=== PATIENT | female | born 1935 | race Caucasian/White ===

== ENCOUNTER 2016-07-10 14:41 | Inpatient (IN) | payer MEDICARE, OTHER ==
[~2016-07-10] VITALS: Ht 170.2 cm; Wt 75.8 kg
[2016-07-10] VITALS (7 sets, daily range): BP systolic 95–107; BP diastolic 38–63; PULSE 65–75; RESP 16–21; O2SAT 96–100
[~2016-07-10 14:41] MED LIST: CHOL10008 PO; DIGO125T73 PO; FOLI1TAB18 PO; FURO40TA4 PO; HYDR-4003 PO; LACT10SO60 PO; LEVO112T3 PO; METF500T4 PO; METH2.5T PO; MIRT30TA6 PO; OMEP40CA36 PO; OXYB5TAB10 PO; PRAV40TA PO; SPIR100T3 PO; TOP100 PO; VENL150T3 PO; VENL75TA87 PO; Vitamin B 12; WARF5TAB7 PO
--- NOTE | 2016-07-10 15:21 | ED.REPORT ---
HPI-General Illness Date of Service Jul 10, 2016 ED Provider: Mark Ray MD Pt is a 80 y/o female w/ a hx of RA, CHF, recurrent UTI's, diabetes, GERD, hyperlipidemia, HTN, presenting to the ED with family due to decreased mental status. Family has noticed a decrease in cognitive ability within the past 2 days along with a productive cough. These symptoms are consistent with her previous episode of pneumonia. She c/o associated mild SOB, generalized weakness.The patient lives with her family. They have been noticing that she has been fixating on objects abnormally with a decrease in concentration. They have also noticed a large amount of weight loss since last May which they attribute to a significantly decreased appetite. They deny fever, recent head injuries, CP. She has no history of stroke. Nursing Notes Stated Complaint: COUGH Chief Complaint: General Complaint Nursing Notes Reviewed: Yes Allergies: Coded Allergies: Penicillins (Verified Allergy, Unknown, 08/30/15) levofloxacin (Verified Allergy, Unknown, 08/30/15) ROTATOR CUFF TEAR Scheduled Alpha Lipoic Acid (Alpha Lipoic Acid) 200 Mg Capsule 200 MG PO TID Amitriptyline (Amitriptyline) 10 Mg Tablet 10 MG PO HS Cholecalciferol (Vitamin D3) (Vitamin D3) 1,000 Unit Tab.chew 1,000 UNIT PO DAILYWL Digoxin (Digoxin) 125 Mcg Tablet 0.1875 MG PO DAILY Folic Acid (Folic Acid) 1 Mg Tablet 1 MG PO TID Furosemide (Furosemide) 40 Mg Tablet 40 MG PO QAM Lactulose (Lactulose) 20 Gm/30 Ml Solution 20 GM PO TID Levothyroxine (Levothyroxine) 200 Mcg Tablet 200 MG PO HS Melatonin/Pyridoxine (Melatonin 3 mg Tablet) 1 Each Tablet 1 EACH PO HS Metformin (Glucophage) 1,000 Mg Tablet 1,000 MG PO BID Metoprolol Succinate ER (Toprol XL) 100 Mg Tabcr 100 MG PO DAILY Oxybutynin Chloride (Oxybutynin Chloride) 5 Mg Tablet 10 MG PO HS Sennosides (Senna Laxative) 25 Mg Tablet 25 MG PO QAM Spironolactone (Spironolactone) 100 Mg Tablet 100 MG PO QAM Sulfamethoxazole/Trimeth 400-80 mg (Bactrim 400-80 mg) 1 Each Tablet 1 TABLET PO HS Venlafaxine ER (Venlafaxine ER) 150 Mg Tab.er.24 150 MG PO DAILY Warfarin Sodium (Warfarin Sodium) 1 Mg Tablet 1.5 MG PO SuTuThuSa Warfarin Sodium (Warfarin Sodium) 1 Mg Tablet 2 MG PO MoWedFri Scheduled PRN oxyCODONE (oxyCODONE) 5 Mg Tablet 2.5-5 MG PO BID PRN PRN For Pain General Time Seen by MD: 14:54 Chief Complaint Other (AMS) Hx Obtained From: Patient, Other family... Arrived By: Wheelchair Sudden in Onset?: No Onset Occurred: 2 days ago Symptom Duration: Since onset Severity: Current: No pain currently Severity: Maximum: No pain Recent Healthcare: Previous diagnosis Similar Sx Previous: Yes Past Medical History Past Medical History Notes: PCP: Dr. Morocho Past Medical History Liver cirrhosis - diabetes related Drop foot Thyroid issues Rheumatoid arthritis Heart failure Chronic UTI's Asymmetrical neuropathy affecting the right leg Reports: Diabetes mellitus, GERD, Hyperlipidemia, Hypertension Past Surgical History Left arm surgery Reports: Cholecystectomy Smoking History Never Smoker Social History Alcohol Use: "Social" Drug Use: Denies drug use Other Social History: Good social support, Lives with children, Local resident Ambulatory Status Walker Review of Systems Full Review of Systems Constitutional: Reports: Fatigue, Recent wt loss, Weakness - generalized, Denies: Chills, Fever Respiratory: Reports: Prod cough, green, Prod cough, yellow, Shortness of breath Cardiovascular: Denies: Chest pain GI: Denies: Abdominal pain, Diarrhea, Nausea, Vomiting Neurologic: Reports: Confusion, Denies: Headache Psychiatric: Reports: Change mental status Complete sys rev & neg: except as marked. Physical Exam Vital Signs Vital Signs Date Time Temp Pulse Resp B/P Pulse Ox O2 Delivery O2 Flow Rate FiO2 07/10/16 14:47 36.3 71 21 107/63 97 Room Air Initial VS: Reviewed, Vital signs normal Head / Eyes: Atraumatic, Normocephalic, PERRL Neck: Supple, Full range of motion Abdomen / GI: Soft, Non-tender, No guarding, No rebound, No distention Extremities: Vascular intact, Neuro intact, No tenderness ENT: Atraumatic, Airway patent, Pharynx NL Mouth: Positive: Mucous membranes dry Respiratory / Chest: Atraumatic, No respiratory distress, No retractions Breath sound mildly diminished bilaterally Breath sounds coarse bilaterally Cardiovascular: Heart rate NL, Heart sounds NL, No gallop, No murmurs, No rubs , Cap refill not delayed, Peripheral circulation NL Heart Rate / Rhythm: Positive: Irregular rhythm Trace pitting edema bilat Neurologic: Oriented X3, Speech NL, No motor deficits, No sensory deficits No pronator drift Interpretation & Diagnostics Lab Results Interpretation Result Diagram: 07/10/16 1525 07/10/16 1525 Test 07/10/16 15:18 07/10/16 15:25 Hold Urine Received (Received) White Blood Count 13.6th/mm3 (3.8-10.1) Red Blood Count 4.10mil/mm3 (3.90-5.20) Hemoglobin 13.8g/dL (12.0-15.6) Hematocrit 41.3% (35.0-46.0) Mean Corpuscular Volume 100.7fL (81-100) Mean Corpuscular Hemoglobin 33.7pg (27.0-35.0) Mean Corpuscular Hemoglobin Concent 33.4% (32.0-37.0) Red Cell Distribution Width 15.1% (12.3-15.4) Platelet Count 111bil/L (150-400) Neutrophils (%) (Auto) 61.0% (40-74) Lymphocytes (%) (Auto) 16.9% (14-46) Monocytes (%) (Auto) 12.6% (4-12) Eosinophils (%) (Auto) 7.5% (0-5) Basophils (%) (Auto) 0.9% (0-3) Prothrombin Time 18.6sec (8.1-12.5) Prothromb Time International Ratio 1.72ratio Sodium Level 129mEq/L (134-144) Potassium Level 6.3mEq/L (3.5-5.2) Chloride Level 87mEq/L (97-108) Carbon Dioxide Level 26mmol/L (18-29) Blood Urea Nitrogen 50mg/dL (8-27) Creatinine 1.03mg/dL (0.57-1.00) Estimat Glomerular Filtration Rate 74mL/min (>59) Glucose Level 161mg/dL (60-99) Lactic Acid Level 5.9mmol/L (0.4-2.0) Calcium Level 11.6mg/dL (8.5-10.1) Magnesium Level 2.2mg/dL (1.6-2.6) Total Bilirubin 1.3mg/dL (0.0-1.2) Aspartate Amino Transf (AST/SGOT) 78U/L (0-50) Alanine Aminotransferase (ALT/SGPT) 55U/L (0-32) Alkaline Phosphatase 132U/L (25-165) Total Protein 8.3g/dL (6.4-8.4) Albumin 3.6g/dL (3.4-5.0) ECG Interpretation ECG Interpretation: Atrial fibrillation rate [address] elevation [address]line ST depression lateral leads Inferior Q waves Compared to prior 08/30/15 - no acute changes present Time: 16:23 Interpreted by: ED physician Normal ECG Interpretation: No acute ischemic changes, Normal axis X-Ray Chest Interpretation Chest Xray Interpretation: IMPRESSION: Bibasilar pneumonia. Continued plain film surveillance is recommended to ensure resolution, and to exclude underlying or central malignancy. Dictated by: Dayna Barrett M.D. on 07/10/2016 at 15:51 Approved by: Dayna Barrett M.D. on 07/10/2016 at 15:52 View: Portable, 1 view Interpretation / Wet Read by: Interpret - Radiologist Re-Eval/Medical Decision Med Decision/Clinical Course Pt is a 80 y/o female w/ a hx of RA, CHF, recurrent UTI's, diabetes, GERD, hyperlipidemia, HTN, presenting to the ED with family due to decreased mental status. Family has noticed a decrease in cognitive ability within the past 2 days along with a productive cough. These symptoms are consistent with her previous episode of pneumonia. She c/o associated mild SOB, generalized weakness.The patient lives with her family. Upon arrival the patient is borderline hypotensive though otherwise afebrile and without tachycardia. The patient is unable to directly provide any history due to her altered mental status. Labs notable as below: CBC: Leukocytosis of 13.6, HCT of 41.3 CMP: Potassium of 6.3, sodium of 129, BUN of 50 and creatinine of 1.03, lactate of 5.9, mildly elevated transaminases X-ray notable as below: Chest x-ray: bibasilar pneumonia EKG was obtained and interpreted by myself as documented above. Given the patient's hyperkalemia I initiated treatment with IV calcium gluconate. Patient underwent aggressive fluid resuscitation in the setting of her significant kidney injury and lactate of 5.9. Close hemodynamic monitoring was maintained. The patient had no significant arrhythmias on monitoring. I expect that her potassium will improve dramatically with aggressive IV fluids and therefore I did not initiate any further immediate treatment for her hyperkalemia. Patient met criteria for community-acquired pneumonia and was treated with ceftriaxone and azithromycin. The patient was discussed with the admitting hospitalist and transferred for further management. Source of Hx: Old records, Family Time of Eval: 15:59 Patient Status: Condition improved Re-Evaluation/Progress Note: Pt rechecked. Pt informed of need for admission. Pt understands and agrees with plan for admission. All questions addressed. Consultation : Consulted With: Hospitalist Call Returned at: 16:05 Manager Consumer: Will see patient, Agrees with eval, Agrees with plan, Accepts admit Counseled Regarding: Diagnosis, Lab results, Need for admission Discharge & Departure Primary Impression: Altered mental state Altered mental status type: transient alteration of awareness Qualified Code : R40.4 - Transient alteration of awareness Additional Impressions: Pneumonia Pneumonia type: due to unspecified organism Laterality: bilateral Lung location: lower lobe of lung Qualified Code: J18.9 - Pneumonia, unspecified organism Generalized weakness Acute kidney injury Prerenal azotemia Dehydration Hyperkalemia Disposition: ADMITTED TO HOSPITAL Discharge Condition All VS Reviewed: Yes Condition: Stable Referrals: Lacey Alexis MD (PCP) Crit Care Except Billable Proc Time Spent: 135-164 minutes Services Performed: Patient management by me, Time spent at bedside, Reviewing test results, Reviewing imaging, Discussing patient care, Documentation in record, Time with fam/surrogate Scribe Attestation Portions of this note were transcribed by Madhu Ceballos. I, Dr. Ray personally performed the history, physical exam and medical decision-making; I reviewed and confirmed the accuracy of the information in the transcribed note. Signed by Bria Grewal, 07/10/16 - 1600 copies to: Lacey Alexis MD, Beck O MD Jul 10, 2016 15:21 MADHU CEBALLOS Jul 10, 2016 15:33
[2016-07-10] MEDS ORDERED: 0.9% Sodium Chloride 1,000 ML IV ONE ×3 (15:32→16:39)
[2016-07-10 15:52] LABS: BASOPHILS % (AUTO) 0.9 % (0-3); EOSINOPHILS % (AUTO) 7.5 % (0-5); MONOCYTES % (AUTO) 12.6 % (4-12); Mean Corpuscular Hemoglobin 33.7 pg (27.0-35.0); Mean Corpuscular Volume 100.7 fL (81-100); Platelet Count 111 bil/L (150-400)
--- NOTE | 2016-07-10 15:53 | DRSVH ---
PROCEDURE: X-RAY CHEST ONE VIEW, PORTABLE ([id number]) INDICATIONS: cough TECHNIQUE: One view of the chest was acquired. COMPARISON: [facility], CR, XR CHEST 2VW, 03/09/2016, 14:40. [facility], CR , XR CHEST 1VW (PORTABLE), 08/30/2015, 20:57. [facility], CR, CHEST 1VW (PORTABLE), 05/19, 15:29. FINDINGS: Surgical changes and devices: None. Lungs and pleura: No pleural effusions or pneumothorax. Moderate patchy bibasilar airspace opacities present. Mediastinum: Mediastinal contours appear normal. Heart size is normal. Bones and chest wall: No suspicious bony lesions. Overlying soft tissues appear unremarkable. IMPRESSION: Bibasilar pneumonia. Continued plain film surveillance is recommended to ensure resolutio n, and to exclude underlying or central malignancy. Dictated by: Dayna Barrett M.D. on 07/10/2016 at 15:51 Approved by: Dayna Barrett M.D. on 07/10/2016 at 15:52
[2016-07-10] MEDS ORDERED: METF1000 PO (16:04)
[2016-07-10] MEDS ORDERED: Azithromycin Inj 500 MG in Dextrose 5% w/Vial Mate 250 ML IV ONE (16:05)
[2016-07-10] MEDS ORDERED: ALPH200C3 PO (16:06)
[2016-07-10] MEDS ORDERED: SENN25TA8 PO (16:08)
[2016-07-10] MEDS ORDERED: MELA1TAB11 PO (16:10)
[2016-07-10] MEDS ORDERED: Peds - CefTRIAXone 40 mg/mL 2,000 MG in Syringe 1 EACH IV ONE (16:10)
[2016-07-10] MEDS ORDERED: SULF1TAB34 PO (16:10)
[2016-07-10] MEDS ORDERED: AMIT10TA6 PO (16:10)
[2016-07-10] MEDS ORDERED: LEVO200T6 PO (16:11)
[2016-07-10] MEDS ORDERED: OXYC5TAB72 PO (16:17)
[2016-07-10] MEDS ORDERED: WARF1TAB6 PO ×2 (16:17)
[2016-07-10] MEDS ORDERED: cefTRIAXone Inj 1,000 MG in Dextrose 5% Minibag Plus 50 ML IV SCH (16:36)
[2016-07-10] MEDS ORDERED: Calcium GLUCOnate 10% (Gm) 1 Gm/10 mL Inj IVPUSH PRN (16:40)
--- NOTE | 2016-07-10 17:13 | PCM.HPMED ---
Subjective Date of Service Jul 10, 2016 Primary Provider: Admitting Physician: Bel Arana MD Primary Care Physician: Lacey Alexis MD Attending Physician: Bel Arana MD Admit Status: From the Emergency Department Chief Complaint: Productive cough, increasing confusion and lethargy History of Present Illness: Has some baseline dementia but increasing confusion and lethargy the last few days, now sometimes incoherent. Maybe some SOB. Occasionally will aspirate with liquids. No fever/chills/sweats, temp normal when tested even when cheeks warm and jennifer. This morning coughed up some thick green mucus. Review of Systems: No pain. Recently constipation for 2 weeks but mineral oil enema 5 days ago then saline enema twice 4 days ago with good results and back to normal BM's ( usually twice daily). No pain, no dysuria. Allergies Coded Allergies: Penicillins (Verified Allergy, Unknown, 08/30/15) levofloxacin (Verified Allergy, Unknown, 08/30/15) ROTATOR CUFF TEAR Home Medications Levothyroxine 200 g daily Metoprolol succinate 100 mg every morning Venlafaxine 150 mg daily Oxybutynin 20 mg each evening Folic acid 1 mg 3 times a day Metformin 100 mg twice a day Digoxin 125 g 1-1/2 tablets daily Warfarin 2 mg on Wednesday and 1.5 mg on the other days Vitamin D thousand units each evening Bactrim 800/160 one half tablet each bedtime Oxycodone 5 mg, half tablet when necessary but used infrequently Tramadol dose uncertain also used infrequently Spironolactone 100 mg each evening Furosemide 40 mg each morning Melatonin 3 mg each bedtime Amitriptyline 10 mg each bedtime Lactulose tid PM Cirrhosis, son states that she was just diagnosed June 04 and they were told it's related to diabetes Ascites and they report an 8 L paracentesis June 09 Chronic atrial fibrillation on chronic anticoagulation Rheumatoid arthritis Osteoarthritis Nephrolithiasis Hypothyroidism Hypertension Hyperlipidemia GERD Diabetes mellitus, type II Depression Peripheral neuropathy with right foot drop Recurrent urinary tract infections Surgical History Tonsillectomy, appendectomy, cholecystectomy, right carpal tunnel release, cubital tunnel release Did have a left ankle fracture in 2016 but not requiring a procedure Family History Father had COPD and related to heart disease at age 75 Mother had type II diabetes and osteoarthritis and of pneumonia at age 85 Sister had type II diabetes and osteoarthritis and recently causes uncertain but it was following hip and shoulder fractures Social History Hx Alcohol Use: Yes (once every few months, very little in the past 2 years) Hx Substance Use: No Hx Tobacco Use: No Smoking Status: Never Smoker Living Arrangement: with Family (her son and daughter are now living with her) Exam Vital Signs Vital Sign - Last Date Time Temp Pulse Resp B/P Pulse Ox O2 Delivery O2 Flow Rate FiO2 07/10/16 14:47 36.3 71 21 107/63 97 Room Air Exam General: Arouses to voice and appears alert, no acute distress. 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, moves left leg slightly when asked to raise it off bed, makes no effort with right (they say this is her usual, she is wheelchair bound and has braces for both legs) Lab and Diagnostics Result Diagram: 07/10/16 1525 07/10/16 1525 Assessment & Plan #Bibasilar pneumonia with reports of possible occasional aspiration - CTX and Zith - Speech therapy eval, in meantime oral intake only while upright with nurse supervision #Probable volume depletion - IVF in ED, will continue with NS - Hold lasix #Hyponatremia - May be related to cirrhosis (recently diagnosed) - reassess after IVF #Hyperkalemia - Hold Spironolactone - Recheck in the am after IVF #Hypercalcemia - Recheck in the am after IVF #Diabetes Mellitus, type 2 - for now hold Metformin, roberto with elevated lactate level - sliding scale Lispro #Chronic A fib with controlled rate - continue digoxin and metoprolol - continue warfarin per steve VTE Prophylaxis: Theraputic Anticoag with Warfarin Resuscitation Status: DNR/DNI:Do Not Resuscitate/Intubate Bel Arana MD Jul 10, 2016 17:13
[2016-07-10 17:25] LABS: APPEARANCE,URINE CLEAR (CLEAR,HAZY); COLOR,URINE YELLOW (YELLOW); OCCULT BLOOD,URINE NEGATIVE (NEGATIVE); UROBILINOGEN,URINE NORMAL (NORMAL)
[2016-07-10] MEDS ORDERED: Alum-Mag Hydrox-Simeth 30 mL Suspension PO PRN (17:30)
[2016-07-10] MEDS ORDERED: Polyethylene Glycol (PEG) 17 Gm Powder PO PRN (17:30)
[2016-07-10] MEDS ORDERED: Albuterol 2.5 mg/3 mL Inhalation Solution NEB PRN (17:30)
[2016-07-10] MEDS ORDERED: cefTRIAXone 2,000 mg/D5W 50 mL IV Minibag Plus IV ONE ×2 (17:40)
[2016-07-10] MEDS ORDERED: Glucose 40% Oral Gel 15 Gm Tube PO PRN (17:45)
[2016-07-10 18:41] LABS: INR 1.72 ratio
--- NOTE | 2016-07-10 19:22 | NUR ---
Arrived To [facility] – [place]: Patient arrived from the ER to [facility] – [place] at 1835. Patient was placed on Telemetry. Antibiotics were started with IV fluids. Patient is alert and oriented to self. Patient is unable to move her right leg. Patients upper right buttock has an excoriated area that is surface abrasion .Calmoseptine was applied to area and patient is placed off her buttock propped on a pillow. Patient was oriented to caregivers call light and room. Report was given to oncoming shift.
[2016-07-10] MEDS ORDERED: ALPHA LIPOIC ACID 200 MG PO SCH (20:30)
[2016-07-10] MEDS ORDERED: Trimethoprim-Sulfa 160 mg-800 mg Tablet PO SCH (21:00)
[2016-07-10] MEDS: Insulin LISPRO 300 Unit/3 mL Inj SUBQ SCH (21:21)
[2016-07-10] MEDS: Lactulose 20 Gm/30 mL 30 mL Syrup PO SCH (21:48)
--- NOTE | 2016-07-10 21:51 | PCM.CONPHA ---
Subjective Date of Service: Jul 10, 2016 Productive cough, increasing confusion and lethargy Reason for Pharmacy Consult: Anticoagulation Management Objective Vital Signs Date Time Temp Pulse Resp B/P Pulse Ox O2 Delivery O2 Flow Rate FiO2 07/10/16 20:39 36.6 65 16 95/57 98 Room Air 07/10/16 20:30 72 07/10/16 19:06 68 07/10/16 18:41 36.8 70 18 96/60 96 Room Air 07/10/16 18:27 36.3 75 16 107/38 100 Room Air 07/10/16 17:48 75 16 107/38 100 Room Air 07/10/16 14:47 36.3 71 21 107/63 97 Room Air Weight (Kilograms): 73.400 Height (Feet): 5 Height (Inches): 7.00 Test 07/10/16 15:18 07/10/16 15:25 07/10/16 17:16 07/10/16 20:05 Hold Urine Received (Received) White Blood Count 13.6th/mm3 (3.8-10.1) Red Blood Count 4.10mil/mm3 (3.90-5.20) Hemoglobin 13.8g/dL (12.0-15.6) Hematocrit 41.3% (35.0-46.0) Mean Corpuscular Volume 100.7fL (81-100) Mean Corpuscular Hemoglobin 33.7pg (27.0-35.0) Mean Corpuscular Hemoglobin Concent 33.4% (32.0-37.0) Red Cell Distribution Width 15.1% (12.3-15.4) Platelet Count 111bil/L (150-400) Neutrophils (%) (Auto) 61.0% (40-74) Lymphocytes (%) (Auto) 16.9% (14-46) Monocytes (%) (Auto) 12.6% (4-12) Eosinophils (%) (Auto) 7.5% (0-5) Basophils (%) (Auto) 0.9% (0-3) Prothrombin Time 18.6sec (8.1-12.5) Prothromb Time International Ratio 1.72ratio Sodium Level 129mEq/L (134-144) Chloride Level 87mEq/L (97-108) Carbon Dioxide Level 26mmol/L (18-29) Blood Urea Nitrogen 50mg/dL (8-27) Creatinine 1.03mg/dL (0.57-1.00) Estimat Glomerular Filtration Rate 74mL/min (>59) Glucose Level 161mg/dL (60-99) Calcium Level 11.6mg/dL (8.5-10.1) Magnesium Level 2.2mg/dL (1.6-2.6) Total Bilirubin 1.3mg/dL (0.0-1.2) Aspartate Amino Transf (AST/SGOT) 78U/L (0-50) Alanine Aminotransferase (ALT/SGPT) 55U/L (0-32) Alkaline Phosphatase 132U/L (25-165) Total Protein 8.3g/dL (6.4-8.4) Albumin 3.6g/dL (3.4-5.0) Urine Color Yellow (YELLOW) Urine Appearance Clear (CLEAR,HAZY) Urine pH 6.0 (5.0-8.0) Urine Specific [place] 1.010 (1.003-1.035) Urine Protein Negativemg/dL (NEG,TRACE) Urine Glucose (UA) Negativemg/dL (NEGATIVE) Urine Ketones Negativemg/dL (NEGATIVE) Urine Occult Blood Negative (NEGATIVE) Urine Nitrite Negative (NEGATIVE) Urine Bilirubin Negative (NEGATIVE) Urine Urobilinogen Normalmg/dL (NORMAL) Urine Leukocyte Esterase Negative (NEGATIVE) Urine RBC 0-2/hpf (0-2) Urine WBC 0-5/hpf (0-5) Urine Epithelial Cells Occasional/hpf (NONE-MOD) Urine Crystals None seen (NONE SEEN) Urine Bacteria None/hpf (NONE-FEW) Urine Hyaline Casts 5/20/lpf (NONE) Urine Granular Casts None seen (NONE SEEN) Urine Waxy Casts None seen (NONE SEEN) Urine Red Blood Cell Casts None seen (NONE SEEN) Urine White Blood Cell Casts None seen (NONE SEEN) Urine Mucus None seen (None Seen) Urine Trichomonas None seen (NONE SEEN) Urine Yeast None (NONE SEEN) Urinalysis Comment None Urine Culture Reflexed Not indicated Potassium Level 5.5mEq/L (3.5-5.2) Lactic Acid Level 4.5mmol/L (0.4-2.0) Assessment/Plan Assessment/Plan Warfarin per Rx Indication: A-Fib INR today 1.72; Goal 2-3 Home dose: 2mg M/W/, 1.5mg SuTuThSa Uncertain if pt has taken today's dose, since INR approaching therapeutic, no dose given tonight Daily INR ordered Rocco Hein PharmD Jul 10, 2016 21:51
[2016-07-10] MEDS: 0.9% Sodium Chloride 1,000 ML IV SCH (21:53)
[2016-07-11] VITALS (8 sets, daily range): BP systolic 96–112; BP diastolic 56–62; PULSE 68–85; RESP 18–22; O2SAT 92–98
[2016-07-11 06:14] LABS: Mean Corpuscular Hemoglobin 33.2 pg (27.0-35.0)
[2016-07-11 06:26] LABS: INR 1.76 ratio
[2016-07-11] MEDS: Insulin LISPRO 300 Unit/3 mL Inj SUBQ SCH ×4 (08:00→21:45)
--- NOTE | 2016-07-11 08:42 | PCM.PHAPRO ---
Progress Productive cough, increasing confusion and lethargy Date Jul 11-Jun INR 1.72 1.76 INR change 0.04 Warf Dose NONE 3 Rui Haley Jul 11, 2016 08:42
--- NOTE | 2016-07-11 09:09 | NUR ---
Evaluation completed. Please go to "Notes" then click on "Assessments and Notes" (bottom left corner of screen). Then select appropriate discipline tab on top of screen.
[2016-07-11] MEDS: Azithromycin Inj 500 MG in Dextrose 5% w/Vial Mate 250 ML IV SCH (10:01)
[2016-07-11] MEDS: MeTOProlol XL 50 mg ER24 Tablet PO SCH (10:07)
[2016-07-11] MEDS: Venlafaxine XR 75 mg ER24 Capsule PO SCH (10:07)
[2016-07-11] MEDS: 0.9% Sodium Chloride 1,000 ML IV SCH ×2 (10:11→18:28)
[2016-07-11] MEDS: Lactulose 20 Gm/30 mL 30 mL Syrup PO SCH ×4 (10:21→21:44)
[2016-07-11] MEDS ORDERED: Insulin Human REGular 300 Unit/3 mL Inj IV SCH (12:15)
--- NOTE | 2016-07-11 13:59 | NUR ---
K+ Level: Patients K+ level is 5.3. Per MD orders Humulin R and D 50 1 syringe was given to bring the K+ level down. Patients blood sugar was 185 before giving the d 50 and Humulin R.
--- NOTE | 2016-07-11 15:08 | PCM.PNMED ---
Subjective Date of Service Jul 11, 2016 Abraham Johnson is not able to provide medical hx this morning due to continued altered mental status. Per review of outpatient records, she has cirrhosis due to probable BOSS and had 7.8L of peritoneal fluid removed on 06/09/17. She has reportedly had dysphagia and constipation and a CT showing ascending colon abnormality for which she was scheduled for an outpatient colonoscopy. She has had worsening dysphagia for which an outpatient EGD was ordered by Dr Dietz when he saw her in clinic on 07/03/16. Her son, Matt, was present this afternoon and he states that her health has been declining for the 10months and that she has been more and more dependent on her son and daughter with whom she lives for assistance with ADLs for the past 2 months. Per her son, she has lost 40lb in the past 6 weeks. She had a ground level fall when standing to use a commode a little more than a week ago and her function has declined since the fall as well. He states that she was adamant after the fall that she did not have any pain other than a headache which she stopped complaining of after her daughter gave her Tylenol. Exam Vital Signs Vital Sign - Last Date Time Temp Pulse Resp B/P Pulse Ox O2 Delivery O2 Flow Rate FiO2 07/11/16 13:16 36.7 68 22 112/56 96 Room Air Intake and Output 07/10/16 07/10/16 07/11/16 Cumulative From/Thru 15:00 23:00 07:00 07/10/16 15:25 - 07/11/16 06:03 Intake Total 1000 ml 0 ml 1000 ml Output Total 1550 ml 1550 ml Balance 1000 ml -1550 ml -550 ml Intake Oral 0 ml 0 ml IV Total 1000 ml 1000 ml Output Urine Total 1550 ml 1550 ml # Bowel Movements 0 0 Exam General: Laying in bed awake without acute distress. Not oriented to person, place, or time. Unable to cooperate, not following commands. HEENT: Sclera anicteric. PERRLA Cardiac: Irregularly irregular without murmur, rub, or gallop. Lungs: No wheezes, rales, or rhonchi with auscultation, however she does not take any deep breaths during the examination. Abdomen: Soft, nondistended and nontender with normoactive bowel tones Extremities: No clubbing ,edema, or cyanosis bilaterally Neuro: Moves all 4 extremities spontaneously with ease. No facial droop. Normal muscle tone and bulk. 2+ patellar reflexes b/l. Lab and Diagnostics INR 1.76 Result Diagram: 07/11/1654607/11/16546 Assessment & Plan Elizabeth is a 80yo female with recently diagnosed cirrhosis and chronic atrial fibrillation who was brought to [facility] with 2 days of altered mental status and cough. CXR is indicative of bibasilar pneumonia. 1. Altered mental status - Possible underlying dementia with recent GLF - Suspect this is worsened by pneumonia - CT head ordered given her ground level fall at home - May be secondary to infection though she may have an elevated ammonia given her cirrhosis - Digoxin level is in the therapeutic range, unlikely to be the etiology for her confusion 2. Bibasilar pneumonia, community acquired, present on admission - Strep pneumoniae and legionella urine antigens ordered - Sputum culture - Continue Azithromycin and ceftriaxone 3. Cirrhosis, present on admission - Per outpatient records, this is thought to be due to BOSS - Ammonia level ordered given #1 above - Continue lactulose at home dosing - Monitor LFTs 4. Chronic atrial fibrillation, present on admission, stable - Continue digoxin at this time - Warfarin per pharmacy for anticoagulation if CT head is okay - Warfarin is currently subtherapeutic 5. Hyperkalemia, present on admission - Hold home spironolactone dosing - D50 with 10units of regular insulin - Recheck potassium level 6. Dysphagia, chronic - Worsening over the past year per the patient's son - Concern that this could be neurologic or malignant in nature - Outpatient EGD with Dr Dietz has been scheduled - Per speech therapy, nectar thickened liquids are pureed foods with assistance , must be upright for oral intake 7. Diabetes mellitus type 2 with peripheral neuropathy, not on home insulin - Blood glucose monitoring - Correctional insulin Disposition: Will order a physical therapy evaluation once her mental status is closer to baseline to determine if home health or SNF is appropriate. VTE Mechanical Devices: Intermittant Pneumatic CD Resuscitation Status: DNR/DNI:Do Not Resuscitate/Intubate Attending Statement The patient was seen and examined together with Dr. Kumar on 07/11/2016 and I agree with the findings, assessment and plan as stated above. Nguyen Kumar DO Jul 11, 2016 14:00 Aaron Fenton MD Jul 12, 2016 13:13
--- NOTE | 2016-07-11 16:05 | DRSVH ---
PROCEDURE: CT BRAIN WITHOUT CONTRAST ([id number]) INDICATIONS: Altered mental status TECHNIQUE: Noncontrast 4.5 mm thick angled axial sections acquired from the foramen magnum to the vertex, with c oronal reformats. COMPARISON: None. FINDINGS: Image quality: Excellent. CSF spaces: Basal cisterns are patent. No extra-axial fluid collections. The ventricles are symmet julissa in size and shape. Brain: No intracranial bleeds or masses. There is moderate cerebral volume loss for age, with resul tant ventricular and sulcal prominence. There are moderate periventricular and deep white matter chr onic small vessel ischemic changes. There is intracranial internal carotid artery atherosclerosis. Skull and face: Calvarium and visualized facial bones appear intact, without suspicious lesions. Sinuses: Visualized sinuses and mastoids are clear. IMPRESSION: 1. No acute intracranial abnormalities. 2. Cerebral volume loss and chronic microvascular ischemic changes. Dictated by: Deniz Ibanez M.D. on 07/11/2016 at 16:02 Approved by: Deniz Ibanez M.D. on 07/11/2016 at 16:04
--- NOTE | 2016-07-11 16:18 | NUR ---
Social Work-initial assessment: Data:See initial assessment. Pt is a 80 y/o female who was admitted on 07/10/16 for AMS per H&P. Pt's insurance is [employer] and PCP is Lacey Alexis Md. EMR Reviewed. Pt's readmission score is 4. Pt has baseline dementia, SW called pt's son Matt to discuss pt, SW role explained. Pt resides at home with son and his family who provide 24/7 care for pt. Pt is immobile at baseline and son uses transfer board to move pt from bed to w/c. Pt has no SNF history,but has had HH in the past, son cannot remember name. Pt has no group home care or VA benefits. SW discussed DPOA/ advanced directive, son states they have completed this, SW encouraged a copy to be brought in the hospital. SW discussed HH and son does not feel like they will need this. Son states he provides transportation at discharge. SW provided phone number and plan on white board in room. No anticipated discharge needs. SW will continue to follow if needs arise. Assessment:Pt who has 24/7 care at home. Plan:Pt to discharge home with son to provide 24/7 care when medically stable. No anticipated discharge needs. SW will continue to follow if needs arise. LI Pineda Addendum: 07/11/16 at 1623 by TEODORA CHESTER SS Amended: Links added.
[2016-07-11] MEDS: cefTRIAXone 2,000 mg/D5W 50 mL IV Minibag Plus IV SCH ×2 (17:08)
--- NOTE | 2016-07-11 18:41 | NUR ---
Potassium Level/mentation: Patients potassium level came down from 5.3 to 4.6 after she received the D 50 and Humulin R 10 units IV . Patient is able to converse appropriately with nursing staff members.(her amonia level is also elevated at 176) Patient recieved lactulose x2 as ordered today.
[2016-07-12] VITALS (7 sets, daily range): BP systolic 99–113; BP diastolic 59–67; PULSE 73–88; RESP 16–20; O2SAT 95–97
[2016-07-12] MEDS: 0.9% Sodium Chloride 1,000 ML IV SCH ×2 (04:42→19:58)
--- NOTE | 2016-07-12 05:11 | NUR ---
shift note Patient experiencing redness and soreness around her coccyx area. Repositioning patient q 2 hours, and applying calmoseptine to area. Applied a dressing to prevent further skin breakdown. No open areas noticed at this time. Patient bed alarm on and pt call light is in reach.
[2016-07-12 06:28] LABS: BASOPHILS % (AUTO) 0.9 % (0-3); EOSINOPHILS % (AUTO) 8.4 % (0-5); MONOCYTES % (AUTO) 13.1 % (4-12); Mean Corpuscular Volume 99.1 fL (81-100); NEUTROPHILS % (AUTO) 60.1 % (40-74); Platelet Count 85 bil/L (150-400)
[2016-07-12 06:37] LABS: INR 1.71 ratio
--- NOTE | 2016-07-12 07:44 | PCM.PHAPRO ---
Progress Productive cough, increasing confusion and lethargy Date Jul 11-Jul 12-Jun INR 1.72 1.76 1.71 INR change 0.04 -0.05 Warf Dose NONE 3 3 Rui Haley Jul 12, 2016 07:44
[2016-07-12] MEDS: Insulin LISPRO 300 Unit/3 mL Inj SUBQ SCH ×4 (08:00→20:15)
[2016-07-12] MEDS: Azithromycin Inj 500 MG in Dextrose 5% w/Vial Mate 250 ML IV SCH (08:49)
[2016-07-12] MEDS: MeTOProlol XL 50 mg ER24 Tablet PO SCH (08:50)
[2016-07-12] MEDS: Venlafaxine XR 75 mg ER24 Capsule PO SCH (08:50)
[2016-07-12] MEDS: Lactulose 20 Gm/30 mL 30 mL Syrup PO SCH ×4 (09:05→20:15)
--- NOTE | 2016-07-12 11:10 | NUR ---
LANCE completed with kathy Gutierrez via Phone. LI Pineda
[2016-07-12] MEDS: cefTRIAXone 2,000 mg/D5W 50 mL IV Minibag Plus IV SCH ×2 (16:20)
--- NOTE | 2016-07-12 16:37 | PCM.PNMED ---
Subjective Date of Service Jul 12, 2016 Subjective No overnight events. Today, she continues to be mentally altered. AOx1. Thinks she's at home, mumbles. No bowel movement over yesterday and overnight. Patient is on lactulose 20mg QID Exam Vital Signs Vital Sign - Last Date Time Temp Pulse Resp B/P Pulse Ox O2 Delivery O2 Flow Rate FiO2 07/12/16 15:37 36.8 79 16 113/62 97 Room Air Intake and Output 07/11/16 07/11/16 07/12/16 Cumulative From/Thru 15:00 23:00 07:00 07/10/16 15:25 - 07/12/16 05:13 Intake Total 717 ml 872 ml 0 ml 2589 ml Output Total 650 ml 580 ml 2780 ml Balance 717 ml 222 ml -580 ml -191 ml Intake Oral 200 ml 0 ml 200 ml IV Total 717 ml 672 ml 2389 ml Output Urine Total 650 ml 580 ml 2780 ml # Bowel Movements 0 1 1 Exam Gen: Lying comfortably at 30degree head tilt HEENT: PERRLA, Anicteric sclerae, moist conjunctivae Neck: supple, no JVD Cardio: irregular irregular rate/rhythm, no murmurs, rubs, or gallops appreciated Pulm: b/l air sound, no crackles, wheezes, or rhonchi. Normal respiratory effort with no use of accessory muscles. Abd: positive bowel tone. Soft, nontender, nondistended. Extremities: No clubbing, cyanosis, edema, or lymphadenopathy appreciated. Skin: Normal temperature, turgor, and texture; no rash, ulcers, or subcutaneous nodules appreciated. Neuro: Cranial nerves grossly intact. moving equally on all four extremities. Psyc: Normal mood and affect. AoX3 IVs and Medications IV Fluids NS 80cc/hr Medications Reviewed: Medications were reviewed in detail Lab and Diagnostics Result Diagram: 07/12/1660407/12/16 06 Assessment & Plan Elizabeth is a 80yo female with recently diagnosed cirrhosis and chronic atrial fibrillation who was brought to [facility] with 2 days of altered mental status and cough. CXR is indicative of bibasilar pneumonia. 1. Altered mental status - Possible underlying dementia with recent GLF - Suspect this is worsened by pneumonia - CT head ordered given her ground level fall at home - May be secondary to infection though she may have an elevated ammonia given her cirrhosis - Digoxin level is in the therapeutic range, unlikely to be the etiology for her confusion 2. Bibasilar pneumonia, community acquired, present on admission - Strep pneumoniae and legionella urine antigens ordered - Sputum culture - Continue Azithromycin and ceftriaxone 3. Cirrhosis, present on admission - Per outpatient records, this is thought to be due to BOSS - Ammonia level ordered given #1 above - Continue lactulose at home dosing. add Rifaximin - Monitor LFTs 4. Chronic atrial fibrillation, present on admission, stable - Continue digoxin at this time - Warfarin per pharmacy for anticoagulation if CT head is okay - Warfarin is currently subtherapeutic 5. Hyperkalemia, present on admission - Hold home spironolactone dosing - D50 with 10units of regular insulin - Recheck potassium level 6. Dysphagia, chronic - Worsening over the past year per the patient's son - Concern that this could be neurologic or malignant in nature - Outpatient EGD with Dr Dietz has been scheduled - Per speech therapy, nectar thickened liquids are pureed foods with assistance , must be upright for oral intake 7. Diabetes mellitus type 2 with peripheral neuropathy, not on home insulin - Blood glucose monitoring - Correctional insulin Disposition: Will order a physical therapy evaluation once her mental status is closer to baseline to determine if home health or SNF is appropriate. VTE Mechanical Devices: Intermittant Pneumatic CD Resuscitation Status: DNR/DNI:Do Not Resuscitate/Intubate Attending Statement The patient was seen and examined together with Dr. Otis Rosado on 07/12/2016 and I have added additional information to the note above Otis Rosado DO Jul 12, 2016 16:37 Aaron Fenton MD Jul 21, 2016 10:53
--- NOTE | 2016-07-12 19:17 | NUR ---
Bowel Movements: Patient has had one soft formed BM today. Her lactulose was given as prescribed. Senna was given this morning also. Patient continues to be mildly confused. Alert and oriented to self but hears her family in "the other room" when they are not there.
[2016-07-13 00:41] VITALS: BP 106/64; PULSE 83; RESP 18; O2SAT 95
--- NOTE | 2016-07-13 02:03 | NUR ---
Mentation, BM: Pt alert and oriented to self only. Was calling out for family, telling staff she has to "get out of here now". Did have a small soft formed BM on the bedpan prior to bedtime. Pt has been turned and changed every couple of hours. Unable to sleep until after the 0100 turn; warm blanket placed on pt and she has thus far slept for about 1 1/2 hours.
[2016-07-13 05:59] VITALS: BP 105/62; PULSE 86; RESP 20; O2SAT 98
[2016-07-13] MEDS: Lactulose 20 Gm/30 mL 30 mL Syrup PO SCH ×5 (06:07→20:10)
[2016-07-13 06:39] LABS: BASOPHILS % (AUTO) 0.6 % (0-3); EOSINOPHILS % (AUTO) 7.2 % (0-5); MONOCYTES % (AUTO) 11.6 % (4-12); Mean Corpuscular Hemoglobin 33.9 pg (27.0-35.0); Mean Corpuscular Volume 100.8 fL (81-100); NEUTROPHILS % (AUTO) 67.2 % (40-74); Platelet Count 79 bil/L (150-400)
[2016-07-13 06:47] LABS: INR 2.29 ratio
[2016-07-13] MEDS: Insulin LISPRO 300 Unit/3 mL Inj SUBQ SCH ×4 (07:19→22:00)
[2016-07-13] MEDS: Azithromycin Inj 500 MG in Dextrose 5% w/Vial Mate 250 ML IV SCH (08:22)
[2016-07-13] MEDS: MeTOProlol XL 50 mg ER24 Tablet PO SCH (08:24)
[2016-07-13] MEDS: Venlafaxine XR 75 mg ER24 Capsule PO SCH (08:24)
[2016-07-13] MEDS: 0.9% Sodium Chloride 1,000 ML IV SCH ×3 (10:38→20:03)
[2016-07-13 10:54] VITALS: BP 111/65; PULSE 72; RESP 18; O2SAT 96
[2016-07-13 11:32] VITALS: PULSE 87
--- NOTE | 2016-07-13 12:43 | PCM.PNMED ---
Subjective Date of Service Jul 13, 2016 Subjective Elizabeth has an infrequent cough. She continues to have firm stool despite lactulose use. Her daughter, Yuliya, came to visit late this morning and she states that the patient is not yet at her baseline mental status as she is easily confused, but she is close to her baseline. Exam Vital Signs Vital Sign - Last Date Time Temp Pulse Resp B/P Pulse Ox O2 Delivery O2 Flow Rate FiO2 07/13/16 11:32 87 07/13/16 10:54 36.9 18 111/65 96 Room Air Intake and Output 07/12/16 07/12/16 07/13/16 Cumulative From/Thru 15:00 23:00 07:00 07/10/16 15:25 - 07/13/16 05:59 Intake Total 75 ml 779 ml 3443 ml Output Total 625 ml 3405 ml Balance -550 ml 779 ml 38 ml Intake Oral 75 ml 275 ml IV Total 779 ml 3168 ml Output Urine Total 625 ml 3405 ml # Bowel Movements 0 1 Exam General: Laying in bed awake without acute distress. Oriented to person and place, not to date or time of year. Requires frequent redirection in order to cooperate, but is pleasant. HEENT: Sclera anicteric. PERRLA Cardiac: Irregularly irregular without murmur, rub, or gallop. Lungs: Moderate inspiratory effort. No wheezes, rales, or rhonchi with auscultation.. Abdomen: Soft, nondistended and nontender with normoactive bowel tones Extremities: No clubbing ,edema, or cyanosis bilaterally. SCDs on the bilateral lower extremities : Cason catheter in place draining translucent yellow urine Neuro: Moves all 4 extremities spontaneously against gravity with ease. No facial droop or tongue deviation. Normal muscle tone and bulk. 2+ patellar reflexes b/l. Lab and Diagnostics INR 2.28 AST 67 ALT 44 Result Diagram: 07/13/1661207/13/16612 Assessment & Plan Elizabeth is a 80yo female with recently diagnosed cirrhosis and chronic atrial fibrillation on warfarin who was brought to [facility] with 2 days of altered mental status and cough. CXR is indicative of bibasilar pneumonia. 1. Altered mental status, present on admission, improved - Suspect underlying dementia worsened by pneumonia - Possible hepatoencephalopathy with elevated ammonia though a baseline ammonia level is not known - CT head with infarct or hemorrhage - Digoxin level is in the therapeutic range, unlikely to be the etiology for her confusion 2. Bibasilar pneumonia, community acquired, present on admission - Strep pneumoniae and legionella urine antigen negative - Sputum culture without growth thus far - Continue Azithromycin and ceftriaxone 3. Cirrhosis, present on admission - Per outpatient records, this is thought to be due to BOSS - Continue lactulose QID and Rifaximin - Monitor LFTs 4. Chronic atrial fibrillation, present on admission, stable - Continue digoxin and metoprolol at home dosing - Warfarin per pharmacy for anticoagulation, currently therapeutic INR - Telemetry 5. Dysphagia, chronic - Worsening over the past year per the patient's son - Concern that this could be neurologic or malignant in nature - Outpatient EGD with Dr Dietz has been scheduled for 07/21/16 - Speech pathology to reevaluate the patient given that her mental status has improved 6. Diabetes mellitus type 2 with peripheral neuropathy, not on home insulin - Blood glucose monitoring - Correctional insulin 7. Hyperkalemia, present on admission, resolved - D50 with 10units of regular insulin was given on 07/11/16 and her potassium level has been normal since that time - Monitor 8. Hypothyroidism, chronic - TSH and free T4 levels ordered - Continue home levothyroxine dosing at this time 9. Constipation, chronic and ongoing - Firm stools despite lactulose QID - Scheduled docusate BID started today - Outpatient colonoscopy to be done on 07/21/16 for further evaluation, this was scheduled previous to this hospitalization 10. Depression, chronic and presumed stable - Continue home venlafaxine dosing Disposition: Will order a physical therapy evaluation once her mental status is closer to baseline to determine if home health or SNF is appropriate. Anticipate discharge in approximately 2 days. VTE Prophylaxis: Theraputic Anticoag with Warfarin VTE Mechanical Devices: Intermittant Pneumatic CD Resuscitation Status: DNR/DNI:Do Not Resuscitate/Intubate Time spent 25 minutes Attending Statement I have seen and evaluated patient at bedside in addition to directly supervised care provided by resident physician. I agree with above documentation. Nguyen Kumar DO Jul 13, 2016 12:43 Kelvin Mc DO Jul 14, 2016 08:09
--- NOTE | 2016-07-13 13:12 | NUR ---
Wound Care [facility] Received evaluation order for wound to sacrum/buttocks. Patient sleeping soundly throughout evaluation. Only wakes briefly during turns. Patient noted with Stage I non-blanchable red area to sacrum/buttocks measuring 10cm W x 7cm L. Patient with only one small open area to right side of ulcer measuring approx 0.2cmw x 0.2cmL with scant bloody drainage. Wound from open and flaking dry skin rather than pressure related skin breakdown. Cleaned area with normal saline and patted dry. Applied Calmoseptine to involved skin, covered with sacral Mepilex. Patient with severely dry skin throughout buttocks and legs, worst to feet. Patient with red area to left lateral foot, measuring 0.3cm L x 0.5cm W, that appears to be blood-blister. Applied moisturizing cream to chava feet. Patient on P500 ANNALEE bed. Recommend q2 hour turning schedule to decrease pressure to buttocks and sacrum. Nursing to change dressing q48 hours and as needed for soiling. Wound care to follow as needed.
--- NOTE | 2016-07-13 14:37 | PCM.PHAPRO ---
Progress Productive cough, increasing confusion and lethargy DATE Jul 13-Jun INR 1.71 2.29 CHANGE -0.05 0.58 DOSE 3 1 Rui Haley Jul 13, 2016 14:37
--- NOTE | 2016-07-13 14:57 | NUR ---
Social Work-readiness for discharge: Data:EMR reviewed. Pt is on day 3 of hospitalization for AMS per H&P. Pt is not medically stable, anticipate possibly tomorrow. Pt resides at home with son who provides 24/7 care for pt. Son uses slide board at baseline and plans on having pt return home with him at discharge. Pt's son to provide transport. No anticipated discharge needs. SW will continue to follow if needs arise. Assessment:Pt who is independent at baseline. Plan:Pt to discharge home when medically stable with 24/7 care. No anticipated discharge needs. SW will continue to follow if needs arise. LI Pineda
--- NOTE | 2016-07-13 15:00 | NUR ---
Restless Pt restless, picking at sheets, pulled out IV, pulled out villanueva, pulling at tele cords. notified.
[2016-07-13 15:27] VITALS: BP 121/70; PULSE 95; RESP 20; O2SAT 97
--- NOTE | 2016-07-13 16:12 | NUR ---
NUTRITION ASSESSMENT: ASSESS: 80 YO female admitted for altered mental status and pneumonia. Pt has been on a stimulation diet x 3 days only taking in bites. ST eval has been reordered. PMHx: Dementia, chronic/worsening dysphagia, cirrhosis, ascites w/recent paracentesis, a-fib, rheumatoid arthritis, HTN, GERD, DM type 2, Depression, recurrent UTI. LABS: Reviewed. Glu 131, Alb 2.9. MEDS: Reviewed. GI: BM x 1 (07/12) CURRENT WT: 76.2 kg. Admit wt: 73.4 kg. DIET: Stimulation, Honey thick by tsp only. PO intake bites x 3 days. EST. NEEDS: 7861-1525 kcals (25-30 kcals/kg BW), 90-110 g protein (1.2-1.5 g/kg BW) NUTRITION DIAGNOSIS: 1.) Chewing / Swallowing difficulties related to chronic / worsening dysphagia as evidenced by current need for stimulation diet only x 3 days, ST following. 2.) Inadequate oral intake related to decreased ability to consume sufficient energy as evidenced by current stimulation diet x 3 days. NUTRITION INTERVENTION: 1.) Continue to advance diet as able per ST recommendations. 2.) Consider nutrition support if diet is unable to be advanced and well tolerated in 1-2 days and nutrition support is consistent with pt plan of care. MONITOR / EVAL: Diet advancement / tolerance, labs, nutritional status, POC Follow per high nutritional risk guidelines.
[2016-07-13] MEDS: cefTRIAXone 2,000 mg/D5W 50 mL IV Minibag Plus IV SCH ×2 (17:07)
[2016-07-13 20:00] VITALS: BP 106/76; PULSE 75; PULSE 87; RESP 20; O2SAT 98
[2016-07-14] VITALS (8 sets, daily range): BP systolic 103–133; BP diastolic 61–74; PULSE 70–93; RESP 16–20; O2SAT 96–99
[2016-07-14] MEDS: 0.9% Sodium Chloride 1,000 ML IV SCH (06:15)
[2016-07-14] MEDS: Lactulose 20 Gm/30 mL 30 mL Syrup PO SCH ×4 (06:15→21:05)
--- NOTE | 2016-07-14 06:23 | NUR ---
Mentation / Pt remains confused and disoriented. Pt requesting to go home and get out of here. VSS. Pt did not void. Bladder scan showed 370. I&O cath applied per order. Obtained 600 cc. No BM during this shift. No overt complications noted.
[2016-07-14 07:02] LABS: INR 3.26 ratio
[2016-07-14] MEDS: Insulin LISPRO 300 Unit/3 mL Inj SUBQ SCH ×4 (07:47→21:05)
[2016-07-14] MEDS: Azithromycin Inj 500 MG in Dextrose 5% w/Vial Mate 250 ML IV SCH (09:24)
[2016-07-14] MEDS: Venlafaxine XR 75 mg ER24 Capsule PO SCH (09:25)
[2016-07-14] MEDS: MeTOProlol XL 50 mg ER24 Tablet PO SCH (09:25)
--- NOTE | 2016-07-14 11:39 | NUR ---
Evaluation completed. Please go to "Notes" then click on "Assessments and Notes" (bottom left corner of screen). Then select appropriate discipline tab on top of screen.
--- NOTE | 2016-07-14 13:13 | NUR ---
Mobility/Mentation Pt confused, sometimes yelling, other times with confused conversation, "I want to ." Pt able to work with phys therapy, able to sit at the edge of the bed for about 5 min but tired out very easily. Patient requires max assist and PT recommends SNF placement at this time. Speech therapy was in to see pt and was able to advance her diet from stim to puree/nectar thick. Pt quiet most of the time, turned Q2hrs in bed. Cont to monitor.
--- NOTE | 2016-07-14 13:54 | PCM.PNMED ---
Subjective Date of Service Jul 14, 2016 Subjective Elizabeth has been a bit agitated today stating "I've been here for 30 years already, you need to let me go." Exam Vital Signs Vital Sign - Last Date Time Temp Pulse Resp B/P Pulse Ox O2 Delivery O2 Flow Rate FiO2 07/14/16 10:10 93 07/14/16 04:00 36.9 18 133/72 99 Room Air Intake and Output 07/13/16 07/13/16 07/14/16 Cumulative From/Thru 15:00 23:00 07:00 07/10/16 15:25 - 07/14/16 06:16 Intake Total 100 ml 302 ml 1066 ml 4911 ml Output Total 500 ml 300 ml 600 ml 4805 ml Balance -400 ml 2 ml 466 ml 106 ml Intake Oral 100 ml 100 ml 150 ml 625 ml IV Total 202 ml 916 ml 4286 ml Output Urine Total 500 ml 300 ml 600 ml 4805 ml # Voids 1 1 # Bowel Movements 2 0 3 Exam General: Laying in bed awake without acute distress. Oriented to person and place, not to date or time of year. Uncooperative. HEENT: Sclera anicteric. PERRLA Cardiac: Irregularly irregular without murmur, rub, or gallop. Lungs: Moderate inspiratory effort. No wheezes, rales, or rhonchi with auscultation.. Abdomen: Soft, nondistended and nontender with normoactive bowel tones Extremities: No clubbing ,edema, or cyanosis bilaterally. SCDs on the bilateral lower extremities Neuro: Moves all 4 extremities spontaneously against gravity with ease. No facial droop or tongue deviation. Normal speech Lab and Diagnostics Result Diagram: 07/13/16 0613 07/14/16 0639 Assessment & Plan Elizabeth is a 80yo female with recently diagnosed cirrhosis thought to be due to BOSS and chronic atrial fibrillation on warfarin who was brought to [facility] with 2 days of altered mental status and cough. CXR is indicative of bibasilar pneumonia. 1. Altered mental status, present on admission, improved - Suspect underlying dementia worsened by pneumonia and possibly a component of hepatoencephalopathy - Ammonia has declined with lactulose use - CT head without infarct or hemorrhage - Will continue to communicate with her children to determine when she is at her baseline mental status 2. Bibasilar pneumonia, community acquired, present on admission - Strep pneumoniae and legionella urine antigen negative - Sputum culture without growth thus far - Continue Azithromycin and ceftriaxone 3. Cirrhosis, present on admission - Per outpatient records, this is thought to be due to BOSS - Continue lactulose QID and Rifaximin - Monitor LFTs 4. Chronic atrial fibrillation, present on admission, stable - Continue digoxin and metoprolol at home dosing - Warfarin per pharmacy for anticoagulation, currently therapeutic INR - Continue telemetry 5. Dysphagia, chronic - Worsening over the past year per the patient's son - Concern that this could be neurologic or malignant in nature - Outpatient EGD with Dr Dietz has been scheduled for 07/21/16 - Speech pathology has recommended a pureed diet 6. Diabetes mellitus type 2 with peripheral neuropathy, not on home insulin - Blood glucose monitoring - Correctional insulin 7. Hypothyroidism with TSH currently suppressed - Home levothyroxine dosing was too high based on her TSH and free T4 - Levothyroxine dose decreased to 150mcg daily - Will need outpatient follow up 8. Constipation, chronic and ongoing - Firm stools despite lactulose QID - Scheduled docusate BID started today - Outpatient colonoscopy to be done on 07/21/16 for further evaluation, this was scheduled previous to this hospitalization 9. Depression, chronic and presumed stable - Continue home venlafaxine dosing 10. Hyperkalemia, present on admission, resolved - D50 with 10units of regular insulin was given on 07/11/16 and her potassium level has been normal since that time - Monitor Disposition: Anticipate discharge tomorrow, she may greatly benefit from home health services to assist with bathing, toileting, and physical therapy. VTE Prophylaxis: Theraputic Anticoag with Warfarin (INR of 3.26) VTE Mechanical Devices: Intermittant Pneumatic CD Resuscitation Status: DNR/DNI:Do Not Resuscitate/Intubate Time spent 30 minutes Attending Statement I have seen and evaluated patient at bedside in addition to directly supervising care provided by resident physician. I agree with above documentation. PT anahi is now recommending DC to SNF for further reconditioning. Will consider disposition accordingly, discussion with family is pending. Nguyen Kumar DO Jul 14, 2016 13:54 Kelvin Mc DO Jul 14, 2016 14:51
--- NOTE | 2016-07-14 15:52 | NUR ---
Social Work Note Continued Discharge Planning: D/A: The Pt is a 80 y/o female with baseline dementia that was admitted for AMS, pneumonia on 07/10/2016 as per EMR. PT evaluation completed on 07/14/2016, recommending SNF placement to assist with quick return to baseline level of sliding board transfer. Most recent progress note from 07/14/2016 reports an anticipated discharge for tomorrow with home health services to assist with bathing, toileting, and physical therapy. SW attempted to call the Pt's son and DPOA Matt [phone] three times during the day and left two voice messages. SW to follow up with the Pt's DPOA tomorrow for continued discharge planning. P: Pt to discharge when medically stable. PT eval complete, recommending SNF. SW attempted to contact the Pt's son, messages left. SW to follow up with family 07/15/2016 for further discharge planning. Erica Michael, INVASIVE CARDIOVASCULAR TECHNOLOGIST Drawer Fitter LI Pineda
--- NOTE | 2016-07-14 19:04 | NUR ---
activity/bowel movement/pain/iv site/ urinary output assumed care of patient at 1515. notified per day rn that patient pulled iv out on day shift and that MD order in chart to have no iv access. noted that patient on telemetry and on [address] Kumar called and notified that patient on 2 iv antibiotics and still on telemetry. order received to restart IV and continue telemetry and iv antibiotics as ordered. additionally notified Dr. Kumar that patient with no urinary output on day shift per brief. bladder scan done at was [address] Kumar notified that no urinary output on day shift and that bladder scan of 85. new orders received to bladder scan qshift in no urinary output and I and O cath if bladder scan greater than 500ml. bladder scan repeated after dinner at 1830 and was 104. no bladder distention noted. patient tolerated honey thick diet with 1:1 assistance bolted upright. tolerating meds crushed in applesauce. family at bedside and talked with Dr. Kumar this evening. bed alarm on for patient safety. new iv started per iv therapy and covered with a protective sleeve. report given to oncoming rn at 1900.
[2016-07-14] MEDS: cefTRIAXone 2,000 mg/D5W 50 mL IV Minibag Plus IV SCH ×2 (20:18)
--- NOTE | 2016-07-14 21:06 | NUR ---
refused meds: tried to convince patient to take meds in applesauce, she hit the spoon away, spilling meds all over her bedding. pt. adamant saying "I said NO" I was able to get iv abx in,
[2016-07-15 00:38] VITALS: BP 102/63; PULSE 84; RESP 16; O2SAT 97
[2016-07-15] MEDS: Lactulose 20 Gm/30 mL 30 mL Syrup PO SCH ×3 (01:30→16:30)
[2016-07-15 05:02] VITALS: BP 111/61; PULSE 75; RESP 16; O2SAT 95
[2016-07-15 07:41] LABS: INR 3.49 ratio
[2016-07-15] MEDS: Insulin LISPRO 300 Unit/3 mL Inj SUBQ SCH ×4 (08:00→21:27)
[2016-07-15 08:05] VITALS: BP 108/67; PULSE 77; RESP 18; O2SAT 100
[2016-07-15] MEDS: Azithromycin Inj 500 MG in Dextrose 5% w/Vial Mate 250 ML IV SCH ×2 (08:30→19:15)
[2016-07-15] MEDS: Venlafaxine XR 75 mg ER24 Capsule PO SCH (08:30)
[2016-07-15] MEDS: MeTOProlol XL 50 mg ER24 Tablet PO SCH (08:30)
[2016-07-15 09:54] LABS: BASOPHILS % (AUTO) 0.5 % (0-3); EOSINOPHILS % (AUTO) 6.8 % (0-5); MONOCYTES % (AUTO) 9.9 % (4-12); Mean Corpuscular Hemoglobin 33.8 pg (27.0-35.0); Mean Corpuscular Volume 101.6 fL (81-100); NEUTROPHILS % (AUTO) 74.3 % (40-74); Platelet Count 81 bil/L (150-400)
--- NOTE | 2016-07-15 10:02 | NUR ---
Recommending d/c to a SNF. The pt is currently on a highly restrictive diet and she requires assistance with self-feeding for safety.
--- NOTE | 2016-07-15 10:14 | DRSVH ---
PROCEDURE: X-RAY CHEST ONE VIEW, PORTABLE ([id number]) INDICATIONS: Follow up for Pneumonia TECHNIQUE: One view of the chest was acquired. COMPARISON: [facility], CR, XR CHEST 1VW (PORTABLE), 07/10/2016, 15:34. [facility], CR, XR CHEST 1VW (PORTABLE), 08/30/2015, 20:57. [facility], CR, CHEST 1VW (PORTAB LE), 05/19/2014, 15:29. FINDINGS: Surgical changes and devices: None. Lungs and pleura: No pleural effusions or pneumothorax. Decreased mild patchy bibasilar opacity. Mediastinum: Mediastinal contours appear normal. Heart size is normal. Bones and chest wall: No suspicious bony lesions. Overlying soft tissues appear unremarkable. IMPRESSION: Resolving bibasilar pneumonia. Continued plain film surveillance is recommended to ensure resolution, and to exclude underlying or central malignancy. Dictated by: Dayna Barrett M.D. on 07/15/2016 at 10:11 Approved by: Dayna Barrett M.D. on 07/15/2016 at 10:12
--- NOTE | 2016-07-15 10:21 | NUR ---
LANCE signed Verbal permission to sign by pt's son over the phone. LI Mcallister
--- NOTE | 2016-07-15 10:22 | NUR ---
Social Work: Continued d/c planning Data: Pt is on day 5 of hospitalization. EMR reviewed. AUTOMATION TEST ENGINEER called pt's son and discussed the SNF recommendation by PT. Pt's son states that they are declining SNF and will take pt home at d/c. AUTOMATION TEST ENGINEER explained the benefits of SNF and asked how much care she typically gets at home. Pt's son states he understand the benefits of SNF and that he and his sister live with pt and care for all of her needs. AUTOMATION TEST ENGINEER offered HH, pt's son agreeable to this. AUTOMATION TEST ENGINEER gave HH choice list, pt's son states they have had [facility] in the past and will go with them again. AUTOMATION TEST ENGINEER called Bull with [facility], no answer, left a message referring pt to them. Access given. F2F in AUTOMATION TEST ENGINEER folder. Assessment: Pt with caregiving from family at baseline. Plan: Pt will d/c home via POV with family when medically stable. PT recommending SNF or 24/7 care, pt's family to provide caregiving. [facility] referred, RN/PT/OT, access given, F2F in AUTOMATION TEST ENGINEER folder. AUTOMATION TEST ENGINEER will continue to follow. LI Mcallister
[2016-07-15 10:24] LABS: Magnesium 1.6 mg/dL (1.6-2.6)
[2016-07-15 10:30] VITALS: PULSE 106
[2016-07-15 14:46] VITALS: BP 124/66; PULSE 80; RESP 18; O2SAT 96
--- NOTE | 2016-07-15 14:49 | NUR ---
Refused Meds/Pulled IV out Pt refused all po meds this morning, and pulled IV early this morning. Dr Ny notified of this. Pt's family in later this afternoon. Per pt's family, pt does not have a lot of mobility to RLE as she has neuropathy and they expressed that it would be ideal to place an IV to RLE. Orders received to place IV to RLE. Pt's family at bedside, plan of care reviewed and they expressed understanding.
[2016-07-15] MEDS: cefTRIAXone 2,000 mg/D5W 50 mL IV Minibag Plus IV SCH ×2 (18:27)
[2016-07-15 20:35] VITALS: BP 98/60; PULSE 83; RESP 16; O2SAT 98
--- NOTE | 2016-07-16 00:27 | PCM.PNMED ---
Subjective Date of Service Jul 16, 2016 Subjective Patient is very confused. She thought the year was 1926, and the month was Wednesday, and Nelia Aragon was the president of [email or web address]. Patient has pulled out all 3 of her IVs that were placed today. She has been refusing much of her oral medication. Exam Vital Signs Vital Sign - Last Date Time Temp Pulse Resp B/P Pulse Ox O2 Delivery O2 Flow Rate FiO2 07/15/16 20:35 37.0 83 16 98/60 98 Room Air Intake and Output 07/15/16 07/15/16 07/16/16 Cumulative From/Thru 15:00 23:00 07:00 07/10/16 15:25 - 07/15/16 22:13 Intake Total 1200 ml 7469 ml Output Total 1850 ml 6655 ml Balance -650 ml 814 ml Intake Oral 1200 ml 2735 ml IV Total 4734 ml Output Urine Total 1850 ml 6655 ml # Voids 2 # Bowel Movements 6 Exam General: Patient is in no apparent distress. However she is quite anxious and very confused HEENT: Head is atraumatic and normocephalic. Eyes: Pupils are equally round and reactive to light and accommodation. Extraocular muscles are intact. Sclera are white, anicteric. Subconjunctival mucosa is pink. Ears and nose are unremarkable. Oropharynx: There is no mucosal lesions, there is no thrush, there is no pharyngitis. Neck: Is supple, there are no nodes, or masses or tenderness. Chest: Is clear to auscultation and percussion. There are no rales, rhonchi, wheezes or rubs. However, breath sounds are decreased at the bases. Heart: Rate, rhythm is regular. There is no murmur, rub or gallop. Abdomen: Good bowel sounds are present. Abdomen is soft, nontender, no organomegaly or masses were appreciated. Extremities: Are symmetrical and well perfused. There is no edema, there is no cellulitis, no rash. Neurologic: There are no focal neurological deficits. Cranial nerves II through XII are intact. There are no sensory or motor deficits. Psychiatric: Patients mood is confused and anxious Genital: Deferred Rectal: Deferred Lab and Diagnostics Result Diagram: 07/15/16 0940 07/15/16 0940 Microbiology Name: REJI GARCES Age/Sex: 80/F Attend Dr: Bel Arana MD Acct: [id number] Unit: [id number] Status: ADM IN [place] [facility] [place]-2 Re07/10/16 Disch: Specimen: [id number] Collected: 07/10/16 Status: COMP Req#: [id number] Received: 07/10/16 Source: BLOOD Sp Desc : MARSHALL Portillo Dr: Mark Ray MD Ordered: JOYCE Comments: Collected by Nurse/Unit? Y/N Y Procedure Result Verified Site Microbiology CONNER CULTURE BLOOD Final 07/15/16-1830 NO GROWTH AFTER 5 DAYS X-Rays, CTs and MRIs PROCEDURE: X-RAY CHEST ONE VIEW, PORTABLE ([id number]) INDICATIONS: Follow up for Pneumonia TECHNIQUE: One view of the chest was acquired. COMPARISON: [facility], CR, XR CHEST 1VW (PORTABLE), 07/10/2016, 15: 34. [facility], CR, XR CHEST 1VW (PORTABLE), 08/30/2015, 20:57. [facility], CR, CHEST 1VW (PORTABLE), 05/19/2014, 15:29. FINDINGS: Surgical changes and devices: None. Lungs and pleura: No pleural effusions or pneumothorax. Decreased mild patchy bibasilar opacity. Mediastinum: Mediastinal contours appear normal. Heart size is normal. Bones and chest wall: No suspicious bony lesions. Overlying soft tissues appear unremarkable. IMPRESSION: Resolving bibasilar pneumonia. Continued plain film surveillance is recommended to ensure resolution, and to exclude underlying or central malignancy. Dictated by: Dayna Barrett M.D. on 07/15/2016 at 10:11 Approved by: Dayna Barrett M.D. on 07/15/2016 at 10:12 Assessment & Plan Reji is a 80yo female with recently diagnosed cirrhosis thought to be due to BOSS and chronic atrial fibrillation on warfarin who was brought to [facility] with 2 days of altered mental status and cough. CXR is indicative of bibasilar pneumonia. 1. Altered mental status, present on admission, improved. Patient is still very confused and was refusing all therapies - Suspect underlying dementia worsened by pneumonia and possibly a component of hepatoencephalopathy - Ammonia has declined with lactulose use - CT head without infarct or hemorrhage - Will continue to communicate with her children to determine when she is at her baseline mental status 2. Bibasilar pneumonia, community acquired, present on admission - Strep pneumoniae and legionella urine antigen negative - Sputum culture without growth thus far - Continue Azithromycin and ceftriaxone 3. Cirrhosis, present on admission - Per outpatient records, this is thought to be due to BOSS - Continue lactulose QID and Rifaximin - Monitor LFTs 4. Chronic atrial fibrillation, present on admission, stable - Continue digoxin and metoprolol at home dosing - Warfarin per pharmacy for anticoagulation, currently therapeutic INR - Continue telemetry 5. Dysphagia, chronic - Worsening over the past year per the patient's son - Concern that this could be neurologic or malignant in nature - Outpatient EGD with Dr Dietz has been scheduled for 07/21/16 - Speech pathology has recommended a pureed diet 6. Diabetes mellitus type 2 with peripheral neuropathy, not on home insulin - Blood glucose monitoring - Correctional insulin 7. Hypothyroidism with TSH currently suppressed - Home levothyroxine dosing was too high based on her TSH and free T4 - Levothyroxine dose decreased to 150mcg daily - Will need outpatient follow up 8. Constipation, chronic and ongoing - Firm stools despite lactulose QID. This is likely contributing to patient's poor mental status. - Scheduled docusate BID started today - Outpatient colonoscopy to be done on 07/21/16 for further evaluation, this was scheduled previous to this hospitalization 9. Depression, chronic and presumed stable - Continue home venlafaxine dosing 10. Hyperkalemia, present on admission, resolved - D50 with 10units of regular insulin was given on 07/11/16 and her potassium level has been normal since that time - Monitor 11. Increased leukocytosis etiology is uncertain -We will discharge at this time -Chest x-rays improved -Check urine and urine culture. Disposition: Anticipate discharge when what blood cell count normalizes or at least improved Pain Evaluation: Adequate Pain Control VTE Prophylaxis: Theraputic Anticoag with Warfarin (INR of 3.26) VTE Mechanical Devices: Intermittant Pneumatic CD Resuscitation Status: DNR/DNI:Do Not Resuscitate/Intubate Jc Ny MD Jul 16, 2016 00:27
[2016-07-16 00:34] VITALS: BP 98/54; PULSE 86; RESP 16; O2SAT 96
--- NOTE | 2016-07-16 03:47 | NUR ---
Mentation/ Pt remains confused and disoriented. calm and cooperative with care. pt unable to void. bladder scanned and showed 515 ml. paged night hospitalist and received order I&O Cath. obtained 650 ml. Loose brown medium BM X2. will continue to monitor.
[2016-07-16 04:35] VITALS: BP 110/50; PULSE 85; RESP 16; O2SAT 95
[2016-07-16] MEDS: Pantoprazole 40 mg ER24 Tablet PO SCH (07:31)
[2016-07-16 07:56] LABS: BASOPHILS % (AUTO) 0.4 % (0-3); EOSINOPHILS % (AUTO) 7.9 % (0-5); MONOCYTES % (AUTO) 11.6 % (4-12); Mean Corpuscular Hemoglobin 33.7 pg (27.0-35.0); Mean Corpuscular Volume 100.5 fL (81-100); Platelet Count 68 bil/L (150-400)
[2016-07-16 08:00] VITALS: BP 96/60; PULSE 86; RESP 16; O2SAT 96
[2016-07-16] MEDS: Insulin LISPRO 300 Unit/3 mL Inj SUBQ SCH ×4 (08:00→21:53)
[2016-07-16 08:13] LABS: INR 3.31 ratio
[2016-07-16 08:43] LABS: Magnesium 1.7 mg/dL (1.6-2.6)
[2016-07-16] MEDS ORDERED: Magnesium Sulf 4 Gm/100 mL H2O 4 GM in IV Premix 1 EACH IV ONE (09:15)
[2016-07-16 09:16] LABS: ERYTHROCYTE SEDIMENTATION RATE 25 mm/hr (0-40)
[2016-07-16] MEDS: MeTOProlol XL 50 mg ER24 Tablet PO SCH (09:50)
[2016-07-16] MEDS: Venlafaxine XR 75 mg ER24 Capsule PO SCH (09:50)
[2016-07-16 14:00] VITALS: BP 110/55; PULSE 84; RESP 16; O2SAT 95
--- NOTE | 2016-07-16 14:21 | DRSVH ---
PROCEDURE: X-RAY CHEST ONE VIEW, PORTABLE ([id number]) INDICATIONS: Follow up for Pneumonia TECHNIQUE: One view of the chest was acquired. COMPARISON: [facility], CR, XR CHEST 1VW (PORTABLE), 07/15/2016, 9:40. FINDINGS: Surgical changes and devices: None. Lungs and pleura: No pleural effusions or pneumothorax. Lung volumes remain low and medial bibasila r airspace opacities redemonstrated. Mediastinum: Mediastinal contours appear normal. Heart size is normal. Bones and chest wall: No suspicious bony lesions. Overlying soft tissues appear unremarkable. IMPRESSION: Bibasilar atelectasis versus aspiration or pneumonia. Correlate clinically. Dictated by: Matt Peters RRA Interpreted: Bárbara Dillon MD on 07/16/2016 at 14:20 Transcribed by: TEJAS on 07/16/2016 at 14:21 Approved by: Bárbara Dillon MD, PhD on 07/16/2016 at 16:31
--- NOTE | 2016-07-16 14:25 | NUR ---
NUTRITION FOLLOW-UP: ASSESS: 80 YO female admitted for altered mental status and pneumonia. Pt remains very confused and refusing therapies per notes. Pt diet has been advanced per ST to pureed, nectar thick liquids, but pt continues to have poor po intake now x 6 days. PMHx: Dementia, chronic/worsening dysphagia, cirrhosis, ascites w/recent paracentesis, a-fib, rheumatoid arthritis, HTN, GERD, DM type 2, Depression, recurrent UTI. LABS: Reviewed. Cr .49, Glu 128, ALT 42, Alb 2.9. MEDS: Reviewed. GI: BM x 2 (2/2) CURRENT WT: 75.2 kg. Admit wt: 73.4 kg. DIET: Pureed, [place] thick. PO intake 0-25% of meals. EST. NEEDS: 4865-3538 kcals (25-30 kcals/kg BW), 90-110 g protein (1.2-1.5 g/kg BW) NUTRITION DIAGNOSIS: 1.) Chewing / Swallowing difficulties related to chronic / worsening dysphagia as evidenced by current need for mechanically altered diet texture, ST following--PERSISTS. 2.) Inadequate oral intake related to decreased ability to consume sufficient energy as evidenced by current po intake of 0-25% x 6 days--PERSISTS. NUTRITION INTERVENTION: 1.) Continue to advance diet as able per ST recommendations. 2.) Will add nectar thick Glucerna to all trays. 3.) Consider nutrition support if po intake remain inadequate to meet pt est. needs over the next 1-2 days and nutrition support is consistent with pt plan of care. MONITOR / EVAL: Diet advancement / tolerance, labs, nutritional status, POC. Follow per high nutritional risk guidelines.
--- NOTE | 2016-07-16 18:30 | NUR ---
Procedure Patient will come back on Wednesday for colonoscopy preparation. Need to fax new K number and list of meds to pharmacy on the day of re admission. Physician orders attached in chart.
--- NOTE | 2016-07-16 19:23 | NUR ---
ABT due at 18:00 was not administered due to IV access, IV therapy trying to secure. NOC RN aware to administer as soon as access is patent.
[2016-07-16] MEDS: cefTRIAXone 2,000 mg/D5W 50 mL IV Minibag Plus IV SCH ×2 (20:21)
[2016-07-16 20:50] VITALS: BP 96/54; PULSE 72; RESP 16; O2SAT 98
[2016-07-17 00:45] VITALS: BP 107/60; PULSE 81; RESP 18; O2SAT 97
--- NOTE | 2016-07-17 01:35 | PCM.PNMED ---
Subjective Date of Service Jul 17, 2016 Subjective The patient's mental status has improved some today. She had 4 loose stools today and she is more lucid. She knew that Catrachito Arreola was present today she is more oriented to time and place she has no new complaints, other than wanting to go home. Exam Vital Signs Vital Sign - Last Date Time Temp Pulse Resp B/P Pulse Ox O2 Delivery O2 Flow Rate FiO2 07/16/16 20:50 36.6 72 16 96/54 98 Room Air Intake and Output 07/16/16 07/16/16 07/17/16 Cumulative From/Thru 15:00 23:00 07:00 07/10/16 15:25 - 07/16/16 22:25 Intake Total 520 ml 8398 ml Output Total 7305 ml Balance 520 ml 1093 ml Intake Oral 400 ml 3235 ml IV Total 120 ml 5163 ml Output Urine Total 7305 ml # Voids 2 # Bowel Movements 2 10 Exam General: Patient is in no apparent distress. However she is still anxious. She is much more lucid and less confused today. HEENT: Head is atraumatic and normocephalic. Eyes: Pupils are equally round and reactive to light and accommodation. Extraocular muscles are intact. Sclera are white, anicteric. Subconjunctival mucosa is pink. Ears and nose are unremarkable. Oropharynx: There is no mucosal lesions, there is no thrush, there is no pharyngitis. Neck: Is supple, there are no nodes, or masses or tenderness. Chest: Is clear to auscultation and percussion. There are no rales, rhonchi, wheezes or rubs. However, breath sounds are decreased at the bases. Heart: Rate, rhythm is regular. There is no murmur, rub or gallop. Abdomen: Good bowel sounds are present. Abdomen is soft, nontender, no organomegaly or masses were appreciated. Extremities: Are symmetrical and well perfused. There is no edema, there is no cellulitis, no rash. Neurologic: There are no focal neurological deficits. Cranial nerves II through XII are intact. There are no sensory or motor deficits. Psychiatric: Patients mood is confused and anxious Genital: Deferred Rectal: Deferred Lab and Diagnostics Result Diagram: 07/16/1671907/16/16719 Microbiology Name: REJI GARCES Age/Sex: 80/F Attend Dr: Bel Arana MD Acct: [id number] Unit: [id number] Status: ADM IN Location: [place] [address]2 Re07/10/16 Disch: Specimen: [id number] Collected: 07/10/16 Status: COMP Req#: [id number] Received: 07/10/16 Source: BLOOD Sp Desc : MARSHALL Portillo Dr: Mark Ray MD Ordered: JOYCE Comments: Collected by Nurse/Unit? Y/N Y Procedure Result Verified Site Microbiology CONNER CULTURE BLOOD Final 07/15/16-1835 NO GROWTH AFTER 5 DAYS X-Rays, CTs and MRIs PROCEDURE: X-RAY CHEST ONE VIEW, PORTABLE ([id number]) INDICATIONS: Follow up for Pneumonia TECHNIQUE: One view of the chest was acquired. COMPARISON: [facility], CR, XR CHEST 1VW (PORTABLE), 07/10/2016, 15: 34. [facility], CR, XR CHEST 1VW (PORTABLE), 08/30/2015, 20:57. [facility], CR, CHEST 1VW (PORTABLE), 05/19/2014, 15:29. FINDINGS: Surgical changes and devices: None. Lungs and pleura: No pleural effusions or pneumothorax. Decreased mild patchy bibasilar opacity. Mediastinum: Mediastinal contours appear normal. Heart size is normal. Bones and chest wall: No suspicious bony lesions. Overlying soft tissues appear unremarkable. IMPRESSION: Resolving bibasilar pneumonia. Continued plain film surveillance is recommended to ensure resolution, and to exclude underlying or central malignancy. Dictated by: Dayna Barrett M.D. on 07/15/2016 at 10:11 Approved by: Dayna Barrett M.D. on 07/15/2016 at 10:12 PROCEDURE: X-RAY CHEST ONE VIEW, PORTABLE ([id number]) INDICATIONS: Follow up for Pneumonia TECHNIQUE: One view of the chest was acquired. COMPARISON: [facility], CR, XR CHEST 1VW (PORTABLE), 07/15/2016, 9: 40. FINDINGS: Surgical changes and devices: None. Lungs and pleura: No pleural effusions or pneumothorax. Lung volumes remain low and medial bibasilar airspace opacities redemonstrated. Mediastinum: Mediastinal contours appear normal. Heart size is normal. Bones and chest wall: No suspicious bony lesions. Overlying soft tissues appear unremarkable. IMPRESSION: Bibasilar atelectasis versus aspiration or pneumonia. Correlate clinically. Dictated by: Matt Peters RRA Interpreted: Bárbara Dillon MD on 07/16/2016 at 14:20 Transcribed by: TEJAS on 07/16/2016 at 14:21 Approved by: Bárbara Dillon MD, PhD on 07/16/2016 at 16:31 Assessment & Plan Reji is a 80yo female with recently diagnosed cirrhosis thought to be due to BOSS and chronic atrial fibrillation on warfarin who was brought to [facility] with 2 days of altered mental status and cough. CXR is indicative of bibasilar pneumonia. 1. Altered mental status, present on admission, improved. Patient was very confused and was refusing all therapies. This has improved somewhat today - Suspect underlying dementia worsened by pneumonia and possibly a component of hepatoencephalopathy - Ammonia has declined with lactulose use - CT head without infarct or hemorrhage - Will continue to communicate with her children to determine when she is at her baseline mental status 2. Bibasilar pneumonia, community acquired, present on admission - Strep pneumoniae and legionella urine antigen negative - Sputum culture without growth thus far - Continue Azithromycin and ceftriaxone. Will change azithromycin to by mouth. Will continue IV Rocephin through today. 3. Cirrhosis, present on admission - Per outpatient records, this is thought to be due to BOSS - Continue lactulose QID and Rifaximin - Monitor LFTs 4. Chronic atrial fibrillation, present on admission, stable - Continue digoxin and metoprolol at home dosing - Warfarin per pharmacy for anticoagulation, currently therapeutic INR - Continue telemetry 5. Dysphagia, chronic - Worsening over the past year per the patient's son - Concern that this could be neurologic or malignant in nature - Outpatient EGD with Dr Dietz has been scheduled for 07/21/16 - Speech pathology has recommended a pureed diet 6. Diabetes mellitus type 2 with peripheral neuropathy, not on home insulin - Blood glucose monitoring - Correctional insulin 7. Hypothyroidism with TSH currently suppressed - Home levothyroxine dosing was too high based on her TSH and free T4 - Levothyroxine dose decreased to 150mcg daily - Will need outpatient follow up 8. Constipation, chronic and ongoing - Firm stools despite lactulose QID. This is likely contributing to patient's poor mental status. - Scheduled docusate BID started today - Outpatient colonoscopy to be done on 07/21/16 for further evaluation, this was scheduled previous to this hospitalization 9. Depression, chronic and presumed stable - Continue home venlafaxine dosing 10. Hyperkalemia, present on admission, resolved - D50 with 10units of regular insulin was given on 07/11/16 and her potassium level has been normal since that time - Monitor 11. Increased leukocytosis etiology is uncertain -We will discharge at this time -Chest x-rays improved -Check urine and urine culture. Disposition: Anticipate discharge when what blood cell count normalizes or at least improved. Would recommend discharging home cefdinir 300 mg by mouth twice a day for 7 days and azithromycin 250 mg by mouth daily for 3 days. Pain Evaluation: Adequate Pain Control VTE Prophylaxis: Theraputic Anticoag with Warfarin (INR of 3.26) VTE Mechanical Devices: Intermittant Pneumatic CD Resuscitation Status: DNR/DNI:Do Not Resuscitate/Intubate Jc Ny MD Jul 17, 2016 01:35
[2016-07-17 04:57] VITALS: BP 102/54; PULSE 85; RESP 16; O2SAT 99
--- NOTE | 2016-07-17 05:02 | NUR ---
Mentation/ Pt remains confused and disoriented. Pt talking unrelated topics. Pt did not void during this shift. Bladder scanned her and showed 456ml. In & Out cath applied per order. Obtained 600 ml. No BM during this shift. will continue to monitor.
[2016-07-17 07:03] LABS: BASOPHILS % (AUTO) 0.7 % (0-3); EOSINOPHILS % (AUTO) 11.9 % (0-5); MONOCYTES % (AUTO) 10.3 % (4-12); Mean Corpuscular Hemoglobin 33.7 pg (27.0-35.0); Mean Corpuscular Volume 99.7 fL (81-100); NEUTROPHILS % (AUTO) 60.3 % (40-74); Platelet Count 71 bil/L (150-400)
[2016-07-17 07:13] LABS: INR 2.56 ratio
[2016-07-17] MEDS: Pantoprazole 40 mg ER24 Tablet PO SCH (07:30)
[2016-07-17 07:43] LABS: Magnesium 2.1 mg/dL (1.6-2.6)
[2016-07-17] MEDS: Insulin LISPRO 300 Unit/3 mL Inj SUBQ SCH ×2 (08:00→11:57)
--- NOTE | 2016-07-17 08:00 | NUR ---
Refusal of meds/food Pt is currently refusing meds and food at this time. Accepts water. Will continue to offer to patient.
[2016-07-17 08:06] LABS: ERYTHROCYTE SEDIMENTATION RATE 28 mm/hr (0-40)
[2016-07-17] MEDS: Venlafaxine XR 75 mg ER24 Capsule PO SCH (08:14)
[2016-07-17] MEDS: MeTOProlol XL 50 mg ER24 Tablet PO SCH (08:14)
[2016-07-17 09:38] VITALS: PULSE 82; RESP 16; O2SAT 98
--- NOTE | 2016-07-17 09:46 | NUR ---
Refusal of care Pt is refusing an assessment, bladder scan, blood pressure, and medications. Pt sightly lethargic, but responds to verbal stimuli and touch. Had said this morning, "I am going home today." Hospitalist paged re: refusal of care and medications.
--- NOTE | 2016-07-17 10:50 | NUR ---
Matt KANG, called re: pt's refusal of care and medications. Matt says he will be in today after lunch and will attempt to help this nurse convince the patient to comply with care.
--- NOTE | 2016-07-17 11:13 | DRSVH ---
PROCEDURE: X-RAY CHEST ONE VIEW, PORTABLE ([id number]) INDICATIONS: Follow up for Pneumonia TECHNIQUE: One view of the chest was acquired. COMPARISON: None. FINDINGS: Surgical changes and devices: Cholecystectomy clips. Lungs and pleura: No pleural effusions or pneumothorax. No change in medial bibasilar airspace opac ities. Mediastinum: Mediastinal contours appear normal. Heart size is normal. Bones and chest wall: No suspicious bony lesions. Overlying soft tissues appear unremarkable. IMPRESSION: Bibasilar atelectasis versus aspiration or pneumonia. Correlate clinically. Dictated by: Matt Peters [facility] Interpreted: Bárbara Dillon MD on 07/17/2016 at 11:12 Transcribed by: TEJAS on 07/17/2016 at 11:12 Approved by: Bárbara Dillon MD, PhD on 07/17/2016 at 16:48
--- NOTE | 2016-07-17 11:30 | NUR ---
Refusal of care Pt continues to refuse care. Brief is still dry, yet the pt is not drinking fluids. Refuses to have bladder scanned and BP checked. When asked what she wanted, pt replied, "to sleep." Will continue to monitor.
[2016-07-17] MEDS ORDERED: LEVO200T6 PO (11:32)
[2016-07-17] MEDS ORDERED: WARF1TAB6 PO (11:32)
[2016-07-17] MEDS ORDERED: QUET25TA73 PO (11:32)
[2016-07-17] MEDS ORDERED: RIFA550T3 PO (11:32)
--- NOTE | 2016-07-17 11:38 | PCM.DIMED ---
Discharge Instructions Date of Service Jul 17, 2016 Dates of Hospitalization Jul 10, 2016 at 16:15 Diet Other (Pureed) Call your provider Fever or Chills, Shortness of breath Patient Instructions Follow-up with PCP in: 1 week Additional Information Also needs a follow up chest xray in about 6 weeks. Bel Arana MD Jul 17, 2016 11:38
--- NOTE | 2016-07-17 11:56 | PCM.DC.MED ---
Discharge Summary Date of Service Jul 17, 2016 Dates of Hospitalization Date of Hospital Admission Jul 10, 2016 at 16:15 Date of Discharge: Jul 17, 2016 Providers: Admitting Physician: Gus Hilliard MD Primary Care Physician: Lacey Alexis MD Attending Physician: Gus Hilliard MD Procedures XRay, CTs & MRIs PROCEDURE: X-RAY CHEST ONE VIEW, PORTABLE ([id number]) INDICATIONS: Follow up for Pneumonia TECHNIQUE: One view of the chest was acquired. COMPARISON: [facility], CR, XR CHEST 1VW (PORTABLE), 07/10/2016, 15: 34. [facility], CR, XR CHEST 1VW (PORTABLE), 08/30/2015, 20:57. [facility], CR, CHEST 1VW (PORTABLE), 05/19/2014, 15:29. FINDINGS: Surgical changes and devices: None. Lungs and pleura: No pleural effusions or pneumothorax. Decreased mild patchy bibasilar opacity. Mediastinum: Mediastinal contours appear normal. Heart size is normal. Bones and chest wall: No suspicious bony lesions. Overlying soft tissues appear unremarkable. IMPRESSION: Resolving bibasilar pneumonia. Continued plain film surveillance is recommended to ensure resolution, and to exclude underlying or central malignancy. Dictated by: Dayna Barrett M.D. on 07/15/2016 at 10:11 Approved by: Dayna Barrett M.D. on 07/15/2016 at 10:12 PROCEDURE: X-RAY CHEST ONE VIEW, PORTABLE ([id number]) INDICATIONS: Follow up for Pneumonia TECHNIQUE: One view of the chest was acquired. COMPARISON: [facility], CR, XR CHEST 1VW (PORTABLE), 07/15/2016, 9: 40. FINDINGS: Surgical changes and devices: None. Lungs and pleura: No pleural effusions or pneumothorax. Lung volumes remain low and medial bibasilar airspace opacities redemonstrated. Mediastinum: Mediastinal contours appear normal. Heart size is normal. Bones and chest wall: No suspicious bony lesions. Overlying soft tissues appear unremarkable. IMPRESSION: Bibasilar atelectasis versus aspiration or pneumonia. Correlate clinically. Dictated by: Matt BENAVIDES Interpreted: Bárbara Dillon MD on 07/16/2016 at 14:20 Transcribed by: TEJAS on 07/16/2016 at 14:21 Approved by: Bárbara Dillon MD, PhD on 07/16/2016 at 16:31 Brief History Has some baseline dementia but increasing confusion and lethargy the last few days, now sometimes incoherent. Maybe some SOB. Occasionally will aspirate with liquids. No fever/chills/sweats, temp normal when tested even when cheeks warm and jennifer. This morning coughed up some thick green mucus. Hospital Course Reji is a 80yo female with recently diagnosed cirrhosis thought to be due to BOSS and chronic atrial fibrillation on warfarin who was brought to [facility] with 2 days of altered mental status and cough. CXR is indicative of bibasilar pneumonia. 1. Altered mental status, present on admission, improved. Patient was very confused and was refusing all therapies. This has improved although still uncooperative at times. - Suspect underlying dementia worsened by pneumonia and possibly a component of hepatoencephalopathy - Ammonia has declined with lactulose use and is down to 49 - CT head without infarct or hemorrhage 2. Bibasilar pneumonia, community acquired, present on admission - Strep pneumoniae and legionella urine antigen negative - Sputum culture without growth thus far - Received 5 days of Azithromycin and 6 days of ceftriaxone. Will give another 4 days of po Vantin as outpt - Will need follow up chest xray in about 6 weeks 3. Cirrhosis, present on admission - Per outpatient records, this is thought to be due to BOSS - Continue lactulose QID and Rifaximin 4. Chronic atrial fibrillation, present on admission, stable - Continue digoxin and metoprolol at home dosing - Warfarin per pharmacy for anticoagulation, INR slightly above therapeutic and some held doses. Will discharge on lower dose than prior. 5. Dysphagia, chronic - Worsening over the past year per the patient's son - Concern that this could be neurologic or malignant in nature - Outpatient EGD with Dr Dietz has been scheduled for 07/21/16 - Speech pathology has recommended a pureed diet 6. Diabetes mellitus type 2 with peripheral neuropathy, not on home insulin - Metformin held, will not resume at discharge and then can be determined by her PCP - Blood glucose monitoring was done, only required occasional doses of 1-2 units of correctional insulin 7. Hypothyroidism with TSH currently suppressed - Home levothyroxine dosing was too high based on her TSH and free T4 - Levothyroxine dose decreased to 150mcg daily - Will need outpatient follow up 8. Constipation, chronic and ongoing - Firm stools despite lactulose QID. - Outpatient colonoscopy to be done on 07/21/16 for further evaluation, this was scheduled previous to this hospitalization 9. Depression, chronic and presumed stable - Continue home venlafaxine dosing 10. Hyperkalemia, present on admission, resolved - D50 with 10units of regular insulin was given on 07/11/16 and her potassium level has been normal since that time 11. Increased leukocytosis presumed related to pneumonia, improved. - UA was negative Exam Vital Signs (Last) Date Time Temp Pulse Resp B/P Pulse Ox O2 Delivery O2 Flow Rate FiO2 07/17/16 09:38 82 16 98 Room Air 07/17/16 04:57 36.6 102/54 Exam Arouses easily to voice, mostly answers yes or no, refusing meds and PT Heart: reg Lungs: clear anteriorally and laterally Abd: soft, NT, normal BT Lower extrem: hint of pedal edema at ankle but fine wrinkling of skin Test 07/10/16 14:40 07/10/16 15:25 07/10/16 17:16 07/11/16 05:47 Urine Legionella pneumophilia Ag Negative (Negative) Hemoglobin A1c 5.8% (4.8-5.6) Urine Color Yellow (YELLOW) Urine Appearance Clear (CLEAR,HAZY) Urine pH 6.0 (5.0-8.0) Urine Specific Milo 1.010 (1.003-1.035) Urine Protein Negativemg/dL (NEG,TRACE) Urine Glucose (UA) Negativemg/dL (NEGATIVE) Urine Ketones Negativemg/dL (NEGATIVE) Urine Occult Blood Negative (NEGATIVE) Urine Nitrite Negative (NEGATIVE) Urine Bilirubin Negative (NEGATIVE) Urine Urobilinogen Normalmg/dL (NORMAL) Urine Leukocyte Esterase Negative (NEGATIVE) Urine RBC 0-2/hpf (0-2) Urine WBC 0-5/hpf (0-5) Urine Epithelial Cells Occasional/hpf (NONE-MOD) Urine Crystals None seen (NONE SEEN) Urine Bacteria None/hpf (NONE-FEW) Urine Hyaline Casts 5/20/lpf (NONE) Urine Granular Casts None seen (NONE SEEN) Urine Waxy Casts None seen (NONE SEEN) Urine Red Blood Cell Casts None seen (NONE SEEN) Urine White Blood Cell Casts None seen (NONE SEEN) Urine Mucus None seen (None Seen) Urine Trichomonas None seen (NONE SEEN) Urine Yeast None (NONE SEEN) Urinalysis Comment None Urine Culture Reflexed Not indicated Ionized Calcium 1.33mmol/L (1.17-1.32) Digoxin Level 1.8nG/mL (0.9-2.0) Test 07/11/16 21:55 07/12/16 06:05 07/13/16 06:13 07/17/16 06:31 Hold Urine Received (Received) Lactic Acid Level 1.6mmol/L (0.4-2.0) Thyroid Stimulating Hormone (TSH) 0.193uIU/mL (0.450-4.500) Free Thyroxine 2.92ng/dL (0.82-1.77) White Blood Count 12.2th/mm3 (3.8-10.1) Red Blood Count 3.65mil/mm3 (3.90-5.20) Hemoglobin 12.3g/dL (12.0-15.6) Hematocrit 36.4% (35.0-46.0) Mean Corpuscular Volume 99.7fL (81-100) Mean Corpuscular Hemoglobin 33.7pg (27.0-35.0) Mean Corpuscular Hemoglobin Concent 33.8% (32.0-37.0) Red Cell Distribution Width 15.0% (12.3-15.4) Platelet Count 71bil/L (150-400) Neutrophils (%) (Auto) 60.3% (40-74) Lymphocytes (%) (Auto) 16.4% (14-46) Monocytes (%) (Auto) 10.3% (4-12) Eosinophils (%) (Auto) 11.9% (0-5) Basophils (%) (Auto) 0.7% (0-3) Erythrocyte Sedimentation Rate 28mm/hr (0-40) Prothrombin Time 27.9sec (8.1-12.5) Prothromb Time International Ratio 2.56ratio Sodium Level 138mEq/L (134-144) Potassium Level 3.8mEq/L (3.5-5.2) Chloride Level 101mEq/L (97-108) Carbon Dioxide Level 24mmol/L (18-29) Blood Urea Nitrogen 16mg/dL (8-27) Creatinine 0.54mg/dL (0.57-1.00) Estimat Glomerular Filtration Rate 156mL/min (>59) Glucose Level 125mg/dL (60-99) Calcium Level 8.3mg/dL (8.5-10.1) Magnesium Level 2.1mg/dL (1.6-2.6) Total Bilirubin 1.2mg/dL (0.0-1.2) Aspartate Amino Transf (AST/SGOT) 45U/L (0-50) Alanine Aminotransferase (ALT/SGPT) 38U/L (0-32) Alkaline Phosphatase 114U/L (25-165) Ammonia 49ug/dL (18-53) C-Reactive Protein 6.0mg/dL (0.0-0.5) Total Protein 6.1g/dL (6.4-8.4) Albumin 2.8g/dL (3.4-5.0) Procalcitonin 0.34ng/mL (0.00-0.08) Microbiology Results Name: REJI GARCES Age/Sex: 80/F Attend Dr: Gus Hilliard MD Acct: [id number] Unit: [id number] Status: ADM IN Location: [address] Re07/10/16 Disch: Specimen: [id number] Collected: 07/10/16 Status: TORO Req#: [id number] Received: 07/10/16 Source: BLOOD Sp Desc : MARSHALL Portillo Dr: Mark Ray MD Ordered: JOYCE Comments: Collected by Nurse/Unit? Y/N Y Procedure Result Verified Site Microbiology CONNER CULTURE BLOOD Final 07/15/16 NO GROWTH AFTER 5 DAYS Discharge Medications Discharge Medications Alpha Lipoic Acid (Alpha Lipoic Acid) 200 Mg Capsule 200 MG PO TID (Reported) Amitriptyline (Amitriptyline) 10 Mg Tablet 10 MG PO HS (Reported) Cefpodoxime Proxetil (Cefpodoxime Proxetil) 200 Mg Tablet 200 MG PO BID Prescribed by: GUS HILLIARD MD Cholecalciferol (Vitamin D3) (Vitamin D3) 1,000 Unit Tab.chew 1,000 UNIT PO DAILYWL (Reported) Digoxin (Digoxin) 125 Mcg Tablet 0.1875 MG PO DAILY Prescribed by: AMIRA BURGESS DO Folic Acid (Folic Acid) 1 Mg Tablet 1 MG PO TID Prescribed by: AMIRA BURGESS DO Lactulose (Lactulose) 20 Gm/30 Ml Solution 20 GM PO TID (Reported) Levothyroxine (Levothyroxine) 200 Mcg Tablet 150 MG PO HS Prescribed by: GUS HILLIARD MD Melatonin/Pyridoxine (Melatonin 3 mg Tablet) 1 Each Tablet 1 EACH PO HS ( Reported) Metoprolol Succinate ER (Toprol XL) 100 Mg Tabcr 100 MG PO DAILY Prescribed by: AMIRA BURGESS DO Oxybutynin Chloride (Oxybutynin Chloride) 5 Mg Tablet 10 MG PO HS (Reported) Quetiapine Fumarate (Quetiapine Fumarate) 25 Mg Tablet 12.5 MG PO HS Prescribed by: GUS HILLIARD MD Rifaximin (Xifaxan) 550 Mg Tablet 550 MG PO BID Prescribed by: GUS HILLIARD MD Sennosides (Senna Laxative) 25 Mg Tablet 25 MG PO QAM (Reported) Venlafaxine ER (Venlafaxine ER) 150 Mg Tab.er.24 150 MG PO DAILY Prescribed by: AMIRA BURGESS DO Warfarin Sodium (Warfarin Sodium) 1 Mg Tablet 1 MG PO DAILY Prescribed by: GUS HILLIARD MD As needed oxyCODONE (oxyCODONE) 5 Mg Tablet 2.5-5 MG PO BID PRN PRN For Pain (Reported) Followup Plan Discharge Diet: Other (Pureed) Follow-up with PCP in: 1 week Gus Hilliard MD Jul 17, 2016 11:56 Gus Hilliard MD Jul 17, 2016 11:56 Gus Hilliard MD Jul 17, 2016 11:56
[2016-07-17] MEDS ORDERED: CEFP200T3 PO (11:59)
--- NOTE | 2016-07-17 13:29 | NUR ---
Refusal of care Pt continues to refuse care. Refuses food and water. POA called re: d/c, however he did not answer. phlebotomy services representative contacted re: transportation for the pt home.
--- NOTE | 2016-07-17 14:22 | NUR ---
Spoke with SENIOR ADMINISTRATIVE ASSISTANT and patient looks to clinically meet criteria for BLS. SENIOR ADMINISTRATIVE ASSISTANT is following up with family and then I will call and arrange transport.
[2016-07-17 14:30] VITALS: BP 104/69; PULSE 81; O2SAT 96
--- NOTE | 2016-07-17 15:05 | NUR ---
Social Work: Discharge Data: Pt is on day 7 of hospitalization. EMR reviewed. D/C orders are in. DEATH CLEARANCE COORDINATOR called [facility] to notify, left a message with [facility], access given, F2F ready for them to [facility]. DEATH CLEARANCE COORDINATOR met with pt and son who state they do not need assistance with transportation as they have a transfer board, wheel chair, and are practiced in the transfer. No further d/c planning needs identified at this time. DEATH CLEARANCE COORDINATOR will continue to follow if needs arise. Assessment: Pt with caregiving at baseline. Plan: Pt will d/c home today via POV with son and daughter, declining SNF, they will go home with [facility], RN/PT/ST. No further d/c planning needs identified at this time. DEATH CLEARANCE COORDINATOR will continue to follow if needs arise. LI Mcallister
--- NOTE | 2016-07-17 15:20 | NUR ---
Discharge Pt's children insisted that they did not need an alternative form of transportation, and assured this nurse that they were able to transport their mother home. Before discharge, pt agreed to a vitals check and bladder scan. Bladder scan showed >285. Pt straight catheterized (per Dr Arana) and 200cc were drained. Pt dressed and placed in own wheelchair with assistance from pt's son and daughter. Pt and children given information on diagnosis, new medications, signs to watch for, and follow up. Per Dr. Dietz, his office will contact the pt's family re: follow up. At this point, the EGD and colonoscopy will be cancelled at this point. Pt escorted off floor in wheelchair and assisted into car.
[2016-08-14] MEDS ORDERED: WARF5TAB7 PO (16:26)
[2016-08-14] MEDS ORDERED: CYAN250014 PO (16:26)
[2016-08-14] MEDS ORDERED: OXYC5CAP4 PO (16:26)
[2016-08-14] MEDS ORDERED: OXYB5TAB10 PO (16:26)
[2016-08-14] MEDS ORDERED: MULT-1065 PO (16:26)
== END 2016-07-17 15:20 | disposition home health service (06) | DRG 193 ==
LOC: SED 14:41 → MPC 16:15 → MOC 07-13 19:17
PROVIDERS: ADMIT Internal Medicine; ATTEND Internal Medicine
DX: J18.9 Pneumonia, unspecified organism (principal); G93.49 Other encephalopathy; A41.9 Sepsis, unspecified organism; E87.1 Hypo-osmolality and hyponatremia; I48.2 Chronic atrial fibrillation; E03.9 Hypothyroidism, unspecified; F32.9 Major depressive disorder, single episode, unspecified; E87.5 Hyperkalemia; E11.42 Type 2 diabetes mellitus with diabetic polyneuropathy; E78.5 Hyperlipidemia, unspecified; K21.9 Gastro-esophageal reflux disease without esophagitis; I10 Essential (primary) hypertension; Z87.440 Personal history of urinary (tract) infections; K74.69 Other cirrhosis of liver; Z79.01 Long term (current) use of anticoagulants; M06.9 Rheumatoid arthritis, unspecified; Z66 Do not resuscitate; K75.81 Nonalcoholic steatohepatitis (NASH); R13.10 Dysphagia, unspecified; K59.09 Other constipation

== ENCOUNTER 2016-07-22 13:51 | Inpatient (IN) | payer MEDICARE, OTHER ==
[~2016-07-22] VITALS: Ht 170.2 cm; Wt 81.5 kg
[2016-07-22] VITALS (8 sets, daily range): BP systolic 91–115; BP diastolic 47–52; PULSE 56–74; RESP 16–22; O2SAT 94–99
[~2016-07-22 13:51] MED LIST changes: +ALPH200C3 PO; +AMIT10TA6 PO; +CEFP200T3 PO; -FURO40TA4 PO; -HYDR-4003 PO; -LEVO112T3 PO; +LEVO200T6 PO; +MELA1TAB11 PO; -METF500T4 PO; -METH2.5T PO; -MIRT30TA6 PO; -OMEP40CA36 PO; +OXYC5TAB72 PO; -PRAV40TA PO; +QUET25TA73 PO; +RIFA550T3 PO; +SENN25TA8 PO; -SPIR100T3 PO; -VENL75TA87 PO; -Vitamin B 12; +WARF1TAB6 PO; -WARF5TAB7 PO
--- NOTE | 2016-07-22 13:59 | ED.REPORT ---
HPI-General Illness Date of Service Jul 22, 2016 ED Provider: Isma Raymundo DO A 80 year old female patient presents to ED by EMS for altered mental status. Patient denies any auditory or visual hallucinations. Detailed medical history is difficult to obtain due to the patient's mental status. See past medical history below for more details. Nursing Notes Stated Complaint: GLF Nursing Notes Reviewed: Yes Allergies: Coded Allergies: Penicillins (Verified Allergy, Unknown, 07/22/16) levofloxacin (Verified Allergy, Unknown, 07/22/16) ROTATOR CUFF TEAR Scheduled Alpha Lipoic Acid (Alpha Lipoic Acid) 200 Mg Capsule 200 MG PO TID Amitriptyline (Amitriptyline) 10 Mg Tablet 10 MG PO HS Cholecalciferol (Vitamin D3) (Vitamin D3) 1,000 Unit Tab.chew 1,000 UNIT PO DAILYWL Digoxin (Digoxin) 125 Mcg Tablet 0.1875 MG PO DAILY Folic Acid (Folic Acid) 1 Mg Tablet 1 MG PO TID Lactulose (Lactulose) 20 Gm/30 Ml Solution 20 GM PO TID Levothyroxine (Levothyroxine) 150 Mcg Tablet 150 MCG PO DAILY Melatonin/Pyridoxine (Melatonin 3 mg Tablet) 1 Each Tablet 1 EACH PO HS Metformin ER (Metformin ER) 1,000 Mg Tablet 1,000 MG PO BID Metoprolol Succinate ER (Toprol XL) 100 Mg Tabcr 100 MG PO DAILY Oxybutynin Chloride (Oxybutynin Chloride) 5 Mg Tablet 10 MG PO HS Quetiapine Fumarate (Quetiapine Fumarate) 25 Mg Tablet 12.5 MG PO HS Rifaximin (Xifaxan) 550 Mg Tablet 550 MG PO BID Sennosides (Senna Laxative) 25 Mg Tablet 25 MG PO QAM Venlafaxine ER (Venlafaxine ER) 150 Mg Tab.er.24 150 MG PO DAILY Warfarin Sodium (Warfarin Sodium) 1 Mg Tablet 1 MG PO DAILY Scheduled PRN oxyCODONE (oxyCODONE) 5 Mg Tablet 2.5-5 MG PO BID PRN PRN For Pain General Time Seen by MD: 13:58 Chief Complaint Altered mental status Hx Obtained From: EMS Unable to Obtain Hx: Mental status Arrived By: Ambulance Onset Occurred: Onset unknown Symptom Duration: Duration unknown Severity: Current: No pain currently Severity: Maximum: No pain Recent Healthcare: No recent hospitalization Similar Sx Previous: No Past Medical History Past Medical History Notes: PCP: Dr. Morocho Past Medical History Liver cirrhosis - diabetes related Drop foot Thyroid issues Rheumatoid arthritis Osteoarthritis Heart failure Chronic UTI's Asymmetrical neuropathy affecting the right leg Recurrent UTI GERD Nephrolithiasis Chronic atrial fibrillation on chronic anticoagulation Ascites Reports: Diabetes mellitus, GERD, Hyperlipidemia, Hypertension Reports: Depression Past Surgical History Left arm surgery Per PMHx patient has had: cubital tunnel release Did have a left ankle fracture in 2016 but not requiring a procedure Reports: Appendectomy, Cholecystectomy, Tonsillectomy Reports: Carpal tunnel (right carpal tunnel release) Family History Father had COPD and related to heart disease at age 75. Mother had type II diabetes and osteoarthritis and of pneumonia at age 85. Sister had type II diabetes and osteoarthritis and recently causes uncertain but it was following hip and shoulder fractures. Smoking History Never Smoker Social History Alcohol Use: "Social" Drug Use: Denies drug use Other Social History: Good social support, Lives with children, Local resident Ambulatory Status Walker Review of Systems Unable to Obtain ROS Mental status Physical Exam Vital Signs Vital Signs Date Time Temp Pulse Resp B/P Pulse Ox O2 Delivery O2 Flow Rate FiO2 07/22/16 15:45 18 99 21 07/22/16 14:13 36.6 72 20 91/47 99 Room Air Initial VS: Reviewed Head / Eyes: Atraumatic, Normocephalic, PERRL Neck: Supple, Non-tender, Full range of motion Respiratory: Breath sounds normal, Clear to auscultation, No respiratory distress Cardiovascular: Regular rate & rhythm, Heart sounds normal, Intact distal pulses Abdomen / GI: Soft, Non-tender Back: No CVA tenderness Lymphatic: No lymphadenopathy Extremities: Vascular intact, Neuro intact, No swelling, No tenderness Skin: Warm, Dry, No cyanosis Psychiatric: Mood/affect normal General/Constitutional: Awake Alertness: Positive: Confused, Somnolent Smells of Urine ENT: Airway patent Mouth: Positive: Mucous membranes dry Upper Extremities Upper Extremity / MS: Atraumatic, Full range of motion Lower Extremity / Pelvis / MS: Atraumatic, Full range of motion Mental Status: Positive: Confused, Somnolent Slow to respond. Symmetric Smile. Abnormal Thinking / Perception: Positive: Confused Interpretation & Diagnostics Lab Results Interpretation Result Diagram: 07/22/16 1444 07/22/16 1444 Test 07/22/16 14:44 07/22/16 15:46 07/22/16 15:56 07/22/16 16:27 White Blood Count 9.4th/mm3 (3.8-10.1) Red Blood Count 3.44mil/mm3 (3.90-5.20) Hemoglobin 11.7g/dL (12.0-15.6) Hematocrit 35.2% (35.0-46.0) Mean Corpuscular Volume 102.3fL (81-100) Mean Corpuscular Hemoglobin 34.0pg (27.0-35.0) Mean Corpuscular Hemoglobin Concent 33.2% (32.0-37.0) Red Cell Distribution Width 15.6% (12.3-15.4) Platelet Count 76bil/L (150-400) Neutrophils (%) (Auto) 61.1% (40-74) Lymphocytes (%) (Auto) 18.2% (14-46) Monocytes (%) (Auto) 10.3% (4-12) Eosinophils (%) (Auto) 9.6% (0-5) Basophils (%) (Auto) 0.3% (0-3) Prothrombin Time 13.9sec (8.1-12.5) Prothromb Time International Ratio 1.29ratio Sodium Level 131mEq/L (134-144) Potassium Level 5.6mEq/L (3.5-5.2) Chloride Level 95mEq/L (97-108) Carbon Dioxide Level 26mmol/L (18-29) Blood Urea Nitrogen 22mg/dL (8-27) Creatinine 0.51mg/dL (0.57-1.00) Estimat Glomerular Filtration Rate 167mL/min (>59) Glucose Level 129mg/dL (60-99) Calcium Level 9.5mg/dL (8.5-10.1) Magnesium Level 2.0mg/dL (1.6-2.6) Total Bilirubin 1.1mg/dL (0.0-1.2) Aspartate Amino Transf (AST/SGOT) 61U/L (0-50) Alanine Aminotransferase (ALT/SGPT) 40U/L (0-32) Alkaline Phosphatase 130U/L (25-165) Troponin T 0.052ug/L (0.0-0.011) Pro-B-Type Natriuretic Peptide 1070pg/mL (0-738) Total Protein 6.8g/dL (6.4-8.4) Albumin 2.7g/dL (3.4-5.0) Ammonia 106ug/dL (18-53) Urine Color Yellow (YELLOW) Urine Appearance Hazy (CLEAR,HAZY) Urine pH 6.5 (5.0-8.0) Urine Specific [place] 1.020 (1.003-1.035) Urine Protein Negativemg/dL (NEG,TRACE) Urine Glucose (UA) Negativemg/dL (NEGATIVE) Urine Ketones Negativemg/dL (NEGATIVE) Urine Occult Blood Negative (NEGATIVE) Urine Nitrite Negative (NEGATIVE) Urine Bilirubin Negative (NEGATIVE) Urine Urobilinogen Normalmg/dL (NORMAL) Urine Leukocyte Esterase Trace (NEGATIVE) Urine RBC 0-2/hpf (0-2) Urine WBC 0-5/hpf (0-5) Urine Epithelial Cells None/hpf (NONE-MOD) Urine Crystals None seen (NONE SEEN) Urine Bacteria Few/hpf (NONE-FEW) Urine Hyaline Casts None/lpf (NONE) Urine Granular Casts None seen (NONE SEEN) Urine Waxy Casts None seen (NONE SEEN) Urine Red Blood Cell Casts None seen (NONE SEEN) Urine White Blood Cell Casts None seen (NONE SEEN) Urine Mucus None seen (None Seen) Urine Trichomonas None seen (NONE SEEN) Urine Yeast None (NONE SEEN) Urinalysis Comment None Urine Culture Reflexed Indicated ECG Interpretation ECG Interpretation: Atrial fibrillation Nonspecific changes Time: 14:44 Interpreted by: ED physician ABG Interpretation ABG Interpretation: 7.295/56/80/26.6/-0.1 Exam Performed by: [facility] pract X-Ray Chest Interpretation Chest Xray Interpretation: IMPRESSION: Bibasilar pneumonia, reduced inspiratory volume. No pleural effusion seen. Dictated by: Sagar Bailey M.D. on 07/22/2016 at 15:15 Approved by: Sagar Bailey M.D. on 07/22/2016 at 15:16 Interpretation / Wet Read by: Interpret - Radiologist Re-Eval/Medical Decision Med Decision/Clinical Course Pneumonia with failed outpatient therapy will not be treated for healthcare associated pneumonia. Severe lactic acidosis and hypercapnic respiratory failure. Patient is started on BiPAP. Aggressive IV fluid resuscitation. Patient will be admitted. Source of Hx: Old records, EMS Consultation : Referral / Consult Name: Jameson Graham MD Consulted With: Hospitalist Requested Call at: 15:33 Call Returned at: 15:37 Epidemiology Investigator: Will see patient, Agrees with eval, Agrees with plan, Accepts admit Note: Requests a head CT 1630 after evaluating the patient requests canceling head CT Counseled Regarding: Diagnosis, Lab results, Need for admission Discharge & Departure Primary Impression: Altered mental state Altered mental status type: unspecified Qualified Code: R41.82 - Altered mental status, unspecified Additional Impressions: Hypercapnic respiratory failure Chronicity: acute Qualified Code: J96.02 - Acute respiratory failure with hypercapnia Elevated troponin Hyperkalemia Pneumonia Pneumonia type: due to unspecified organism Disposition: ADMITTED TO HOSPITAL Discharge Condition All VS Reviewed: Yes Condition: Stable Referrals: Lacey Alexis MD (PCP) Crit Care Except Billable Proc Time Spent: 30-74 minutes Services Performed: Patient management by me, Time spent at bedside, Reviewing test results Critical Care Notes: See MDM Scribe Attestation Portions of this note were transcribed by Julio César Yee. I, Dr. Sandee Perry personally performed the history, physical exam and medical decision- making; I reviewed and confirmed the accuracy of the information in the transcribed note. Signed by: Julio César Yee, Scribes, 07/22/2016 and [id number]. copies to: Lacey Alexis MD, Timothy S DO Jul 22, 2016 13:59 Julio César Hernandez Jul 22, 2016 14:47 Jasmin Yee Jul 22, 2016 15:12
[2016-07-22] MEDS ORDERED: 0.9% Sodium Chloride 1,000 ML IV ONE ×2 (14:38→16:20)
[2016-07-22 14:53] LABS: BASOPHILS % (AUTO) 0.3 % (0-3)
[2016-07-22 14:54] LABS: INR 1.29 ratio
[2016-07-22 14:57] LABS: EOSINOPHILS % (AUTO) 9.6 % (0-5); MONOCYTES % (AUTO) 10.3 % (4-12); Mean Corpuscular Volume 102.3 fL (81-100); NEUTROPHILS % (AUTO) 61.1 % (40-74); Platelet Count 76 bil/L (150-400)
--- NOTE | 2016-07-22 15:17 | DRSVH ---
PROCEDURE: X-RAY CHEST ONE VIEW, PORTABLE ([id number]) INDICATIONS: altered, rales, recent pneumonia TECHNIQUE: One view of the chest was acquired. COMPARISON: [facility], CR, XR CHEST 1VW (PORTABLE), 07/17/2016, 9:10. [facility], CR, XR CHEST 1VW (PORTABLE), 07/16/2016, 11:47. FINDINGS: Surgical changes and devices: None. Lungs and pleura: No pleural effusions or pneumothorax. Lungs are abnormal with bilateral pneumonia pattern, combined with reduced inspiratory volume bilaterally. Mediastinum: Mediastinal contours appear normal. Heart size is normal. Bones and chest wall: No suspicious bony lesions. Overlying soft tissues appear unremarkable. IMPRESSION: Bibasilar pneumonia, reduced inspiratory volume. No pleural effusion seen. Dictated by: Sagar Bailey M.D. on 07/22/2016 at 15:15 Approved by: Sagar Bailey M.D. on 07/22/2016 at 15:16
[2016-07-22 15:20] LABS: TROPONIN T 0.052 ug/L (0.0-0.011)
[2016-07-22] MEDS ORDERED: Cefepime Inj 2 GM in IV Premix 1 EACH IV ONE (15:30)
[2016-07-22] MEDS ORDERED: Azithromycin Inj 500 MG in Dextrose 5% w/Vial Mate 250 ML IV ONE (15:30)
[2016-07-22] MEDS ORDERED: Vancomycin Inj 1,500 MG in 0.9% Sodium Chloride 500 ML IV ONE (15:50)
[2016-07-22] MEDS ORDERED: METF-496 PO (16:08)
[2016-07-22] MEDS ORDERED: LEVO150T5 PO (16:08)
[2016-07-22 16:09] LABS: APPEARANCE,URINE HAZY (CLEAR,HAZY); COLOR,URINE YELLOW (YELLOW); OCCULT BLOOD,URINE NEGATIVE (NEGATIVE); PH,URINE 6.5 (5.0-8.0)
[2016-07-22 16:10] LABS: UROBILINOGEN,URINE NORMAL (NORMAL)
[2016-07-22] MEDS ORDERED: Lactulose 20 Gm/30 mL 30 mL Syrup TUBE ONE (16:20)
[2016-07-22] MEDS ORDERED: Ondansetron 2 mg/mL 2 mL Inj IVPUSH PRN (16:30)
[2016-07-22] MEDS ORDERED: Polyethylene Glycol (PEG) 17 Gm Powder PO PRN (16:30)
[2016-07-22] MEDS ORDERED: Alum-Mag Hydrox-Simeth 30 mL Suspension PO PRN (16:30)
--- NOTE | 2016-07-22 17:50 | PCM.HPMED ---
Subjective Date of Service Jul 22, 2016 Primary Provider: Admitting Physician: Jameson Graham MD Primary Care Physician: Lacey Alexis MD Attending Physician: Jameson Graham MD Admit Status: From the Emergency Department, Full Admit, [facility] Telemetry Chief Complaint: Altered mental status/3 days History of Present Illness: 80-year-old lady with past medical history of cirrhosis, chronic atrial fibrillation on warfarin, rheumatoid arthritis, dementia, hypothyroidism, type II diabetes, hypertension with recent hospitalization for pneumonia was brought in by her son and daughter due to altered mental status of 3 days. She was recently admitted from 07/10 to 07/17 for pneumonia and was discharged on oral antibiotics, Bactrim. She was back to her baseline mental state on discharge last Wednesday. She started to be confused and sleepy starting Wednesday. Her confusion and lethargy progressively worsened over the past 3-4 days. She was not eating well. She only had 1 small bowel movement since discharge. Daughter states that she has been giving her lactulose with Ensure 3 times a day as instructed but no bowel movement for the last few days. Family did not note any change in her breathing. No fever. In ED, patient lethargic, BP 91/47, RR 20, HR 72, sats 99% on room air WBC 9.4,Hb 11.7, platelets 76, MCV 102 Na 141, K5.6, initial lactate 4.0, ammonia 106. AST and ALT mildly elevated. ABG 7.29/56/80. Consistent with acute respiratory acidosis. Pro-calcitonin 0.42, troponin elevated 0.052 EKG atrial fibrillation, no ST-T wave changes. Chest x-ray bibasilar pneumonia , no much change from prior chest x-ray 1 L NS given, antibiotics cefepime and azithromycin started.put on BIPAP . Hospitalist service requested for admission for AMS and HCAP Review of Systems: Comprehensive review of systems performed, pertinent positives and negatives included in history of present illness Allergies Coded Allergies: Penicillins (Verified Allergy, Unknown, 07/22/16) levofloxacin (Verified Allergy, Unknown, 07/22/16) ROTATOR CUFF TEAR Home Medications Recently stopped her medications: Spironolactone 100 mg by mouth daily and Lasix 40 mg by mouth daily Levothyroxine 150 g daily.dose recently lowered from 200mcg Metoprolol succinate 100 mg every morning Venlafaxine 150 mg daily Oxybutynin 20 mg each evening Folic acid 1 mg 3 times a day Metformin 100 mg twice a day( stopped up on discharge and the plan was to start soon ) Digoxin 125 g 1-1/2 tablets daily Warfarin 2 mg on Wednesday and 1.5 mg on the other days Vitamin D thousand units each evening Bactrim 800/160 one half tablet each bedtime Oxycodone 5 mg, half tablet when necessary but used infrequently Tramadol dose uncertain also used infrequently Melatonin 3 mg each bedtime Amitriptyline 10 mg each bedtime Lactulose tid PMH Cirrhosis, son states that she was just diagnosed June 04 and they were told it's related to diabetes Ascites and they report an 8 L paracentesis June 09 Chronic atrial fibrillation on chronic anticoagulation Rheumatoid arthritis Osteoarthritis Nephrolithiasis Hypothyroidism Hypertension Hyperlipidemia GERD Diabetes mellitus, type II Depression Peripheral neuropathy with right foot drop History of urinary tract infections Surgical History Tonsillectomy, appendectomy, cholecystectomy, right carpal tunnel release, cubital tunnel release Did have a left ankle fracture in 2016 but not requiring a procedure Family History Father had COPD and related to heart disease at age 75 Mother had type II diabetes and osteoarthritis and of pneumonia at age 85 Sister had type II diabetes and osteoarthritis and recently causes uncertain but it was following hip and shoulder fractures Social History Hx Alcohol Use: Yes (once every few months, very little in the past 2 years) Hx Substance Use: No Hx Tobacco Use: No Smoking Status: Never Smoker Exam Vital Signs Vital Sign - Last Date Time Temp Pulse Resp B/P Pulse Ox O2 Delivery O2 Flow Rate FiO2 07/22/16 16:58 18 94 21 07/22/16 14:13 36.6 72 91/47 Room Air Exam Gen. patient is lying comfortably in hospital bed on BIPAP HEENT: Head is normocephalic atraumatic, Pupils equal and reactive, extraocular movements intact, Lungs: Rhonchi on lower chest bilaterally Heart irregular rhythm without murmurs gallops or rubs Abdomen soft nontender without hepatosplenomegaly Extremities pulses are present dorsalis pedis posterior tibialis and radial. Skin is warm and dry there are no rashes,+2 pedal edema Neuro :lethargic, not oriented 3. Confused and mumbles. Lymph: There is no lymphadenopathy appreciated in the cervical supra infraclavicular regions : vlilanueva placed in ED Lab and Diagnostics Result Diagram: 07/22/16 1444 07/22/16 1444 X-Rays, CTs and MRIs PROCEDURE: X-RAY CHEST ONE VIEW, PORTABLE ([id number]) INDICATIONS: altered, rales, recent pneumonia IMPRESSION: Bibasilar pneumonia, reduced inspiratory volume. No pleural effusion seen. Dictated by: Sagar Bailey M.D. on 07/22/2016 at 15:15 12-lead ECG Rate controlled A. fib, no ST/T-wave changes Assessment & Plan 80-year-old lady with past medical history of cirrhosis, chronic atrial fibrillation on warfarin, rheumatoid arthritis, dementia, hypothyroidism, type II diabetes, hypertension with recent hospitalization for pneumonia was brought in by her son and daughter due to altered mental status of 3 days. #. Altered mental status, present on admission, acute on chronic - due to hepatic encephalopathy and suspected sepsis. with underlying dementia - Ammonia elevated at 106. - Recent CT head unremarkable. Presentation similar to recent admission. No lateralizing sign. Will not do CT brain -Continue lactulose 20gm tid, may need to consider lactulose enema if no bowel movement overnight -mental state improved on BIPAP and patient more alert and interactive after she is transferred to floor .transitioned to NC # Suspected sepsis due to HCAP , acute, POA -Initial BP 91/47, altered mental status, initial lactate 4.0 -Chest x-ray persistent bibasilar pneumonia, pro-calcitonin up trending from discharge, 0.42 -Started on cefepime and azithromycin in ED,will continue with that. May deescalate antibiotics once culture results available -Blood culture pending. Recent pneumococcal and Legionella antigen negative -1 L NS given in ,will give 1 more and 100ml/h -will trend LA # Acute hypercapnic respiratory failure, POA -Due to hepatic encephalopathy -continue BIPAP , now transitioned to NC. Mentation improved. No need for repeat ABG -Continue lactulose # Elevated troponin,poa,acute -Probably due to demand ischemia due to relative hypotension -No EKG change, rate controlled A. fib, will continue to trend -Continue metoprolol #. Cirrhosis, present on admission - Per outpatient records, this is thought to be due to BOSS - Continue lactulose tid -Spironolactone and Lasix discontinued upon discharge. No significant ascites on exam. will continue to hold #Thrombocytopenia, chronic, stable -Continue to monitor #. Chronic atrial fibrillation, present on admission, stable - Continue digoxin and metoprolol at home dosing - Warfarin per pharmacy for anticoagulation, -INR subtherapeutic, platelets 76, continue anticoagulation for now -Patient is wheelchair-bound with poor functional status. She has thrombocytopenia and cirrhosis. doubt if she is a good candidate for anticoagulation. day team to decide #. Dysphagia, chronic - Worsening over the past year per the patient's son - Outpatient EGD with Dr Dietz was scheduled for yesterday 07/21/16 but was canceled due to recent pneumonia - Speech pathology has recommended a pureed diet on recent admission #. Diabetes mellitus type 2 with peripheral neuropathy, - Metformin held on discharge. Continue to hold -Sliding-scale #. Hypothyroidism - Home levothyroxine dosing was too high based on her recent TSH and free T4 - Levothyroxine dose decreased to 150mcg daily on last admission #Macrocytic anemia, chronic, POA -Due to liver disease, on folate #. Constipation, chronic and ongoing - Firm stools despite lactulose TID. - Outpatient colonoscopy scheduled for 07/21/16 but canceled due to recent hospitalization #. Depression, chronic and presumed stable - Continue home venlafaxine dosing #. Hyperkalemia/hyponatremia, present on admission, -Due to dehydration -IV fluids and recheck DNR/DNI as per POLST form with Family at bedside. POA Son Matt tel [phone] Resuscitation Status: DNR/DNI:Do Not Resuscitate/Intubate Time spent 55 minutes copies to: Lacey Alexis MD, Melaku MD Jul 22, 2016 17:49
[2016-07-22] MEDS ORDERED: TRAM50TA2 PO (18:10)
[2016-07-22] MEDS: 0.9% Sodium Chloride 1,000 ML IV SCH (18:39)
--- NOTE | 2016-07-22 19:29 | NUR ---
Admit Pt admitted to [facility] from ED around 17:00 today. Report received from Elian Leggett. Pt alert but confused, stable vitals on arrival, slightly hypotensive systolic 90s. IV NS and ABX started, lactulose given. Pt's family at bedside and helpful with providing Hx and pt information.
[2016-07-22] MEDS ORDERED: ALPHA LIPOIC ACID 200 MG PO SCH (20:30)
[2016-07-22] MEDS ORDERED: Glucose 40% Oral Gel 15 Gm Tube PO PRN (20:45)
[2016-07-22] MEDS: MeTOProlol XL 50 mg ER24 Tablet PO SCH (20:48)
[2016-07-22] MEDS: Lactulose 20 Gm/30 mL 30 mL Syrup PO SCH (21:02)
[2016-07-22 21:11] LABS: BASOPHILS % (AUTO) 0.3 % (0-3); EOSINOPHILS % (AUTO) 9.5 % (0-5); MONOCYTES % (AUTO) 10.6 % (4-12); Mean Corpuscular Hemoglobin 33.3 pg (27.0-35.0); Mean Corpuscular Volume 102.4 fL (81-100); NEUTROPHILS % (AUTO) 59.7 % (40-74); Platelet Count 68 bil/L (150-400)
[2016-07-22 21:54] LABS: TROPONIN T 0.056 ug/L (0.0-0.011)
[2016-07-22] MEDS: Insulin LISPRO 300 Unit/3 mL Inj SUBQ SCH (22:00)
--- NOTE | 2016-07-22 22:12 | PCM.CONPHA ---
Subjective Date of Service: Jul 22, 2016 Altered mental status/3 days Reason for Pharmacy Consult: Anticoagulation Management Objective Vital Signs Date Time Temp Pulse Resp B/P Pulse Ox O2 Delivery O2 Flow Rate FiO2 07/22/16 20:47 74 07/22/16 20:44 36.7 74 22 115/52 96 Room Air 07/22/16 18:26 63 07/22/16 17:53 36.9 66 96/48 99 Room Air 07/22/16 17:44 74 16 97/47 99 Room Air BiPAP 07/22/16 16:58 18 94 21 07/22/16 15:45 18 99 21 07/22/16 14:13 36.6 72 20 91/47 99 Room Air Weight (Kilograms): 79.700 Height (Feet): 5 Height (Inches): 7.00 Test 07/22/16 14:44 07/22/16 15:46 07/22/16 15:56 07/22/16 21:02 Prothrombin Time 13.9sec (8.1-12.5) Prothromb Time International Ratio 1.29ratio Magnesium Level 2.0mg/dL (1.6-2.6) Pro-B-Type Natriuretic Peptide 1070pg/mL (0-738) Procalcitonin 0.42ng/mL (0.00-0.08) Ammonia 106ug/dL (18-53) Urine Color Yellow (YELLOW) Urine Appearance Hazy (CLEAR,HAZY) Urine pH 6.5 (5.0-8.0) Urine Specific [place] 1.020 (1.003-1.035) Urine Protein Negativemg/dL (NEG,TRACE) Urine Glucose (UA) Negativemg/dL (NEGATIVE) Urine Ketones Negativemg/dL (NEGATIVE) Urine Occult Blood Negative (NEGATIVE) Urine Nitrite Negative (NEGATIVE) Urine Bilirubin Negative (NEGATIVE) Urine Urobilinogen Normalmg/dL (NORMAL) Urine Leukocyte Esterase Trace (NEGATIVE) Urine RBC 0-2/hpf (0-2) Urine WBC 0-5/hpf (0-5) Urine Epithelial Cells None/hpf (NONE-MOD) Urine Crystals None seen (NONE SEEN) Urine Bacteria Few/hpf (NONE-FEW) Urine Hyaline Casts None/lpf (NONE) Urine Granular Casts None seen (NONE SEEN) Urine Waxy Casts None seen (NONE SEEN) Urine Red Blood Cell Casts None seen (NONE SEEN) Urine White Blood Cell Casts None seen (NONE SEEN) Urine Mucus None seen (None Seen) Urine Trichomonas None seen (NONE SEEN) Urine Yeast None (NONE SEEN) Urinalysis Comment None Urine Culture Reflexed Indicated White Blood Count 9.1th/mm3 (3.8-10.1) Red Blood Count 3.39mil/mm3 (3.90-5.20) Hemoglobin 11.3g/dL (12.0-15.6) Hematocrit 34.7% (35.0-46.0) Mean Corpuscular Volume 102.4fL (81-100) Mean Corpuscular Hemoglobin 33.3pg (27.0-35.0) Mean Corpuscular Hemoglobin Concent 32.6% (32.0-37.0) Red Cell Distribution Width 15.4% (12.3-15.4) Platelet Count 68bil/L (150-400) Neutrophils (%) (Auto) 59.7% (40-74) Lymphocytes (%) (Auto) 19.3% (14-46) Monocytes (%) (Auto) 10.6% (4-12) Eosinophils (%) (Auto) 9.5% (0-5) Basophils (%) (Auto) 0.3% (0-3) Sodium Level 133mEq/L (134-144) Potassium Level 5.3mEq/L (3.5-5.2) Chloride Level 98mEq/L (97-108) Carbon Dioxide Level 26mmol/L (18-29) Blood Urea Nitrogen 20mg/dL (8-27) Creatinine 0.48mg/dL (0.57-1.00) Estimat Glomerular Filtration Rate 179mL/min (>59) Glucose Level 98mg/dL (60-99) Lactic Acid Level 2.4mmol/L (0.4-2.0) Calcium Level 8.7mg/dL (8.5-10.1) Total Bilirubin 0.9mg/dL (0.0-1.2) Aspartate Amino Transf (AST/SGOT) 58U/L (0-50) Alanine Aminotransferase (ALT/SGPT) 38U/L (0-32) Alkaline Phosphatase 118U/L (25-165) Troponin T 0.056ug/L (0.0-0.011) Total Protein 6.5g/dL (6.4-8.4) Albumin 2.5g/dL (3.4-5.0) Assessment/Plan Assessment/Plan Warfarin per Rx Indication: A-Fib INR today (14:44) is 1.29 Home Dose: 2mg M//, 1.5mg all other days 2mg dose for tonight; Daily INR Rocco Hein PharmD Jul 22, 2016 22:12
--- NOTE | 2016-07-22 23:28 | NUR ---
MENTATION Pt alert to self and confused with questions asked by nurse. Pt's vitals stable, extremely tired and passive with care. Pt denies any pain, N/V or SOB. Pt shows no signs of any distress at this time. Blood sugars 74, no insulin given. Troponin levels were still high after labs were drawn, ordered an 81mg chewable aspirin with evening meds. Pt resting comfortably at this time.
[2016-07-23] VITALS (15 sets, daily range): BP systolic 86–120; BP diastolic 36–72; PULSE 58–86; RESP 20–27; O2SAT 92–100
[2016-07-23] MEDS: Cefepime Inj 1,000 MG in Dextrose 5% Minibag Plus 50 ML IV SCH ×3 (00:56→16:25)
[2016-07-23] MEDS: 0.9% Sodium Chloride 1,000 ML IV SCH ×2 (03:23→12:20)
[2016-07-23 03:42] LABS: BASOPHILS % (AUTO) 0.4 % (0-3); EOSINOPHILS % (AUTO) 9.9 % (0-5); MONOCYTES % (AUTO) 9.1 % (4-12); Mean Corpuscular Hemoglobin 33.2 pg (27.0-35.0); Mean Corpuscular Volume 101.9 fL (81-100); NEUTROPHILS % (AUTO) 61.3 % (40-74); Platelet Count 67 bil/L (150-400)
[2016-07-23 04:58] LABS: Magnesium 1.8 mg/dL (1.6-2.6)
[2016-07-23 05:16] LABS: TROPONIN T 0.054 ug/L (0.0-0.011)
[2016-07-23] MEDS: Insulin LISPRO 300 Unit/3 mL Inj SUBQ SCH ×4 (08:00→19:42)
[2016-07-23] MEDS: Venlafaxine XR 75 mg ER24 Capsule PO SCH (08:30)
[2016-07-23] MEDS ORDERED: Vancomycin Dose per Pharmacist XX SCH (08:30)
[2016-07-23] MEDS ORDERED: Azithromycin Inj 500 MG in Dextrose 5% w/Vial Mate 250 ML IV SCH (08:30)
--- NOTE | 2016-07-23 10:14 | NUR ---
BIPAP AM meds delayed due to Bipap
[2016-07-23] MEDS: Lactulose 20 Gm/30 mL 30 mL Syrup PO SCH ×3 (11:15→19:31)
[2016-07-23 11:42] LABS: INR 1.34 ratio
[2016-07-23] MEDS: MeTOProlol XL 50 mg ER24 Tablet PO SCH (11:53)
--- NOTE | 2016-07-23 13:31 | NUR ---
Wound care Wound evaluation order received, patient seen at bedside. 80-year-old lady with past medical history of cirrhosis, chronic atrial fibrillation on warfarin, rheumatoid arthritis, dementia, hypothyroidism, type II diabetes, hypertension with recent hospitalization for pneumonia was brought in by her son and daughter due to altered mental status of 3 days. Patient presents with 3 stage 1 pressure ulcers one at her right and left buttocks and at her sacrum, these are all approx 1.5 cm in diameter. I recommend shield wipes to these areas and sidelying positioning.Floating the heels as well.
--- NOTE | 2016-07-23 16:44 | PCM.PNMED ---
Subjective Date of Service Jul 23, 2016 Subjective Patient was seen and examined today at bedside. Patient did have a BiPAP in place. But she was alert and responding appropriately to questions stating that she had no chest pain, shortness of breath, nausea, vomiting, diarrhea. Patient does complain of constipation. Exam Vital Signs Vital Sign - Last Date Time Temp Pulse Resp B/P Pulse Ox O2 Delivery O2 Flow Rate FiO2 07/23/16 16:15 60 22 94/42 98 Room Air 07/23/16 11:57 36.5 07/23/16 09:35 21 Intake and Output 07/22/16 07/22/16 07/23/16 Cumulative From/Thru 15:00 23:00 07:00 07/22/16 14:13 - 07/23/16 06:06 Intake Total 1100 ml 1100 ml Output Total 550 ml 400 ml 950 ml Balance -550 ml 700 ml 150 ml Intake IV Total 1100 ml 1100 ml Output Urine Total 550 ml 400 ml 950 ml Exam Physical Exam: GEN: Patient was awake, alert, responding appropriately to questions HEENT: PERRLA, EOMI, Neck soft supple, trachea midline, nomocephalic/atraumatic CV: +S1/S2, RRR, no murmurs auscultated Respiratory: CTAB, no wheezes, rales, rhonchi GI: +bowel sounds x4, compressible, mild TTP, mild distention EXT: no c/c +1 pitting edema bilaterally Neuro: CN II-XII grossly intact Psych: mood and affect were appropriate IVs and Medications Medications Reviewed: Medications were reviewed in detail Medications Current Medications Pharmacy Consult 1 ea 1 ea DAILY XX; Start 07/23/16 at 08:30; Stop 07/23/16 at 08: 30; Status DC Sodium Chloride 1,000 ml @ 100 mls/hr Q10H IV Last administered on 07/23/16t 03: 23; Admin Dose 100 MLS/HR; Start 07/22/16 at 16:20; Stop 07/23/16 at 15:30; Status DC Ondansetron HCl 4 to 8 mg Q4H PRN IVPUSH; Start 07/22/16 at 16:30 Senna 2 tablet BID PRN PO; Start 07/22/16 at 16:30 Al Hydrox/Mg Hydrox/Simethicone 30 ml Q6H PRN PO; Start 07/22/16 at 16:30 Polyethylene Glycol 17 gm 17 gm DAILY PRN PO; Start 07/22/16 at 16:30 Cefepime HCl 1000 mg/Dextrose/Water 50 ml @ 12.5 mls/hr Q8 IV Last administered on 07/23/16 11:14; Admin Dose 12.5 MLS/HR; Start 07/23/16 at 00:30 Azithromycin/ Dextrose/Water 250 ml @ 250 mls/hr Q24 IV Last administered on 08:50; Admin Dose 250 MLS/HR; Start 07/23/16 at 08:30 Amitriptyline HCl 10 mg HS PO Last administered on 07/22/16 20:48; Admin Dose 10 MG; Start 07/22/16 at 21:00 Digoxin 0.1875 mg DAILY PO Last administered on 07/23/16 11:52; Admin Dose 0.1875 MG; Start 07/22/16 at 17:30 Folic Acid 1 mg TID PO Last administered on 07/23/16 11:15; Admin Dose 1 MG; Start 07/22/16 at 20:30 Lactulose 20 gm TID PO Last administered on 07/23/16 11:15; Admin Dose 20 GM; Start 07/22/16 at 20:30 Levothyroxine Sodium 150 mcg 0630 PO Last administered on 07/23/16 04:46; Admin Dose 150 MCG; Start 07/23/16 at 06:30 Oxybutynin Chloride 10 mg HS PO Last administered on 07/22/16 20:48; Admin Dose 10 MG; Start 07/22/16 at 21:00 Oxycodone HCl 2.5 mg BID PRN PO; Start 07/22/16 at 16:35 Quetiapine Fumarate 12.5 mg HS PO Last administered on 07/22/16 21:02; Admin Dose 12.5 MG; Start 07/22/16 at 21:00 Non-Formulary Medication 200 mg TID PO; Start 07/22/16 at 20:30; Status UNV Cholecalciferol 1,000 unit DAILYWL PO Last administered on 07/23/16 11:02; Admin Dose 1,000 UNIT; Start 07/23/16 at 12:00 Melatonin 3 mg HS PO Last administered on 07/22/16 20:47; Admin Dose 3 MG; Start 07/22/16 at 21:00 Metoprolol Succinate 100 mg DAILY PO Last administered on 07/23/16 11:53; Admin Dose 100 MG; Start 07/22/16 at 17:30 Senna 17.2 mg DAILY PO Last administered on 07/23/16 10:56; Admin Dose 17.2 MG; Start 07/23/16 at 08:30 Venlafaxine HCl 150 mg DAILY PO Last administered on 07/23/16 08:30; Admin Dose 150 MG; Start 07/23/16 at 08:30 Pyridoxine HCl 50 mg HS PO Last administered on 07/22/16 20:45; Admin Dose 50 MG ; Start 07/22/16 at 21:00 Pharmacy Consult 1 ea DAILY@17 XX; Start 07/23/16 at 17:00 Rifaximin 550 mg BID PO; Start 07/22/16 at 20:40; Stop 07/22/16 at 20:45; Status DC Insulin Human Lispro Nutritional Dose to be given pr... [facility] SUBQ; Start at 22:00 Warfarin Sodium 1 mg DAILY@17 PO; Start 07/23/16 at 17:00 Lab and Diagnostics Result Diagram: 07/23/16 0310 07/23/16 0310 X-Rays, CTs and MRIs PROCEDURE: X-RAY CHEST ONE VIEW, PORTABLE ([id number]) INDICATIONS: altered, rales, recent pneumonia IMPRESSION: Bibasilar pneumonia, reduced inspiratory volume. No pleural effusion seen. Dictated by: Sagar Bailey M.D. on 07/22/2016 at 15:15 12-lead ECG Rate controlled A. fib, no ST/T-wave changes Assessment & Plan 80-year-old lady with past medical history of cirrhosis, chronic atrial fibrillation on warfarin, rheumatoid arthritis, dementia, hypothyroidism, type II diabetes, hypertension with recent hospitalization for pneumonia was brought in by her son and daughter due to altered mental status of 3 days. Altered mental status, present on admission, acute on chronic - due to hepatic encephalopathy and suspected sepsis. with underlying dementia - Ammonia elevated at 106. - Recent CT head unremarkable. Presentation similar to recent admission. No lateralizing sign. Will not do CT brain -Continue lactulose 20gm tid, may need to consider lactulose enema -Continue intermittent use of BiPAP versus nasal cannula Suspected sepsis due to HCAP , acute, POA -Initial BP 91/47, altered mental status, initial lactate 4.0 -Patient is still running hypotensive with blood pressures 90s over 50s -Chest x-ray persistent bibasilar pneumonia, pro-calcitonin up trending from discharge, 0.42 -Continue cefepime and azithromycin. May deescalate antibiotics once culture results available -Blood culture showed no growth 24 hours. Recent pneumococcal and Legionella antigen negative - discontinue fluids as the patient is becoming fluid overloaded -will trend LA Acute hypercapnic respiratory failure, POA -Due to hepatic encephalopathy -continue intermittent BIPAP and nasal cannula use. Mentation improved. No need for repeat ABG -Continue lactulose Elevated troponin,poa,acute -Probably due to demand ischemia due to relative hypotension -No EKG change, rate controlled A. fib, -Troponins relatively the same at 0.056--> 0.054 this seems to correlate more with demand ischemia -Continue metoprolol Cirrhosis, present on admission - Per outpatient records, this is thought to be due to BOSS - Continue lactulose tid -Spironolactone and Lasix discontinued upon discharge. No significant ascites on exam. will continue to hold Thrombocytopenia, chronic, stable -Continue to monitor Chronic atrial fibrillation, present on admission, stable - Continue digoxin and metoprolol at home dosing - Warfarin per pharmacy for anticoagulation, -INR subtherapeutic, platelets 76, continue anticoagulation for now -Patient is wheelchair-bound with poor functional status. She has thrombocytopenia and cirrhosis. doubt if she is a good candidate for anticoagulation. day team to decide Dysphagia, chronic - Worsening over the past year per the patient's son - Outpatient EGD with Dr Dietz was scheduled for yesterday 07/21/16 but was canceled due to recent pneumonia - Speech pathology has recommended a pureed diet on recent admission Diabetes mellitus type 2 with peripheral neuropathy, - Metformin held on discharge. Continue to hold -Sliding-scale Hypothyroidism - Home levothyroxine dosing was too high based on her recent TSH and free T4 - Levothyroxine dose decreased to 150mcg daily on last admission Macrocytic anemia, chronic, POA -Due to liver disease, on folate Constipation, chronic and ongoing - Firm stools despite lactulose TID. - Outpatient colonoscopy scheduled for 07/21/16 but canceled due to recent hospitalization Depression, chronic and presumed stable - Continue home venlafaxine dosing Hyperkalemia/hyponatremia, present on admission, -Due to dehydration -IV fluids and recheck DNR/DNI as per POLST form with Family at bedside. JOLANTA Gutierrez tel [phone] Disposition: Patient seems to be improving with the usage of the BiPAP. We will continue to monitor the patient's ammonia levels and continue to treat the pneumonia. We will continue to trend the patient's lactic acid and procalcitonin. Resuscitation Status: DNR/DNI:Do Not Resuscitate/Intubate Radha Maria DO Jul 23, 2016 16:44
--- NOTE | 2016-07-23 17:33 | NUR ---
Evaluation completed. Please go to "Notes" then click on "Assessments and Notes" (bottom left corner of screen). Then select appropriate discipline tab on top of screen.
--- NOTE | 2016-07-23 18:31 | NUR ---
Oxygenation/Skin assessment/q2 turns Cardiac: Pt denies chest pain, Tele: A-fib 60s-70s Resp: Pt reported some SOB this AM to RT, SPO2 95% on RA, pt requested to be placed back on bipap, sPO2 up to 99%. Pt on bipap until 11:00, taken off for meds and left off, SPO2 97%-99% on RA. Crackles developed and increased today, NS 100ml/hr DC'd. GI/: Pt denies N/V, Lactulose given this AM and PM. No stool but a few smears this shift. Cason draining dark jewel urine to gravity, 400ml out this shift. Speech eval changed NPO to full liquid. Neuro: A&O to self, confused and sleepy. Pleasant and compliant with care when alert. Skin/wound consult today. 3 stage 1 pressure sores on sacrum. q2 turning today.
[2016-07-24] VITALS (9 sets, daily range): BP systolic 98–134; BP diastolic 44–83; PULSE 56–72; RESP 18–22; O2SAT 96–100
--- NOTE | 2016-07-24 00:18 | NUR ---
BiPAP/IV FLUIDS/SKIN PROTECTION Pt's IV fluids were stopped due to crackly lungs. IV antibiotics still running. Slight crackles throughout heard upon auscultation. Pt put on BiPAP this evening @ FIO2 21% sating mid 90's. Pt has been tolerating the BiPAP quite well, has not removed or complained. Pt has been extremely tired and has been sleeping most of the night. Pt very weak and unable to help with turning in bed. Pt Q2 turns for skin protection r/t to 3 stage 1 pressure ulcers on the sacrum/bottom area. Pt has rich that is patent. No c/o of pain or any other issues noted at this time.
[2016-07-24] MEDS: Cefepime Inj 1,000 MG in Dextrose 5% Minibag Plus 50 ML IV SCH (00:33)
[2016-07-24 04:36] LABS: BASOPHILS % (AUTO) 0.5 % (0-3); EOSINOPHILS % (AUTO) 9.2 % (0-5); MONOCYTES % (AUTO) 10.8 % (4-12); Mean Corpuscular Hemoglobin 33.9 pg (27.0-35.0); Mean Corpuscular Volume 100.6 fL (81-100); NEUTROPHILS % (AUTO) 61.1 % (40-74); Platelet Count 64 bil/L (150-400)
[2016-07-24 05:07] LABS: INR 1.55 ratio
[2016-07-24] MEDS: Insulin LISPRO 300 Unit/3 mL Inj SUBQ SCH ×4 (08:00→19:59)
[2016-07-24] MEDS: Venlafaxine XR 75 mg ER24 Capsule PO SCH (08:30)
[2016-07-24] MEDS: Lactulose 20 Gm/30 mL 30 mL Syrup PO SCH ×3 (08:43→19:46)
[2016-07-24] MEDS: MeTOProlol XL 50 mg ER24 Tablet PO SCH (08:46)
--- NOTE | 2016-07-24 11:46 | NUR ---
Social Work: Initial Assessment D: Per EMR review, pt is a 80 year old female admitted for pneumonia, AMS, respiratory failure. Pt is Medicare with for [employer]; pt has no LTC or VA benefits. PCP is Lacey Alexis MD. NOK is Matt chen Yuliya Bright, children, . POLST completed- DPOA ppw is also completed but not on chart- pt's son will provide copy. Readmit score is moderate, 5/8. PHARMACEUTICAL WORKER spoke with pt's son over the phone. Sw role and contact information provided. See initial assessment. Pt lives at home with her adult children. Pt has advanced dementia and relies on her children for total assistance including dressing, toileting and bathing. Pt transfers to a wheelchair using a slide board. Pt is currently open with [facility] for RN, PT. During last admission, PT recommend SNF however family declined stating that the pt will refuse to work with PT/engage in care with anyone besides himself and daughter. They are prepared to take her home and resume 24/7 care of her. They would like [facility] to continue to come out. t/c to [place] with [facility] to notify of pt's admission; access provided. A: Pt who requires total assistance from adult children for all care. P: Anticipate pt to discharge home with [facility] for RN, PT and 24/7 care from pt's adult children. LI Kenney Addendum: 07/24/16 at 1157 by MICHELLE VINSON Amended: Links added.
--- NOTE | 2016-07-24 12:32 | NUR ---
Blood Sugar Patient's Blood Sugar 61, 57, 66 and then 98 first thing this am with Q 15 minute repeat checks. MD notified. Pt given Rainbow juice, custard, cream of wheat to increase blood glucose. Patient resting comfortably at this time. Care continues.
--- NOTE | 2016-07-24 14:01 | PCM.PNMED ---
Subjective Date of Service Jul 24, 2016 Subjective Patient was examined at bedside today. Patient currently had CPAP in place. Patient does seem that she may be at her current baseline mentation however we will need to verify this with family. Exam Vital Signs Vital Sign - Last Date Time Temp Pulse Resp B/P Pulse Ox O2 Delivery O2 Flow Rate FiO2 07/24/16 11:47 36.7 64 18 100/59 100 Room Air 07/24/16 04:00 21 Intake and Output 07/23/16 07/23/16 07/24/16 Cumulative From/Thru 15:00 23:00 07:00 07/22/16 14:13 - 07/24/16 06:19 Intake Total 1250 ml 150 ml 2500 ml Output Total 400 ml 400 ml 1750 ml Balance 850 ml -250 ml 750 ml Intake Oral 300 ml 100 ml 400 ml IV Total 950 ml 50 ml 2100 ml Output Urine Total 400 ml 400 ml 1750 ml Exam Physical Exam: GEN: Patient was awake, alert, responding appropriately to questions HEENT: PERRLA, EOMI, Neck soft supple, trachea midline, nomocephalic/atraumatic CV: Auscultation difficult secondary to CPAP +S1/S2, RRR, no murmurs auscultated Respiratory: Coarse breath sounds secondary to CPAP, no wheezes, rales, rhonchi noted GI: +bowel sounds x4, soft, compressible, non TTP EXT: no c/c/e Psych: mood and affect were appropriate IVs and Medications Medications Reviewed: Medications were reviewed in detail Medications Current Medications Pharmacy Consult 1 ea 1 ea DAILY XX; Start 07/23/16 at 08:30; Stop 07/23/16 at 08: 30; Status DC Sodium Chloride 1,000 ml @ 100 mls/hr Q10H IV Last administered on 07/23/16t 03: 23; Admin Dose 100 MLS/HR; Start 07/22/16 at 16:20; Stop 07/23/16 at 15:30; Status DC Ondansetron HCl 4 to 8 mg Q4H PRN IVPUSH; Start 07/22/16 at 16:30 Senna 2 tablet BID PRN PO; Start 07/22/16 at 16:30 Al Hydrox/Mg Hydrox/Simethicone 30 ml Q6H PRN PO; Start 07/22/16 at 16:30 Polyethylene Glycol 17 gm 17 gm DAILY PRN PO; Start 07/22/16 at 16:30 Cefepime HCl 1000 mg/Dextrose/Water 50 ml @ 12.5 mls/hr Q8 IV Last administered on 07/24/16 00:33; Admin Dose 12.5 MLS/HR; Start 07/23/16 at 00:30 ; Stop 07/24/16 at 08:15; Status DC Azithromycin/ Dextrose/Water 250 ml @ 250 mls/hr Q24 IV Last administered on 08:50; Admin Dose 250 MLS/HR; Start 07/23/16 at 08:30; Stop 07/24/16 at 08 :15; Status DC Amitriptyline HCl 10 mg HS PO Last administered on 07/23/16 19:33; Admin Dose 10 MG; Start 07/22/16 at 21:00 Digoxin 0.1875 mg DAILY PO Last administered on 07/24/16 08:45; Admin Dose 0.1875 MG; Start 07/22/16 at 17:30 Folic Acid 1 mg TID PO Last administered on 07/24/16 08:43; Admin Dose 1 MG; Start 07/22/16 at 20:30 Lactulose 20 gm TID PO Last administered on 07/24/16 08:43; Admin Dose 20 GM; Start 07/22/16 at 20:30 Levothyroxine Sodium 150 mcg 0630 PO Last administered on 07/24/16 04:56; Admin Dose 150 MCG; Start 07/23/16 at 06:30 Oxybutynin Chloride 10 mg HS PO Last administered on 07/23/16 19:31; Admin Dose 10 MG; Start 07/22/16 at 21:00 Oxycodone HCl 2.5 mg BID PRN PO; Start 07/22/16 at 16:35 Quetiapine Fumarate 12.5 mg HS PO Last administered on 07/23/16 19:32; Admin Dose 12.5 MG; Start 07/22/16 at 21:00 Non-Formulary Medication 200 mg TID PO; Start 07/22/16 at 20:30; Status UNV Cholecalciferol 1,000 unit DAILYWL PO Last administered on 07/24/16 12:53; Admin Dose 1,000 UNIT; Start 07/23/16 at 12:00 Melatonin 3 mg HS PO Last administered on 07/23/16 19:31; Admin Dose 3 MG; Start 07/22/16 at 21:00 Metoprolol Succinate 100 mg DAILY PO Last administered on 07/24/16 08:46; Admin Dose 100 MG; Start 07/22/16 at 17:30 Senna 17.2 mg DAILY PO Last administered on 07/24/16 12:58; Admin Dose 17.2 MG ; Start 07/23/16 at 08:30 Venlafaxine HCl 150 mg DAILY PO Last administered on 07/24/16 08:30; Admin Dose 150 MG; Start 07/23/16 at 08:30 Pyridoxine HCl 50 mg HS PO Last administered on 07/23/16 19:33; Admin Dose 50 MG ; Start 07/22/16 at 21:00 Pharmacy Consult 1 ea DAILY@17 XX; Start 07/23/16 at 17:00 Rifaximin 550 mg BID PO; Start 07/22/16 at 20:40; Stop 07/22/16 at 20:45; Status DC Insulin Human Lispro Nutritional Dose to be given pr... [facility] SUBQ Last administered on 07/24/16 12:53; Admin Dose 1 UNIT; Start 07/22/16 at 22:00 Warfarin Sodium 1 mg DAILY@17 PO Last administered on 07/23/16 16:23; Admin Dose 1 MG; Start 07/23/16 at 17:00; Stop 07/24/16 at 11:18; Status DC Lab and Diagnostics Result Diagram: 07/24/1641907/24/16 0420 X-Rays, CTs and MRIs PROCEDURE: X-RAY CHEST ONE VIEW, PORTABLE ([id number]) INDICATIONS: altered, rales, recent pneumonia IMPRESSION: Bibasilar pneumonia, reduced inspiratory volume. No pleural effusion seen. Dictated by: Sagar Bailey M.D. on 07/22/2016 at 15:15 12-lead ECG Rate controlled A. fib, no ST/T-wave changes Assessment & Plan 80-year-old lady with past medical history of cirrhosis, chronic atrial fibrillation on warfarin, rheumatoid arthritis, dementia, hypothyroidism, type II diabetes, hypertension with recent hospitalization for pneumonia was brought in by her son and daughter due to altered mental status of 3 days. Altered mental status, present on admission, acute on chronic - due to hepatic encephalopathy and suspected sepsis. with underlying dementia - Ammonia elevated at 106-->103 today - Recent CT head unremarkable. Presentation similar to recent admission. No lateralizing sign. Will not do CT brain -Continue lactulose 20gm tid, most likely will give lactulose enema today -Continue intermittent use of BiPAP versus nasal cannula Suspected sepsis due to HCAP , acute, POA -Initial BP 91/47, altered mental status, initial lactate 4.0 -Patient is still running hypotensive with blood pressures 90s over 50s -Chest x-ray persistent bibasilar pneumonia, pro-calcitonin up trending from discharge, 0.42 -Continue cefepime and azithromycin. May deescalate antibiotics once culture results available -Blood culture showed no growth 24 hours. Recent pneumococcal and Legionella antigen negative - discontinue fluids as the patient is becoming fluid overloaded -will trend LA Acute hypercapnic respiratory failure, POA -Due to hepatic encephalopathy -continue intermittent BIPAP and nasal cannula use. Mentation improved. No need for repeat ABG -Continue lactulose Elevated troponin,poa,acute -Probably due to demand ischemia due to relative hypotension -No EKG change, rate controlled A. fib, -Troponins relatively the same at 0.056--> 0.054 this seems to correlate more with demand ischemia -Continue metoprolol Cirrhosis, present on admission - Per outpatient records, this is thought to be due to BOSS - Continue lactulose tid -Spironolactone and Lasix discontinued upon discharge. No significant ascites on exam. will continue to hold Thrombocytopenia, chronic, stable -Continue to monitor Chronic atrial fibrillation, present on admission, stable - Continue digoxin and metoprolol at home dosing - Warfarin per pharmacy for anticoagulation, -INR subtherapeutic, platelets 76, continue anticoagulation for now -Patient is wheelchair-bound with poor functional status. She has thrombocytopenia and cirrhosis. Dysphagia, chronic - Worsening over the past year per the patient's son - Outpatient EGD with Dr Dietz was scheduled for 07/21/16 but was canceled due to recent pneumonia - Speech pathology has recommended a pureed diet on recent admission Diabetes mellitus type 2 with peripheral neuropathy, - Metformin held on discharge. Continue to hold -Sliding-scale Hypothyroidism - Home levothyroxine dosing was too high based on her recent TSH and free T4 - Levothyroxine dose decreased to 150mcg daily on last admission Macrocytic anemia, chronic, POA -Due to liver disease, on folate Constipation, chronic and ongoing - Firm stools despite lactulose TID. -Lactulose enema - Outpatient colonoscopy scheduled for 07/21/16 but canceled due to recent hospitalization Depression, chronic and presumed stable - Continue home venlafaxine dosing Hyperkalemia/hyponatremia, present on admission, -Due to dehydration -IV fluids and recheck DNR/DNI as per POLST form with Family at bedside. POA Son Matt tel [phone] Disposition: Patient seems to be improving with the usage of the BiPAP. Patient is now on CPAP at night only and on room air during the day. Patient seems to be back to her baseline mentation however her ammonia level still elevated. We will do a trial of a lactulose enema and hopefully this will help get the patient's bowels moving and help to decrease the ammonia level. If patient appears to be at her baseline mentation as reported by family patient will most likely be discharged back home tomorrow. Resuscitation Status: DNR/DNI:Do Not Resuscitate/Intubate Radha Maria DO Jul 24, 2016 13:01
[2016-07-24] MEDS ORDERED: Lactulose 200 GM/Bottle Enema RECTAL ONE (14:25)
--- NOTE | 2016-07-24 14:53 | NUR ---
NUTRITION ASSESSMENT Assess: 80 yo F w/ AMS, suspected pneumonia, and acute hypercapnic respiratory failure. PO intake is variable. ST recommending full liquid diet. Discussed nutrition supplement with pt and importance of protein intake for healing. Pt states that since being admitted she has not had an appetite. Pt confused, unclear how much of our conversation was comprehended. PMHx: Cirrhosis, Ascites, Afib, RA, OA, Nephrolithiasis, Hypothyroid, HTN, HLD, GERD, DM 2, Peripheral neuropathy, UTIs. LABS: Cr 0.38, Ca 8.2, AST 52, Albumin 2.2 MEDICATIONS: Coumadin, Vit D, Senna, Folic acid, Digoxin, Lactulose DIET: Full liquid, PO sips-100% NUTRITION FOCUSED PHYSICAL ASSESSMENT: GI symptoms/stool: No BM recordedBraden: 13 Skin integrity: 3 Stage 1 PU on lt buttock, rt buttock, and sacrum Overall Appearance: Pt sitting up in bed - no signs of wasting ANTHROPOMETRICS: Current Wt: 81.2 kg BMI: 28 kg/[id number] Wt: 79.7 kg IBW: 61.4 kgRecent wt changes: Stable ESTIMATED NEEDS: Wounds Calories: 9027-3371 kcal/d (30-35 kcal/kg/d) Protein: 95-125 g/d (1.2-1.5 g/kg/d) Fluids: 0826-0169 ml/d (1 ml/kcal/d) NUTRITION DIAGNOSIS: 1) Increased nutrient needs related to healing as evidenced by 3 stage 1 PUs. INTERVENTION: 1) Will send Glucerna TID MONITOR/EVALUATE: PO intake, Diet adv/jacob, Wounds, Nutrition status, POC. Will follow per moderate nutrition risk guidelines.
--- NOTE | 2016-07-24 14:58 | PCM.PHAPRO ---
Progress Altered mental status/3 days WARFARIN MANAGEMENT PER PHARMACY [facility] DFF Date Jul 23-Jul 24-Jul INR 1.29 1.35 1.55 INR change 0.06 0.2 Warf Dose 2 1 2 Subtherapeutic INR. Will increase dose back to warfarin 2 mg this evening. Pharmacy to monitor. Sam Cartagena Jul 24, 2016 14:58
--- NOTE | 2016-07-24 16:25 | NUR ---
Lactulose enema Patient tolerated lactulose enema. Pt was unable to retain fluid in colon, stated she could not hold fluid in. This RN administered all of lactulose. Patient lying on left side resting. Care continues.
--- NOTE | 2016-07-24 18:00 | NUR ---
Enema Patient able to have small bowel movement 30 minutes after enema.
--- NOTE | 2016-07-24 23:34 | NUR ---
SKIN PROTECTION/BOWEL MOVEMENTS Pt's lactulose was increased to 40mg TID to encourage a bowel movement. Pt has had 3 small loose stools on manager night as of 2329. Pt is bedrest and incontinent. Pt is Q2 turns and brief checks QH, barrier cream clothes are being used to prevent skin breakdown on current stage 1 pressure ulcers on sacrum/bottom area. Pt denies pain, no other issues noted @ this time. Addendum: 07/25/16 at 0631 by KELLY ANAYA RN OUTPUT Pt had 3 small and 1 large loose bowel movements on manager night. Pt was given 40 mg po Lasix for ascites, pt abdomen was distended, tender, and firm. Pt had a total urine output of 300cc on manager night. Pt abdomen still distended, but not as firm or tender.
[2016-07-25] VITALS (10 sets, daily range): BP systolic 97–116; BP diastolic 53–66; PULSE 58–78; RESP 19–22; O2SAT 91–98
[2016-07-25 04:55] LABS: BASOPHILS % (AUTO) 0.3 % (0-3); EOSINOPHILS % (AUTO) 6.2 % (0-5); MONOCYTES % (AUTO) 10.2 % (4-12); Mean Corpuscular Hemoglobin 33.8 pg (27.0-35.0); NEUTROPHILS % (AUTO) 67.3 % (40-74); Platelet Count 71 bil/L (150-400)
[2016-07-25 05:09] LABS: INR 1.89 ratio
--- NOTE | 2016-07-25 07:19 | PCM.PHAPRO ---
Progress Altered mental status/3 days Date -Jul 23-Jul 24-Jul 25-Jul INR 1.29 1.35 1.55 1.89 INR change 0.06 0.2 0.34 Warf Dose 2 1 2 1.5 Rui Haley Jul 25, 2016 07:19
[2016-07-25] MEDS: Insulin LISPRO 300 Unit/3 mL Inj SUBQ SCH ×4 (08:37→19:55)
[2016-07-25] MEDS: Lactulose 20 Gm/30 mL 30 mL Syrup PO SCH ×3 (08:37→20:30)
[2016-07-25] MEDS: MeTOProlol XL 50 mg ER24 Tablet PO SCH (08:39)
[2016-07-25] MEDS: Venlafaxine XR 75 mg ER24 Capsule PO SCH (08:39)
--- NOTE | 2016-07-25 13:33 | DRSVH ---
PROCEDURE: CT ABDOMEN AND PELVIS WITH CONTRAST ([id number]) INDICATIONS: abdominal distension TECHNIQUE: After the administration of intravenous contrast, 5 mm thick sections acquired from the diaphragm to the symphysis. 5 mm coronal and sagittal reformats were acquired. For radiation dose reduction, the following was used: automated exposure control, adjustment of mA and/or kV according to patient tomás govea. COMPARISON: [facility], CT, CT ABD PELVIS W CON, 06/01/2016, 14:33. FINDINGS: Image quality: Excellent. ABDOMEN: Lung bases: There are small low density bilateral pleural effusions. Nodular interlobular septal thic kening is present in the bilateral lung bases. Solid organs: The liver demonstrates homogeneous enhancement. The spleen is enlarged measuring 13.3 c m in length. The portal vein is patent. Gallbladder surgically absent. Biliary system is non dilated . Pancreas enhances normally. No adrenal nodules. Kidneys demonstrate normal size and enhancement, without hydronephrosis. There are multiple low-density cystic lesions within the right renal cortex which may represent simple renal cysts but are incompletely characterized. Peritoneum and bowel: Bowel loops demonstrate normal wall thickness. The small bowel demonstrates no rmal caliber. There is moderate gaseous distention of the colon which is partially filled with liquid stool and partially filled with solid stool. There is a moderate amount of low-density free abdomina l pelvic fluid. The extent of free fluid is less than on the comparison CT dated 06/01/16. Nodes and vessels: No retroperitoneal or mesenteric adenopathy by size criteria. Aorta and inferior vena cava are normal in size. There are scattered atheromatous calcifications throughout the aorta and iliac arteries bilaterally. Miscellaneous: No ventral hernias. PELVIS: Genitourinary: Bladder is decompressed and a Cason catheter is present. The uterus has a fibroid milton earance, as before. Miscellaneous: No inguinal hernias or adenopathy. Bones: No suspicious bony lesions. No vertebral body compression fractures. IMPRESSION: 1. Moderate amount of intra-abdominal ascites. 2. Moderate gaseous distention of the colon. No definite findings to suggest obstruction or ileus; ho wever this finding in conjunction with ascites likely represents the etiology of the patient's abdomi nal distention. 3. Splenomegaly, as before. 4. Small low density pleural effusions and compressive atelectasis. Dictated by: Roxanne Louise M.D. on 07/25/2016 at 13:23 Approved by: Roxanne Louise M.D. on 07/25/2016 at 13:32
--- NOTE | 2016-07-25 14:43 | PCM.PNMED ---
Subjective Date of Service Jul 25, 2016 Subjective Patient was seen and examined at bedside today. The patient currently is complaining of some mild abdominal pain. The patient seems to be back to her normal baseline mentation. Patient denies any abdominal pain, chest pain, nausea, vomiting, diarrhea. According to nursing the patient has had several bowel movements between today and yesterday. Exam Vital Signs Vital Sign - Last Date Time Temp Pulse Resp B/P Pulse Ox O2 Delivery O2 Flow Rate FiO2 07/25/16 12:57 36.4 65 22 105/58 98 Room Air 07/25/16 01:10 21 Intake and Output 07/24/16 07/24/16 07/25/16 Cumulative From/Thru 15:00 23:00 07:00 07/22/16 14:13 - 07/25/16 06:27 Intake Total 952 ml 20 ml 3472 ml Output Total 200 ml 300 ml 2250 ml Balance 752 ml -280 ml 1222 ml Intake Oral 760 ml 20 ml 1180 ml IV Total 192 ml 2292 ml Output Urine Total 200 ml 300 ml 2250 ml # Bowel Movements 4 4 Exam Physical Exam: GEN: Patient was awake, responding appropriately to questions HEENT: PERRLA, EOMI, Neck soft supple, trachea midline, nomocephalic/atraumatic CV: +S1/S2, RRR, no murmurs auscultated Respiratory: CTAB, no wheezes, rales, rhonchi GI: +bowel sounds x4, firm, distended, tender to palpation EXT: no c/c/e Neuro: CN II-XII grossly intact Psych: mood and affect were appropriate IVs and Medications Medications Reviewed: Medications were reviewed in detail Medications Current Medications Pharmacy Consult 1 ea DAILY@17 XX; Start 07/23/16 at 17:00 Warfarin Sodium 1 mg DAILY@17 PO Last administered on 07/23/16 16:23; Admin Dose 1 MG; Start 07/23/16 at 17:00; Stop 07/24/16 at 11:18; Status DC Lactulose 40 gm TID PO Last administered on 07/25/16 08:37; Admin Dose 40 GM; Start 07/24/16 at 16:45 Furosemide 40 mg DAILY PO Last administered on 07/25/16 08:39; Admin Dose 40 MG ; Start 07/25/16 at 01:10 Lab and Diagnostics Result Diagram: 2/11/17 0446 07/25/16 0446 X-Rays, CTs and MRIs PROCEDURE: X-RAY CHEST ONE VIEW, PORTABLE ([id number]) INDICATIONS: altered, rales, recent pneumonia IMPRESSION: Bibasilar pneumonia, reduced inspiratory volume. No pleural effusion seen. Dictated by: Sagar Bailey M.D. on 07/22/2016 at 15:15 PROCEDURE: CT ABDOMEN AND PELVIS WITH CONTRAST ([id number]) INDICATIONS: abdominal distension TECHNIQUE: After the administration of intravenous contrast, 5 mm thick sections acquired from the diaphragm to the symphysis. 5 mm coronal and sagittal reformats were acquired. For radiation dose reduction, the following was used: automated exposure control, adjustment of mA and/or kV according to patient size. COMPARISON: [facility], CT, CT ABD PELVIS W CON, 06/01/2016, 14:33. FINDINGS: Image quality: Excellent. ABDOMEN: Lung bases: There are small low density bilateral pleural effusions. Nodular interlobular septal thickening is present in the bilateral lung bases. Solid organs: The liver demonstrates homogeneous enhancement. The spleen is enlarged measuring 13.3 cm in length. The portal vein is patent. Gallbladder surgically absent. Biliary system is non dilated. Pancreas enhances normally. No adrenal nodules. Kidneys demonstrate normal size and enhancement, without hydronephrosis. There are multiple low-density cystic lesions within the right renal cortex which may represent simple renal cysts but are incompletely characterized. Peritoneum and bowel: Bowel loops demonstrate normal wall thickness. The small bowel demonstrates normal caliber. There is moderate gaseous distention of the colon which is partially filled with liquid stool and partially filled with solid stool. There is a moderate amount of low-density free abdominal pelvic fluid. The extent of free fluid is less than on the comparison CT dated . Nodes and vessels: No retroperitoneal or mesenteric adenopathy by size criteria. Aorta and inferior vena cava are normal in size. There are scattered atheromatous calcifications throughout the aorta and iliac arteries bilaterally. Miscellaneous: No ventral hernias. PELVIS: Genitourinary: Bladder is decompressed and a Cason catheter is present. The uterus has a fibroid appearance, as before. Miscellaneous: No inguinal hernias or adenopathy. Bones: No suspicious bony lesions. No vertebral body compression fractures. IMPRESSION: 1. Moderate amount of intra-abdominal ascites. 2. Moderate gaseous distention of the colon. No definite findings to suggest obstruction or ileus; however this finding in conjunction with ascites likely represents the etiology of the patient's abdominal distention. 3. Splenomegaly, as before. 4. Small low density pleural effusions and compressive atelectasis. 12-lead ECG Rate controlled A. fib, no ST/T-wave changes Assessment & Plan 80-year-old lady with past medical history of cirrhosis, chronic atrial fibrillation on warfarin, rheumatoid arthritis, dementia, hypothyroidism, type II diabetes, hypertension with recent hospitalization for pneumonia was brought in by her son and daughter due to altered mental status of 3 days. Altered mental status, present on admission, acute on chronic - due to hepatic encephalopathy and suspected sepsis. with underlying dementia - Ammonia elevated at 106-->103 --> 87 today - Recent CT head unremarkable. Presentation similar to recent admission. No lateralizing sign. Will not do CT brain -Continue lactulose 40gm tid, lactulose enema given yesterday -Discontinue intermittent use of BiPAP and nasal cannula patient is currently satting well on room air (patient does not use CPAP or BiPAP at home) Suspected sepsis due to HCAP , acute, POA -Initial BP 91/47, altered mental status, initial lactate 4.0 -Patient's blood pressure has improved but is still running hypotensive with blood pressures low 100s over 50s -Chest x-ray persistent bibasilar pneumonia, pro-calcitonin up trending from discharge, 0.42 -Discontinue antibiotics as patient has had a full 14 day course to treat the pneumonia. -Blood culture showed no growth 2 days. Recent pneumococcal and Legionella antigen negative - discontinue fluids as the patient is becoming fluid overloaded -Lactic acid trend patient is now normal patient was discharged on 07/22/2016 with a lactate of 2.4, on admission she was 1.6, yesterday 1.9 and patient is now normal. We will stop Trending lactic acid Acute hypercapnic respiratory failure, POA -Due to hepatic encephalopathy -Discontinue continue intermittent BIPAP and nasal cannula use. Mentation improved. No need for repeat ABG -Continue lactulose, patient is now having bowel movements and her ammonia level is trending down Elevated troponin,poa,acute -Probably due to demand ischemia due to relative hypotension -No EKG change, rate controlled A. fib, -Troponins relatively the same at 0.056--> 0.054 this seems to correlate more with demand ischemia -Continue metoprolol Cirrhosis, present on admission - Per outpatient records, this is thought to be due to BOSS - Continue lactulose tid -Spironolactone and Lasix discontinued upon discharge on 07/22/16. Restart Lasix and spironolactone Thrombocytopenia, chronic, stable -Continue to monitor Chronic atrial fibrillation, present on admission, stable - Continue digoxin and metoprolol at home dosing - Warfarin per pharmacy for anticoagulation, -INR subtherapeutic, platelets 76, continue anticoagulation for now -Patient is wheelchair-bound with poor functional status. She has thrombocytopenia and cirrhosis. Dysphagia, chronic - Worsening over the past year per the patient's son - Outpatient EGD with Dr Dietz was scheduled for 07/21/16 but was canceled due to recent pneumonia - Speech pathology has recommended a pureed diet on recent admission Diabetes mellitus type 2 with peripheral neuropathy, - Metformin held on discharge. Continue to hold -Sliding-scale Hypothyroidism - Home levothyroxine dosing was too high based on her recent TSH and free T4 - Levothyroxine dose decreased to 150mcg daily on last admission Macrocytic anemia, chronic, POA -Due to liver disease, on folate Constipation, chronic and ongoing - Firm stools despite lactulose TID. -Lactulose enema - Outpatient colonoscopy scheduled for 07/21/16 but canceled due to recent hospitalization Depression, chronic and presumed stable - Continue home venlafaxine dosing Hyperkalemia/hyponatremia, present on admission, -Due to dehydration -IV fluids and recheck DNR/DNI as per POLST form with Family at bedside. POA Son Matt tel [phone] Disposition: Patient seems to be back to her normal baseline mentation, we will continue to administer lactulose to decrease the patient's ammonia level. The patient's ascites seems to have returned. We will restart patient on her Lasix and spironolactone. If this does not help to resolve the patient's ascites then she may need to be drained. The patient does have a history of being drained and according to her family on her last admission she had 8 L of fluid drained off of her abdomen. We will continue to monitor this patient. The patient presented to the emergency room with altered mentation. It is felt that the patient was in respiratory distress and was then started on a BiPAP the patient then had increase in her mentation and she started to return back to normal. The patient responded well to BiPAP and is currently no longer needing any BiPAP or oxygen support. The patient has been having bowel movements and her ammonia level has decreased however the patient's ascites has returned. We will restart patient on her home medications of Lasix and spironolactone if she does not improve she may need to go for paracentesis. Resuscitation Status: DNR/DNI:Do Not Resuscitate/Intubate Time spent Greater than 35 minutes Radha Maria DO Jul 25, 2016 14:43
--- NOTE | 2016-07-25 17:48 | NUR ---
Mentation/skin Pt not oriented to place or date/time. She recognizes family. She does not try to get out of bed, and is easily oriented. Family at bedside for the afternoon. Q2h turns, frequent pericare and calmoseptine applied. Pt tolerates well. Bed alarm on.
[2016-07-26] VITALS (9 sets, daily range): BP systolic 91–109; BP diastolic 47–70; PULSE 55–74; RESP 18–20; O2SAT 94–98
[2016-07-26 04:19] LABS: Mean Corpuscular Hemoglobin 33.1 pg (27.0-35.0); Mean Corpuscular Volume 99.7 fL (81-100)
[2016-07-26 04:27] LABS: INR 2.22 ratio
--- NOTE | 2016-07-26 07:14 | PCM.PHAPRO ---
Progress Altered mental status/3 days Date -Jul 23-Jul 24-Jul 25-Jul 26-Jul INR 1.29 1.35 1.55 1.89 2.22 INR change 0.06 0.2 0.34 0.33 Warf Dose 2 1 2 1.5 1.5 Rui Haley Jul 26, 2016 07:14
[2016-07-26] MEDS: Insulin LISPRO 300 Unit/3 mL Inj SUBQ SCH ×4 (08:00→21:35)
[2016-07-26] MEDS: Lactulose 20 Gm/30 mL 30 mL Syrup PO SCH ×3 (08:30→21:47)
[2016-07-26] MEDS: MeTOProlol XL 50 mg ER24 Tablet PO SCH (08:42)
[2016-07-26] MEDS: Senna-Docusate 8.6-50 mg Tablet PO PRN (08:42)
[2016-07-26] MEDS: Venlafaxine XR 75 mg ER24 Capsule PO SCH (08:43)
[2016-07-26] MEDS: Nystatin 100,000 Unit/Gm 15 Gm Powder TOPICAL SCH ×2 (12:19→21:39)
--- NOTE | 2016-07-26 18:29 | NUR ---
Skin/Mentation The pt's mentation continues to be oriented to self and family, and occasionally situation/place. When not being verbally or physically stimulated, the pt quickly falls into a deep sleep - at times is difficult to arouse. The pt has 3 stage 1 pressure ulcers on her sacrum - dressed with a Mepilex. She also has substantial yeast - cleaned multiple times, and nystatin applied.
--- NOTE | 2016-07-26 18:30 | PCM.PNMED ---
Subjective Date of Service Jul 26, 2016 Subjective Patient has no new complaints. She is resting comfortably lying supine in bed. She is pleasantly confused. She stated that she was 89 years old. Exam Vital Signs Vital Sign - Last Date Time Temp Pulse Resp B/P Pulse Ox O2 Delivery O2 Flow Rate FiO2 07/26/16 16:24 36.1 58 18 97/57 97 Room Air 07/25/16 01:10 21 Intake and Output 07/25/16 07/25/16 07/26/16 Cumulative From/Thru 15:00 23:00 07:00 07/22/16 14:13 - 07/26/16 06:46 Intake Total 227 ml 75 ml 3774 ml Output Total 1050 ml 375 ml 3675 ml Balance -823 ml -300 ml 99 ml Intake Oral 227 ml 75 ml 1482 ml IV Total 2292 ml Output Urine Total 1050 ml 375 ml 3675 ml # Bowel Movements 0 1 5 Exam General: Patient is resting comfortably supine in bed in no apparent distress. HEENT: Head is atraumatic and normocephalic. Eyes: Pupils are equally round and reactive to light and accommodation. Extraocular muscles are intact. Sclera are white, anicteric. Subconjunctival mucosa is pink. Ears and nose are unremarkable. Oropharynx: There is no mucosal lesions, there is no thrush, there is no pharyngitis. Neck: Is supple, there are no nodes, or masses or tenderness. Chest: Is clear to auscultation and percussion. There are no rales, rhonchi, wheezes or rubs. Heart: Rate, rhythm is regular. There is no murmur, rub or gallop. Abdomen: Good bowel sounds are present. Abdomen is soft, lightly distended, nontender, no organomegaly or masses were appreciated. Extremities: Are symmetrical and well perfused. There is no edema, there is no cellulitis, no rash. Neurologic: There are no focal neurological deficits. Cranial nerves II through XII are intact. There are no sensory or motor deficits. Psychiatric: Patients mood is calm and shows no sign of agitation. Genital: Deferred Rectal: Deferred Lab and Diagnostics Result Diagram: 07/26/16 0359 07/26/16 0359 Microbiology Name: REJI GARCES Age/Sex: 80/F Attend Dr: Jameson Grahma MD Acct: [id number] Unit: [id number] Status: ADM IN Location: [facility] 2025-06 Re07/22/16 Disch: Specimen: [id number] Collected: 07/23/16 Status: COMP Req#: [id number] Received: 07/23/16 Source: NOSE Sp Desc : Subm Dr: Jameson Graham MD Ordered: MRSAC Comments: Collected by Nurse/Unit? Y/N Y Comment: Use both nares with one swab Procedure Result Verified Site Microbiology CONNER CULT NASAL MRSA SCREEN Final 07/24/16-1415 Screen NEGATIVE for Methicillin Resistant Staph Aureus Blood and urine cultures are negative to date. X-Rays, CTs and MRIs PROCEDURE: X-RAY CHEST ONE VIEW, PORTABLE ([id number]) INDICATIONS: altered, rales, recent pneumonia IMPRESSION: Bibasilar pneumonia, reduced inspiratory volume. No pleural effusion seen. Dictated by: Sagar Bailey M.D. on 07/22/2016 at 15:15 PROCEDURE: CT ABDOMEN AND PELVIS WITH CONTRAST ([id number]) INDICATIONS: abdominal distension TECHNIQUE: After the administration of intravenous contrast, 5 mm thick sections acquired from the diaphragm to the symphysis. 5 mm coronal and sagittal reformats were acquired. For radiation dose reduction, the following was used: automated exposure control, adjustment of mA and/or kV according to patient size. COMPARISON: [facility], CT, CT ABD PELVIS W CON, 06/01/2016, 14:33. FINDINGS: Image quality: Excellent. ABDOMEN: Lung bases: There are small low density bilateral pleural effusions. Nodular interlobular septal thickening is present in the bilateral lung bases. Solid organs: The liver demonstrates homogeneous enhancement. The spleen is enlarged measuring 13.3 cm in length. The portal vein is patent. Gallbladder surgically absent. Biliary system is non dilated. Pancreas enhances normally. No adrenal nodules. Kidneys demonstrate normal size and enhancement, without hydronephrosis. There are multiple low-density cystic lesions within the right renal cortex which may represent simple renal cysts but are incompletely characterized. Peritoneum and bowel: Bowel loops demonstrate normal wall thickness. The small bowel demonstrates normal caliber. There is moderate gaseous distention of the colon which is partially filled with liquid stool and partially filled with solid stool. There is a moderate amount of low-density free abdominal pelvic fluid. The extent of free fluid is less than on the comparison CT dated . Nodes and vessels: No retroperitoneal or mesenteric adenopathy by size criteria. Aorta and inferior vena cava are normal in size. There are scattered atheromatous calcifications throughout the aorta and iliac arteries bilaterally. Miscellaneous: No ventral hernias. PELVIS: Genitourinary: Bladder is decompressed and a Cason catheter is present. The uterus has a fibroid appearance, as before. Miscellaneous: No inguinal hernias or adenopathy. Bones: No suspicious bony lesions. No vertebral body compression fractures. IMPRESSION: 1. Moderate amount of intra-abdominal ascites. 2. Moderate gaseous distention of the colon. No definite findings to suggest obstruction or ileus; however this finding in conjunction with ascites likely represents the etiology of the patient's abdominal distention. 3. Splenomegaly, as before. 4. Small low density pleural effusions and compressive atelectasis. 12-lead ECG Rate controlled A. fib, no ST/T-wave changes Assessment & Plan 80-year-old lady with past medical history of cirrhosis, chronic atrial fibrillation on warfarin, rheumatoid arthritis, dementia, hypothyroidism, type II diabetes, hypertension with recent hospitalization for pneumonia was brought in by her son and daughter due to altered mental status of 3 days. Altered mental status, present on admission, acute on chronic - This appears to be due to a combination of hepatic encephalopathy and suspected sepsis. with underlying dementia - Ammonia elevated at 106-->103 --> 87 yesterday. Repeat ammonia level in a.m. - Recent CT head unremarkable. Presentation similar to recent admission. No lateralizing sign. Will not do repeat CT brain. - Continue lactulose 40gm tid, lactulose enema given on 07/24/2016 - Discontinue intermittent use of BiPAP and nasal cannula patient is currently satting well on room air (patient does not use CPAP or BiPAP at home) Suspected sepsis due to HCAP , acute, present on admission -Initial BP 91/47, altered mental status, initial lactate 4.0 -Patient's blood pressure has improved but is still running hypotensive with blood pressures low 100s over 50s -Chest x-ray persistent bibasilar pneumonia, pro-calcitonin up trending from discharge, 0.42 -Discontinue antibiotics as patient has had a full 14 day course to treat the pneumonia. -Blood culture showed no growth 2 days. Recent pneumococcal and Legionella antigen negative - discontinue fluids as the patient is becoming fluid overloaded -Lactic acid trend patient is now normal patient was discharged on 07/22/2016 with a lactate of 2.4, on admission she was 1.6, yesterday 1.9 and patient is now normal. We will stop Trending lactic acid Acute hypercapnic respiratory failure, present on admission -Due to hepatic encephalopathy and sepsis -Discontinue intermittent BIPAP and nasal cannula use. Mentation improved. No need for repeat ABG -Continue lactulose, patient is now having bowel movements and her ammonia level is trending down Elevated troponin, present on admission,acute -Probably due to demand ischemia due to relative hypotension -No EKG change, rate controlled A. fib, -Troponins relatively the same at 0.056--> 0.054 this seems to correlate more with demand ischemia. We will repeat troponin in a.m. -Continue metoprolol Cirrhosis, present on admission - Per outpatient records, this is thought to be due to BOSS - Continue lactulose tid - Spironolactone and Lasix discontinued upon discharge on 07/22/16. Restart Lasix and spironolactone Thrombocytopenia, chronic, stable - Continue to monitor Chronic atrial fibrillation, present on admission, stable - Continue digoxin and metoprolol at home dosing - Warfarin per pharmacy for anticoagulation, - INR now therapeutic, platelets 76, continue anticoagulation for now - Patient is wheelchair-bound with poor functional status. She has thrombocytopenia and cirrhosis. Dysphagia, chronic - Worsening over the past year per the patient's son - Outpatient EGD with Dr Dietz was scheduled for 07/21/16 but was canceled due to recent pneumonia - The EGD will need to be rescheduled - Speech pathology has recommended a pureed diet on recent admission Diabetes mellitus type 2 with peripheral neuropathy, - Metformin held on discharge. Continue to hold - Sliding-scale Hypothyroidism - Home levothyroxine dosing was too high based on her recent TSH and free T4 - Levothyroxine dose decreased to 150mcg daily on last admission Macrocytic anemia, chronic, POA -Due to liver disease, on folate Constipation, chronic and ongoing - Firm stools despite lactulose TID. - Lactulose enema given - Outpatient colonoscopy scheduled for 07/21/16 but canceled due to recent hospitalization. This will need to be rescheduled. Depression, chronic and presumed stable - Continue home venlafaxine dosing Hyperkalemia/hyponatremia, present on admission, -Due to dehydration -IV fluids and recheck DNR/DNI as per POLST form with Family at bedside. POA Son Matt tel [phone] Disposition: Patient seems to be back to her normal baseline mentation, we will continue to administer lactulose to decrease the patient's ammonia level. The patient's ascites seems to have returned. We will restart patient on her Lasix and spironolactone. If this does not help to resolve the patient's ascites then she may need to be drained by paracentesis. The patient does have a history of being drained and according to her family on her last admission she had 8 L of fluid drained off of her abdomen. However, she is on Coumadin and her INR is therapeutic. Her Coumadin would have to be held for. Of time. We will continue to monitor this patient. The patient presented to the emergency room with altered mentation. It is felt that the patient was in respiratory distress and was then started on a BiPAP the patient then had increase in her mentation and she started to return back to normal. The patient responded well to BiPAP and is currently no longer needing any BiPAP or oxygen support. The patient has been having bowel movements and her ammonia level has decreased however the patient's ascites has returned. We will restart patient on her home medications of Lasix and spironolactone if she does not improve she may need to go for paracentesis. Pain Evaluation: Adequate Pain Control GI Prophylaxis: Not indicated VTE Prophylaxis: Theraputic Anticoag with Warfarin Resuscitation Status: DNR/DNI:Do Not Resuscitate/Intubate Jc Ny MD Jul 26, 2016 18:30
[2016-07-27] VITALS (8 sets, daily range): BP systolic 103–120; BP diastolic 60–75; PULSE 60–75; RESP 16–20; O2SAT 94–98
--- NOTE | 2016-07-27 00:43 | NUR ---
activity patient turned to left side. patient remained on left side for one hour. then requested to be on her back again. re explained the importance of changing position pillows placed under elbows.
[2016-07-27 04:25] LABS: BASOPHILS % (AUTO) 0.7 % (0-3); EOSINOPHILS % (AUTO) 7.9 % (0-5); MONOCYTES % (AUTO) 9.1 % (4-12); Mean Corpuscular Hemoglobin 33.2 pg (27.0-35.0); Mean Corpuscular Volume 98.9 fL (81-100); NEUTROPHILS % (AUTO) 58.9 % (40-74); Platelet Count 77 bil/L (150-400)
[2016-07-27 04:44] LABS: INR 2.31 ratio
[2016-07-27 05:05] LABS: Magnesium 1.5 mg/dL (1.6-2.6); Phosphorus 2.5 mg/dL (2.5-4.9)
[2016-07-27 05:22] LABS: TROPONIN T 0.039 ug/L (0.0-0.011)
[2016-07-27] MEDS: Insulin LISPRO 300 Unit/3 mL Inj SUBQ SCH ×4 (07:44→20:57)
[2016-07-27] MEDS: MeTOProlol XL 50 mg ER24 Tablet PO SCH (07:45)
[2016-07-27] MEDS: Venlafaxine XR 75 mg ER24 Capsule PO SCH (07:45)
[2016-07-27] MEDS: Lactulose 20 Gm/30 mL 30 mL Syrup PO SCH ×3 (07:45→20:59)
[2016-07-27] MEDS: Nystatin 100,000 Unit/Gm 15 Gm Powder TOPICAL SCH ×2 (07:59→20:57)
[2016-07-27] MEDS ORDERED: Magnesium Sulf 4 Gm/100 mL H2O 4 GM in IV Premix 1 EACH IV ONE (08:20)
--- NOTE | 2016-07-27 09:53 | PCM.PHAPRO ---
Progress Altered mental status/3 days 1.89 2.22 2.31 0.34 0.33 0.09 1.5 1.5 2 Y Y Rui Haley Jul 27, 2016 09:53
--- NOTE | 2016-07-27 12:44 | NUR ---
Wound Care [facility] Patient seen for follow up wound care evaluation. Pressure ulcers to left buttock and coccyx now open and Stage II. Both measure 0.8cmL x 0.5cmW x <0.1 deep with scant serous drainage. Right buttock now Stage II pressure ulcer with intact blister present measuring 3.5cmL x 3cm W. Cleaned entire area and applied Calmoseptine. Covered with sacral Mepilex. Reinstructed patient in importance of rolling side to side and not sitting upright in bed or resting flat on her back to decrease pressure to buttocks and sacrum to facilitate wound healing. Patient reports she has pain when she is flat on back or sitting up in bed. Patient reports decreased pain in left side-lying after treatment. Patient instructed again to stay in left or right side-lying to decrease pressure. Patient teaches back importance of keeping pressure off of ulcers to facilitate healing. Recommend P500 bed and q2 hour turning schedule side to side. Nursing notified. Nursing to change dressing q48 hours and prn soiling. Wound care to follow up as needed.
--- NOTE | 2016-07-27 14:25 | NUR ---
Pressure Ulcers Patient seen by oil well gun perforator operator this AM for pressure sore on bottom x3. Dressings changed by oil well gun perforator operator. Patient also has dark red/purple spot on outside of L foot, asked oil well gun perforator operator to look at area next time they see patient.
--- NOTE | 2016-07-27 14:56 | NUR ---
Evaluation completed. Please go to "Notes" then click on "Assessments and Notes" (bottom left corner of screen). Then select appropriate discipline tab on top of screen.
--- NOTE | 2016-07-27 17:54 | PCM.PNMED ---
Subjective Date of Service Jul 27, 2016 Subjective Patient is much more awake and alert and responsive today she was not quite sure where she was other than in the hospital, which was an improvement over yesterday, but did not know which hospital she was in. Patient knew the month with some verbal clues. Patient did not know the year. Patient did know the boiler technician. Overall patient is much more awake and alert. Exam Vital Signs Vital Sign - Last Date Time Temp Pulse Resp B/P Pulse Ox O2 Delivery O2 Flow Rate FiO2 07/27/16 16:11 37.0 62 18 106/68 96 Room Air 07/25/16 01:10 21 Intake and Output 07/26/16 07/26/16 07/27/16 Cumulative From/Thru 15:00 23:00 07:00 07/22/16 14:13 - 07/27/16 06:07 Intake Total 692 ml 200 ml 4666 ml Output Total 450 ml 150 ml 4275 ml Balance 242 ml 50 ml 391 ml Intake Oral 692 ml 200 ml 2374 ml IV Total 2292 ml Output Urine Total 450 ml 150 ml 4275 ml # Bowel Movements 1 0 6 Exam General: Patient is much more lucid today than yesterday. She has not had a bowel movement as of yet today.. HEENT: Head is atraumatic and normocephalic. Eyes: Pupils are equally round and reactive to light and accommodation. Extraocular muscles are intact. Sclera are white, anicteric. Subconjunctival mucosa is pink. Ears and nose are unremarkable. Oropharynx: There is no mucosal lesions, there is no thrush, there is no pharyngitis. Neck: Is supple, there are no nodes, or masses or tenderness. Chest: Is clear to auscultation and percussion. There are no rales, rhonchi, wheezes or rubs. Heart: Rate, rhythm is regular. There is no murmur, rub or gallop. Abdomen: Good bowel sounds are present. Abdomen is soft, lightly distended, nontender, no organomegaly or masses were appreciated. There is minimal evidence of fluid wave shift. Extremities: Are symmetrical and well perfused. There is no edema, there is no cellulitis, no rash. Neurologic: There are no focal neurological deficits. Cranial nerves II through XII are intact. There are no sensory or motor deficits. Patient is more awake and alert and lucid today than compared to yesterday Psychiatric: Patients mood is calm and shows no sign of agitation. Genital: Deferred Rectal: Deferred Lab and Diagnostics Result Diagram: 07/27/1641607/27/16416 Microbiology Name: REJI GARCES Age/Sex: 80/F Attend Dr: Jameson Graham MD Acct: [id number] Unit: [id number] Status: ADM IN Location: [facility] 2025-06 Re07/22/16 Disch: Specimen: [id number] Collected: 07/23/16 Status: COMP Req#: [id number] Received: 07/23/16 Source: NOSE Sp Desc : Subm Dr: Jameson Graham MD Ordered: [facility] [place] [facility] [place] Comments: Collected by Nurse/Unit? Y/N Y Comment: Use both nares with one swab Procedure Result Verified Site Microbiology CONNER CULT NASAL MRSA SCREEN Final 07/24/16-1415 Screen NEGATIVE for Methicillin Resistant Staph Aureus Blood and urine cultures are negative to date. X-Rays, CTs and MRIs PROCEDURE: X-RAY CHEST ONE VIEW, PORTABLE ([id number]) INDICATIONS: altered, rales, recent pneumonia IMPRESSION: Bibasilar pneumonia, reduced inspiratory volume. No pleural effusion seen. Dictated by: Sagar Bailey M.D. on 07/22/2016 at 15:15 PROCEDURE: CT ABDOMEN AND PELVIS WITH CONTRAST ([id number]) INDICATIONS: abdominal distension TECHNIQUE: After the administration of intravenous contrast, 5 mm thick sections acquired from the diaphragm to the symphysis. 5 mm coronal and sagittal reformats were acquired. For radiation dose reduction, the following was used: automated exposure control, adjustment of mA and/or kV according to patient size. COMPARISON: [facility], CT, CT ABD PELVIS W CON, 06/01/2016, 14:33. FINDINGS: Image quality: Excellent. ABDOMEN: Lung bases: There are small low density bilateral pleural effusions. Nodular interlobular septal thickening is present in the bilateral lung bases. Solid organs: The liver demonstrates homogeneous enhancement. The spleen is enlarged measuring 13.3 cm in length. The portal vein is patent. Gallbladder surgically absent. Biliary system is non dilated. Pancreas enhances normally. No adrenal nodules. Kidneys demonstrate normal size and enhancement, without hydronephrosis. There are multiple low-density cystic lesions within the right renal cortex which may represent simple renal cysts but are incompletely characterized. Peritoneum and bowel: Bowel loops demonstrate normal wall thickness. The small bowel demonstrates normal caliber. There is moderate gaseous distention of the colon which is partially filled with liquid stool and partially filled with solid stool. There is a moderate amount of low-density free abdominal pelvic fluid. The extent of free fluid is less than on the comparison CT dated . Nodes and vessels: No retroperitoneal or mesenteric adenopathy by size criteria. Aorta and inferior vena cava are normal in size. There are scattered atheromatous calcifications throughout the aorta and iliac arteries bilaterally. Miscellaneous: No ventral hernias. PELVIS: Genitourinary: Bladder is decompressed and a Cason catheter is present. The uterus has a fibroid appearance, as before. Miscellaneous: No inguinal hernias or adenopathy. Bones: No suspicious bony lesions. No vertebral body compression fractures. IMPRESSION: 1. Moderate amount of intra-abdominal ascites. 2. Moderate gaseous distention of the colon. No definite findings to suggest obstruction or ileus; however this finding in conjunction with ascites likely represents the etiology of the patient's abdominal distention. 3. Splenomegaly, as before. 4. Small low density pleural effusions and compressive atelectasis. 12-lead ECG Rate controlled A. fib, no ST/T-wave changes Assessment & Plan 80-year-old lady with past medical history of cirrhosis, chronic atrial fibrillation on warfarin, rheumatoid arthritis, dementia, hypothyroidism, type II diabetes, hypertension with recent hospitalization for pneumonia was brought in by her son and daughter due to altered mental status of 3 days. Altered mental status, present on admission, acute on chronic - This appears to be due to a combination of hepatic encephalopathy and suspected sepsis. with underlying dementia - Ammonia elevated at 106-->103 --> 87 yesterday. Repeat ammonia level in a.m. - Recent CT head unremarkable. Presentation similar to recent admission. No lateralizing sign. Will not do repeat CT brain. - Continue lactulose 40gm tid, lactulose enema given on 07/24/2016 - Discontinue intermittent use of BiPAP and nasal cannula patient is currently satting well on room air (patient does not use CPAP or BiPAP at home) Suspected sepsis due to HCAP , acute, present on admission -Initial BP 91/47, altered mental status, initial lactate 4.0 -Patient's blood pressure has improved but is still running hypotensive with blood pressures low 100s over 50s -Chest x-ray persistent bibasilar pneumonia, pro-calcitonin up trending from discharge, 0.42 -Discontinue antibiotics as patient has had a full 14 day course to treat the pneumonia. -Blood culture showed no growth 2 days. Recent pneumococcal and Legionella antigen negative - discontinue fluids as the patient is becoming fluid overloaded -Lactic acid trend patient is now normal patient was discharged on 07/22/2016 with a lactate of 2.4, on admission she was 1.6, yesterday 1.9 and patient is now normal. We will stop Trending lactic acid Acute hypercapnic respiratory failure, present on admission -Due to hepatic encephalopathy and sepsis -Discontinue intermittent BIPAP and nasal cannula use. Mentation improved. No need for repeat ABG -Continue lactulose, patient is now having bowel movements and her ammonia level is trending down Elevated troponin, present on admission,acute -Probably due to demand ischemia due to relative hypotension -No EKG change, rate controlled A. fib, -Troponins relatively the same at 0.056--> 0.054--> 0.039 this seems to correlate more with demand ischemia. We will repeat troponin in a.m. -Continue metoprolol Cirrhosis, present on admission - Per outpatient records, this is thought to be due to BOSS - Continue lactulose tid - Spironolactone and Lasix discontinued upon discharge on 07/22/16. We have restarted Lasix and spironolactone and will continue. Thrombocytopenia, chronic, stable - Continue to monitor Chronic atrial fibrillation, present on admission, stable - Continue digoxin and metoprolol at home dosing - Warfarin per pharmacy for anticoagulation, - INR now therapeutic, platelets stable, continue anticoagulation for now - Patient is wheelchair-bound with poor functional status. We will consult physical therapy to work on patient and transferring with a transfer board into a wheelchair and chair. Dysphagia, chronic - Worsening over the past year per the patient's son - Outpatient EGD with Dr Dietz was scheduled for 07/21/16 but was canceled due to recent pneumonia. We will see if Dr. Dietz can see the patient here in the hospital. - The EGD will need to be rescheduled - Speech pathology has recommended a pureed diet on recent admission Diabetes mellitus type 2 with peripheral neuropathy, - Metformin held on discharge. Continue to hold - Sliding-scale Hypothyroidism - Home levothyroxine dosing was too high based on her recent TSH and free T4 - Levothyroxine dose decreased to 150mcg daily on last admission Macrocytic anemia, chronic, POA -Due to liver disease, on folate Constipation, chronic and ongoing - Firm stools despite lactulose TID. - Lactulose enema given - Outpatient colonoscopy scheduled for 07/21/16 but canceled due to recent hospitalization. This will need to be rescheduled. Depression, chronic and presumed stable - Continue home venlafaxine dosing Hyperkalemia/hyponatremia, present on admission, -Due to dehydration -IV fluids and recheck DNR/DNI as per POLST form with Family at bedside. POA Son Matt tel [phone] Disposition: Patient seems to be back to her normal baseline mentation, we will continue to administer lactulose to decrease the patient's ammonia level. The patient's ascites seems to have returned. We will restart patient on her Lasix and spironolactone. If this does not help to resolve the patient's ascites then she may need to be drained by paracentesis. The patient does have a history of being drained and according to her family on her last admission she had 8 L of fluid drained off of her abdomen. However, she is on Coumadin and her INR is therapeutic. Her Coumadin would have to be held for. Of time. We will continue to monitor this patient. The patient presented to the emergency room with altered mentation. It is felt that the patient was in respiratory distress and was then started on a BiPAP the patient then had increase in her mentation and she started to return back to normal. The patient responded well to BiPAP and is currently no longer needing any BiPAP or oxygen support. The patient has been having bowel movements and her ammonia level has decreased however the patient's ascites has returned. We will restart patient on her home medications of Lasix and spironolactone if she does not improve she may need to go for paracentesis. Pain Evaluation: Adequate Pain Control GI Prophylaxis: Not indicated VTE Prophylaxis: Theraputic Anticoag with Warfarin Resuscitation Status: DNR/DNI:Do Not Resuscitate/Intubate Jc Ny MD Jul 27, 2016 17:54
--- NOTE | 2016-07-27 18:42 | NUR ---
Confusion/BM Patient is alert and oriented to self only. Is not able to be oriented to place and situation. Patient pleasant and cooperative with care. Patient is on 40mg lactulose PO TID in addition to PO Senna yet has only has a x small BM. aware.
[2016-07-28] VITALS (8 sets, daily range): BP systolic 88–120; BP diastolic 51–65; PULSE 61–70; RESP 16–20; O2SAT 95–97
[2016-07-28 04:33] LABS: INR 2.17 ratio
--- NOTE | 2016-07-28 06:50 | NUR ---
Mentation Pt remains confused and oriented to self only. VSS. Turn Q2hr + PRN. No overt complications noted.
[2016-07-28] MEDS: Insulin LISPRO 300 Unit/3 mL Inj SUBQ SCH ×4 (08:00→22:00)
[2016-07-28] MEDS: Venlafaxine XR 75 mg ER24 Capsule PO SCH (08:35)
[2016-07-28] MEDS: MeTOProlol XL 50 mg ER24 Tablet PO SCH (08:38)
[2016-07-28] MEDS: Nystatin 100,000 Unit/Gm 15 Gm Powder TOPICAL SCH ×2 (08:42→22:50)
[2016-07-28] MEDS: Lactulose 20 Gm/30 mL 30 mL Syrup PO SCH ×3 (08:43→22:49)
[2016-07-28 10:37] LABS: BASOPHILS % (AUTO) 0.8 % (0-3); EOSINOPHILS % (AUTO) 8.2 % (0-5); MONOCYTES % (AUTO) 10.4 % (4-12); Mean Corpuscular Hemoglobin 33.7 pg (27.0-35.0); Mean Corpuscular Volume 101.1 fL (81-100); NEUTROPHILS % (AUTO) 62.1 % (40-74); Platelet Count 80 bil/L (150-400)
--- NOTE | 2016-07-28 15:20 | NUR ---
Intake Pt isn't taking in much nutrition as fall as food, at lunch she did drink all of her glucerna. Dietary already aware, will make sure she has ensure or glucerna on her dinner tray and encourage more intake in soup.
--- NOTE | 2016-07-28 15:52 | NUR ---
Social Work Note: Continued Discharge Planning Data& Assessment: SW met with pt at bedside to discuss discharge planning, SW role explained. Per PT, pt requires SNF at time of discharge for rehab prior to returning home. SW provided SNF list for preferences. Pt originally wanted to go home with [facility], however she agrees to review the SNF list and discuss preferences with her son in case she is not able to sit up and transfer independently when she is medically ready. SW to follow up with pt and pt son regarding preferences. Pt denies any other needs at this time. SW to continue to follow. Plan: Anticipated discharge home with [facility] vs. SNF pending pt progression with PT and if she is able to sit up and transfer independently. SW to follow up with pt and pt son regarding preferences. Pt denies any other needs at this time. SW to continue to follow. LI Quintero
--- NOTE | 2016-07-28 17:42 | NUR ---
spiritual care: rounding pt sleepy; agreeable for eucharistic manager paper visit.
--- NOTE | 2016-07-28 22:21 | PCM.PNMED ---
Subjective Date of Service Jul 28, 2016 Subjective Patient was very somnolent this morning and more confused than usual. She has not had a bowel movement in 3 days despite receiving lactulose 40 g by mouth 3 times a day, and Kayexalate 30 g by mouth today. He was seen again this evening at around 8 PM and she was much more awake and alert. However it still not had a BM. Exam Vital Signs Vital Sign - Last Date Time Temp Pulse Resp B/P Pulse Ox O2 Delivery O2 Flow Rate FiO2 07/28/16 19:46 36.5 61 16 105/51 97 Room Air 07/25/16 01:10 21 Intake and Output 07/27/16 07/27/16 07/28/16 Cumulative From/Thru 15:00 23:00 07:00 07/22/16 14:13 - 07/28/16 06:18 Intake Total 580 ml 200 ml 5446 ml Output Total 800 ml 250 ml 5325 ml Balance -220 ml -50 ml 121 ml Intake Oral 480 ml 200 ml 3054 ml IV Total 100 ml 2392 ml Output Urine Total 800 ml 250 ml 5325 ml # Bowel Movements 1 0 7 Exam General: Patient is more confused today, less alert although this evening she is brighter and more awake and alert. Her mental status waxes and wanes. However she has not had a bowel movement now for 2 days. HEENT: Head is atraumatic and normocephalic. Eyes: Pupils are equally round and reactive to light and accommodation. Extraocular muscles are intact. Sclera are white, anicteric. Subconjunctival mucosa is pink. Ears and nose are unremarkable. Oropharynx: There is no mucosal lesions, there is no thrush, there is no pharyngitis. Neck: Is supple, there are no nodes, or masses or tenderness. Chest: Is clear to auscultation and percussion. There are no rales, rhonchi, wheezes or rubs. Heart: Rate, rhythm is regular. There is no murmur, rub or gallop. Abdomen: Good bowel sounds are present. Abdomen is soft, lightly distended, nontender, no organomegaly or masses were appreciated. There is some tympany to percussion. There is minimal evidence of fluid wave shift. Extremities: Are symmetrical and well perfused. There is no edema, there is no cellulitis, no rash. Neurologic: There are no focal neurological deficits. Cranial nerves II through XII are intact. There are no sensory or motor deficits. Patient is more awake and alert and lucid today than compared to yesterday Psychiatric: Patients mood is calm and shows no sign of agitation. Genital: Deferred Rectal: Deferred Lab and Diagnostics Result Diagram: 07/28/16 1030 07/28/16 1220 Microbiology Name: REJI GARCES Age/Sex: 80/F Attend Dr: Jameson Graham MD Acct: [id number] Unit: [id number] Status: ADM IN Location: [facility] 2025-06 Re07/22/16 Disch: Specimen: [id number] Collected: 07/23/16 Status: COMP Req#: [id number] Received: 07/23/16 Source: NOSE Sp Desc : Subm Dr: Jameson Graham MD Ordered: MRSA Comments: Collected by Nurse/Unit? Y/N Y Comment: Use both nares with one swab Procedure Result Verified Site Microbiology CONNER CULT NASAL MRSA SCREEN Final 07/24/16-1415 Screen NEGATIVE for Methicillin Resistant Staph Aureus Blood and urine cultures are negative to date. X-Rays, CTs and MRIs PROCEDURE: X-RAY CHEST ONE VIEW, PORTABLE ([id number]) INDICATIONS: altered, rales, recent pneumonia IMPRESSION: Bibasilar pneumonia, reduced inspiratory volume. No pleural effusion seen. Dictated by: Sagar Bailey M.D. on 07/22/2016 at 15:15 PROCEDURE: CT ABDOMEN AND PELVIS WITH CONTRAST ([id number]) INDICATIONS: abdominal distension TECHNIQUE: After the administration of intravenous contrast, 5 mm thick sections acquired from the diaphragm to the symphysis. 5 mm coronal and sagittal reformats were acquired. For radiation dose reduction, the following was used: automated exposure control, adjustment of mA and/or kV according to patient size. COMPARISON: [facility], CT, CT ABD PELVIS W CON, 06/01/2016, 14:33. FINDINGS: Image quality: Excellent. ABDOMEN: Lung bases: There are small low density bilateral pleural effusions. Nodular interlobular septal thickening is present in the bilateral lung bases. Solid organs: The liver demonstrates homogeneous enhancement. The spleen is enlarged measuring 13.3 cm in length. The portal vein is patent. Gallbladder surgically absent. Biliary system is non dilated. Pancreas enhances normally. No adrenal nodules. Kidneys demonstrate normal size and enhancement, without hydronephrosis. There are multiple low-density cystic lesions within the right renal cortex which may represent simple renal cysts but are incompletely characterized. Peritoneum and bowel: Bowel loops demonstrate normal wall thickness. The small bowel demonstrates normal caliber. There is moderate gaseous distention of the colon which is partially filled with liquid stool and partially filled with solid stool. There is a moderate amount of low-density free abdominal pelvic fluid. The extent of free fluid is less than on the comparison CT dated . Nodes and vessels: No retroperitoneal or mesenteric adenopathy by size criteria. Aorta and inferior vena cava are normal in size. There are scattered atheromatous calcifications throughout the aorta and iliac arteries bilaterally. Miscellaneous: No ventral hernias. PELVIS: Genitourinary: Bladder is decompressed and a Cason catheter is present. The uterus has a fibroid appearance, as before. Miscellaneous: No inguinal hernias or adenopathy. Bones: No suspicious bony lesions. No vertebral body compression fractures. IMPRESSION: 1. Moderate amount of intra-abdominal ascites. 2. Moderate gaseous distention of the colon. No definite findings to suggest obstruction or ileus; however this finding in conjunction with ascites likely represents the etiology of the patient's abdominal distention. 3. Splenomegaly, as before. 4. Small low density pleural effusions and compressive atelectasis. 12-lead ECG Rate controlled A. fib, no ST/T-wave changes Assessment & Plan 80-year-old lady with past medical history of cirrhosis, chronic atrial fibrillation on warfarin, rheumatoid arthritis, dementia, hypothyroidism, type II diabetes, hypertension with recent hospitalization for pneumonia was brought in by her son and daughter due to altered mental status of 3 days. Altered mental status, present on admission, acute on chronic - This appears to be due to a combination of hepatic encephalopathy and suspected sepsis. with underlying dementia - Ammonia elevated at 106-->103 --> 87 yesterday. Repeat ammonia level in a.m. - Recent CT head unremarkable. Presentation similar to recent admission. No lateralizing sign. Will not do repeat CT brain. - Continue lactulose 40gm tid, lactulose enema given on 07/24/2016 - Discontinue intermittent use of BiPAP and nasal cannula patient is currently satting well on room air (patient does not use CPAP or BiPAP at home) Suspected sepsis due to HCAP , acute, present on admission -Initial BP 91/47, altered mental status, initial lactate 4.0 -Patient's blood pressure has improved but is still running hypotensive with blood pressures low 100s over 50s -Chest x-ray persistent bibasilar pneumonia, pro-calcitonin up trending from discharge, 0.42 -Discontinue antibiotics as patient has had a full 14 day course to treat the pneumonia. -Blood culture showed no growth 2 days. Recent pneumococcal and Legionella antigen negative - discontinue fluids as the patient is becoming fluid overloaded -Lactic acid trend patient is now normal patient was discharged on 07/22/2016 with a lactate of 2.4, on admission she was 1.6, yesterday 1.9 and patient is now normal. We will stop Trending lactic acid Acute hypercapnic respiratory failure, present on admission -Due to hepatic encephalopathy and sepsis -Discontinue intermittent BIPAP and nasal cannula use. Mentation improved. No need for repeat ABG -Continue lactulose, patient is now having bowel movements and her ammonia level is trending down Elevated troponin, present on admission,acute -Probably due to demand ischemia due to relative hypotension -No EKG change, rate controlled A. fib, -Troponins relatively the same at 0.056--> 0.054--> 0.039 this seems to correlate more with demand ischemia. We will repeat troponin in a.m. -Continue metoprolol Cirrhosis, present on admission - Per outpatient records, this is thought to be due to BOSS - Continue lactulose tid - Spironolactone and Lasix discontinued upon discharge on 07/22/16. We have restarted Lasix and spironolactone and will continue. Thrombocytopenia, chronic, stable - Continue to monitor Chronic atrial fibrillation, present on admission, stable - Continue digoxin and metoprolol at home dosing - Warfarin per pharmacy for anticoagulation, - INR now therapeutic, platelets stable, continue anticoagulation for now - Patient is wheelchair-bound with poor functional status. We will consult physical therapy to work on patient and transferring with a transfer board into a wheelchair and chair. Dysphagia, chronic - Worsening over the past year per the patient's son - Outpatient EGD with Dr Dietz was scheduled for 07/21/16 but was canceled due to recent pneumonia. We will see if Dr. Dietz can see the patient here in the hospital. - The EGD will need to be rescheduled - Speech pathology has recommended a pureed diet on recent admission Diabetes mellitus type 2 with peripheral neuropathy, - Metformin held on discharge. Continue to hold - Sliding-scale Hypothyroidism - Home levothyroxine dosing was too high based on her recent TSH and free T4 - Levothyroxine dose decreased to 150mcg daily on last admission Macrocytic anemia, chronic, POA -Due to liver disease, on folate Constipation, chronic and ongoing - Firm stools despite lactulose TID. - Lactulose enema given - Outpatient colonoscopy scheduled for 07/21/16 but canceled due to recent hospitalization. This will need to be rescheduled. Depression, chronic and presumed stable - Continue home venlafaxine dosing Hyperkalemia/hyponatremia, present on admission, -Due to dehydration -IV fluids and recheck DNR/DNI as per POLST form with Family at bedside. POA aRshi Gutierrez tel [phone] Disposition: Physical therapy is recommending that patient go to rehabilitation. , The patient's family does not want her to go to rehabilitation and not to take her home. Pain Evaluation: Adequate Pain Control GI Prophylaxis: Not indicated VTE Prophylaxis: Theraputic Anticoag with Warfarin Resuscitation Status: DNR/DNI:Do Not Resuscitate/Intubate Jc Ny MD Jul 28, 2016 22:20
[2016-07-29] VITALS (7 sets, daily range): BP systolic 104–119; BP diastolic 54–71; PULSE 62–78; RESP 16–20; O2SAT 95–97
[2016-07-29 06:10] LABS: BASOPHILS % (AUTO) 0.8 % (0-3); EOSINOPHILS % (AUTO) 6.9 % (0-5); MONOCYTES % (AUTO) 11.4 % (4-12); Mean Corpuscular Hemoglobin 33.4 pg (27.0-35.0); Mean Corpuscular Volume 100.6 fL (81-100); NEUTROPHILS % (AUTO) 59.6 % (40-74); Platelet Count 89 bil/L (150-400)
[2016-07-29 06:25] LABS: Magnesium 1.8 mg/dL (1.6-2.6)
[2016-07-29 06:27] LABS: INR 2.21 ratio
--- NOTE | 2016-07-29 07:52 | NUR ---
Intake & Output Pt only took in 340ml PO during the entire shift and had 300ml output in the villanueva catheter that was dark jewel. Pt did receive another dose of 40grams Lactulose and still did not have a bowel movement.
[2016-07-29] MEDS: MeTOProlol XL 50 mg ER24 Tablet PO SCH (08:35)
[2016-07-29] MEDS: Venlafaxine XR 75 mg ER24 Capsule PO SCH (08:38)
[2016-07-29] MEDS: Insulin LISPRO 300 Unit/3 mL Inj SUBQ SCH ×4 (08:41→21:34)
[2016-07-29] MEDS: Nystatin 100,000 Unit/Gm 15 Gm Powder TOPICAL SCH ×2 (08:42→21:23)
[2016-07-29] MEDS: Lactulose 20 Gm/30 mL 30 mL Syrup PO SCH ×3 (08:42→21:22)
--- NOTE | 2016-07-29 12:54 | DRSVH ---
PROCEDURE: X-RAY CHEST ONE VIEW, PORTABLE ([id number]) INDICATIONS: follow-up for pneumonia TECHNIQUE: One view of the chest was acquired. COMPARISON: [facility], CR, XR CHEST 1VW (PORTABLE), 07/22/2016, 14:37. FINDINGS: Surgical changes and devices: Cholecystectomy clips. Lungs and pleura: No pleural effusions or pneumothorax. Aside from technique differences, no signif icant interval change in bibasilar airspace opacities. Mediastinum: Mediastinal contours appear normal. Heart size is normal. Bones and chest wall: No suspicious bony lesions. Overlying soft tissues appear unremarkable. IMPRESSION: Bibasilar air space opacities not significantly changed. Dictated by: Matt Peters RRBrian Interpreted: Roxanen Louise MD on 07/29/2016 at 12:47 Transcribed by: JEAN on 07/29/2016 at 12:54 Approved by: Roxanne Louise M.D. on 07/29/2016 at 15:26
--- NOTE | 2016-07-29 13:31 | DRSVH ---
PROCEDURE: X-RAY ABDOMEN, ONE VIEW ([id number]) INDICATIONS: Distention with obstipation/possible ileus TECHNIQUE: One view of the abdomen acquired. COMPARISON: [facility], CT, CT ABD PELVIS W CON, 07/25/2016, 10:45. FINDINGS: Surgical changes and devices: None. Bowel: Bowel gas pattern is normal. Soft tissues: There is symmetric gaseous distention of both small and large bowel throughout the abdo men and pelvis. No pneumatosis or bowel thickening. Bones: No suspicious bony lesions. IMPRESSION: 1. Symmetric gaseous distention of bowel throughout the abdomen and pelvis likely related to a paraly tic ileus but differential also includes developing obstruction. If indicated followup exam could be performed. Dictated by: Matt BENAVIDES Interpreted: Roxanne Louise MD on 07/29/2016 at 13:29 Transcribed by: JEAN on 07/29/2016 at 13:30 Approved by: Roxanne Louise M.D. on 07/29/2016 at 15:41
--- NOTE | 2016-07-29 14:54 | NUR ---
NUTRITION FOLLOW-UP Assess: 80 yo F w/ AMS, suspected pneumonia, and acute hypercapnic respiratory failure. PO intake has been poor. Pt without BM x3 days despite administration of lactulose. Pressure ulcers are now stage 2 from stage 1. Pt drinking her Glucerna. PMHx: Cirrhosis, Ascites, Afib, RA, OA, Nephrolithiasis, Hypothyroid, HTN, HLD, GERD, DM 2, Peripheral neuropathy, UTIs. LABS: Glu 196, Ca 8.3, AST 83, ALT 48, Albumin 2.4 MEDICATIONS: Coumadin, Vit D, Senna, Folic acid, Digoxin, Lactulose DIET: Full liquid + Glucerna TID, PO 25-30% NUTRITION FOCUSED PHYSICAL ASSESSMENT: GI symptoms/stool: BM x1 07/27 Abilio: 14 Skin integrity: 3 Stage 2 PU on lt buttock, rt buttock, and sacrum Overall Appearance: No change ANTHROPOMETRICS: Current Wt: 81.9 kg BMI: 28.3 kg/m2 Admit Wt: 79.7 kg IBW: 61.4 kg Recent wt changes: Stable ESTIMATED NEEDS: Wounds Calories: 8000-0705 kcal/d (30-35 kcal/kg/d) Protein: 95-125 g/d (1.2-1.5 g/kg/d) Fluids: 9845-8771 ml/d (1 ml/kcal/d) NUTRITION DIAGNOSIS: 1) Increased nutrient needs related to healing as evidenced by 3 stage 1 PUs.---PERSISTS. INTERVENTION: 1) Will continue Glucerna TID MONITOR/EVALUATE: PO intake, Diet adv/jacob, Wounds, Nutrition status, POC. Will follow per moderate nutrition risk guidelines.
[2016-07-29] MEDS ORDERED: MetoCLOpramide 5 mg/mL 2 mL Inj IVPUSH PRN (16:10)
--- NOTE | 2016-07-29 17:12 | NUR ---
BM Pt received all her BM medications and still no BM. Abdomen more distended than this morning, no c/o pain but she is uncomfortable. MD aware and ordered ABD X Ray, ordered an Mag Citrate on top of the TID Lactulose. If no BM by tomorrow repeat Xray and possible consult with surgery. Plan discussed with son and PT. Pt resting comfortably as possible on her side.
[2016-07-29] MEDS: Senna-Docusate 8.6-50 mg Tablet PO PRN (21:22)
[2016-07-30] VITALS (7 sets, daily range): BP systolic 101–117; BP diastolic 64–73; PULSE 64–75; RESP 16–20; O2SAT 94–97
--- NOTE | 2016-07-30 04:39 | NUR ---
Abdominal Distension Pt's abdomen distended all throughout shift; no BM at present. Pt abdomen is soft, nontender, and distended, with slight increase in size this shift. Pt denies any pain, reports flatus, bowel tones active in all four quadrants. Intermittent abdominal firmness to palpation. VSS. Tele afib 60s.
[2016-07-30 05:44] LABS: INR 2.13 ratio
--- NOTE | 2016-07-30 08:49 | DRSVH ---
PROCEDURE: X-RAY ABDOMEN, ONE VIEW ([id number]) INDICATIONS: Ileus/Follow up film TECHNIQUE: One view of the abdomen acquired. COMPARISON: [facility], CR, XR ABD AP 1VW, 07/29/2016, 11:03. FINDINGS: Surgical changes and devices: Cholecystectomy clips. Bowel: Bowel gas pattern is normal. Soft tissues: There is symmetric gaseous distention of both small and large bowel throughout the abdo men and pelvis. No pneumatosis or bowel thickening. Bones: No suspicious bony lesions. IMPRESSION: Diffuse gaseous distention of bowel again seen throughout the abdomen and pelvis likely r elated to adynamic ileus. Dictated by: Matt Peters Brian Interpreted: Deniz Ibanez MD on 07/30/2016 at 8:47 Transcribed by: ISACC on 07/30/2016 at 8:48 Approved by: Deniz Ibanez M.D. on 07/30/2016 at 9:05
[2016-07-30] MEDS: Venlafaxine XR 75 mg ER24 Capsule PO SCH (08:52)
[2016-07-30] MEDS: MeTOProlol XL 50 mg ER24 Tablet PO SCH (08:56)
[2016-07-30] MEDS: Nystatin 100,000 Unit/Gm 15 Gm Powder TOPICAL SCH ×2 (08:56→20:35)
[2016-07-30 08:58] LABS: BASOPHILS % (AUTO) 0.8 % (0-3); EOSINOPHILS % (AUTO) 5.4 % (0-5); MONOCYTES % (AUTO) 13.4 % (4-12); Mean Corpuscular Hemoglobin 33.5 pg (27.0-35.0); Mean Corpuscular Volume 101.3 fL (81-100); NEUTROPHILS % (AUTO) 61.4 % (40-74); Platelet Count 87 bil/L (150-400)
[2016-07-30] MEDS: Senna-Docusate 8.6-50 mg Tablet PO PRN (08:58)
[2016-07-30] MEDS: Lactulose 20 Gm/30 mL 30 mL Syrup PO SCH ×3 (08:59→20:34)
[2016-07-30] MEDS: Insulin LISPRO 300 Unit/3 mL Inj SUBQ SCH ×4 (09:01→20:35)
[2016-07-30 09:47] LABS: Magnesium 1.9 mg/dL (1.6-2.6)
--- NOTE | 2016-07-30 10:39 | PCM.PHAPRO ---
Progress Altered mental status/3 days Warfarin Dosing Ind: AFIB Home dose: 2mg MWF, 1.5mg AOD History of Inpt dosing: Date -Jul 23-Jul 24-Jul 25-Jul 26-Jul 27-Jul 14-Jul 15-Jul 16-Jul 17-Jul 18-Jul 19-Jul 20-Jul INR 1.29 1.35 1.55 1.89 2.22 2.31 2.17 2.21 2.03 INR change 0.06 0.2 0.34 0.33 0.09 -0.14 0.04 -0.18 Warf Dose 2 1 2 1.5 1.5 2 1.5 2 1.5 p/ Continue home dosing. Mariano Merida Pharm D Jul 30, 2016 10:39
--- NOTE | 2016-07-30 12:41 | NUR ---
Nutrition Pt hasn't taken in much of her normal Ensure stating she is feeling full and stomach is uneasy. Pt didn't want any lunch. Will continue to monitor, MD is aware.
--- NOTE | 2016-07-30 16:06 | CONS ---
[address] [address] CONSULTATION REPORT PATIENT: REJI GARCES : 1935 MR#: [id number] ADMIT: 07/22/2016 JOB ID: [id number] DATE OF SERVICE: 07/30/2016 CHIEF COMPLAINT/IDENTIFICATION: Dr. Ny has asked me to consult on this 80-year-old woman with paralytic ileus versus mechanical bowel obstruction. HISTORY OF PRESENT ILLNESS: This is a patient who was admitted on the of this month with altered mental status x3 days. Her baseline is one of home care with chronic mild hepatic encephalopathy due to cirrhosis and dementia. She had been scheduled to have an outpatient colonoscopy and upper endoscopy reportedly because she had been having constipation, as well as decreased food intake, but that was placed on hold when she was admitted. She has been treated with p.o. lactulose and Kayexalate, but her last bowel movement was on the , and she has developed progressive abdominal distention on exam and by plain films. I am asked to see her regarding recommendations regarding paralytic ileus versus mechanical obstruction. PAST MEDICAL HISTORY, MEDICATIONS, SOCIAL HISTORY, REVIEW OF SYSTEMS: Per admission history and physical. PHYSICAL EXAMINATION: A very pleasant woman seen with her two adult children in the room. Her temperature is 36.7, pulse and blood pressure within normal limits. Direct examination shows a markedly distended abdomen that is fairly quiet, though it does have some bowel tones. She does have significant tympany. LABORATORY DATA: Her labs show a white count that is normal, a hematocrit of 38. Mild elevation of her transaminases. Her albumin is 2.6. Her INR is 2.13, though she is on warfarin. IMAGING: She had an abdominal CT on July 25, and abdominal films on July 29 and July 30. I reviewed all of these and the reports. She has dilated small and large bowel on her plain films. On her CT, she has dilated colon all the way down to the rectum. She has a moderate amount of ascites as well. IMPRESSION AND PLAN: A 80-year-old woman with underlying cirrhosis and multiple medical problems, with either paralytic ileus or mechanical large bowel obstruction. I cannot see in the hospital chart where she has had a rectal examination. I will perform a rectal examination and if I did not find an obvious low rectal mechanical obstruction, I will order a Gastrografin enema for diagnosis to rule out large bowel obstruction due to a rectal lesion. If there is no sign of mechanical bowel obstruction, I think that she would benefit from cleaning out from below and consideration of colonic decompression by Gastroenterology via colonoscopy.
--- NOTE | 2016-07-30 16:11 | PCM.PNMED ---
Subjective Date of Service Jul 29, 2016 Subjective Patient is somnolent today, however her mental status waxes and wanes. She is oriented to person and very few other thing she knew she was in a hospital but did not know which one and she knew the name of the red hat engineer. However she did not know the date or time of the year. She complains of having a bowel movement. She has no other new complaints. Exam Vital Signs Vital Sign - Last Date Time Temp Pulse Resp B/P Pulse Ox O2 Delivery O2 Flow Rate FiO2 07/30/16 12:06 36.5 67 17 108/70 97 Room Air 07/25/16 01:10 21 Intake and Output 07/29/16 07/29/16 07/30/16 Cumulative From/Thru 14:59 22:59 06:59 07/22/16 14:13 - 07/30/16 06:39 Intake Total 574 ml 200 ml 7157 ml Output Total 300 ml 120 ml 6495 ml Balance 274 ml 80 ml 662 ml Intake Oral 574 ml 200 ml 4765 ml IV Total 2392 ml Output Urine Total 300 ml 120 ml 6495 ml # Bowel Movements 7 Exam General: Patient's mental status was waxing and waning throughout the day.. HEENT: Head is atraumatic and normocephalic. Eyes: Pupils are equally round and reactive to light and accommodation. Extraocular muscles are intact. Sclera are white, anicteric. Subconjunctival mucosa is pink. Ears and nose are unremarkable. Oropharynx: There are no mucosal lesions, there is no thrush , there is no pharyngitis. Neck: Is supple, there are no nodes, or masses or tenderness. Chest: Is clear to auscultation and percussion. There are no rales, rhonchi, wheezes or rubs. Heart: Rate, rhythm is regular. There is no murmur, rub or gallop. Abdomen: Good bowel sounds are present. Abdomen is soft, lightly distended, nontender, no organomegaly or masses were appreciated. There is some tympany to percussion. There is minimal evidence of fluid wave shift. Extremities: Are symmetrical and well perfused. There is no edema, there is no cellulitis, no rash. Neurologic: There are no focal neurological deficits. Cranial nerves II through XII are intact. There are no sensory or motor deficits. Patient's mental status waxes and wanes. She is oriented to person and not oriented to place or time Psychiatric: Patients mood is calm and shows no sign of agitation. Genital: Deferred Rectal: Deferred Lab and Diagnostics Result Diagram: 07/30/1685507/30/16855 Microbiology Name: REJI GARCES Brian Age/Sex: 80/F Attend Dr: Jameson Graham MD Acct: [id number] Unit: [id number] Status: ADM IN [facility] 2025-06 Re07/22/16 Disch: Specimen: [id number] Collected: 07/23/16 Status: COMP Req#: [id number] Received: 07/23/16 Source: NOSE Sp Desc : Subm Dr: Jameson Graham MD Ordered: MRSA Comments: Collected by Nurse/Unit? Y/N Y Comment: Use both nares with one swab Procedure Result Verified Site Microbiology CONNER CULT NASAL MRSA SCREEN Final 07/24/16-1414 Screen NEGATIVE for Methicillin Resistant Staph Aureus Blood and urine cultures are negative to date. X-Rays, CTs and MRIs PROCEDURE: X-RAY CHEST ONE VIEW, PORTABLE ([id number]) INDICATIONS: altered, rales, recent pneumonia IMPRESSION: Bibasilar pneumonia, reduced inspiratory volume. No pleural effusion seen. Dictated by: Sagar Bailey M.D. on 07/22/2016 at 15:15 PROCEDURE: CT ABDOMEN AND PELVIS WITH CONTRAST ([id number]) INDICATIONS: abdominal distension TECHNIQUE: After the administration of intravenous contrast, 5 mm thick sections acquired from the diaphragm to the symphysis. 5 mm coronal and sagittal reformats were acquired. For radiation dose reduction, the following was used: automated exposure control, adjustment of mA and/or kV according to patient size. COMPARISON: [facility], CT, CT ABD PELVIS W CON, 06/01/2016, 14:33. FINDINGS: Image quality: Excellent. ABDOMEN: Lung bases: There are small low density bilateral pleural effusions. Nodular interlobular septal thickening is present in the bilateral lung bases. Solid organs: The liver demonstrates homogeneous enhancement. The spleen is enlarged measuring 13.3 cm in length. The portal vein is patent. Gallbladder surgically absent. Biliary system is non dilated. Pancreas enhances normally. No adrenal nodules. Kidneys demonstrate normal size and enhancement, without hydronephrosis. There are multiple low-density cystic lesions within the right renal cortex which may represent simple renal cysts but are incompletely characterized. Peritoneum and bowel: Bowel loops demonstrate normal wall thickness. The small bowel demonstrates normal caliber. There is moderate gaseous distention of the colon which is partially filled with liquid stool and partially filled with solid stool. There is a moderate amount of low-density free abdominal pelvic fluid. The extent of free fluid is less than on the comparison CT dated . Nodes and vessels: No retroperitoneal or mesenteric adenopathy by size criteria. Aorta and inferior vena cava are normal in size. There are scattered atheromatous calcifications throughout the aorta and iliac arteries bilaterally. Miscellaneous: No ventral hernias. PELVIS: Genitourinary: Bladder is decompressed and a Cason catheter is present. The uterus has a fibroid appearance, as before. Miscellaneous: No inguinal hernias or adenopathy. Bones: No suspicious bony lesions. No vertebral body compression fractures. IMPRESSION: 1. Moderate amount of intra-abdominal ascites. 2. Moderate gaseous distention of the colon. No definite findings to suggest obstruction or ileus; however this finding in conjunction with ascites likely represents the etiology of the patient's abdominal distention. 3. Splenomegaly, as before. 4. Small low density pleural effusions and compressive atelectasis. 12-lead ECG Rate controlled A. fib, no ST/T-wave changes Assessment & Plan 80-year-old lady with past medical history of cirrhosis, chronic atrial fibrillation on warfarin, rheumatoid arthritis, dementia, hypothyroidism, type II diabetes, hypertension with recent hospitalization for pneumonia was brought in by her son and daughter due to altered mental status of 3 days. Altered mental status, present on admission, acute on chronic - This appears to be due to a combination of hepatic encephalopathy and suspected sepsis. with underlying dementia - Ammonia elevated at 106-->103 --> 87--> 50 yesterday . - Recent CT head unremarkable. Presentation similar to recent admission. No lateralizing sign. Will not do repeat CT brain. - Continue lactulose 40gm tid, lactulose enema given on 07/24/2016 - Discontinue intermittent use of BiPAP and nasal cannula patient is currently her oxygen saturation is stable on room air (patient does not use CPAP or BiPAP at home) Suspected sepsis due to HCAP , acute, present on admission -Initial BP 91/47, altered mental status, initial lactate 4.0 -Patient's blood pressure has improved but is still running hypotensive with blood pressures low 100s over 50s -Chest x-ray persistent bibasilar pneumonia, pro-calcitonin up trending from discharge, 0.42 -Discontinue antibiotics as patient has had a full 14 day course to treat the pneumonia. -Blood culture showed no growth 2 days. Recent pneumococcal and Legionella antigen negative - discontinue fluids as the patient is becoming fluid overloaded -Lactic acid trend patient is now normal patient was discharged on 07/22/2016 with a lactate of 2.4, on admission she was 1.6, yesterday 1.9 and patient is now normal. We will stop Trending lactic acid Acute hypercapnic respiratory failure, present on admission -Due to hepatic encephalopathy and sepsis -Discontinue intermittent BIPAP and nasal cannula use. Mentation improved. No need for repeat ABG -Continue lactulose, patient's ammonia level is trending down Elevated troponin, present on admission,acute -Probably due to demand ischemia due to relative hypotension -No EKG change, rate controlled A. fib, -Troponins relatively the same at 0.056--> 0.054--> 0.039 this seems to correlate more with demand ischemia. We will repeat troponin in a.m. -Continue metoprolol Cirrhosis, present on admission - Per outpatient records, this is thought to be due to BOSS - Continue lactulose tid - Spironolactone and Lasix discontinued upon discharge on 07/22/16. We have restarted Lasix and spironolactone and will continue. Thrombocytopenia, chronic, stable - Continue to monitor Chronic atrial fibrillation, present on admission, stable - Continue digoxin and metoprolol at home dosing - Warfarin per pharmacy for anticoagulation, - INR now therapeutic, platelets stable, continue anticoagulation for now - Patient is wheelchair-bound with poor functional status. We will consult physical therapy to work on patient and transferring with a transfer board into a wheelchair and chair. Dysphagia, chronic - Worsening over the past year per the patient's son - Outpatient EGD with Dr Dietz was scheduled for 07/21/16 but was canceled due to recent pneumonia. We will see if Dr. Dietz can see the patient here in the hospital. - The EGD will need to be rescheduled - Speech pathology has recommended a pureed diet on recent admission Diabetes mellitus type 2 with peripheral neuropathy, - Metformin held on discharge. Continue to hold - Sliding-scale Hypothyroidism - Home levothyroxine dosing was too high based on her recent TSH and free T4 - Levothyroxine dose decreased to 150mcg daily on last admission Macrocytic anemia, chronic, POA -Due to liver disease, on folate Constipation, chronic and ongoing - Firm stools despite lactulose TID. Patient appears to have a stool in the rectum which is causing some obstruction read as "paralytic ileus" on x-ray. Gen. surgery Dr. Leon Negron was consulted who did a rectal exam and did some disimpaction with some return of stool. He recommends continuing rectal fecal disimpaction. - Lactulose enema given - Outpatient colonoscopy scheduled for 07/21/16 but canceled due to recent hospitalization. This will need to be rescheduled. Depression, chronic and presumed stable - Continue home venlafaxine dosing Hyperkalemia/hyponatremia, present on admission, -Due to dehydration -IV fluids and recheck -Kayexalate was given on 07/28/2016. DNR/DNI as per POLST form with Family at bedside. POA Rashi Gutierrez tel [phone] Disposition: Physical therapy is recommending that patient go to rehabilitation. , The patient's family does not want her to go to rehabilitation and wants to take her home. Pain Evaluation: Adequate Pain Control GI Prophylaxis: Not indicated VTE Prophylaxis: Theraputic Anticoag with Warfarin Resuscitation Status: DNR/DNI:Do Not Resuscitate/Intubate Jc Ny MD Jul 30, 2016 16:11
--- NOTE | 2016-07-30 16:44 | NUR ---
Social Work: Readiness for Discharge D: Pt discussed in am rounds. Pt is not medically stable for discharge but may be ready in several days. Pt to likely undergo procedure tomorrow to rule out Large Bowel Obstruction. PT recommendation remains for SNF via BLS due to her inability to maintain upright seated position. STUDENT AFFAIRS DEAN spoke with pt's son and POA, Matt, about discharge recommendations for SNF. He states that the pt's inability to maintain upright seated position is not new and that they have been working on this prior to admission. Pt uses a slide board for transfers and he believes they have everything they need at home for safe discharge. He confirms that the pt will have 24/7 care and that they would like resumed ordered for [facility]. 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 STUDENT AFFAIRS DEAN to continue to follow. LI Kenney
--- NOTE | 2016-07-30 16:48 | PCM.PNMED ---
Subjective Date of Service Jul 30, 2016 Subjective Patient's mental status appears to be somewhat improved today she is much more awake and alert. However she remains oriented only to person. She is not oriented to place or time. She does know who the laminator printed circuit boards is. She is complaining of abdominal distention and lack of bowel movement today more so than yesterday. Otherwise, she appears fairly comfortable. Exam Vital Signs Vital Sign - Last Date Time Temp Pulse Resp B/P Pulse Ox O2 Delivery O2 Flow Rate FiO2 07/30/16 12:06 36.5 67 17 108/70 97 Room Air 07/25/16 01:10 21 Intake and Output 07/29/16 07/29/16 07/30/16 Cumulative From/Thru 14:59 22:59 06:59 07/22/16 14:13 - 07/30/16 06:39 Intake Total 574 ml 200 ml 7157 ml Output Total 300 ml 120 ml 6495 ml Balance 274 ml 80 ml 662 ml Intake Oral 574 ml 200 ml 4765 ml IV Total 2392 ml Output Urine Total 300 ml 120 ml 6495 ml # Bowel Movements 7 Exam General: Patient is more lucid today but remains confused and is oriented to person only. She however is quite comfortable. HEENT: Head is atraumatic and normocephalic. Eyes: Pupils are equally round and reactive to light and accommodation. Extraocular muscles are intact. Sclera are white, anicteric. Subconjunctival mucosa is pink. Ears and nose are unremarkable. Oropharynx: There is no mucosal lesions, there is no thrush, there is no pharyngitis. Neck: Is supple, there are no nodes, or masses or tenderness. Chest: Is clear to auscultation and percussion. There are no rales, rhonchi, wheezes or rubs. Heart: Rate, rhythm is regular. There is no new murmur, rub or gallop. Abdomen: Good bowel sounds are present. Abdomen is markedly distended, nontender, no organomegaly or masses were appreciated. There is significant tympany to percussion. There is minimal evidence of fluid wave shift. Extremities: Are symmetrical and well perfused. There is minimal edema, there is no cellulitis, no rash. Neurologic: There are no focal neurological deficits. Cranial nerves II through XII are intact. There are no sensory or motor deficits. Patient is more awake and alert and lucid today than compared to yesterday. However, patient remains oriented to person only. Psychiatric: Patients mood is calm and shows no sign of agitation. Genital: Deferred Rectal: Deferred Lab and Diagnostics Result Diagram: 07/30/1685507/30/16855 Microbiology Name: DOREEN GARCESVASILE Torres Age/Sex: 80/F Attend Dr: Jameson Graham MD Acct: [id number] Unit: [id number] Status: ADM IN Location: [facility] 2025-06 Re07/22/16 Disch: Specimen: [id number] Collected: 07/23/16 Status: COMP Req#: [id number] Received: 07/23/16 Source: NOSE Sp Desc : Subm Dr: Jameson Graham MD [place] [facility] [place]: Collected by Nurse/Unit? Y/N Y Comment: Use both nares with one swab Procedure Result Verified Site Microbiology CONNER CULT NASAL MRSA SCREEN Final 07/24/16-1414 Screen NEGATIVE for Methicillin Resistant Staph Aureus Blood and urine cultures are negative to date. X-Rays, CTs and MRIs PROCEDURE: X-RAY CHEST ONE VIEW, PORTABLE ([id number]) INDICATIONS: altered, rales, recent pneumonia IMPRESSION: Bibasilar pneumonia, reduced inspiratory volume. No pleural effusion seen. Dictated by: Sagar Bailey M.D. on 07/22/2016 at 15:15 PROCEDURE: CT ABDOMEN AND PELVIS WITH CONTRAST ([id number]) INDICATIONS: abdominal distension TECHNIQUE: After the administration of intravenous contrast, 5 mm thick sections acquired from the diaphragm to the symphysis. 5 mm coronal and sagittal reformats were acquired. For radiation dose reduction, the following was used: automated exposure control, adjustment of mA and/or kV according to patient size. COMPARISON: [facility], CT, CT ABD PELVIS W CON, 06/01/2016, 14:33. FINDINGS: Image quality: Excellent. ABDOMEN: Lung bases: There are small low density bilateral pleural effusions. Nodular interlobular septal thickening is present in the bilateral lung bases. Solid organs: The liver demonstrates homogeneous enhancement. The spleen is enlarged measuring 13.3 cm in length. The portal vein is patent. Gallbladder surgically absent. Biliary system is non dilated. Pancreas enhances normally. No adrenal nodules. Kidneys demonstrate normal size and enhancement, without hydronephrosis. There are multiple low-density cystic lesions within the right renal cortex which may represent simple renal cysts but are incompletely characterized. Peritoneum and bowel: Bowel loops demonstrate normal wall thickness. The small bowel demonstrates normal caliber. There is moderate gaseous distention of the colon which is partially filled with liquid stool and partially filled with solid stool. There is a moderate amount of low-density free abdominal pelvic fluid. The extent of free fluid is less than on the comparison CT dated . Nodes and vessels: No retroperitoneal or mesenteric adenopathy by size criteria. Aorta and inferior vena cava are normal in size. There are scattered atheromatous calcifications throughout the aorta and iliac arteries bilaterally. Miscellaneous: No ventral hernias. PELVIS: Genitourinary: Bladder is decompressed and a Cason catheter is present. The uterus has a fibroid appearance, as before. Miscellaneous: No inguinal hernias or adenopathy. Bones: No suspicious bony lesions. No vertebral body compression fractures. IMPRESSION: 1. Moderate amount of intra-abdominal ascites. 2. Moderate gaseous distention of the colon. No definite findings to suggest obstruction or ileus; however this finding in conjunction with ascites likely represents the etiology of the patient's abdominal distention. 3. Splenomegaly, as before. 4. Small low density pleural effusions and compressive atelectasis. PROCEDURE: X-RAY ABDOMEN, ONE VIEW ([id number]) INDICATIONS: Ileus/Follow up film TECHNIQUE: One view of the abdomen acquired. COMPARISON: [facility], CR, XR ABD AP 1VW, 07/29/2016, 11:03. FINDINGS: Surgical changes and devices: Cholecystectomy clips. Bowel: Bowel gas pattern is normal. Soft tissues: There is symmetric gaseous distention of both small and large bowel throughout the abdomen and pelvis. No pneumatosis or bowel thickening. Bones: No suspicious bony lesions. IMPRESSION: Diffuse gaseous distention of bowel again seen throughout the abdomen and pelvis likely related to adynamic ileus. Dictated by: Matt BENAVIDES Interpreted: Deniz Ibanez MD on 07/30/2016 at 8:47 Transcribed by: ISACC on 07/30/2016 at 8:48 Approved by: Deniz Ibanez M.D. on 07/30/2016 at 9:05 12-lead ECG Rate controlled A. fib, no ST/T-wave changes Assessment & Plan The patient is a 80-year-old lady with past medical history of cirrhosis and hepatic encephalopathy, chronic atrial fibrillation on warfarin, rheumatoid arthritis, dementia, hypothyroidism, type II diabetes, hypertension with recent hospitalization for pneumonia was brought in by her son and daughter due to altered mental status of 3 days. Altered mental status, present on admission, acute on chronic - This appears to be due to a combination of hepatic encephalopathy and suspected sepsis. with underlying dementia - Ammonia elevated at 106-->103 --> 87--> 50 on 07/28/2016 . We will repeat in a.m. - Recent CT head unremarkable. Presentation similar to recent admission. No lateralizing sign. Will not do repeat CT brain. - Continue lactulose 40gm tid, lactulose enema given on 07/24/2016 - Discontinue intermittent use of BiPAP and nasal cannula patient is currently her oxygen saturation is stable on room air (patient does not use CPAP or BiPAP at home) Suspected sepsis due to HCAP , acute, present on admission -Initial BP 91/47, altered mental status, initial lactate 4.0 -Patient's blood pressure has improved but is still running hypotensive with blood pressures low 100s over 50s -Chest x-ray persistent bibasilar pneumonia, pro-calcitonin up trending from discharge, 0.42 -Discontinue antibiotics as patient has had a full 14 day course to treat the pneumonia. -Blood culture showed no growth 2 days. Recent pneumococcal and Legionella antigen negative - discontinue fluids as the patient is becoming fluid overloaded -Lactic acid trend patient is now normal patient was discharged on 07/22/2016 with a lactate of 2.4, on admission she was 1.6, yesterday 1.9 and patient is now normal. We will stop Trending lactic acid Acute hypercapnic respiratory failure, present on admission -Due to hepatic encephalopathy and sepsis -Discontinue intermittent BIPAP and nasal cannula use. Mentation improved. No need for repeat ABG -Continue lactulose, patient's ammonia level is trending down Elevated troponin, present on admission,acute -Probably due to demand ischemia due to relative hypotension -No EKG change, rate controlled A. fib, -Troponins relatively the same at 0.056--> 0.054--> 0.039 this seems to correlate more with demand ischemia. We will repeat troponin in a.m. -Continue metoprolol Cirrhosis, present on admission - Per outpatient records, this is thought to be due to BOSS - Continue lactulose tid - Spironolactone and Lasix discontinued upon discharge on 07/22/16. We have restarted Lasix and spironolactone and will continue. Thrombocytopenia, chronic, stable - Continue to monitor Chronic atrial fibrillation, present on admission, stable - Continue digoxin and metoprolol at home dosing - Warfarin per pharmacy for anticoagulation, - INR remains therapeutic, platelets stable, continue anticoagulation for now - Patient is wheelchair-bound with poor functional status. We will continue physical therapy to work on patient and transferring with a transfer board into a wheelchair and chair. Dysphagia, chronic - Worsening over the past year per the patient's son - Outpatient EGD with Dr Dietz was scheduled for 07/21/16 but was canceled due to recent pneumonia. We will see if Dr. Dietz can see the patient here in the hospital. - The EGD will need to be rescheduled - Speech pathology has recommended a pureed diet on recent admission Diabetes mellitus type 2 with peripheral neuropathy, - Metformin held on discharge. Continue to hold - Sliding-scale Hypothyroidism - Home levothyroxine dosing was too high based on her recent TSH and free T4 - Levothyroxine dose decreased to 150mcg daily on last admission Macrocytic anemia, chronic, POA -Due to liver disease, on folate Constipation, chronic and ongoing - Firm stools despite lactulose TID. Patient appears to have a stool in the rectum which is causing some obstruction read as "paralytic ileus" on x-ray. Gen. surgery Dr. Leon Bowen was consulted who did a rectal exam and did some disimpaction with some return of stool. He recommends continuing rectal fecal disimpaction. - Outpatient colonoscopy scheduled for 07/21/16 but canceled due to recent hospitalization. This will need to be rescheduled. Depression, chronic and presumed stable - Continue home venlafaxine dosing Hyperkalemia/hyponatremia, present on admission, -Due to dehydration -IV fluids and recheck -Kayexalate was given on 07/28/2016. DNR/DNI as per POLST form with Family at bedside. POA Son Matt tel [phone]. Discussed with patient's son and daughter at bedside today. Disposition: Physical therapy is recommending that patient go to rehabilitation. , The patient's family does not want her to go to rehabilitation and wants to take her home. Pain Evaluation: Adequate Pain Control GI Prophylaxis: Not indicated VTE Prophylaxis: Theraputic Anticoag with Warfarin Resuscitation Status: DNR/DNI:Do Not Resuscitate/Intubate Jc Ny MD Jul 30, 2016 16:48
--- NOTE | 2016-07-30 16:50 | NUR ---
Manual Decompaction Pt was manually decompacted at 1645. Large soft bowel removed, and more still felt up there. Pt in pain and asking me to stop so I did. Pt now has some hemorrhoids. Will update .
[2016-07-30] MEDS ORDERED: Phenylephrine-Mineral Oil 28 Gm Ointment RECTAL PRN (16:55)
--- NOTE | 2016-07-30 17:07 | PROG NOTE ---
[address] [address] PROGRESS NOTE PATIENT: REJI GARCES : 1935 MR#: [id number] ADMIT: 07/22/2016 JOB ID: [id number] DATE: 07/30/2016 I returned to see the patient prior to ordering her Gastrografin enema and performed a rectal examination. She had a large amount of stool right at the vault and I basically disimpacted her. After disimpaction I could feel in the distal rectal canal for approximately 5 cm that there was no obvious stricture or firm lesion. I suspect that her. I suspect that this is primarily all related to impaction and I discussed this with Dr. Ny regarding further activities for disimpaction. General Surgery will follow up tomorrow and if this does not resolve her abdominal distention we will then order a Gastrografin enema.
[2016-07-30] MEDS ORDERED: Phenyleph-Petrol-Min Oil 57 Gm Ointment RECTAL PRN (17:30)
[2016-07-31] VITALS (9 sets, daily range): BP systolic 92–112; BP diastolic 55–69; PULSE 64–76; RESP 16–26; O2SAT 92–98
[2016-07-31 04:09] LABS: BASOPHILS % (AUTO) 0.7 % (0-3); EOSINOPHILS % (AUTO) 7.6 % (0-5); Mean Corpuscular Hemoglobin 33.8 pg (27.0-35.0); Mean Corpuscular Volume 100.9 fL (81-100); NEUTROPHILS % (AUTO) 54.4 % (40-74); Platelet Count 89 bil/L (150-400)
--- NOTE | 2016-07-31 05:04 | NUR ---
Abdominal Distension Pt's abdomen distended this shift; soft, nontender; size appears to have decreased slightly. Pt denies pain or discomfort, reports passing gas frequently and feeling better since disimpaction from prior in the day. Per shift report, if pt unable to pass any additional stool throughout night, recommended another attempt at disimpaction. At approx. 0200, manual disimpaction attempted with only smears of stool produced. Minimal soft, loose stool felt in bowels, pt unable to pass any on own despite encouragement to bear down and attempt to defecate. Q2H turns, VSS, tele afib 60s. Pt NPO.
[2016-07-31] MEDS: Insulin LISPRO 300 Unit/3 mL Inj SUBQ SCH ×4 (08:00→22:00)
[2016-07-31] MEDS: Venlafaxine XR 75 mg ER24 Capsule PO SCH (09:19)
[2016-07-31] MEDS: MeTOProlol XL 50 mg ER24 Tablet PO SCH (09:21)
[2016-07-31] MEDS: Lactulose 20 Gm/30 mL 30 mL Syrup PO SCH ×3 (09:25→20:14)
[2016-07-31] MEDS: Nystatin 100,000 Unit/Gm 15 Gm Powder TOPICAL SCH ×2 (09:26→20:12)
[2016-07-31 10:03] LABS: INR 2.19 ratio
--- NOTE | 2016-07-31 10:14 | PCM.PNSURG ---
Subjective Date of Service: Jul 31, 2016 Date of Service: Jul 31, 2016 Visit Information: Reason for Visit: Mechanical bowel obstruction vs. paralytic ileus Procedure: 07/30/[address] Leon Bowen Date of Admission: Jul 22, 2016 at 17:06 Hospital Day # 10 Subjective: Patient denies pain or discomfort, reports passing gas frequently and feeling better since disimpaction, and had a formed stool this AM. Cason and diaper in place. Senna and Lactulose given this AM Postop General: No Complaints Gastrointestinal: Tolerating Oral Feedings (Does not have much of an appetite) , No N/V, Passing Flatus, Passing Stool (soft formed this AM) Neurological: Confusion (seems to be at baseline) Postop Activity: Other (does not ambulate) Objective Vital Sign- Last 8 Hours Date Time Temp Pulse Resp B/P Pulse Ox O2 Delivery O2 Flow Rate FiO2 07/31/16 09:24 66 07/31/16 08:04 36.5 64 26 92/56 92 Room Air 07/31/16 05:22 70 07/31/16 04:30 36.5 64 18 111/69 95 Room Air Intake and Output- Last 8 Hour 07/31/16 Cumulative From/Thru 07:00 07/22/16 14:13 - 07/31/16 06:58 Intake Total 350 ml 7507 ml Output Total 150 ml 6645 ml Balance 200 ml 862 ml Intake Oral 350 ml 5115 ml IV Total 2392 ml Output Urine Total 150 ml 6645 ml # Bowel Movements 7 General: Alert (oreiented to herself and recent events with her abdomen) Neck: Supple Lungs: Clear to Auscultation Heart: Regular Rate/Rhythm, No Murmurs/Rubs/Gallops Abdomen: Soft, Non-tender, Distended, Tympanic Extremities: Thigh&Calf Soft/Nontender Neuro: Grossly Neurologically Intact Catheters: Urethral 2 Way Cason Result Diagram: 07/31/1639907/31/16399 Diagnostics: CT Abdomen and Pelvis with contrast 07/25/16 IMPRESSION: 1. Moderate amount of intra-abdominal ascites. 2. Moderate gaseous distention of the colon. No definite findings to suggest obstruction or ileus; however this finding in conjunction with ascites likely represents the etiology of the patient's abdominal distention. 3. Splenomegaly, as before. 4. Small low density pleural effusions and compressive atelectasis. Abdominal XRAY 07/31/16 IMPRESSION: Diffuse gaseous distention of bowel again seen throughout the abdomen and pelvis likely related to adynamic ileus. Assessment & Plan Impression 80-year-old lady with past medical history of cirrhosis, chronic atrial fibrillation on warfarin, rheumatoid arthritis, dementia, hypothyroidism, type II diabetes, hypertension with recent hospitalization for pneumonia was brought in by her son and daughter due to altered mental status of 3 days. Problems: Plan Primary diagnosis: Altered mental status, present on admission, acute on chronic Suspected sepsis due to HCAP , acute Acute hypercapnic respiratory failure Elevated troponin, acute Mechanical bowel obstruction vs. paralytic ileus 1. HOLD on Gastrogaffin enema due to formed stool this AM 2. continue with current diet (Full liquid) 3. continue bowel regimen Secondary diagnosis: Cirrhosis, son states that she was just diagnosed June 04 and they were told it's related to diabetes Ascites and they report an 8 L paracentesis June 09 Chronic atrial fibrillation on chronic anticoagulation Rheumatoid arthritis Osteoarthritis Nephrolithiasis Hypothyroidism Hypertension Hyperlipidemia GERD Diabetes mellitus, type II Depression Peripheral neuropathy with right foot drop History of urinary tract infections Pain Management: NONE VTE Prophylaxis: Theraputic Anticoag with Warfarin Resuscitation Status: DNR/DNI:Do Not Resuscitate/Intubate Amy Parham PA-C Jul 31, 2016 10:14 Amy Parham PA-C Jul 31, 2016 10:14 Amy Parham PA-C Jul 31, 2016 10:14
--- NOTE | 2016-07-31 11:31 | NUR ---
NUTRITION FOLLOW-UP Assess: 80 yo F w/ AMS, suspected pneumonia, and acute hypercapnic respiratory failure. PO intake has been poor. Pt has undergone disimpaction however is unable to pass stool herself. Disimpaction has relieved some discomfort. Gastrografin enema postponed and diet resumed. PMHx: Cirrhosis, Ascites, Afib, RA, OA, Nephrolithiasis, Hypothyroid, HTN, HLD, GERD, DM 2, Peripheral neuropathy, UTIs. LABS: CO2 30, Cr 0.43, Glu 162, AST 69, ALT 43, Ammonia 69, Albumin 2.2 MEDICATIONS: Coumadin, Vit D, Senna, Folic acid, Digoxin, Lactulose DIET: Full liquid + Glucerna TID, PO 30-50% GI symptoms/stool: BM x1 07/27, disimpaction yesterday Skin integrity: 3 Stage 2 PU on lt buttock, rt buttock, and sacrum; Abilio: 12 ANTHROPOMETRICS: Current Wt: 80.6 kg BMI: 27.8 kg/m2 Admit Wt: 79.7 kg IBW: 61.4 kg Recent wt changes: Stable ESTIMATED NEEDS: Wounds Calories: 9242-4337 kcal/d (30-35 kcal/kg/d) Protein: 95-125 g/d (1.2-1.5 g/kg/d) Fluids: 9424-7743 ml/d (1 ml/kcal/d) NUTRITION DIAGNOSIS: 1) Increased nutrient needs related to healing as evidenced by 3 stage 1 PUs.---PERSISTS. INTERVENTION: 1) Will continue Glucerna TID 2) Will add You BID to promote wound healing. MONITOR/EVALUATE: PO intake, GI, Wounds, Nutrition status, POC. Will follow per moderate nutrition risk guidelines.
--- NOTE | 2016-07-31 12:29 | PCM.CONPHA ---
Subjective Date of Service: Jul 31, 2016 atrial fibrillation Reason for Pharmacy Consult: Anticoagulation Management Objective Vital Signs Date Time Temp Pulse Resp B/P Pulse Ox O2 Delivery O2 Flow Rate FiO2 07/31/16 11:53 36.5 66 22 102/64 97 Room Air 07/31/16 09:24 66 07/31/16 08:04 36.5 64 26 92/56 92 Room Air 07/31/16 08:00 69 07/31/16 05:22 70 07/31/16 04:30 36.5 64 18 111/69 95 Room Air 07/31/16 00:08 36.7 71 18 103/57 94 Room Air 07/30/16 20:20 36.5 64 20 101/64 94 Room Air 07/30/16 16:30 36.6 71 18 105/65 95 Room Air Intake and Output 07/29/16 07/30/16 07/31/16 00:00 00:00 00:00 Intake Total 797 ml 914 ml 200 ml Output Total 700 ml 600 ml 120 ml Balance 97 ml 314 ml 80 ml Weight (Kilograms): 80.600 Height (Feet): 5 Height (Inches): 7.00 Test 07/22/16 14:44 07/22/16 15:56 07/25/16 04:46 07/27/16 04:17 Pro-B-Type Natriuretic Peptide 1070pg/mL (0-738) Urine Color Yellow (YELLOW) Urine Appearance Hazy (CLEAR,HAZY) Urine pH 6.5 (5.0-8.0) Urine Specific [place] 1.020 (1.003-1.035) Urine Protein Negativemg/dL (NEG,TRACE) Urine Glucose (UA) Negativemg/dL (NEGATIVE) Urine Ketones Negativemg/dL (NEGATIVE) Urine Occult Blood Negative (NEGATIVE) Urine Nitrite Negative (NEGATIVE) Urine Bilirubin Negative (NEGATIVE) Urine Urobilinogen Normalmg/dL (NORMAL) Urine Leukocyte Esterase Trace (NEGATIVE) Urine RBC 0-2/hpf (0-2) Urine WBC 0-5/hpf (0-5) Urine Epithelial Cells None/hpf (NONE-MOD) Urine Crystals None seen (NONE SEEN) Urine Bacteria Few/hpf (NONE-FEW) Urine Hyaline Casts None/lpf (NONE) Urine Granular Casts None seen (NONE SEEN) Urine Waxy Casts None seen (NONE SEEN) Urine Red Blood Cell Casts None seen (NONE SEEN) Urine White Blood Cell Casts None seen (NONE SEEN) Urine Mucus None seen (None Seen) Urine Trichomonas None seen (NONE SEEN) Urine Yeast None (NONE SEEN) Urinalysis Comment None Urine Culture Reflexed Indicated Lactic Acid Level 1.9mmol/L (0.4-2.0) Procalcitonin 0.34ng/mL (0.00-0.08) Phosphorus Level 2.5mg/dL (2.5-4.9) Troponin T 0.039ug/L (0.0-0.011) Test 07/31/16 04:00 07/31/16 09:40 White Blood Count 8.6th/mm3 (3.8-10.1) Red Blood Count 3.40mil/mm3 (3.90-5.20) Hemoglobin 11.5g/dL (12.0-15.6) Hematocrit 34.3% (35.0-46.0) Mean Corpuscular Volume 100.9fL (81-100) Mean Corpuscular Hemoglobin 33.8pg (27.0-35.0) Mean Corpuscular Hemoglobin Concent 33.5% (32.0-37.0) Red Cell Distribution Width 15.2% (12.3-15.4) Platelet Count 89bil/L (150-400) Neutrophils (%) (Auto) 54.4% (40-74) Lymphocytes (%) (Auto) 23.1% (14-46) Monocytes (%) (Auto) 14.0% (4-12) Eosinophils (%) (Auto) 7.6% (0-5) Basophils (%) (Auto) 0.7% (0-3) Sodium Level 140mEq/L (134-144) Potassium Level 4.2mEq/L (3.5-5.2) Chloride Level 99mEq/L (97-108) Carbon Dioxide Level 30mmol/L (18-29) Blood Urea Nitrogen 14mg/dL (8-27) Creatinine 0.43mg/dL (0.57-1.00) Estimat Glomerular Filtration Rate 203mL/min (>59) Glucose Level 162mg/dL (60-99) Calcium Level 8.7mg/dL (8.5-10.1) Magnesium Level 2.0mg/dL (1.6-2.6) Total Bilirubin 1.1mg/dL (0.0-1.2) Aspartate Amino Transf (AST/SGOT) 69U/L (0-50) Alanine Aminotransferase (ALT/SGPT) 43U/L (0-32) Alkaline Phosphatase 108U/L (25-165) Ammonia 69ug/dL (18-53) Total Protein 5.7g/dL (6.4-8.4) Albumin 2.2g/dL (3.4-5.0) Prothrombin Time 23.8sec (8.1-12.5) Prothromb Time International Ratio 2.19ratio Assessment/Plan Assessment/Plan Assessment: * Patient is needing warfarin management for atrial fibrillation. * Patient was given warfarin 1.5 mg, which is the home warfarin dose, on after the INR was stable at 2.13. * Patient's INR goal range: 2-3 * Patient's INR on 07/31/16: 2.19 * Patient's INR remains stable. Plan: * Will give the home warfarin dose of 2 mg on 07/31/15 and will reevaluate with the PT/INR on 08/01/16. * Will continue to follow. Amrit Villalba Jul 31, 2016 12:29
--- NOTE | 2016-07-31 19:16 | NUR ---
Abdomen/BM Pt. this morning had a small BM soft and pasty looking. Pt. abdomen is distended, firm/rigid on palpation, and Pt. c/o discomfort. This afternoon Pt. appeared to be having another BM and I put the bed in sitting position to allow gravity to help. Urinary output in villanueva was about ~350, jewel looking urine when I emptied the villanueva bag. Pt. at this time does not c/o pain, CP, or SOB.
--- NOTE | 2016-07-31 20:11 | PCM.PNMED ---
Subjective Date of Service Jul 31, 2016 Subjective Patient remains pleasantly confused. She is alert however oriented only to person. Exam Vital Signs Vital Sign - Last Date Time Temp Pulse Resp B/P Pulse Ox O2 Delivery O2 Flow Rate FiO2 07/31/16 19:45 36.5 69 16 112/63 95 Room Air 07/25/16 01:10 21 Intake and Output 07/30/16 07/30/16 07/31/16 Cumulative From/Thru 14:59 22:59 06:59 07/22/16 14:13 - 07/31/16 06:58 Intake Total 350 ml 7507 ml Output Total 150 ml 6645 ml Balance 200 ml 862 ml Intake Oral 350 ml 5115 ml IV Total 2392 ml Output Urine Total 150 ml 6645 ml # Bowel Movements 7 Exam General: Patient is lucid today but remains confused and is oriented to person only. She appears quite comfortable. HEENT: Head is atraumatic and normocephalic. Eyes: Pupils are equally round and reactive to light and accommodation. Extraocular muscles are intact. Sclera are white, anicteric. Subconjunctival mucosa is pink. Ears and nose are unremarkable. Oropharynx: There is no mucosal lesions, there is no thrush, there is no pharyngitis. Neck: Is supple, there are no nodes, or masses or tenderness. Chest: Is clear to auscultation and percussion. There are no rales, rhonchi, wheezes or rubs. Heart: Rate, rhythm is regular. There is no new murmur, rub or gallop. Abdomen: Good bowel sounds are present. Abdomen remains markedly distended, but is nontender, there is no organomegaly or masses were appreciated. There is still significant tympany to percussion. There is minimal evidence of fluid wave shift. Extremities: Are symmetrical and well perfused. There is minimal edema, there is no cellulitis, no rash. Neurologic: There are no focal neurological deficits. Cranial nerves II through XII are intact. There are no sensory or motor deficits. Patient is more awake and alert and lucid today than compared to yesterday. However, patient remains oriented to person only. Psychiatric: Patients mood is calm and shows no sign of agitation. Genital: Deferred Rectal: Deferred Lab and Diagnostics Result Diagram: 07/31/1639907/31/16399 Microbiology Name: REJI GARCES Brian Age/Sex: 80/F Attend Dr: Jameson Graham MD Acct: [id number] Unit: [id number] Status: ADM IN Location: [facility] 2025-06 Re07/22/16 Disch: Specimen: [id number] Collected: 07/23/16 Status: COMP Req#: [id number] Received: 07/23/16 Source: NOSE Sp Desc : Subm Dr: Jameson Graham MD Ordered: MRSAC Comments: Collected by Nurse/Unit? Y/N Y Comment: Use both nares with one swab Procedure Result Verified Site Microbiology CONNER CULT NASAL MRSA SCREEN Final 07/24/16-1415 Screen NEGATIVE for Methicillin Resistant Staph Aureus Blood and urine cultures are negative to date. X-Rays, CTs and MRIs PROCEDURE: X-RAY CHEST ONE VIEW, PORTABLE ([id number]) INDICATIONS: altered, rales, recent pneumonia IMPRESSION: Bibasilar pneumonia, reduced inspiratory volume. No pleural effusion seen. Dictated by: Sagar Bailey M.D. on 07/22/2016 at 15:15 PROCEDURE: CT ABDOMEN AND PELVIS WITH CONTRAST ([id number]) INDICATIONS: abdominal distension TECHNIQUE: After the administration of intravenous contrast, 5 mm thick sections acquired from the diaphragm to the symphysis. 5 mm coronal and sagittal reformats were acquired. For radiation dose reduction, the following was used: automated exposure control, adjustment of mA and/or kV according to patient size. COMPARISON: [facility], CT, CT ABD PELVIS W CON, 06/01/2016, 14:33. FINDINGS: Image quality: Excellent. ABDOMEN: Lung bases: There are small low density bilateral pleural effusions. Nodular interlobular septal thickening is present in the bilateral lung bases. Solid organs: The liver demonstrates homogeneous enhancement. The spleen is enlarged measuring 13.3 cm in length. The portal vein is patent. Gallbladder surgically absent. Biliary system is non dilated. Pancreas enhances normally. No adrenal nodules. Kidneys demonstrate normal size and enhancement, without hydronephrosis. There are multiple low-density cystic lesions within the right renal cortex which may represent simple renal cysts but are incompletely characterized. Peritoneum and bowel: Bowel loops demonstrate normal wall thickness. The small bowel demonstrates normal caliber. There is moderate gaseous distention of the colon which is partially filled with liquid stool and partially filled with solid stool. There is a moderate amount of low-density free abdominal pelvic fluid. The extent of free fluid is less than on the comparison CT dated . Nodes and vessels: No retroperitoneal or mesenteric adenopathy by size criteria. Aorta and inferior vena cava are normal in size. There are scattered atheromatous calcifications throughout the aorta and iliac arteries bilaterally. Miscellaneous: No ventral hernias. PELVIS: Genitourinary: Bladder is decompressed and a Cason catheter is present. The uterus has a fibroid appearance, as before. Miscellaneous: No inguinal hernias or adenopathy. Bones: No suspicious bony lesions. No vertebral body compression fractures. IMPRESSION: 1. Moderate amount of intra-abdominal ascites. 2. Moderate gaseous distention of the colon. No definite findings to suggest obstruction or ileus; however this finding in conjunction with ascites likely represents the etiology of the patient's abdominal distention. 3. Splenomegaly, as before. 4. Small low density pleural effusions and compressive atelectasis. PROCEDURE: X-RAY ABDOMEN, ONE VIEW ([id number]) INDICATIONS: Ileus/Follow up film TECHNIQUE: One view of the abdomen acquired. COMPARISON: [facility], CR, XR ABD AP 1VW, 07/29/2016, 11:03. FINDINGS: Surgical changes and devices: Cholecystectomy clips. Bowel: Bowel gas pattern is normal. Soft tissues: There is symmetric gaseous distention of both small and large bowel throughout the abdomen and pelvis. No pneumatosis or bowel thickening. Bones: No suspicious bony lesions. IMPRESSION: Diffuse gaseous distention of bowel again seen throughout the abdomen and pelvis likely related to adynamic ileus. Dictated by: Matt Peters RRA Interpreted: Deniz Ibanez MD on 07/30/2016 at 8:47 Transcribed by: ISACC on 07/30/2016 at 8:48 Approved by: Deniz Ibanez M.D. on 07/30/2016 at 9:05 12-lead ECG Rate controlled A. fib, no ST/T-wave changes Assessment & Plan The patient is a 80-year-old lady with past medical history of cirrhosis and hepatic encephalopathy, chronic atrial fibrillation on warfarin, rheumatoid arthritis, dementia, hypothyroidism, type II diabetes, hypertension with recent hospitalization for pneumonia was brought in by her son and daughter due to altered mental status of 3 days. Altered mental status, present on admission, acute on chronic - This appears to be due to a combination of hepatic encephalopathy and suspected sepsis. with underlying dementia - Ammonia elevated at 106-->103 --> 87--> 50 on 07/28/2016 . The ammonia level on 07/31/2016 was 69 - Recent CT head unremarkable. Presentation similar to recent admission. No lateralizing sign. Will not do repeat CT brain. - Continue lactulose 40gm tid, lactulose enema given on 07/24/2016 - The intermittent use of BiPAP was discontinued and her oxygen saturation is stable on room air (patient does not use CPAP or BiPAP at home) Suspected sepsis due to HCAP , acute, present on admission -Initial BP 91/47, altered mental status, initial lactate 4.0 -Patient's blood pressure has improved but is still running hypotensive with blood pressures low 100s over 50s -Chest x-ray showed persistent bibasilar pneumonia -Patient completed antibiotics as patient has had a full 14 day course to treat the pneumonia. -Blood culture showed no growth 2 days. Recent pneumococcal and Legionella antigen negative - We discontinued IV fluids as the patient is becoming fluid overloaded -Lactic acid trend patient is now normal patient was discharged on 07/22/2016 with a lactate of 2.4, on admission she was 1.6, yesterday 1.9 and patient is now normal. We will stop Trending lactic acid Acute hypercapnic respiratory failure, present on admission -Due to hepatic encephalopathy and sepsis -Discontinue intermittent BIPAP and nasal cannula use. Mentation improved. No need for repeat ABG -Continue lactulose, patient's ammonia level is trending down Elevated troponin, present on admission,acute -Probably due to demand ischemia due to relative hypotension -No EKG change, rate controlled A. fib, -Troponins relatively the same at 0.056--> 0.054--> 0.039 this seems to correlate more with demand ischemia. We will repeat troponin in a.m. -Continue metoprolol Cirrhosis, present on admission - Per outpatient records, this is thought to be due to BOSS - Continue lactulose tid - Spironolactone and Lasix discontinued upon discharge on 07/22/16. We have restarted Lasix and spironolactone and will continue. Thrombocytopenia, chronic, stable - Continue to monitor Chronic atrial fibrillation, present on admission, stable - Continue digoxin and metoprolol at home dosing - Warfarin per pharmacy for anticoagulation, - INR remains therapeutic, platelets stable, continue anticoagulation for now - Patient is wheelchair-bound with poor functional status. We will continue physical therapy to work on patient and transferring with a transfer board into a wheelchair and chair. Dysphagia, chronic - Worsening over the past year per the patient's son - Outpatient EGD with Dr Dietz was scheduled for 07/21/16 but was canceled due to recent pneumonia. We will see if Dr. Dietz can see the patient here in the hospital. - The EGD will need to be rescheduled - Speech pathology has recommended a pureed diet on recent admission Diabetes mellitus type 2 with peripheral neuropathy, - Metformin held on discharge. Continue to hold - Sliding-scale Hypothyroidism - Home levothyroxine dosing was too high based on her recent TSH and free T4 - Levothyroxine dose decreased to 150mcg daily on last admission Macrocytic anemia, chronic, POA -Due to liver disease, on folate Constipation, chronic and ongoing - Firm stools despite lactulose TID. Patient appears to have a stool in the rectum which is causing some obstruction read as "paralytic ileus" on x-ray. Gen. surgery Dr. Leon Bowen was consulted who did a rectal exam and did some disimpaction with some return of stool. He recommends continuing rectal fecal disimpaction. - Outpatient colonoscopy scheduled for 07/21/16 but canceled due to recent hospitalization. This will need to be rescheduled. Depression, chronic and presumed stable - Continue home venlafaxine dosing Hyperkalemia/hyponatremia, present on admission, -Due to dehydration -IV fluids and recheck -Kayexalate was given on 07/28/2016. DNR/DNI as per POLST form with Family at bedside. POA Son Matt tel . Discussed with patient's son and daughter at bedside today. Disposition: Physical therapy is recommending that patient go to rehabilitation. , The patient's family does not want her to go to rehabilitation and wants to take her home. Pain Evaluation: Adequate Pain Control GI Prophylaxis: Not indicated VTE Prophylaxis: Theraputic Anticoag with Warfarin Resuscitation Status: DNR/DNI:Do Not Resuscitate/Intubate Jc Ny MD Jul 31, 2016 20:11
[2016-08-01 03:24] LABS: BASOPHILS % (AUTO) 0.6 % (0-3); EOSINOPHILS % (AUTO) 6.3 % (0-5); MONOCYTES % (AUTO) 12.7 % (4-12); Mean Corpuscular Hemoglobin 33.5 pg (27.0-35.0); Mean Corpuscular Volume 101.1 fL (81-100); NEUTROPHILS % (AUTO) 57.3 % (40-74); Platelet Count 125 bil/L (150-400)
[2016-08-01 03:34] LABS: INR 2.31 ratio
[2016-08-01 03:50] VITALS: BP 111/60; PULSE 62; RESP 16; O2SAT 94
--- NOTE | 2016-08-01 04:07 | NUR ---
Bowel Movement: Pt. incontinent of small amount of soft, formed, brown stool initially. During brief change, pt. manually disimpacted to remove remaining amount of stool present at rectum. Pt. easily manually disimpacted, large amount of stool from rectum with disimpaction. Stool remains brown, soft, formed. Pt. states "feeling better".
[2016-08-01] MEDS: Insulin LISPRO 300 Unit/3 mL Inj SUBQ SCH ×4 (08:00→20:52)
[2016-08-01 10:38] VITALS: BP 103/56; PULSE 72; RESP 18; O2SAT 97
[2016-08-01] MEDS: MeTOProlol XL 50 mg ER24 Tablet PO SCH (10:45)
[2016-08-01] MEDS: Venlafaxine XR 75 mg ER24 Capsule PO SCH (10:49)
[2016-08-01] MEDS: Lactulose 20 Gm/30 mL 30 mL Syrup PO SCH ×3 (10:50→20:03)
[2016-08-01] MEDS: Nystatin 100,000 Unit/Gm 15 Gm Powder TOPICAL SCH ×2 (10:52→20:46)
--- NOTE | 2016-08-01 11:45 | PCM.PNMED ---
Subjective Date of Service Aug 01, 2016 Subjective - Pt seen and examined this morning. She is alert and oriented to person only. - No acute events over night. Exam Vital Signs Vital Sign - Last Date Time Temp Pulse Resp B/P Pulse Ox O2 Delivery O2 Flow Rate FiO2 08/01/16 10:48 72 08/01/16 10:38 36.3 18 103/56 97 Room Air Intake and Output 07/31/16 07/31/16 08/01/16 Cumulative From/Thru 15:00 23:00 07:00 07/22/16 14:13 - 08/01/16 06:18 Intake Total 300 ml 400 ml 8207 ml Output Total 400 ml 150 ml 7195 ml Balance -100 ml 250 ml 1012 ml Intake Oral 300 ml 400 ml 5815 ml IV Total 2392 ml Output Urine Total 400 ml 150 ml 7195 ml # Bowel Movements 1 8 Exam General: Patient is lying supine in bed with a BiPAP mask on in place. He is in no apparent distress. HEENT: Head is atraumatic and normocephalic. Eyes: Pupils are equally round and reactive to light and accommodation. Extraocular muscles are intact. Sclera are white, anicteric. Subconjunctival mucosa is pink. Ears and nose are unremarkable. Oropharynx: There is no visible mucosal lesions, there is no visible thrush, there is no visible pharyngitis. Neck: Is obese, supple, there are no nodes, or masses or tenderness appreciated. Chest: Is clear to auscultation and percussion. There are no rales, rhonchi, wheezes or rubs. Heart: Rate, rhythm is regular. Heart tones are distant. There is no appreciable murmur, rub or gallop. Abdomen: Good bowel sounds are present. Abdomen is morbidly obese soft, nontender, no organomegaly or masses were appreciated. However, there is no area of apparent cellulitis of the pannus which has been demarcated with ink. The area of erythema has regressed from the ink markings considerably. Extremities: Are symmetrical and well perfused with good arterial pulses bilaterally. There is 2+ pitting edema bilaterally with chronic venous stasis dermatitis and scaling of the skin right lower artery greater than left. Neurologic: Alert, Oriented to person only. There are no focal neurological deficits. Cranial nerves II through XII are intact. There are no sensory or motor deficits. Psychiatric: Patients mood is calm and he shows no sign of agitation. IVs and Medications Medications Reviewed: Medications were reviewed in detail Lab and Diagnostics Result Diagram: 08/01/1630908/01/16309 Microbiology Name: REJI GARCES Age/Sex: 80/F Attend Dr: Jameson Graham MD Acct: [id number] Unit: [id number] Status: ADM IN Location: [facility] 2025-06 Re07/22/16 Disch: Specimen: [id number] Collected: 07/23/16 Status: COMP Req#: [id number] Received: 07/23/16 Source: NOSE Sp Desc : Subm Dr: Jameson Graham MD Ordered: MRSA Comments: Collected by Nurse/Unit? Y/N Y Comment: Use both nares with one swab Procedure Result Verified Site Microbiology CONNER CULT NASAL MRSA SCREEN Final 07/24/16-1415 Screen NEGATIVE for Methicillin Resistant Staph Aureus Blood and urine cultures are negative to date. X-Rays, CTs and MRIs PROCEDURE: X-RAY CHEST ONE VIEW, PORTABLE ([id number]) INDICATIONS: altered, rales, recent pneumonia IMPRESSION: Bibasilar pneumonia, reduced inspiratory volume. No pleural effusion seen. Dictated by: Sagar Bailey M.D. on 07/22/2016 at 15:15 PROCEDURE: CT ABDOMEN AND PELVIS WITH CONTRAST ([id number]) INDICATIONS: abdominal distension TECHNIQUE: After the administration of intravenous contrast, 5 mm thick sections acquired from the diaphragm to the symphysis. 5 mm coronal and sagittal reformats were acquired. For radiation dose reduction, the following was used: automated exposure control, adjustment of mA and/or kV according to patient size. COMPARISON: [facility], CT, CT ABD PELVIS W CON, 06/01/2016, 14:33. FINDINGS: Image quality: Excellent. ABDOMEN: Lung bases: There are small low density bilateral pleural effusions. Nodular interlobular septal thickening is present in the bilateral lung bases. Solid organs: The liver demonstrates homogeneous enhancement. The spleen is enlarged measuring 13.3 cm in length. The portal vein is patent. Gallbladder surgically absent. Biliary system is non dilated. Pancreas enhances normally. No adrenal nodules. Kidneys demonstrate normal size and enhancement, without hydronephrosis. There are multiple low-density cystic lesions within the right renal cortex which may represent simple renal cysts but are incompletely characterized. Peritoneum and bowel: Bowel loops demonstrate normal wall thickness. The small bowel demonstrates normal caliber. There is moderate gaseous distention of the colon which is partially filled with liquid stool and partially filled with solid stool. There is a moderate amount of low-density free abdominal pelvic fluid. The extent of free fluid is less than on the comparison CT dated . Nodes and vessels: No retroperitoneal or mesenteric adenopathy by size criteria. Aorta and inferior vena cava are normal in size. There are scattered atheromatous calcifications throughout the aorta and iliac arteries bilaterally. Miscellaneous: No ventral hernias. PELVIS: Genitourinary: Bladder is decompressed and a Cason catheter is present. The uterus has a fibroid appearance, as before. Miscellaneous: No inguinal hernias or adenopathy. Bones: No suspicious bony lesions. No vertebral body compression fractures. IMPRESSION: 1. Moderate amount of intra-abdominal ascites. 2. Moderate gaseous distention of the colon. No definite findings to suggest obstruction or ileus; however this finding in conjunction with ascites likely represents the etiology of the patient's abdominal distention. 3. Splenomegaly, as before. 4. Small low density pleural effusions and compressive atelectasis. PROCEDURE: X-RAY ABDOMEN, ONE VIEW ([id number]) INDICATIONS: Ileus/Follow up film TECHNIQUE: One view of the abdomen acquired. COMPARISON: [facility], CR, XR ABD AP 1VW, 07/29/2016, 11:03. FINDINGS: Surgical changes and devices: Cholecystectomy clips. Bowel: Bowel gas pattern is normal. Soft tissues: There is symmetric gaseous distention of both small and large bowel throughout the abdomen and pelvis. No pneumatosis or bowel thickening. Bones: No suspicious bony lesions. IMPRESSION: Diffuse gaseous distention of bowel again seen throughout the abdomen and pelvis likely related to adynamic ileus. Dictated by: Matt Peters RRA Interpreted: Deniz Ibanez MD on 07/30/2016 at 8:47 Transcribed by: ISACC on 07/30/2016 at 8:48 Approved by: Deniz Ibanez M.D. on 07/30/2016 at 9:05 12-lead ECG Rate controlled A. fib, no ST/T-wave changes Assessment & Plan 80-year-old lady with past medical history of cirrhosis and hepatic encephalopathy, chronic atrial fibrillation on warfarin, rheumatoid arthritis, dementia, hypothyroidism, type II diabetes, hypertension with recent hospitalization for pneumonia was brought in by her son and daughter due to altered mental status of 3 days. Altered mental status, present on admission, acute on chronic - This appears to be due to a combination of hepatic encephalopathy and suspected sepsis. with underlying dementia - Ammonia elevated at 106-->103 --> 87--> 50 on 07/28/2016 . The ammonia level on 07/31/2016 was 69 - Recent CT head unremarkable. Presentation similar to recent admission. No lateralizing sign. Will not do repeat CT brain. - Continue lactulose 40gm tid, lactulose enema given on 07/24/2016 - The intermittent use of BiPAP was discontinued and her oxygen saturation is stable on room air (patient does not use CPAP or BiPAP at home) Suspected sepsis due to HCAP , acute, present on admission -Initial BP 91/47, altered mental status, initial lactate 4.0 -Patient's blood pressure has improved but is still running hypotensive with blood pressures low 100s over 50s -Chest x-ray showed persistent bibasilar pneumonia -Patient completed antibiotics as patient has had a full 14 day course to treat the pneumonia. -Blood culture showed no growth 2 days. Recent pneumococcal and Legionella antigen negative - IV fluids discontinued as the patient is becoming fluid overloaded -Lactic acid trend patient is now normal patient was discharged on 07/22/2016 with a lactate of 2.4, on admission she was 1.6, yesterday 1.9 and patient is now normal. We will stop Trending lactic acid Acute hypercapnic respiratory failure, present on admission -Due to hepatic encephalopathy and sepsis -Discontinue intermittent BIPAP and nasal cannula use. Mentation improved. No need for repeat ABG -Continue lactulose, patient's ammonia level is trending down Elevated troponin, present on admission,acute -Probably due to demand ischemia due to relative hypotension -No EKG change, rate controlled A. fib, -Troponins relatively the same at 0.056--> 0.054--> 0.039 this seems to correlate more with demand ischemia. We will repeat troponin in a.m. -Continue metoprolol Cirrhosis, present on admission - Per outpatient records, this is thought to be due to BOSS - Continue lactulose tid - Spironolactone and Lasix discontinued upon discharge on 07/22/16. We have restarted Lasix and spironolactone and will continue. Thrombocytopenia, chronic, stable - Continue to monitor Chronic atrial fibrillation, present on admission, stable - Continue digoxin and metoprolol at home dosing - Warfarin per pharmacy for anticoagulation, - INR remains therapeutic, platelets stable, continue anticoagulation for now - Patient is wheelchair-bound with poor functional status. We will continue physical therapy to work on patient and transferring with a transfer board into a wheelchair and chair. Dysphagia, chronic - Worsening over the past year per the patient's son - Outpatient EGD with Dr Dietz was scheduled for 07/21/16 but was canceled due to recent pneumonia. We will see if Dr. Dietz can see the patient here in the hospital. - The EGD will need to be rescheduled - Speech pathology has recommended a pureed diet on recent admission Diabetes mellitus type 2 with peripheral neuropathy, - Metformin held on discharge. Continue to hold - Sliding-scale Hypothyroidism - Home levothyroxine dosing was too high based on her recent TSH and free T4 - Levothyroxine dose decreased to 150mcg daily on last admission Macrocytic anemia, chronic, POA -Due to liver disease, on folate Depression, chronic and presumed stable - Continue home venlafaxine dosing Hyperkalemia/hyponatremia, present on admission, -Due to dehydration -IV fluids and recheck -Kayexalate was given on 07/28/2016. DNR/DNI as per POLST form with Family at bedside. POA Son Matt tel [phone]. Discussed with patient's son and daughter at bedside today. Disposition: Physical therapy is recommending that patient go to rehabilitation. , The patient's family does not want her to go to rehabilitation and wants to take her home. GI Prophylaxis: Not indicated VTE Prophylaxis: Theraputic Anticoag with Warfarin Resuscitation Status: DNR/DNI:Do Not Resuscitate/Intubate Tito Asher MD Aug 01, 2016 11:45
[2016-08-01 12:16] VITALS: BP 108/67; PULSE 74; RESP 16; O2SAT 96
[2016-08-01 16:47] VITALS: BP 99/65; PULSE 68; RESP 20; O2SAT 95
--- NOTE | 2016-08-01 17:59 | NUR ---
Bowel Movement Pt. had a large, soft, pasty looking BM this morning and in the evening Pt. had two episodes of diarrhea. MD made aware and MD ordered to titrate lactulose accordingly to Pt. having 2-3 bowel movement in a day. Pt. abdomen is still distended but firmness and rigidity has slightly decreased. Pt. appetite changes through the day and eats ~15%-25% of food. Pt. denies pain to light palpation on abdomen.
[2016-08-01 20:41] VITALS: BP 104/62; PULSE 63; RESP 16; O2SAT 96
[2016-08-01 23:12] VITALS: BP 105/66; PULSE 61; RESP 16; O2SAT 96
[2016-08-02 03:24] VITALS: BP 107/67; PULSE 65; RESP 16; O2SAT 95
--- NOTE | 2016-08-02 03:53 | NUR ---
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 Abdomen now soft to palpation. Pt. passed one large, diarrhea stool at start of shift. Pt. has poor appetite.
[2016-08-02 04:05] LABS: BASOPHILS % (AUTO) 0.6 % (0-3); EOSINOPHILS % (AUTO) 6.8 % (0-5); MONOCYTES % (AUTO) 14.2 % (4-12); Mean Corpuscular Hemoglobin 33.1 pg (27.0-35.0); Mean Corpuscular Volume 101.5 fL (81-100); NEUTROPHILS % (AUTO) 52.4 % (40-74); Platelet Count 114 bil/L (150-400)
[2016-08-02 04:34] LABS: INR 2.51 ratio
[2016-08-02] MEDS: Insulin LISPRO 300 Unit/3 mL Inj SUBQ SCH ×4 (08:00→21:39)
[2016-08-02 08:47] VITALS: BP 104/54; PULSE 64; RESP 18; O2SAT 95
[2016-08-02] MEDS: MeTOProlol XL 50 mg ER24 Tablet PO SCH (08:54)
[2016-08-02] MEDS: Venlafaxine XR 75 mg ER24 Capsule PO SCH (08:55)
[2016-08-02] MEDS: Lactulose 20 Gm/30 mL 30 mL Syrup PO SCH ×3 (08:57→21:38)
[2016-08-02] MEDS: Nystatin 100,000 Unit/Gm 15 Gm Powder TOPICAL SCH ×2 (09:00→21:38)
--- NOTE | 2016-08-02 10:59 | PCM.PNMED ---
Subjective Date of Service Aug 02, 2016 Subjective - Pt seen and examined this morning. - Not in distress. - No acute events over night. Exam Vital Signs Vital Sign - Last Date Time Temp Pulse Resp B/P Pulse Ox O2 Delivery O2 Flow Rate FiO2 08/02/16 08:59 64 08/02/16 08:47 36.6 18 104/54 95 Room Air Intake and Output 08/01/16 08/01/16 08/02/16 Cumulative From/Thru 15:00 23:00 07:00 07/22/16 14:13 - 08/02/16 05:09 Intake Total 672 ml 237 ml 9116 ml Output Total 150 ml 300 ml 7645 ml Balance 522 ml -63 ml 1471 ml Intake Oral 672 ml 237 ml 6724 ml IV Total 2392 ml Output Urine Total 150 ml 300 ml 7645 ml # Bowel Movements 8 Exam General: Patient is lying supine in bed with a BiPAP mask on in place. He is in no apparent distress. HEENT: Head is atraumatic and normocephalic. Eyes: Pupils are equally round and reactive to light and accommodation. Extraocular muscles are intact. Sclera are white, anicteric. Subconjunctival mucosa is pink. Ears and nose are unremarkable. Oropharynx: There is no visible mucosal lesions, there is no visible thrush, there is no visible pharyngitis. Neck: Is obese, supple, there are no nodes, or masses or tenderness appreciated. Chest: Is clear to auscultation and percussion. There are no rales, rhonchi, wheezes or rubs. Heart: Rate, rhythm is regular. Heart tones are distant. There is no appreciable murmur, rub or gallop. Abdomen: Good bowel sounds are present. Abdomen is morbidly obese soft, nontender, no organomegaly or masses were appreciated. However, there is no area of apparent cellulitis of the pannus which has been demarcated with ink. The area of erythema has regressed from the ink markings considerably. Extremities: Are symmetrical and well perfused with good arterial pulses bilaterally. There is 2+ pitting edema bilaterally with chronic venous stasis dermatitis and scaling of the skin right lower artery greater than left. Neurologic: Alert, Oriented to person only. There are no focal neurological deficits. Cranial nerves II through XII are intact. There are no sensory or motor deficits. Psychiatric: Patients mood is calm and he shows no sign of agitation. IVs and Medications Medications Reviewed: Medications were reviewed in detail Lab and Diagnostics Result Diagram: 08/02/1632408/02/16324 Microbiology Name: REJI GARCES Age/Sex: 80/F Attend Dr: Jameson Graham MD Acct: [id number] Unit: [id number] Status: ADM IN Location: [facility] 2025-06 Re07/22/16 Disch: Specimen: [id number] Collected: 07/23/16 Status: COMP Req#: [id number] Received: 07/23/16 Source: NOSE Sp Desc : Subm Dr: Jameson Graham MD Ordered: MRSA Comments: Collected by Nurse/Unit? Y/N Y Comment: Use both nares with one swab Procedure Result Verified Site Microbiology CONNER CULT NASAL MRSA SCREEN Final 07/24/16-1415 Screen NEGATIVE for Methicillin Resistant Staph Aureus Blood and urine cultures are negative to date. X-Rays, CTs and MRIs PROCEDURE: X-RAY CHEST ONE VIEW, PORTABLE ([id number]) INDICATIONS: altered, rales, recent pneumonia IMPRESSION: Bibasilar pneumonia, reduced inspiratory volume. No pleural effusion seen. Dictated by: Sagar Bailey M.D. on 07/22/2016 at 15:15 PROCEDURE: CT ABDOMEN AND PELVIS WITH CONTRAST ([id number]) INDICATIONS: abdominal distension TECHNIQUE: After the administration of intravenous contrast, 5 mm thick sections acquired from the diaphragm to the symphysis. 5 mm coronal and sagittal reformats were acquired. For radiation dose reduction, the following was used: automated exposure control, adjustment of mA and/or kV according to patient size. COMPARISON: [facility], CT, CT ABD PELVIS W CON, 06/01/2016, 14:33. FINDINGS: Image quality: Excellent. ABDOMEN: Lung bases: There are small low density bilateral pleural effusions. Nodular interlobular septal thickening is present in the bilateral lung bases. Solid organs: The liver demonstrates homogeneous enhancement. The spleen is enlarged measuring 13.3 cm in length. The portal vein is patent. Gallbladder surgically absent. Biliary system is non dilated. Pancreas enhances normally. No adrenal nodules. Kidneys demonstrate normal size and enhancement, without hydronephrosis. There are multiple low-density cystic lesions within the right renal cortex which may represent simple renal cysts but are incompletely characterized. Peritoneum and bowel: Bowel loops demonstrate normal wall thickness. The small bowel demonstrates normal caliber. There is moderate gaseous distention of the colon which is partially filled with liquid stool and partially filled with solid stool. There is a moderate amount of low-density free abdominal pelvic fluid. The extent of free fluid is less than on the comparison CT dated . Nodes and vessels: No retroperitoneal or mesenteric adenopathy by size criteria. Aorta and inferior vena cava are normal in size. There are scattered atheromatous calcifications throughout the aorta and iliac arteries bilaterally. Miscellaneous: No ventral hernias. PELVIS: Genitourinary: Bladder is decompressed and a Cason catheter is present. The uterus has a fibroid appearance, as before. Miscellaneous: No inguinal hernias or adenopathy. Bones: No suspicious bony lesions. No vertebral body compression fractures. IMPRESSION: 1. Moderate amount of intra-abdominal ascites. 2. Moderate gaseous distention of the colon. No definite findings to suggest obstruction or ileus; however this finding in conjunction with ascites likely represents the etiology of the patient's abdominal distention. 3. Splenomegaly, as before. 4. Small low density pleural effusions and compressive atelectasis. PROCEDURE: X-RAY ABDOMEN, ONE VIEW ([id number]) INDICATIONS: Ileus/Follow up film TECHNIQUE: One view of the abdomen acquired. COMPARISON: Merged With [facility], CR, XR ABD AP 1VW, 07/29/2016, 11:03. FINDINGS: Surgical changes and devices: Cholecystectomy clips. Bowel: Bowel gas pattern is normal. Soft tissues: There is symmetric gaseous distention of both small and large bowel throughout the abdomen and pelvis. No pneumatosis or bowel thickening. Bones: No suspicious bony lesions. IMPRESSION: Diffuse gaseous distention of bowel again seen throughout the abdomen and pelvis likely related to adynamic ileus. Dictated by: Matt Peters RRA Interpreted: Deniz Ibanez MD on 07/30/2016 at 8:47 Transcribed by: ISACC on 07/30/2016 at 8:48 Approved by: Deniz Ibanez M.D. on 07/30/2016 at 9:05 12-lead ECG Rate controlled A. fib, no ST/T-wave changes Assessment & Plan 80-year-old lady with past medical history of cirrhosis and hepatic encephalopathy, chronic atrial fibrillation on warfarin, rheumatoid arthritis, dementia, hypothyroidism, type II diabetes, hypertension with recent hospitalization for pneumonia was brought in by her son and daughter due to altered mental status of 3 days. Altered mental status, present on admission, acute on chronic - This appears to be due to a combination of hepatic encephalopathy and suspected sepsis. with underlying dementia - Ammonia elevated at 106-->103 --> 87--> 50 on 07/28/2016 . The ammonia level on 07/31/2016 was 69 - Recent CT head unremarkable. Presentation similar to recent admission. No lateralizing sign. Will not do repeat CT brain. - Continue lactulose 40gm tid, lactulose enema given on 07/24/2016 - The intermittent use of BiPAP was discontinued and her oxygen saturation is stable on room air (patient does not use CPAP or BiPAP at home) Suspected sepsis due to HCAP , acute, present on admission - Initial BP 91/47, altered mental status, initial lactate 4.0 - Patient's blood pressure has improved but is still running hypotensive with blood pressures low 100s over 50s - Chest x-ray showed persistent bibasilar pneumonia - Patient completed antibiotics as patient has had a full 14 day course to treat the pneumonia. - Blood culture showed no growth. Recent pneumococcal and Legionella antigen negative - IV fluids discontinued as the patient is becoming fluid overloaded Acute hypercapnic respiratory failure, present on admission - Now resolved - Due to hepatic encephalopathy and sepsis - Continue lactulose, patient's ammonia level is trending down Elevated troponin, present on admission,acute - Probably due to demand ischemia due to relative hypotension - No EKG change, rate controlled A. fib, - Troponins relatively the same at 0.056--> 0.054--> 0.039 this seems to correlate more with demand ischemia. We will repeat troponin in a.m. - Continue metoprolol Cirrhosis, present on admission - Per outpatient records, this is thought to be due to BOSS - Continue lactulose tid - Spironolactone and Lasix discontinued upon discharge on 07/22/16. We have restarted Lasix and spironolactone and will continue. Thrombocytopenia, chronic, stable - Continue to monitor Chronic atrial fibrillation, present on admission, stable - Continue digoxin and metoprolol at home dosing - Warfarin per pharmacy for anticoagulation, - INR remains therapeutic, platelets stable, continue anticoagulation for now - Patient is wheelchair-bound with poor functional status. We will continue physical therapy to work on patient and transferring with a transfer board into a wheelchair and chair. Dysphagia, chronic - Worsening over the past year per the patient's son - Outpatient EGD with Dr Dietz was scheduled for 07/21/16 but was canceled due to recent pneumonia. We will see if Dr. Dietz can see the patient here in the hospital. - The EGD will need to be rescheduled - Speech pathology has recommended a pureed diet on recent admission Diabetes mellitus type 2 with peripheral neuropathy, - Metformin held on discharge. Continue to hold - Sliding-scale Hypothyroidism - Home levothyroxine dosing was too high based on her recent TSH and free T4 - Levothyroxine dose decreased to 150mcg daily on last admission Macrocytic anemia, chronic, POA -Due to liver disease, on folate Depression, chronic and presumed stable - Continue home venlafaxine dosing DNR/DNI as per POLST form with Family at bedside. POA Son Matt tel . Discussed with patient's son and daughter at bedside today. Disposition: SNF likely tomorrow. GI Prophylaxis: Not indicated VTE Prophylaxis: Theraputic Anticoag with Warfarin Resuscitation Status: DNR/DNI:Do Not Resuscitate/Intubate Tito Asher MD Aug 02, 2016 10:59
[2016-08-02 12:12] VITALS: BP 110/62; PULSE 63; RESP 18; O2SAT 97
--- NOTE | 2016-08-02 15:00 | PCM.PHAPRO ---
Progress Date of Service: Aug 02, 2016 Warfarin dosing A/ INR is therapeutic at 2.51 today. P/ Continue with home dosing of warfarin -- 1.5mg to be given today. Cy Mosley Aug 02, 2016 15:00
[2016-08-02 16:06] VITALS: BP 104/50; PULSE 60; RESP 18; O2SAT 97
--- NOTE | 2016-08-02 18:58 | NUR ---
GI Pt. had diarrhea this morning, large. I did not give lactulose at scheduled 1430 time due to diarrhea. Pt. since then has not had a bowel movement, Pt. denies abdominal pain with light palpation. Pt. did c/o abdominal discomfort x2 this shift but no pain.
[2016-08-02 19:08] VITALS: BP 100/65; PULSE 65; RESP 16; O2SAT 93
[2016-08-02 23:21] VITALS: BP 105/58; PULSE 60; RESP 16; O2SAT 95
[2016-08-03 03:25] VITALS: BP 98/60; PULSE 93; RESP 16; O2SAT 94
[2016-08-03 03:45] LABS: INR 2.34 ratio
--- NOTE | 2016-08-03 04:04 | NUR ---
Bowel Movement: Pt. passed large, paste-like brown bowel movement in early a.m. hours. Pt. incontinent of stool. Abdomen round, slightly firm to palpation. No overt signs or symptoms of distress. Pt. denies pain.
[2016-08-03] MEDS: Insulin LISPRO 300 Unit/3 mL Inj SUBQ SCH ×4 (08:00→21:27)
[2016-08-03 08:09] VITALS: BP 90/54; PULSE 72; RESP 16; O2SAT 93
--- NOTE | 2016-08-03 10:29 | NUR ---
Social Work Note: Continued Discharge Planning Data& Assessment: Per MD pt is not medically ready at this time. PT is still recommending SNF at time of discharge for rehab. SW spoke with pt son Matt regarding discharge planning. Pt family originally wanted to take pt home with resume HH and 04/01 caregiving but pt son explained they have changed their mind and are agreeable to pt receiving rehab at SNF prior to returning home. Pt son confirmed he has the SNF list for preference and stated he has a preference for [facility]. [facility] provided access and spoke with Sylvia in admissions for referral. Pt son denies any other needs at this time. SW to continue to follow if any needs arise. Plan: Anticipated discharge to [facility] for rehab when medically ready pending acceptance. Pt son denies any other needs at this time. SW to continue to follow if any needs arise. LI Quintero
[2016-08-03] MEDS: Venlafaxine XR 75 mg ER24 Capsule PO SCH (10:52)
[2016-08-03] MEDS: MeTOProlol XL 50 mg ER24 Tablet PO SCH (10:53)
[2016-08-03] MEDS: Nystatin 100,000 Unit/Gm 15 Gm Powder TOPICAL SCH ×2 (10:57→21:20)
[2016-08-03] MEDS: Lactulose 20 Gm/30 mL 30 mL Syrup PO SCH ×3 (11:01→21:26)
[2016-08-03 12:32] VITALS: BP 109/63; PULSE 62; RESP 16; O2SAT 97
[2016-08-03 16:55] VITALS: BP 100/62; PULSE 62; RESP 19; O2SAT 96
--- NOTE | 2016-08-03 18:35 | NUR ---
Mentation- Patient oriented to self, but needed to be reoriented to place and date. She has random thoughts and while son here she responded to questions more appropriately. Patient has been calm and cooperative with care, and has made no attempts to get out of bed on her own. Denies pain. Able to assist with turning and repositioning in bed.
--- NOTE | 2016-08-03 18:44 | PCM.PNMED ---
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 Patient has some baseline dementia or chronic encephalopathy. According to family she is relatively close to her somewhat variable baseline today. She appears comfortable still bothered by abdominal distention. Family is concerned about her relapsing course and difficulty taking care of her at home. Exam Vital Signs Vital Sign - Last Date Time Temp Pulse Resp B/P Pulse Ox O2 Delivery O2 Flow Rate FiO2 08/03/16 16:55 36.5 62 19 100/62 96 Room Air Intake and Output 08/02/16 08/02/16 08/03/16 Cumulative From/Thru 15:00 23:00 07:00 07/22/16 14:13 - 08/03/16 06:11 Intake Total 474 ml 400 ml 9990 ml Output Total 400 ml 300 ml 8345 ml Balance 74 ml 100 ml 1645 ml Intake Oral 474 ml 400 ml 7598 ml IV Total 2392 ml Output Urine Total 400 ml 300 ml 8345 ml # Bowel Movements 1 1 10 Exam General: Pale elderly woman in no acute distress HEENT: sclerae anicteric, oral mucosa moist Neck: no JVD apparent Chest: clear to auscultation Cardiac: S1S2, no murmur Abdomen: BS present but not dynamic, tympanitic, non-tender, no flank dullness Extremities: Trace edema Neuro: Alert but not fully oriented, cranial nerves symmetric, motor strength 5/ 5, coordination normal, mild tremor but no asterixis IVs and Medications Medications Reviewed: Medications were reviewed in detail Lab and Diagnostics Result Diagram: 08/02/16 0325 08/02/16 0325 Microbiology Name: REJI GARCES Age/Sex: 80/F Attend Dr: Jameson Graham MD Acct: [id number] Unit: [id number] Status: ADM IN Location: [facility] 2025-06 Re07/22/16 Disch: Specimen: [id number] Collected: 07/23/16 Status: COMP Req#: [id number] Received: 07/23/16 Source: NOSE Sp Desc : Subm Dr: Jameson Graham MD Ordered: MRSAC Comments: Collected by Nurse/Unit? Y/N Y Comment: Use both nares with one swab Procedure Result Verified Site Microbiology CONNER CULT NASAL MRSA SCREEN Final 07/24/16-1414 Screen NEGATIVE for Methicillin Resistant Staph Aureus Blood and urine cultures are negative to date. X-Rays, CTs and MRIs PROCEDURE: X-RAY CHEST ONE VIEW, PORTABLE ([id number]) INDICATIONS: altered, rales, recent pneumonia IMPRESSION: Bibasilar pneumonia, reduced inspiratory volume. No pleural effusion seen. Dictated by: Sagar Bailey M.D. on 07/22/2016 at 15:15 PROCEDURE: CT ABDOMEN AND PELVIS WITH CONTRAST ([id number]) INDICATIONS: abdominal distension TECHNIQUE: After the administration of intravenous contrast, 5 mm thick sections acquired from the diaphragm to the symphysis. 5 mm coronal and sagittal reformats were acquired. For radiation dose reduction, the following was used: automated exposure control, adjustment of mA and/or kV according to patient size. COMPARISON: [facility], CT, CT ABD PELVIS W CON, 06/01/2016, 14:33. FINDINGS: Image quality: Excellent. ABDOMEN: Lung bases: There are small low density bilateral pleural effusions. Nodular interlobular septal thickening is present in the bilateral lung bases. Solid organs: The liver demonstrates homogeneous enhancement. The spleen is enlarged measuring 13.3 cm in length. The portal vein is patent. Gallbladder surgically absent. Biliary system is non dilated. Pancreas enhances normally. No adrenal nodules. Kidneys demonstrate normal size and enhancement, without hydronephrosis. There are multiple low-density cystic lesions within the right renal cortex which may represent simple renal cysts but are incompletely characterized. Peritoneum and bowel: Bowel loops demonstrate normal wall thickness. The small bowel demonstrates normal caliber. There is moderate gaseous distention of the colon which is partially filled with liquid stool and partially filled with solid stool. There is a moderate amount of low-density free abdominal pelvic fluid. The extent of free fluid is less than on the comparison CT dated . Nodes and vessels: No retroperitoneal or mesenteric adenopathy by size criteria. Aorta and inferior vena cava are normal in size. There are scattered atheromatous calcifications throughout the aorta and iliac arteries bilaterally. Miscellaneous: No ventral hernias. PELVIS: Genitourinary: Bladder is decompressed and a Cason catheter is present. The uterus has a fibroid appearance, as before. Miscellaneous: No inguinal hernias or adenopathy. Bones: No suspicious bony lesions. No vertebral body compression fractures. IMPRESSION: 1. Moderate amount of intra-abdominal ascites. 2. Moderate gaseous distention of the colon. No definite findings to suggest obstruction or ileus; however this finding in conjunction with ascites likely represents the etiology of the patient's abdominal distention. 3. Splenomegaly, as before. 4. Small low density pleural effusions and compressive atelectasis. PROCEDURE: X-RAY ABDOMEN, ONE VIEW ([id number]) INDICATIONS: Ileus/Follow up film TECHNIQUE: One view of the abdomen acquired. COMPARISON: [facility], CR, XR ABD AP 1VW, 07/29/2016, 11:03. FINDINGS: Surgical changes and devices: Cholecystectomy clips. Bowel: Bowel gas pattern is normal. Soft tissues: There is symmetric gaseous distention of both small and large bowel throughout the abdomen and pelvis. No pneumatosis or bowel thickening. Bones: No suspicious bony lesions. IMPRESSION: Diffuse gaseous distention of bowel again seen throughout the abdomen and pelvis likely related to adynamic ileus. Dictated by: Matt Peters RRA Interpreted: Deniz Ibanez MD on 07/30/2016 at 8:47 Transcribed by: ISACC on 07/30/2016 at 8:48 Approved by: Deniz Ibanez M.D. on 07/30/2016 at 9:05 12-lead ECG Rate controlled A. fib, no ST/T-wave changes Assessment & Plan 80-year-old lady with past medical history of cirrhosis and hepatic encephalopathy, chronic atrial fibrillation on warfarin, rheumatoid arthritis, dementia, hypothyroidism, type II diabetes, hypertension with recent hospitalization for pneumonia was brought in by her son and daughter due to altered mental status of 3 days. Altered mental status, present on admission, acute on chronic - This appears to be due to a combination of hepatic encephalopathy and suspected sepsis. with underlying dementia - Ammonia elevated at 106-->103 --> 87--> 50 on 07/28/2016 . The ammonia level on 07/31/2016 was 69 - Continue lactulose 40gm tid, lactulose enema given on 07/24/2016 Cirrhosis, present on admission - Per outpatient records, this is thought to be due to BOSS - Continue lactulose tid - Spironolactone and Lasix discontinued upon discharge on 07/22/16. We have restarted Lasix and spironolactone and will continue. - Need to clarify follow-up plans with GI [employer] sales consultant Dysphagia, chronic - Worsening over the past year per the patient's son - Outpatient EGD with Dr Dietz was scheduled for 07/21/16 but was canceled due to recent pneumonia. We will see if Dr. Dietz can see the patient here in the hospital. - The EGD will need to be rescheduled - Speech pathology has recommended a pureed diet on recent admission Obstipation and abdominal distention - CT scan revealed no ileus or obstruction; likely chronic bowel hypomotility - Currently on lactulose 40 g 3 times a day - Gastrografin enema in a.m. if no stool output Stable, chronic or resolving problems: Suspected sepsis due to HCAP , acute, present on admission - Initial BP 91/47, altered mental status, initial lactate 4.0 - Chest x-ray showed persistent bibasilar pneumonia - Patient completed antibiotics as patient has had a full 14 day course to treat the pneumonia. - Blood culture showed no growth. Recent pneumococcal and Legionella antigen negative Acute hypercapnic respiratory failure, present on admission - The intermittent use of BiPAP was discontinued and her oxygen saturation is stable on room air (patient does not use CPAP or BiPAP at home) Elevated troponin, present on admission,acute - Probably due to demand ischemia due to relative hypotension - No EKG change, rate controlled A. fib, - Troponins relatively the same at 0.056--> 0.054--> 0.039 this seems to correlate more with demand ischemia. - Continue metoprolol Suspected sepsis due to HCAP , acute, present on admission - Initial BP 91/47, altered mental status, initial lactate 4.0 - Chest x-ray showed persistent bibasilar pneumonia - Patient completed antibiotics as patient has had a full 14 day course to treat the pneumonia. - Blood culture showed no growth. Recent pneumococcal and Legionella antigen negative - IV fluids discontinued as the patient is becoming fluid overloaded Acute hypercapnic respiratory failure, present on admission - The intermittent use of BiPAP was discontinued and her oxygen saturation is stable on room air (patient does not use CPAP or BiPAP at home) - Due to hepatic encephalopathy and sepsis - Continue lactulose, patient's ammonia level is trending down Elevated troponin, present on admission,acute - Probably due to demand ischemia due to relative hypotension - No EKG change, rate controlled A. fib, - Troponins relatively the same at 0.056--> 0.054--> 0.039 this seems to correlate more with demand ischemia. We will repeat troponin in a.m. - Continue metoprolol Diabetes mellitus type 2 with peripheral neuropathy, - Metformin held on discharge. Continue to hold - Sliding-scale insulin Hypothyroidism - Home levothyroxine dosing was too high based on her recent TSH and free T4 - Levothyroxine dose decreased to 150mcg daily on last admission Macrocytic anemia, chronic, POA -Due to liver disease, on folate Depression, chronic and presumed stable - Continue home venlafaxine dosing DNR/DNI as per POLST form with Family at bedside. POA Son Matt tel [phone]. Discussed with patient's son and daughter at bedside today. Disposition: Continue effective discharge planning with expectation that she will be ready in 1-2 days. GI Prophylaxis: Not indicated VTE Prophylaxis: Theraputic Anticoag with Warfarin Resuscitation Status: DNR/DNI:Do Not Resuscitate/Intubate Time spent 35 minutes Supa Bell MD Aug 03, 2016 18:44
[2016-08-03 19:23] VITALS: BP 103/54; PULSE 63; RESP 16; O2SAT 95
--- NOTE | 2016-08-04 04:02 | NUR ---
Mentation: Pt. alert and oriented X1 (oriented to self only) during shift. Pt. often talking to self in room. States non-sense phrases to staff in room. Pt. pulling at lines and tubes. Pt. removed IV independently (IV saline lock replaced per physician order), additionally pink-tinge to urine in villanueva catheter tubing at 0400 (prior urine color of jewel), pt. likely pulled on tubing. Pt. repositioned, cath secure replaced. Hallway window open to nurses station to allow for direct visualization of pt.
[2016-08-04 04:03] VITALS: BP 102/52; PULSE 68; RESP 20; O2SAT 97
[2016-08-04 04:19] LABS: INR 1.96 ratio
[2016-08-04] MEDS: Lactulose 20 Gm/30 mL 30 mL Syrup PO SCH ×3 (05:53→21:10)
[2016-08-04] MEDS: Insulin LISPRO 300 Unit/3 mL Inj SUBQ SCH ×4 (08:00→21:11)
--- NOTE | 2016-08-04 08:59 | NUR ---
Social Work Note: Continued Discharge Planning Data& Assessment: Per Sylvia in admissions at [facility], they are able to accept pt when medically ready. Pt is not medically ready at this time. SW to continue to follow. Plan: Anticipated discharge to [facility] for rehab when medically ready. SW to continue to follow. LI Quintero
[2016-08-04 10:28] VITALS: BP 106/56; PULSE 54; RESP 16; O2SAT 96
[2016-08-04] MEDS: Venlafaxine XR 75 mg ER24 Capsule PO SCH (10:51)
[2016-08-04] MEDS: Nystatin 100,000 Unit/Gm 15 Gm Powder TOPICAL SCH ×2 (10:59→20:30)
[2016-08-04] MEDS ORDERED: Sodium Biphos-Phos 133 mL Enema RECTAL ONE (12:15)
[2016-08-04] MEDS: MeTOProlol XL 50 mg ER24 Tablet PO SCH (12:17)
--- NOTE | 2016-08-04 14:37 | NUR ---
took over patient care at 2pm
[2016-08-04 14:58] VITALS: BP 102/65; PULSE 55; RESP 18; O2SAT 96
--- NOTE | 2016-08-04 15:08 | PCM.PNMED ---
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 Patient has some baseline dementia or chronic encephalopathy. She appears comfortable and endorses no specific complaints. She is having regular bowel movements at least 2 far today. Exam Vital Signs Vital Sign - Last Date Time Temp Pulse Resp B/P Pulse Ox O2 Delivery O2 Flow Rate FiO2 08/04/16 10:56 64 08/04/16 10:28 36.4 16 106/56 96 Room Air Intake and Output 08/03/16 08/03/16 08/04/16 Cumulative From/Thru 15:00 23:00 07:00 07/22/16 14:13 - 08/04/16 05:54 Intake Total 200 ml 00233 ml Output Total 350 ml 8695 ml Balance -150 ml 1495 ml Intake Oral 200 ml 7798 ml IV Total 2392 ml Output Urine Total 350 ml 8695 ml # Bowel Movements 1 11 Exam General: Pale elderly woman in no acute distress HEENT: sclerae anicteric, oral mucosa moist Neck: no JVD apparent Chest: clear to auscultation Cardiac: S1S2, regular Abdomen: BS present, tympanitic, non-tender, no flank dullness Extremities: Trace edema Neuro: Alert but not fully oriented, cranial nerves symmetric, mild asterixis IVs and Medications Medications Reviewed: Medications were reviewed in detail Lab and Diagnostics Result Diagram: 08/02/1632408/02/165 Microbiology Name: REJI GARCES Age/Sex: 80/F Attend Dr: Jameson Graham MD Acct: [id number] Unit: [id number] Status: ADM IN Location: [facility] 2025-06 Re07/22/16 Disch: Specimen: [id number] Collected: 07/23/16 Status: TORO Req#: [id number] Received: 07/23/16 Source: NOSE Sp Desc : Subm Dr: Jameson Graham MD Ordered: MRSAC Comments: Collected by Nurse/Unit? Y/N Y Comment: Use both nares with one swab Procedure Result Verified Site Microbiology CONNER CULT NASAL MRSA SCREEN Final 07/24/16 Screen NEGATIVE for Methicillin Resistant Staph Aureus Blood and urine cultures are negative to date. X-Rays, CTs and MRIs PROCEDURE: X-RAY CHEST ONE VIEW, PORTABLE ([id number]) INDICATIONS: altered, rales, recent pneumonia IMPRESSION: Bibasilar pneumonia, reduced inspiratory volume. No pleural effusion seen. Dictated by: Sagar Bailey M.D. on 07/22/2016 at 15:15 PROCEDURE: CT ABDOMEN AND PELVIS WITH CONTRAST ([id number]) INDICATIONS: abdominal distension TECHNIQUE: After the administration of intravenous contrast, 5 mm thick sections acquired from the diaphragm to the symphysis. 5 mm coronal and sagittal reformats were acquired. For radiation dose reduction, the following was used: automated exposure control, adjustment of mA and/or kV according to patient size. COMPARISON: [facility], CT, CT ABD PELVIS W CON, 06/01/2016, 14:33. FINDINGS: Image quality: Excellent. ABDOMEN: Lung bases: There are small low density bilateral pleural effusions. Nodular interlobular septal thickening is present in the bilateral lung bases. Solid organs: The liver demonstrates homogeneous enhancement. The spleen is enlarged measuring 13.3 cm in length. The portal vein is patent. Gallbladder surgically absent. Biliary system is non dilated. Pancreas enhances normally. No adrenal nodules. Kidneys demonstrate normal size and enhancement, without hydronephrosis. There are multiple low-density cystic lesions within the right renal cortex which may represent simple renal cysts but are incompletely characterized. Peritoneum and bowel: Bowel loops demonstrate normal wall thickness. The small bowel demonstrates normal caliber. There is moderate gaseous distention of the colon which is partially filled with liquid stool and partially filled with solid stool. There is a moderate amount of low-density free abdominal pelvic fluid. The extent of free fluid is less than on the comparison CT dated . Nodes and vessels: No retroperitoneal or mesenteric adenopathy by size criteria. Aorta and inferior vena cava are normal in size. There are scattered atheromatous calcifications throughout the aorta and iliac arteries bilaterally. Miscellaneous: No ventral hernias. PELVIS: Genitourinary: Bladder is decompressed and a Cason catheter is present. The uterus has a fibroid appearance, as before. Miscellaneous: No inguinal hernias or adenopathy. Bones: No suspicious bony lesions. No vertebral body compression fractures. IMPRESSION: 1. Moderate amount of intra-abdominal ascites. 2. Moderate gaseous distention of the colon. No definite findings to suggest obstruction or ileus; however this finding in conjunction with ascites likely represents the etiology of the patient's abdominal distention. 3. Splenomegaly, as before. 4. Small low density pleural effusions and compressive atelectasis. PROCEDURE: X-RAY ABDOMEN, ONE VIEW ([id number]) INDICATIONS: Ileus/Follow up film TECHNIQUE: One view of the abdomen acquired. COMPARISON: [facility], CR, XR ABD AP 1VW, 07/29/2016, 11:03. FINDINGS: Surgical changes and devices: Cholecystectomy clips. Bowel: Bowel gas pattern is normal. Soft tissues: There is symmetric gaseous distention of both small and large bowel throughout the abdomen and pelvis. No pneumatosis or bowel thickening. Bones: No suspicious bony lesions. IMPRESSION: Diffuse gaseous distention of bowel again seen throughout the abdomen and pelvis likely related to adynamic ileus. Dictated by: Matt Peters RRA Interpreted: Deniz Ibanez MD on 07/30/2016 at 8:47 Transcribed by: ISACC on 07/30/2016 at 8:48 Approved by: Deniz Ibanez M.D. on 07/30/2016 at 9:05 12-lead ECG Rate controlled A. fib, no ST/T-wave changes Assessment & Plan 80-year-old woman with cirrhosis and hepatic encephalopathy, chronic atrial fibrillation on warfarin, rheumatoid arthritis, dementia, hypothyroidism, type II diabetes, hypertension with recent hospitalization for pneumonia was brought in by her son and daughter due to altered mental status of 3 days. Current admission is a recurring pattern of hepatic encephalopathy exacerbated by constipation, rendering lactulose less effective. Altered mental status, present on admission, acute on chronic - This appears to be due to a combination of hepatic encephalopathy and suspected sepsis. with underlying dementia - Ammonia elevated at 106-->103 --> 87--> 50 on 07/28/2016 . The ammonia level on 07/31/2016 was 69 - To reduce bowel gas, reduce lactulose to 20 g 3 times a day, add rifaximin 550 mg twice a day - Overall course seems to be improving, but patient has variable encephalopathy combined with underlying dementia Obstipation and abdominal distention - CT scan revealed no ileus or obstruction; likely chronic bowel hypomotility. Area of hepatic flexure thickening seen in 05/2016 is not seen on current CT. Discussed this with Dr. Melo from the GI service. He endorses that there is no need for colonoscopy. Feels that high-dose lactulose may be contributing to abdominal bloating. - Currently on lactulose 20 g 3 times a day - We will discharge with a prescription for fleets enema to use every 3 days if stool output diminishes at home - Lactulose and rifaximin doses adjusted as described above. Cirrhosis, present on admission - Per outpatient records, this is thought to be due to BOSS - Spironolactone and Lasix discontinued upon discharge on 07/22/16. We have restarted Lasix and spironolactone and will continue. - Need to clarify follow-up plans with GI medical cost consultant Dysphagia, anorexia, chronic - Worsening over the past year per the patient's son; seems possibly neurodegenerative versus intrinsic GI issues - Speech pathology has recommended a pureed diet on recent admission - Plan follow-up with Dr. Dietz: Stable, chronic or resolving problems: Suspected sepsis due to HCAP , acute, present on admission - Initial BP 91/47, altered mental status, initial lactate 4.0 - Chest x-ray showed persistent bibasilar pneumonia - Patient completed antibiotics as patient has had a full 14 day course to treat the pneumonia. - Blood culture showed no growth. Recent pneumococcal and Legionella antigen negative Acute hypercapnic respiratory failure, present on admission - The intermittent use of BiPAP was discontinued and her oxygen saturation is stable on room air (patient does not use CPAP or BiPAP at home) Elevated troponin, present on admission,acute - Probably due to demand ischemia due to relative hypotension - No EKG change, rate controlled A. fib, - Troponins relatively the same at 0.056--> 0.054--> 0.039 this seems to correlate more with demand ischemia. - Continue metoprolol Diabetes mellitus type 2 with peripheral neuropathy, - Metformin held on discharge. Causes have been well controlled requiring essentially no insulin - Plan to discontinue metformin and insulin Hypothyroidism - Home levothyroxine dosing was too high based on her recent TSH and free T4 - Levothyroxine dose decreased to 150mcg daily on last admission Macrocytic anemia, chronic, POA -Due to liver disease, on folate Depression, chronic and presumed stable - Continue home venlafaxine dosing DNR/DNI as per POLST form. POA Son Matt tel [phone], call place but no answer today.. Disposition: Plan to discharge on 08/05 if medication changes are well adjusted today GI Prophylaxis: Not indicated VTE Prophylaxis: Theraputic Anticoag with Warfarin Resuscitation Status: DNR/DNI:Do Not Resuscitate/Intubate Time spent 35 minutes Supa Bell MD Aug 04, 2016 15:07
--- NOTE | 2016-08-04 18:43 | NUR ---
Stool/Mentation Cardiac: No telemetry. Denies chest pain. Resp: SpO2: 96% on room air. Denies SOB. No overt signs or symptoms of respiratory distress. GI/: very little urine out in villanueva this AM. Villanueva DC'd today at noon. Pt voiding on bedpan, and incontinent at times. Neuro: pt is very sleepy this AM mumbling yes and no answers. Alert and talkative this afternoon, only A&Ox1 to self.
[2016-08-04 21:04] VITALS: BP 104/51; PULSE 62; RESP 16; O2SAT 99
[2016-08-05 03:46] VITALS: BP 96/57; PULSE 56; RESP 17; O2SAT 95
--- NOTE | 2016-08-05 04:44 | NUR ---
Skin Care No dressing to sacrum, blanchable reddened area over coccyx area; Q2H turns in place. Placed Mepilex to prevent skin breakdown, but pt incontinent of bowel too frequently for Mepilex to stay intact. Nystatin to groin. VSS. Pt alert to self only, denies pain or dyspnea.
[2016-08-05] MEDS ORDERED: SPIR25TA PO (07:55)
[2016-08-05] MEDS ORDERED: POLY17PO6 PO (07:55)
[2016-08-05] MEDS ORDERED: FURO40TA4 PO (07:55)
[2016-08-05] MEDS ORDERED: WARF2TAB PO (07:55)
[2016-08-05] MEDS ORDERED: WARF1TAB PO (07:55)
[2016-08-05] MEDS ORDERED: TRAM50TA2 PO (07:56)
[2016-08-05] MEDS: Insulin LISPRO 300 Unit/3 mL Inj SUBQ SCH ×2 (08:00→12:00)
[2016-08-05] MEDS: MeTOProlol XL 50 mg ER24 Tablet PO SCH (08:30)
[2016-08-05 09:32] VITALS: BP 92/52; PULSE 61; RESP 16; O2SAT 97
[2016-08-05] MEDS: Lactulose 20 Gm/30 mL 30 mL Syrup PO SCH (09:39)
[2016-08-05 09:42] LABS: INR 1.86 ratio
[2016-08-05] MEDS: Venlafaxine XR 75 mg ER24 Capsule PO SCH (09:55)
[2016-08-05] MEDS: Nystatin 100,000 Unit/Gm 15 Gm Powder TOPICAL SCH (09:56)
[2016-08-05] MEDS ORDERED: NA P133E23 RC (10:47)
--- NOTE | 2016-08-05 10:55 | PCM.DIMED ---
Discharge Instructions Date of Service Aug 05, 2016 Dates of Hospitalization Jul 22, 2016 at 17:06 Discharge Diagnosis Discharge Diagnosis Hepatic encephalopathy; constipation due to reduced motility; cirrhosis; dementia Medication Instructions Our diagnosis is that bouts of constipation reduce the effectiveness of your lactulose, and this results in increased confusion due to hepatic encephalopathy. Lactulose is most effective if you have 2-4 bowel movements per day. The lactulose may also be contributing to your abdominal swelling and gas. Rifaximin has been added to your prior dose of lactulose. If you have further problems with abdominal bloating should discuss this with Dr. Dietz. Fleets enema should be used every few days if there is more than 2 days without bowel movement. The diuretic pills furosemide and spironolactone have been restarted to help control the fluid accumulation in your belly (ascites) which is due to your liver cirrhosis. Oxycodone has been discontinued because it reduces bowel function. Tramadol has a mild effect should be used at the lowest dose possible for pain relief. Oxybutynin has been discontinued because it reduces bowel function. Absorbent pads should be used for bedtime urinary control. The INR was below the target range of 2-3 on admission. The warfarin dose has been increased. The INR should be checked carefully in the next few weeks due to changes in medications. Diet Other (low-sodium to reduce fluid accumulation in your belly (ascites)) Activity Other (as per the physical therapy staff that [facility]) Patient Instructions We recommend a period of SNF for rehabilitation care to increase mobility prior to discharge home with family. Follow-up plan Contact Dr. Dietz at the gastroenterology clinic for a routine follow-up appointment within the next 2 months. Follow-up Provider: Anahy Garg MD Follow-up with PCP in: Other (as needed at [facility]) Provider: Lacey Alexis MD Follow-up in: Other (after discharge from [facility]) Supa Bell MD Aug 05, 2016 07:59
[2016-08-05 11:07] VITALS: BP 93/53; PULSE 49
--- NOTE | 2016-08-05 11:23 | NUR ---
HR/Hypotension Pt hypotensive this morning 93/53 with an apical pulse of 48-49. I paged Dr. Bell as I withheld Spirolactone, Toprol, Digoxin and Lasix this morning. Dr. Bell paged back and instructed me to only hold Toprol 100mg. All other meds OK to give. Will administer and continue to monitor.
[2016-08-05] MEDS ORDERED: TOP100 PO (11:24)
[2016-08-05 11:46] VITALS: PULSE 49
--- NOTE | 2016-08-05 11:49 | NUR ---
Arranged S transport for 1330 via [facility], patient is going to [facility]. 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
--- NOTE | 2016-08-05 11:57 | NUR ---
Mobility 2 caregivers encouraged pt to get up to edge of bed. Patient not able to stabilize herself without holding on to a caregiver. Not able to get herself to edge of bed due to decreased trunk strength and overall weakness. Pt states, "just let me lay down." Patient layed back down and tucked in. Bed alarm on. Frequent rounding.
--- NOTE | 2016-08-05 13:38 | NUR ---
Discharge Patient discharged. Alert to self. Aware of transfer. Pleasantly confused at times. Lucid. All belongings including dentures, glasses and foot braces taken with her. Family aware of transfer per case specialist. Addendum: 08/05/16 at 1340 by ELIAN MUKHERJEE RN Report called to [facility] Washburn [place], [place]. I spoke with JANEY Hammond.
--- NOTE | 2016-08-05 13:44 | NUR ---
Social Work Note: Discharge Data& Assessment: EMR reviewed. Per pt is medically ready for discharge to [facility] for rehab. Elizabeth Bright is a 80 year old female admitted on 07/22/2016 for pneumonia, AMS and respiratory failure. Per pt is medically improved and ready for discharge. Pt requires SNF for rehab. JOSE EDUARDO confirmed with Stephany from [facility] she is accepted and they have a bed available for today. JOSE EDUARDO spoke with pt son Matt and JOLANTA as well as pt daughter regarding discharge plan. Pt daughter communicated understanding that pt meets criteria for BLS transportation at this time, but if for some reason, Medicare does not agree, the pt would be responsible for the ambulance bill. Pt family denies any other needs. Pt denied any other needs. BLS transportation arranged for 1:30p.m. No other discharge needs identified. Plan: Per pt is medically ready to discharge to [facility] for rehab via BLS at 1:30p.m. Pt family updated and denies any other needs. Pt denied any other needs. No other discharge needs identified. All updated and agreeable to plan. LI Quintero
--- NOTE | 2016-08-05 19:54 | PCM.DC.MED ---
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 Leon Bowen Procedures XRay, CTs & MRIs PROCEDURE: X-RAY CHEST ONE VIEW, PORTABLE ([id number]) IMPRESSION: Bibasilar pneumonia, reduced inspiratory volume. No pleural effusion seen. Dictated by: Sagar Bailey M.D. on 07/22/2016 at 15:15 PROCEDURE: CT ABDOMEN AND PELVIS WITH CONTRAST ([facility]-[id number]) IMPRESSION: 1. Moderate amount of intra-abdominal ascites. 2. Moderate gaseous distention of the colon. No definite findings to suggest obstruction or ileus; however this finding in conjunction with ascites likely represents the etiology of the patient's abdominal distention. 3. Splenomegaly, as before. 4. Small low density pleural effusions and compressive atelectasis. PROCEDURE: X-RAY ABDOMEN, ONE VIEW ([id number]) IMPRESSION: Diffuse gaseous distention of bowel again seen throughout the abdomen and pelvis likely related to adynamic ileus. Dictated by: Matt Peters [facility] Interpreted: Deniz Ibanez MD on 07/30/2016 at 8:47 . ECG 12 Lead Rate controlled A. fib, no ST/T-wave changes Brief History History of Present Illness (per admission note): 80-year-old lady with past medical history of cirrhosis, chronic atrial fibrillation on warfarin, rheumatoid arthritis, dementia, hypothyroidism, type II diabetes, hypertension with recent hospitalization for pneumonia was brought in by her son and daughter due to altered mental status of 3 days. She was recently admitted from 07/10 to 07/17 for pneumonia and was discharged on oral antibiotics, Bactrim. She was back to her baseline mental state on discharge last Wednesday. She started to be confused and sleepy starting Wednesday. Her confusion and lethargy progressively worsened over the past 3-4 days. She was not eating well. She only had 1 small bowel movement since discharge. Daughter states that she has been giving her lactulose with Ensure 3 times a day as instructed but no bowel movement for the last few days. Family did not note any change in her breathing. No fever. Past medical history: Cirrhosis, son states that she was just diagnosed June 04 and they were told it's related to diabetes Ascites and they report an 8 L paracentesis June 09 Chronic atrial fibrillation on chronic anticoagulation Rheumatoid arthritis Osteoarthritis Nephrolithiasis Hypothyroidism Hypertension Hyperlipidemia GERD Diabetes mellitus, type II Depression Peripheral neuropathy with right foot drop History of urinary tract infections . Hospital Course 80-year-old woman with cirrhosis and hepatic encephalopathy, chronic atrial fibrillation on warfarin, rheumatoid arthritis, dementia, hypothyroidism, type II diabetes, hypertension with recent hospitalization for pneumonia was brought in by her son and daughter due to altered mental status of 3 days. Current admission is a recurring pattern of hepatic encephalopathy exacerbated by constipation, rendering lactulose less effective. Altered mental status, present on admission, acute on chronic - This appears to be due to a combination of hepatic encephalopathy and suspected sepsis. with underlying dementia - Ammonia elevated at 106-->103 --> 87--> 50 on 07/28/2016 . The ammonia level on 07/31/2016 was 69 - Lactulose initially increased to 40 g 3 times per day then To reduce bowel gas , reduce lactulose to 20 g 3 times a day, add rifaximin 550 mg twice a day - No asterixis at the time of discharge Obstipation and abdominal distention - CT scan revealed no ileus or obstruction; likely chronic bowel hypomotility. Area of hepatic flexure thickening seen in 05/2016 is not seen on current CT. Discussed this with Dr. Dias from the GI service. He endorses that there is no need for colonoscopy at this time. Feels that high-dose lactulose may be contributing to abdominal bloating. - Currently on lactulose 20 g 3 times a day, monitor for good stool output - We will discharge with a prescription for fleets enema to use every 3 days if stool output diminishes at home - Lactulose and rifaximin doses adjusted as described above. Cirrhosis, present on admission - Per outpatient records, this is thought to be due to BOSS related to type II diabetes mellitus. - Spironolactone and Lasix discontinued upon discharge on 07/22/16. We have restarted Lasix and spironolactone and will continue. - Need to clarify follow-up plans with GI leasing sales consultant Dysphagia, anorexia, chronic - Worsening over the past year per the patient's son; seems possibly neurodegenerative versus intrinsic GI issues - Speech pathology has recommended a pureed diet on recent admission - Plan follow-up with Dr. Dietz: Chronic atrial fibrillation. - INR was subtherapeutic on admission - Warfarin dosing was adjusted and INR was therapeutic at time of discharge - Will require INR monitoring in near future, due to recent dosage change Bradycardia and hypotension. She experience heart rate in 50s with systolic blood pressure of 92 prior to discharge. Overall systolic blood pressure was mostly in range of 90-110. No symptoms. - Reduce metoprolol dose to 50 mg daily Dementia, chronic. Patient showed persistent moderate- severe cognitive impairment even with aggressive treatment of hepatic encephalopathy. Her son and [id number] are willing to provide in-home care but she is largely incapable of self-care. - Recommend home health care and/or assisted living option at time of discharge from nursing facility; to be discussed with family by PCP. - Monitor clinically Suspected sepsis due to HCAP , acute, present on admission - Initial BP 91/47, altered mental status, initial lactate 4.0 - Chest x-ray showed persistent bibasilar pneumonia - Patient completed antibiotics as patient has had a full 14 day course to treat the pneumonia. - Blood culture showed no growth. Recent pneumococcal and Legionella antigen negative Acute hypercapnic respiratory failure, present on admission - The intermittent use of BiPAP was discontinued and her oxygen saturation maintained stable on room air (patient does not use CPAP or BiPAP at home) Elevated troponin, present on admission,acute - Probably due to demand ischemia due to relative hypotension - No EKG change, rate controlled A. fib, - Troponins relatively the same at 0.056--> 0.054--> 0.039 this seems to correlate more with demand ischemia. - Continue metoprolol Diabetes mellitus type 2 with peripheral neuropathy, - Metformin held on discharge. Causes have been well controlled requiring essentially no insulin - Plan to discontinue metformin and insulin Hypothyroidism - Home levothyroxine dosing was too high based on her recent TSH and free T4 - Levothyroxine dose decreased to 150mcg daily on last admission Macrocytic anemia, chronic, POA -Due to liver disease, on folate Depression, chronic and presumed stable - Continue home venlafaxine dosing DNR/DNI as per POLST form. POA Son Matt tel [phone], updated on plans at time of discharge Exam Vital Signs (Last) Date Time Temp Pulse Resp B/P Pulse Ox O2 Delivery O2 Flow Rate FiO2 08/05/16 09:32 36.4 61 16 92/52 97 Room Air Exam General: Elderly woman in no acute distress, responds to voice but conversation mostly without content HEENT: sclerae anicteric, oral mucosa moist Neck: no JVD apparent Chest: clear to auscultation Cardiac: S1S2, regular Abdomen: BS present, tympanitic, non-tender, no significant flank dullness Extremities: Trace edema Neuro: Alert but not fully oriented, cranial nerves symmetric, tremor but no asterixis Test 07/22/16 14:44 07/22/16 15:56 07/25/16 04:46 07/27/16 04:17 Pro-B-Type Natriuretic Peptide 1070pg/mL (0-738) Urine Color Yellow (YELLOW) Urine Appearance Hazy (CLEAR,HAZY) Urine pH 6.5 (5.0-8.0) Urine Specific Lawrence 1.020 (1.003-1.035) Urine Protein Negativemg/dL (NEG,TRACE) Urine Glucose (UA) Negativemg/dL (NEGATIVE) Urine Ketones Negativemg/dL (NEGATIVE) Urine Occult Blood Negative (NEGATIVE) Urine Nitrite Negative (NEGATIVE) Urine Bilirubin Negative (NEGATIVE) Urine Urobilinogen Normalmg/dL (NORMAL) Urine Leukocyte Esterase Trace (NEGATIVE) Urine RBC 0-2/hpf (0-2) Urine WBC 0-5/hpf (0-5) Urine Epithelial Cells None/hpf (NONE-MOD) Urine Crystals None seen (NONE SEEN) Urine Bacteria Few/hpf (NONE-FEW) Urine Hyaline Casts None/lpf (NONE) Urine Granular Casts None seen (NONE SEEN) Urine Waxy Casts None seen (NONE SEEN) Urine Red Blood Cell Casts None seen (NONE SEEN) Urine White Blood Cell Casts None seen (NONE SEEN) Urine Mucus None seen (None Seen) Urine Trichomonas None seen (NONE SEEN) Urine Yeast None (NONE SEEN) Urinalysis Comment None Urine Culture Reflexed Indicated Lactic Acid Level 1.9mmol/L (0.4-2.0) Procalcitonin 0.34ng/mL (0.00-0.08) Phosphorus Level 2.5mg/dL (2.5-4.9) Troponin T 0.039ug/L (0.0-0.011) Test 07/31/16 04:00 08/02/16 03:25 08/04/16 03:40 08/05/16 09:03 Magnesium Level 2.0mg/dL (1.6-2.6) Ammonia 69ug/dL (18-53) White Blood Count 8.8th/mm3 (3.8-10.1) Red Blood Count 3.35mil/mm3 (3.90-5.20) Hemoglobin 11.1g/dL (12.0-15.6) Hematocrit 34.0% (35.0-46.0) Mean Corpuscular Volume 101.5fL (81-100) Mean Corpuscular Hemoglobin 33.1pg (27.0-35.0) Mean Corpuscular Hemoglobin Concent 32.6% (32.0-37.0) Red Cell Distribution Width 15.2% (12.3-15.4) Platelet Count 114bil/L (150-400) Neutrophils (%) (Auto) 52.4% (40-74) Lymphocytes (%) (Auto) 25.5% (14-46) Monocytes (%) (Auto) 14.2% (4-12) Eosinophils (%) (Auto) 6.8% (0-5) Basophils (%) (Auto) 0.6% (0-3) Sodium Level 136mEq/L (134-144) Potassium Level 4.3mEq/L (3.5-5.2) Chloride Level 95mEq/L (97-108) Carbon Dioxide Level 31mmol/L (18-29) Blood Urea Nitrogen 15mg/dL (8-27) Creatinine 0.53mg/dL (0.57-1.00) Estimat Glomerular Filtration Rate 160mL/min (>59) Glucose Level 159mg/dL (60-99) Calcium Level 9.2mg/dL (8.5-10.1) Total Bilirubin 1.0mg/dL (0.0-1.2) Aspartate Amino Transf (AST/SGOT) 80U/L (0-50) Alanine Aminotransferase (ALT/SGPT) 44U/L (0-32) Alkaline Phosphatase 124U/L (25-165) Total Protein 6.1g/dL (6.4-8.4) Albumin 2.2g/dL (3.4-5.0) Digoxin Level 1.5nG/mL (0.9-2.0) Prothrombin Time 20.2sec (8.1-12.5) Prothromb Time International Ratio 1.86ratio Microbiology Results Name: REJI GARCES Age/Sex: 80/F Attend Dr: Jameson Graham MD Acct: [id number] Unit: [id number] Status: ADM IN Location: [facility] 2025-06 Re07/22/16 Disch: Specimen: [id number] Collected: 07/23/16 Status: COMP Req#: [id number] Received: 07/23/16 Source: NOSE Sp Desc : Subm Dr: Jameson Graham MD Ordered: MRSAC Comments: Collected by Nurse/Unit? Y/N Y Comment: Use both nares with one swab Procedure Result Verified Site Microbiology CONNER CULT NASAL MRSA SCREEN Final 07/24/16 Screen NEGATIVE for Methicillin Resistant Staph Aureus Blood and urine cultures are negative to date. Discharge Medications Discharge Medications Alpha Lipoic Acid (Alpha Lipoic Acid) 200 Mg Capsule 200 MG PO TID (Reported) Amitriptyline (Amitriptyline) 10 Mg Tablet 10 MG PO HS (Reported) Cholecalciferol (Vitamin D3) (Vitamin D3) 1,000 Unit Tab.chew 1,000 UNIT PO DAILYWL (Reported) Digoxin (Digoxin) 125 Mcg Tablet 0.1875 MG PO DAILY Prescribed by: AMIRA BURGESS DO Folic Acid (Folic Acid) 1 Mg Tablet 1 MG PO TID Prescribed by: AMIRA BURGESS DO Furosemide (Furosemide) 40 Mg Tablet 40 MG PO DAILY Prescribed by: JOHNATHON BURGESS MD Lactulose (Lactulose) 20 Gm/30 Ml Solution 20 GM PO TID (Reported) Levothyroxine (Levothyroxine) 150 Mcg Tablet 150 MCG PO DAILY (Reported) Melatonin/Pyridoxine (Melatonin 3 mg Tablet) 1 Each Tablet 1 EACH PO HS ( Reported) Metformin ER (Metformin ER) 1,000 Mg Tablet 1,000 MG PO BID (Reported) Metoprolol Succinate ER (Toprol XL) 100 Mg Tabcr 50 MG PO DAILY Prescribed by: JOHNATHON BURGESS MD Quetiapine Fumarate (Quetiapine Fumarate) 25 Mg Tablet 12.5 MG PO HS Prescribed by: GUS HILLIARD MD Rifaximin (Xifaxan) 550 Mg Tablet 550 MG PO BID Prescribed by: GUS HILLIARD MD Sennosides (Senna Laxative) 25 Mg Tablet 25 MG PO QAM (Reported) Spironolactone (Aldactone) 25 Mg Tablet 25 MG PO DAILY Prescribed by: JOHNATHON UBRGESS MD Venlafaxine ER (Venlafaxine ER) 150 Mg Tab.er.24 150 MG PO DAILY Prescribed by: AMIRA BURGESS DO Warfarin Sodium (Warfarin Sodium) 1 Mg Tablet 1 MG PO DAILY Prescribed by: GUS HILLIARD MD Warfarin Sodium (Coumadin) 1 Mg Tablet 1.5 MG PO SuTuThSa@17 Prescribed by: JOHNATHON BURGESS MD Warfarin Sodium (Coumadin) 2 Mg Tablet 2 MG PO MoWeFr@17 Prescribed by: JOHNATHON BURGESS MD As needed Na Phos,M-B/Na Phos,Di-Ba (Fleet Enema) 133 Ml Enema 133 ML RC q72hr PRN PRN For Constipation Use if no bowel movement for greater than 48 hours. Not more frequently than every 3 days. Prescribed by: JOHNATHON BURGESS MD Polyethylene Glycol 3350 (Miralax) 17 Gm Powd.pack 17 GM PO DAILY PRN PRN For Constipation Prescribed by: JOHNATHON BURGESS MD Tramadol (Tramadol) 50 Mg Tablet 50 MG PO Q6H PRN PRN For Pain Prescribed by: JOHNATHON BURGESS MD Additional med instructions Our diagnosis is that bouts of constipation reduce the effectiveness of your lactulose, and this results in increased confusion due to hepatic encephalopathy. Lactulose is most effective if you have 2-4 bowel movements per day. The lactulose may also be contributing to your abdominal swelling and gas. Rifaximin has been added to your prior dose of lactulose. If you have further problems with abdominal bloating should discuss this with Dr. Dietz. Fleets enema should be used every few days if there is more than 2 days without bowel movement. The diuretic pills furosemide and spironolactone have been restarted to help control the fluid accumulation in your belly (ascites) which is due to your liver cirrhosis. Oxycodone has been discontinued because it reduces bowel function. Tramadol has a mild effect should be used at the lowest dose possible for pain relief. Oxybutynin has been discontinued because it reduces bowel function. Absorbent pads should be used for bedtime urinary control. The INR was below the target range of 2-3 on admission. The warfarin dose has been increased. The INR should be checked carefully in the next few weeks due to changes in medications. Followup Plan Follow-up plan Contact Dr. Dietz at the gastroenterology clinic for a routine follow-up appointment within the next 2 months. Discharge Diet: Other (low-sodium to reduce fluid accumulation in your belly ( ascites)) Discharge Activity: Other (as per the physical therapy staff that [facility]) Patient Instructions We recommend a period of SNF for rehabilitation care to increase mobility prior to discharge home with family. Follow-up Provider: Anahy Garg MD Follow-up with PCP in: Other (as needed at [facility]) Provider: Lacey Alexis MD Follow-up in: Other (after discharge from [facility]) Time spent 40 minute copies to: Lacey Alexis MD; Anahy Garg MD; Catrachito Dietz MD, Jeffrey W MD Aug 05, 2016 11:00
--- NOTE | 2016-08-05 21:54 | PROG NOTE ---
[address] [address] PROGRESS NOTE PATIENT: REJI GARCES : 1935 MR#: [id number] ADMIT: 07/22/2016 JOB ID: [id number] DATE: 08/05/2016 SUBJECTIVE: The patient was seen recently in my office and we had planned to pursue EGD and colonoscopy. Subsequently the patient came down with pneumonia and was admitted, discharged, readmitted for challenges related to fluctuating hepatic encephalopathy. Most recently, she has started to experience improved bowel frequency with regular lactulose. Rifaximin was added in yesterday and the patient is being transferred for rehabilitation stay at [facility]. I spoke by telephone today with the patient's son, Matt, and discussed the prospect of endoscopy that had originally been planned. He was not as enthusiastic about pursuing something like this in that even if a colon cancer was identified, the patient is really not a great surgical candidate with cirrhosis, portal hypertension and ascites. He was inclined to not pursue aggressive at investigations at the moment but certainly would consider variceal surveillance/screening. OBJECTIVE: The patient was alert, and attempted to answer questions somewhat appropriately. There was [id number] ascites. No appreciable tenderness to my exam, perhaps 1-2+ edema in the lower extremities bilaterally. LABS: Platelets 114 a few days ago. H and H acceptable, stable. White count normal. INR was 1.86 (on Coumadin). Bilirubin is 1.0. AST 80, ALT 44, alk phos 124, albumin 2.2, creatinine 0.53 also back on the 19th. ASSESSMENT AND RECOMMENDATION: This is a 80-year-old female with cirrhosis and portal hypertension/ascites along with fluctuating hepatic encephalopathy. I have recommended and arranged for a followup in my office two weeks after discharge here. I agree with continuation of lactulose so that the patient is having three bowel movements per day. I agree with continuation of 550 mg Rifaximin twice daily. The patient is on low-dose diuretics and this should certainly continue. Her creatinine appears sufficiently stable to handle this. As far as colonoscopy is concern, we will hold off on pursuing this at present and revisit any endoscopic interrogation at followup in the next couple of weeks.
[2016-08-14] MEDS ORDERED: OXYB5TAB10 PO (16:26)
[2016-08-14] MEDS ORDERED: OXYC5CAP4 PO (16:26)
[2016-08-14] MEDS ORDERED: CYAN250014 PO (16:26)
[2016-08-14] MEDS ORDERED: MULT-1065 PO (16:26)
[2016-08-14] MEDS ORDERED: WARF5TAB7 PO (16:26)
== END 2016-08-05 13:40 | DRG 871 ==
LOC: SED 13:51 → EDUNIT# 13:51 → EDBD 13:51 → PCC 17:06
PROVIDERS: ADMIT Internal Medicine; ATTEND Internal Medicine
DX: A41.9 Sepsis, unspecified organism (principal); J96.02 Acute respiratory failure with hypercapnia; J18.9 Pneumonia, unspecified organism; I24.8 Other forms of acute ischemic heart disease; E87.1 Hypo-osmolality and hyponatremia; E87.2 Acidosis; K74.69 Other cirrhosis of liver; E86.0 Dehydration; R13.10 Dysphagia, unspecified; K56.41 Fecal impaction; Z87.440 Personal history of urinary (tract) infections; K21.9 Gastro-esophageal reflux disease without esophagitis; I48.2 Chronic atrial fibrillation; Z79.01 Long term (current) use of anticoagulants; I10 Essential (primary) hypertension; E03.9 Hypothyroidism, unspecified; E78.5 Hyperlipidemia, unspecified; Z79.4 Long term (current) use of insulin; F03.90 Unspecified dementia, unspecified severity, without behavioral disturbance, psychotic disturbance, mood disturbance, and anxiety; F32.9 Major depressive disorder, single episode, unspecified; D53.9 Nutritional anemia, unspecified; E11.42 Type 2 diabetes mellitus with diabetic polyneuropathy; K72.90 Hepatic failure, unspecified without coma

== ENCOUNTER 2016-08-17 13:54 | Day surgery (SDC) | payer MEDICARE, OTHER ==
[~2016-08-17] VITALS: Ht 170.2 cm; Wt 81.5 kg
[~2016-08-17 13:54] MED LIST changes: -CEFP200T3 PO; +CYAN250014 PO; +FURO40TA4 PO; +LEVO150T5 PO; -LEVO200T6 PO; +Lactated Ringer's 1,000 ML IV ONE; +METF-496 PO; +MULT-1065 PO; +NA P133E23 RC; +OXYC5CAP4 PO; -OXYC5TAB72 PO; +POLY17PO6 PO; +SPIR25TA PO; +TRAM50TA2 PO; -WARF1TAB6 PO; +WARF5TAB7 PO
[2016-08-17] MEDS ORDERED: fentaNYL-PF 50 mCg/mL 2 mL Inj ONE (13:55)
--- NOTE | 2016-08-17 14:48 | PCM.HPANE ---
Patient Data Surgeon Admitting Provider: Attending Provider:Catrachito Dietz MD Primary Care Physician:Lacey Alexis MD Other Provider:Rhoda Morganingham Anesthesia Reason for Visit Constipation, Cirrhosis Of Liver Ht/WT & BMI Body Mass Index Allergies Coded Allergies: Penicillins (Verified Allergy, Unknown, 07/22/16) levofloxacin (Verified Allergy, Unknown, 07/22/16) ROTATOR CUFF TEAR Past Anesthesia History Anesthesia History: Denies:: Anesthesia Reactions Diabetes History Hx Diabetes?: Yes MRSA MRSA: No Medications Active Scripts Metoprolol Succinate ER (Toprol XL)100 Mg Tabcr50 Mg PO DAILY #30 TABLET Ref 0 Prov:Supa Bell MD 08/05/16 Na Phos,M-B/Na Phos,Di-Ba (Fleet Enema)133 Ml Dffcr164 Ml RC q72hr PRN For Constipation #3 DOSE Use if no bowel movement for greater than 48 hours. Not more frequently than every 3 days. Prov:Supa Bell MD 08/05/16 Tramadol 50 Mg Iuxsxj18 Mg PO Q6H PRN For Pain #120 TABLET Ref 0 Prov:Supa Bell MD 08/05/16 Polyethylene Glycol 3350 (Miralax)17 Gm Powd.pack17 Gm PO DAILY PRN For Constipation #30 DOSE Prov:Supa Bell MD 08/05/16 Furosemide 40 Mg Etirwr13 Mg PO DAILY #30 TABLET Prov:Supa Bell MD 08/05/16 Spironolactone (Aldactone)25 Mg Glzysi01 Mg PO DAILY #30 TABLET Prov:Supa Bell MD 08/05/16 Quetiapine Fumarate 25 Mg Kpltcq79.5 Mg PO HS #15 TABLET Prov:Bel Arana MD 07/17/16 Rifaximin (Xifaxan)550 Mg Ayibma829 Mg PO BID #60 TABLET Prov:Bel Arana MD 07/17/16 Venlafaxine ER 150 Mg Tab.er.74543 Mg PO DAILY #30 TABLET Ref 0 Prov:Hank Bell MD 05/19/14 Folic Acid 1 Mg Tablet1 Mg PO TID 30 Days Prov:Hank Bell MD 05/19/14 Digoxin 125 Mcg Tablet0.1875 Mg PO DAILY 30 Days Ref 0 Prov:Hank Bell MD 05/19/14 Reported Medications Warfarin Sodium 5 Mg Tablet5 Mg PO DIRECTED 30 Days Ref 0 08/14/16 Cyanocobalamin (Vitamin B-12) (Vitamin B12)2,500 Mcg Tab.chew2,500 Mcg PO DAILY 08/14/16 oxyCODONE 5 Mg Capsule2.5 Mg PO DIRECTED PRN For Pain Ref 0 08/14/16 Oxybutynin Chloride 5 Mg Tablet5 Mg PO BID Ref 0 08/14/16 Multivits-Min/Iron/FA/Lutein (Centrum Silver Women Tablet)8 Mg Iron-400 Mcg-300 Mcg Tablet1 Each PO DAILY 08/14/16 Metformin ER 1,000 Mg Awofqo658 Mg PO BID 07/22/16 Levothyroxine 150 Mcg Rhkpik525 Mcg PO DAILY 07/22/16 Amitriptyline 10 Mg Fxtnuk39 Mg PO HS 07/10/16 Melatonin/Pyridoxine (Melatonin 3 mg Tablet)1 Each Tablet1 Each PO HS 07/10/16 Sennosides (Senna Laxative)25 Mg Ashwin75 Mg PO QAM 07/10/16 Alpha Lipoic Acid 200 Mg Lkvbpki278 Mg PO TID 07/10/16 Cholecalciferol (Vitamin D3) (Vitamin D3)1,000 Unit Tab.chew1,000 Unit PO DAILYWL 06/09/16 Lactulose 20 Gm/30 Ml Igznnwqt47 Gm PO TID 06/09/16 Discontinued Scripts Warfarin Sodium (Coumadin)2 Mg Tablet2 Mg PO MoWeFr@17 #30 TABLET Prov:Spua Bell MD 08/05/16 Warfarin Sodium (Coumadin)1 Mg Tablet1.5 Mg PO SuTuThSa@17 #120 TABLET Prov:Supa Bell MD 08/05/16 Warfarin Sodium 1 Mg Tablet1 Mg PO DAILY #60 TABLET Prov:Bel Arana MD 07/17/16 History History of ENT Problems?: Yes HEENT History: Positive for:: Cataracts ("slight in one eye") Sinus Problem Denies:: Dysphagia Hx of Heart Problems?: Yes Cardiovascular History: Positive for:: Congestive Heart Failure Edema Hypertension Irregular Heartbeat (chronic afib on anticoagulants) Denies:: Cardiac Surgery Chest Pain Heart Murmur Pacemaker Thrombophlebitis Hx of Respiratory Problem?: Yes Respiratory History: Positive for:: Dyspnea (current: hypercapnic respiratory failure) Pneumonia (recurrent) Denies:: Asthma COPD Chest Surgery Emphysema Hemoptysis Tuberculosis Hx Neurologic Problems?: Yes Neurological History: Denies:: Alzheimer's Disease CVA Dementia Dizziness Headaches Parkinson's Disease Seizures Hx of GI Problems?: Yes Gastrointestinal History: Positive for:: Gastroesphageal Reflux Heartburn Denies:: Diverticulitis Gastrointestinal Bleeding Hepatitis Hiatal Hernia Rectal Bleeding Hx of Problems?: Yes Genitourinary History: Positive for:: Kidney Stones Urinary Tract Infection (chronic) Female Hx: Denies:: Currently Endometriosis Pelvic Inflammatory Problems with Breasts? Hx Musculoskeletal Problems?: Yes Musculoskeletal History: Denies:: Back Injury Joint Replacement Musculoskeletal Trauma Hx of Psycho/Social Problems?: Yes Psycho Social History: Positive for:: Hx Depression Denies:: Anxiety Bipolar Disorder Suicide Attempt Hx Surgeries?: Yes (lt.arm surgery, cholecystectomy, appy, carpal tunnel) Hx Any Other Health Problems?: Yes Other History: Positive for:: Endocrine Disease Hospitalization Thyroid Disease Denies:: Cancer History Blood Transfusions: Denies:: Blood Transfuse Reaction Blood Transfusions Hx Diabetes: Yes Hx Alcohol Use: Yes (once every few months, very little in the past 2 years)Hx Substance Use: No Smoking Status: Never Smoker Have You Smoked inLast 12 mo: No Stop/Bang Risk Assessment Category Category 1A: Patient has history of documented sleep apnea, and HAS NOT received any narcotic, sedative or anesthesia administration during this stay. Category 1B: Patient has history of documented sleep apnea, and HAS received any narcotic , sedative or anesthesia administration during this stay Category 2: Patient has SUSPECTED Obstructive Sleep Apnea, and HAS received any narcotic , sedative or anesthesia administration during this stay. Category 3: Patient has SUSPECTED Obstructive Sleep Apnea and HAS NOT received narcotic, sedative or anesthesia administration during this stay. Category 4: Outpatient in Procedural Areas with known sleep apnea or who screen positive for High Risk via the STOP/BANG questionnaire. Exam Exam General Appearance: Alert, Oriented X3, Cooperative HEENT/AIRWAY: MP 2 Lungs: Normal Air Movement Heart: Exam Unremarkable Plan Impression Patient chart reviewed, patient interviewed and anesthestic plan with risks, benefits, and alternatives discussed, and informed consent obtained. ASA Physical Status: ASA3 Severe Disease Anesthetic Plan: GA Bene/Risks/Altern/Consents: Yes HP Complete Prior to Induction: Yes Justus Weber MD Aug 17, 2016 14:48
[2016-08-17 15:03] VITALS: BP 118/56; PULSE 73; RESP 18; O2SAT 97
[2016-08-17 16:36] VITALS: BP 117/69; PULSE 86; O2SAT 86
[2016-08-17 16:46] VITALS: BP 123/76; PULSE 76; O2SAT 100
--- NOTE | 2016-08-17 17:08 | PCM.ANEP1 ---
Post Anesthesia Phase 1 PACU Phase 1 Assessment Vital Signs Vital Signs Date Time Temp Pulse Resp B/P Pulse Ox O2 Delivery O2 Flow Rate FiO2 08/17/16 16:36 86 117/69 86 Nasal Cannula 4 08/17/16 15:03 73 18 118/56 97 Room Air Anesthetic Administered: GA Level of Alertness: Awake, talking HASSAN's with Equal Strength: Yes Pain: No Nausea or Vomiting: No Oxygen Delivery: Room Air Lungs: Normal Air Movement Dermatome Level: Full Sensation Justus Weber MD Aug 17, 2016 17:08
--- NOTE | 2016-08-17 17:08 | PCM.ANEP2 ---
Post Anesthesia Evaluation ASA/CMS Post Anesthesia VS in Patient's Normal Range?: Yes Resp Stable; Airway Patent?: Yes CV Function & Hydration Stable: Yes Mental Status Recovered?: Yes Pain control Satisfactory?: Yes N/V Control Satisfactory?: Yes Justus Weber MD Aug 17, 2016 17:08
--- NOTE | 2016-08-18 01:17 | ENDO ---
[address] [address] ENDOSCOPY PROCEDURE PATIENT: REJI GARCES : 1935 MR#: [id number] ADMIT: 08/17/2016 JOB ID: [id number] DATE OF PROCEDURE: 08/17/2016 PRIMARY PROVIDER: Lacey Alexis MD. PROCEDURE: Esophagogastroduodenoscopy and a partial colonoscopy to approximately hepatic flexure. INDICATIONS: A 80-year-old female with portal hypertension, cirrhosis and severe constipation. She temporarily had an abnormality found on CT which resolved with subsequent imaging. She has been struggling with hepatic encephalopathy. EGD is pursued alongside attempt at diagnostic colonoscopy to exclude any obvious neoplasia. EQUIPMENT: 1. GIF-H180J. 2. PCF-H180AL. SEDATION: Monitored anesthesia as provided by Dr. Justus Weber. COMPLICATIONS: None identified. BOWEL PREPARATION: Suboptimal with copious amounts of liquid and semi-solid stool debris requiring heavy irrigation and suction. PROCEDURE INFORMATION: After the risks and benefits were explained, written and verbal informed consent was obtained. The patient was brought into the endoscopy suite and placed into the left lateral decubitus position. Sedation was achieved using the above-stated medications with the addition of oxygen via nasal cannula. The scope was introduced into the mouth through the bite block and advanced under direct visualization to the second portion the duodenum. The scope was slowly withdrawn to carefully examine the mucosa for any defects or lesions. Retroflexed views were accomplished in the stomach. The stomach was decompressed. The scope was removed from the patient, who tolerated the procedure well. The patient was then turned around. She had copious amounts of incontinent stool all throughout her Depends and coating her vagina. We spent a considerable amount of time cleaning the patient up in advance of endoscopic interrogation. Digital rectal examination was accomplished and revealed moderate internal and external nonbleeding, nonthrombosed hemorrhoids. Externally, the patient had erythema throughout the perianal region and a couple of early pressure sores. Photograph was taken for the medical record. The scope was ultimately advanced into the rectum, and with difficulty advanced to about the hepatic flexure. The exam was difficult as a consequence of the stool debris remaining and a fairly impressively edematous appearing mucosa in most areas. I had somewhere in the neighborhood of 120 cm of scope introduced by about the hepatic flexure and did not feel I could safely push on through loops to get all the way down into cecum. We; therefore, abandoned our efforts at further navigation at that depth. The scope was withdrawn to carefully examine the mucosa for any defects or lesions. Ultimately, the colon was decompressed. Scope removed from the patient, who tolerated the procedure well. FINDINGS: 1. Duodenum: No pathology identified from the bulb through to the second portion. 2. Stomach: The patient had diffuse portal gastropathy with some edema all throughout the prepyloric mucosa, but no mass lesion, and I fairly easily was able to then intubate the pylorus and duodenum. Retroflexed views of the LES did not disclose any obvious varices. Amazingly, in spite of the patient having had bowel prep, there was a moderate amount of food debris remaining in the stomach. We spent approximately 5-8 minutes simply cleaning the stomach out by aspirating this up through the accessory channel of the endoscope. 3. Esophagus: The GEJ was at about 37 cm from the incisors. No strictures. No mass lesions. No pathology appreciated. The patient had evidence of grade 3 distal esophageal varices without stigmata of recent bleeding. Photographs were taken. 4. Colon: Scattered areas of mucosal edema were obvious. No biopsies were pursued during today's exam in light of her INR being greater than 3. I did not appreciate any obstructing mass lesion anywhere throughout the visualized colon to approximately hepatic flexure. ENDOSCOPIC DIAGNOSES: 1. Grade 3 distal esophageal varices. 2. Portal hypertensive gastropathy. 3. Diffuse colonic mucosal edema. 4. Hemorrhoids. 5. Poor bowel prep. 6. Incomplete colon examination as above. RECOMMENDATIONS: 1. No surveillance endoscopy is advised. 2. I note the patient is currently taking metoprolol. Based on the presence of grade 3 varices it would be very reasonable to convert her from the metoprolol over to an equivalent dose of nadolol or propranolol. 3. The patient is encouraged to continue taking the lactulose 30 cc 4 times per day. Continue taking the MiraLAX 17 g twice per day. Continue senna 1 tablet by mouth daily. Continue rifaximin 550 mg twice daily. I would recommend the patient be given an intermittent standard saline Fleet's enema if she has not had a bowel movement within a 24 hour period.
== END 2016-08-17 23:59 | disposition home or self-care (01) ==
LOC: END 13:54
PROVIDERS: ATTEND Internal Medicine Gastroenterology
DX: K59.00 Constipation, unspecified (principal); K64.8 Other hemorrhoids; K64.4 Residual hemorrhoidal skin tags; K76.6 Portal hypertension; K70.30 Alcoholic cirrhosis of liver without ascites; K31.89 Other diseases of stomach and duodenum; I85.10 Secondary esophageal varices without bleeding; I10 Essential (primary) hypertension; E11.9 Type 2 diabetes mellitus without complications; M05.9 Rheumatoid arthritis with rheumatoid factor, unspecified; F32.9 Major depressive disorder, single episode, unspecified; I48.91 Unspecified atrial fibrillation; E03.9 Hypothyroidism, unspecified; G62.9 Polyneuropathy, unspecified; F10.10 Alcohol abuse, uncomplicated; Z86.73 Personal history of transient ischemic attack (TIA), and cerebral infarction without residual deficits; Z79.01 Long term (current) use of anticoagulants; Z79.84 Long term (current) use of oral hypoglycemic drugs
CPT/HCPCS: 43235; 45378; J2250; J3010; J7120

== ENCOUNTER 2016-09-08 13:22 | Inpatient (IN) | payer MEDICARE, OTHER ==
[~2016-09-08] VITALS: Ht 152.4 cm; Wt 76.0 kg
[~2016-09-08 13:22] MED LIST changes: -Lactated Ringer's 1,000 ML IV ONE
[2016-09-08 13:33] VITALS: BP 114/52; PULSE 70; RESP 15; O2SAT 97
--- NOTE | 2016-09-08 14:05 | ED.REPORT ---
HPI-Altered Mental Status Date of Service Sep 08, 2016 ED Provider: Jose Rodriguez MD Elizabeth Bright is a 80 year old woman with a PMH of Dementia, CVA, polyneuropathy , HTN, Afib on Coumadin, DM2, and recurrent hepatic encephalopathy related to chronic constipation and BOSS who presents with a 1 day history of altered mental status. Her son who is very involved in her care relates that she usually is alert and cooperative with care, however, this morning she was somnolent and unable to be fully roused; she was not assisting in her care or following commands as she usually does. Overall her son states her current behavior is a significant departure from her baseline mental status. Her son reports that she has been having good BMs at least once per day since her prior discharge from the hospital on 08/05/16. The patient is unable to provide a meaningful ROS Nursing Notes Stated Complaint: DECREASED LOC Chief Complaint: Neuro Symptoms/ Deficits Nursing Notes Reviewed: Yes Allergies: Coded Allergies: Penicillins (Verified Allergy, Unknown, 09/08/16) levofloxacin (Verified Allergy, Unknown, 09/08/16) ROTATOR CUFF TEAR Scheduled Alpha Lipoic Acid (Alpha Lipoic Acid) 200 Mg Capsule 200 MG PO TIDWM Amitriptyline (Amitriptyline) 10 Mg Tablet 10 MG PO DAILYWD Cholecalciferol (Vitamin D3) (Vitamin D3) 1,000 Unit Tab.chew 1,000 UNIT PO DAILYWL Digoxin (Digoxin) 125 Mcg Tablet 187.5 MCG PO DAILYWL Folic Acid (Folic Acid) 1 Mg Tablet 1 MG PO TIDWM Furosemide (Furosemide) 40 Mg Tablet 40 MG PO QAM Lactulose (Lactulose) 20 Gm/30 Ml Solution 20 GM PO TIDWM Levothyroxine (Levothyroxine) 150 Mcg Tablet 150 MCG PO HS Melatonin/Pyridoxine (Melatonin 3 mg Tablet) 1 Each Tablet 1 EACH PO DAILYWD Metformin ER (Metformin ER) 1,000 Mg Tablet 1,000 MG PO BIDWM Multivit-Min/FA/Lycopene/Lut (Senior Tabs) 0.4 Mg-300 Mcg-250 Mcg Tablet 1 EACH PO DAILYWL Nadolol (Nadolol) 20 Mg Tablet 20 MG PO QAM Potassium Chloride ER (Potassium Chloride ER) 20 Meq Tablet.er 20 MEQ PO QAM TAKE WITH FOOD Quetiapine Fumarate (Quetiapine Fumarate) 25 Mg Tablet 12.5 MG PO DAILYWD Rifaximin (Xifaxan) 550 Mg Tablet 550 MG PO BIDWM Sennosides (Senna Laxative) 25 Mg Tablet 25 MG PO QAM Spironolactone (Spironolactone) 25 Mg Tablet 25 MG PO QAM Venlafaxine ER (Venlafaxine ER) 150 Mg Cap.er.24h 150 MG PO QAM Warfarin Sodium (Warfarin Sodium) 1 Mg Tablet 1 MG PO DAILYWD Scheduled PRN Clotrimazole (Itch Relief) 1 % Cream..g. 1 APPLIC TP BID PRN PRN RASH Glycerin (Glycerin) 1 Each Supp.rect 1 EACH RC DAILY PRN PRN For Constipation Nystatin (Nystatin) 1 Each Powder.ea. 1 APPLIC TOPICAL BID PRN PRN RASH Polyethylene Glycol 3350 (Miralax) 17 Gm Powd.pack 17 GM PO DAILY PRN PRN For Constipation Tramadol (Tramadol) 50 Mg Tablet 50 MG PO Q6H PRN PRN For Pain oxyCODONE (oxyCODONE) 5 Mg Capsule 2.5 MG PO Q6H PRN PRN For Pain IF TRAMADOL NOT EFFECTIVE FOR PAIN General Time Seen by MD: 14:00 Transferred From: care home Chief Complaint Decreased alertness, Decreased responsiveness Hx Obtained From: Son Arrived By: Ambulance Sudden in Onset?: Yes Onset Occurred: 5 - 8 hours ago Symptom Duration: Since onset Progression since Onset: Unchanged Recent Healthcare: Recent hospitalization Similar Sx Previous: Yes Risk Factors )( IC Bleed Risk Strat Age (<1 yr or >60 yrs) Blood thinners )( SAH Risk Stratification Anticoagulation therapy Hypertension RF Statements: Risk factors reviewed Past Medical History Past Medical History Notes: PCP: Dr. Morocho Past Medical History Liver cirrhosis - diabetes related Drop foot Thyroid issues Rheumatoid arthritis Osteoarthritis Heart failure Chronic UTI's Asymmetrical neuropathy affecting the right leg Recurrent UTI GERD Nephrolithiasis Chronic atrial fibrillation on chronic anticoagulation Ascites Reports: Diabetes mellitus, GERD, Hyperlipidemia, Hypertension Reports: Depression Past Surgical History Left arm surgery Per PMHx patient has had: cubital tunnel release Did have a left ankle fracture in 2016 but not requiring a procedure Reports: Appendectomy, Cholecystectomy, Tonsillectomy Reports: Carpal tunnel Family History Father had COPD and related to heart disease at age 75. Mother had type II diabetes and osteoarthritis and of pneumonia at age 85. Sister had type II diabetes and osteoarthritis and recently causes uncertain but it was following hip and shoulder fractures. Smoking History Never Smoker Social History Alcohol Use: "Social" Drug Use: Denies drug use Other Social History: Good social support, Lives with children, Local resident Ambulatory Status Walker Review of Systems Unable to Obtain ROS Mental status Physical Exam Gen: Elderly woman not alert or oriented, somnolent, intermittently obeys commands but quickly loses focus Neck: Supple, ROM appropriate for age HEENT: Mucous membranes slightly dry, PERRL, EOMI but does not track well, no scleral icterus CV: RRR, no murmurs rubs or gallops Resp: Lungs with mild bibasilar crackles, no wheezing rales or rhonchi Abdomen: Distended with palpable fluid wave, Liver palpable 2 fingerbreadths below costal margin, BS diminished 4Q Extr: mild BL LE edema Neuro: difficult to assess as patient does not follow commands well, CN 2-12 grossly intact, no facial asymmetry, strength Initial Vital Signs Vital Signs (First) Date Time Temp Pulse Resp B/P Pulse Ox O2 Delivery O2 Flow Rate FiO2 09/08/16 13:33 36.5 70 15 114/52 97 Room Air Initial VS: Reviewed, Vital signs abnormal (Mild Hypotension) Interpretation & Diagnostics Lab Results Interpretation Result Diagram: 09/08/16 1500 09/08/16 2018 Test 09/08/16 14:28 09/08/16 15:00 Urine Color Straw (YELLOW) Urine Appearance Clear (CLEAR,HAZY) Urine pH 6.0 (5.0-8.0) Urine Specific [place] 1.010 (1.003-1.035) Urine Protein Negativemg/dL (NEG,TRACE) Urine Glucose (UA) Negativemg/dL (NEGATIVE) Urine Ketones Tracemg/dL (NEGATIVE) Urine Occult Blood Negative (NEGATIVE) Urine Nitrite Negative (NEGATIVE) Urine Bilirubin Negative (NEGATIVE) Urine Urobilinogen Normalmg/dL (NORMAL) Urine Leukocyte Esterase Small (NEGATIVE) Urine RBC 0-2/hpf (0-2) Urine WBC 11-50/hpf (0-5) Urine Epithelial Cells Occasional/hpf (NONE-MOD) Urine Crystals None seen (NONE SEEN) Urine Bacteria None/hpf (NONE-FEW) Urine Hyaline Casts Occasional/lpf (NONE) Urine Granular Casts None seen (NONE SEEN) Urine Waxy Casts None seen (NONE SEEN) Urine Red Blood Cell Casts None seen (NONE SEEN) Urine White Blood Cell Casts None seen (NONE SEEN) Urine Mucus None seen (None Seen) Urine Trichomonas None seen (NONE SEEN) Urine Yeast None (NONE SEEN) Urinalysis Comment None Urine Culture Reflexed Indicated White Blood Count 9.6th/mm3 (3.8-10.1) Red Blood Count 3.57mil/mm3 (3.90-5.20) Hemoglobin 11.9g/dL (12.0-15.6) Hematocrit 35.2% (35.0-46.0) Mean Corpuscular Volume 98.6fL (81-100) Mean Corpuscular Hemoglobin 33.3pg (27.0-35.0) Mean Corpuscular Hemoglobin Concent 33.8% (32.0-37.0) Red Cell Distribution Width 16.9% (12.3-15.4) Platelet Count 87bil/L (150-400) Neutrophils (%) (Auto) 69.7% (40-74) Lymphocytes (%) (Auto) 16.3% (14-46) Monocytes (%) (Auto) 10.7% (4-12) Eosinophils (%) (Auto) 2.7% (0-5) Basophils (%) (Auto) 0.3% (0-3) Prothrombin Time 35.4sec (8.1-12.5) Prothromb Time International Ratio 3.23ratio Total Bilirubin 1.3mg/dL (0.0-1.2) Aspartate Amino Transf (AST/SGOT) 74U/L (0-50) Alanine Aminotransferase (ALT/SGPT) 49U/L (0-32) Alkaline Phosphatase 107U/L (25-165) Ammonia 50ug/dL (18-53) Total Protein 7.2g/dL (6.4-8.4) Albumin 2.4g/dL (3.4-5.0) Hold Meyrs Top Tube Received (Received) CT Head Interpretation NL CT Head Findings: No acute disease, Normal brain (Chronic microvascular ischemic changes), Normal soft tissues, No mass, No midline shift, No skull fracture Re-Eval/Medical Decision Med Decision/Clinical Course This is a patient with chronic waxing waning mental status usually secondary to constipation and hepatic encephalopathy. This time her son relates that she has been having adequate BMs for the past several weeks. Urinalysis indicative of UTI which is a possible contributor to her AMS, Rocephin given in the ED. Potassium back elevated at 6.4, Ca gluconate, Insulin and glucose, and Kayexalate given for hyperkalemia. Given the patient's profound AMS with concurrent UTI and electrolyte abnormalities we believe the patient would benefit from admission for IV antibiotics, electrolyte correction, and to address her AMS. We have spoken with Dr. Barlow the admitting physician who agrees with admission. Counseled Regarding: Diagnosis, Need for follow-up, Need for admission Patient Discharge & Departure Shift Change Sign-Out Patient Care Transferred: Yes Discussed Complaint(s): Yes Laboratory Evaluation: Lab evaluation discussed Imaging Studies: Imaging discussed Impression: Primary Impression: Altered mental state Altered mental status type: somnolence Qualified Code: R40.0 - Somnolence Additional Impression: UTI (urinary tract infection) Urinary tract infection type: site unspecified Hematuria presence: without hematuria Qualified Code: N39.0 - Urinary tract infection, site not specified Disposition: ADMITTED TO HOSPITAL Discharge Condition All VS Reviewed: Yes Condition: Stable Referrals: Lacey Alexis MD (PCP) EDSupervising Provider for APC: Jose Rodriguez MD Attending Statement I discussed patient with resident Nai. I evaluated patient independently and agree with plan as above. In brief 80-year-old female with cirrhosis and history of hepatic encephalopathy presenting with altered mental status since earlier today. Last known at baseline last night. More somnolent today per son. Vital signs stable. Arousable on exam. Ammonia is 50. Potassium is 6.3. Urine suggestive of UTI. Chest x-ray questionable pneumonia. Patient treated with Rocephin and azithromycin. Blood cultures sent. CT brain no acute pathology. We will admit for altered mental status, UTI, pneumonia, Hyperkalemia. copies to: Lacey Alexis MD, David E DO Sep 08, 2016 14:02 Jose Rodriguez MD Sep 09, 2016 06:43 Laboratory Evaluation: Lab evaluation discussed Imaging Studies: Imaging discussed Impression: Primary Impression: Altered mental state Altered mental status type: somnolence Qualified Code: R40.0 - Somnolence Additional Impression: UTI (urinary tract infection) Urinary tract infection type: site unspecified Hematuria presence: without hematuria Qualified Code: N39.0 - Urinary tract infection, site not specified Disposition: ADMITTED TO HOSPITAL Discharge Condition All VS Reviewed: Yes Condition: Stable Referrals: Lacey Alexis MD (PCP) copies to: Lacey Alexis MD, David E DO Sep 08, 2016 14:02
[2016-09-08 14:38] LABS: APPEARANCE,URINE CLEAR (CLEAR,HAZY); COLOR,URINE STRAW (YELLOW); OCCULT BLOOD,URINE NEGATIVE (NEGATIVE); UROBILINOGEN,URINE NORMAL (NORMAL)
--- NOTE | 2016-09-08 15:07 | DRSVH ---
PROCEDURE: CT BRAIN WITHOUT CONTRAST ([id number]) INDICATIONS: AMS TECHNIQUE: Noncontrast 4.5 mm thick angled axial sections acquired from the foramen magnum to the vertex, with c oronal reformats. COMPARISON: [facility], CT, CT BRAIN WO CON, 07/11/2016, 15:33. FINDINGS: Image quality: Excellent. CSF spaces: Basal cisterns are patent. No extra-axial fluid collections. The ventricles are symmet julissa in size and shape. Brain: No intracranial bleeds or masses. There is cerebral volume loss for age, with resultant vent ricular and sulcal prominence. There are periventricular and deep white matter chronic small vessel ischemic changes. There is intracranial internal carotid artery atherosclerosis. Skull and face: Calvarium and visualized facial bones appear intact, without suspicious lesions. Sinuses: Visualized sinuses and mastoids are clear. IMPRESSION: 1. No acute intracranial abnormalities. 2. Cerebral volume loss and chronic microvascular ischemic changes. Dictated by: Deniz Ibanez M.D. on 09/08/2016 at 15:03 Approved by: Deniz Ibanez M.D. on 09/08/2016 at 15:06
[2016-09-08 15:13] LABS: BASOPHILS % (AUTO) 0.3 % (0-3); EOSINOPHILS % (AUTO) 2.7 % (0-5); MONOCYTES % (AUTO) 10.7 % (4-12); Mean Corpuscular Hemoglobin 33.3 pg (27.0-35.0); Mean Corpuscular Volume 98.6 fL (81-100); NEUTROPHILS % (AUTO) 69.7 % (40-74); Platelet Count 87 bil/L (150-400)
[2016-09-08] MEDS ORDERED: cefTRIAXone Inj 1,000 MG in Dextrose 5% Minibag Plus 50 ML IV ONE (15:15)
[2016-09-08 15:43] VITALS: BP 90/50; PULSE 79; RESP 17; O2SAT 100
[2016-09-08] MEDS ORDERED: Insulin Human NPH 100 Unit/mL 3 mL Inj SUBQ ONE (15:50)
[2016-09-08] MEDS ORDERED: DEXTROSE 10% IV ONE (15:50)
[2016-09-08] MEDS ORDERED: Calcium GLUCO 10% (mEq) Inj 9.3 MEQ in Dextrose 5% 100 ML IV ONE (15:50)
[2016-09-08 16:09] LABS: INR 3.23 ratio
[2016-09-08] MEDS ORDERED: Alum-Mag Hydrox-Simeth 30 mL Suspension PO PRN (16:10)
[2016-09-08] MEDS ORDERED: Polyethylene Glycol (PEG) 17 Gm Powder PO PRN (16:10)
[2016-09-08] MEDS ORDERED: Ondansetron 2 mg/mL 2 mL Inj IVPUSH PRN (16:10)
[2016-09-08] MEDS ORDERED: Insulin Human REGular-Omnicell 100 Unit/mL IV ONE (16:55)
--- NOTE | 2016-09-08 16:58 | DRSVH ---
PROCEDURE: X-RAY CHEST ONE VIEW, PORTABLE ([id number]) INDICATIONS: altered mental status TECHNIQUE: One view of the chest was acquired. COMPARISON: [facility] [place], CR, CHEST 2VW, 03/12/2011, 14:35. [facility], CR, XR CHEST 1VW (PORTABLE), 08/30/2015, 20:57. [facility], CR, XR CHEST 1VW (PORTABLE), 07/15/2016, 9:40. [facility], CR, XR CHEST 1VW (PORTABLE), 07/22/2016, 14:37. [facility], CR, XR CHEST 1VW (PORTABLE), 07/29/2016, 8:24. FINDINGS: Surgical changes and devices: None. Lungs and pleura: Chronic bilateral interstitial infiltrates. There is left basilar consolidation. No pleural effusions or pneumothorax. Mediastinum: Mediastinal contours appear normal. Heart size is normal. Bones and chest wall: No suspicious bony lesions. Overlying soft tissues appear unremarkable. IMPRESSION: 1. Left basilar consolidation suspicious for pneumonia. 2. Chronic bilateral interstitial infiltrates consistent with chronic interstitial lung disease. Dictated by: Deniz Ibanez M.D. on 09/08/2016 at 16:56 Approved by: Deniz Ibanez M.D. on 09/08/2016 at 16:57
[2016-09-08] MEDS ORDERED: MULT-1083 PO (17:14)
[2016-09-08] MEDS ORDERED: VENL150C98 PO (17:14)
[2016-09-08] MEDS ORDERED: METF-496 PO (17:14)
[2016-09-08] MEDS ORDERED: FOLI1TAB18 PO (17:14)
[2016-09-08] MEDS ORDERED: SPIR50TA2 PO (17:14)
[2016-09-08] MEDS ORDERED: RIFA550T3 PO (17:14)
[2016-09-08] MEDS ORDERED: FURO40TA4 PO (17:14)
[2016-09-08] MEDS ORDERED: QUET25TA73 PO (17:17)
[2016-09-08] MEDS ORDERED: DIGO125T73 PO (17:17)
[2016-09-08] MEDS ORDERED: WARF1TAB6 PO (17:19)
[2016-09-08] MEDS ORDERED: GLYC-11 RC (17:22)
[2016-09-08] MEDS ORDERED: NYST1POW23 TOPICAL (17:22)
[2016-09-08] MEDS ORDERED: CLOT15CR66 TP (17:22)
[2016-09-08] MEDS ORDERED: NADO20TA PO (17:24)
[2016-09-08] MEDS ORDERED: SPIR25TA3 PO (17:26)
[2016-09-08] MEDS ORDERED: POTA-62 PO (17:27)
[2016-09-08 17:31] VITALS: BP 90/50; PULSE 79; RESP 17; O2SAT 100
[2016-09-08 17:34] VITALS: BP 90/40; PULSE 77; RESP 16; O2SAT 99
[2016-09-08 18:46] VITALS: BP 100/55; PULSE 69; RESP 16; O2SAT 96
[2016-09-08] MEDS ORDERED: Azithromycin Inj 500 MG in Dextrose 5% 250 ML IV ONE (18:55)
--- NOTE | 2016-09-08 19:48 | PCM.HPMED ---
Subjective Date of Service Sep 08, 2016 Primary Provider: Admitting Physician: Adal Barlow MD Primary Care Physician: Lacey Alexis MD Attending Physician: Adal Barlow MD Admit Status: From the Emergency Department, Direct Admit, Remote Telemetry Chief Complaint: Confusion, UTI History of Present Illness: 80 female with dementia cared for at home by family. More lethargic today. She was fine yesterday. No recent fevers or chills, cough or URI symptoms. Today not able to arouse or move around as much. She is unable to provide any history. All history from son, with whom she lives. She does have a history of both UTI as well as possible hepatic encephalopathy. She is not able to answer any questions. Review of Systems: Not obtainable due to dementia Allergies Coded Allergies: Penicillins (Verified Allergy, Unknown, 09/08/16) levofloxacin (Verified Allergy, Unknown, 09/08/16) ROTATOR CUFF TEAR Home Medications Alpha Lipoic Acid (Alpha Lipoic Acid) 200 Mg Capsule 200 MG PO TID Amitriptyline (Amitriptyline) 10 Mg Tablet 10 MG PO HS Cholecalciferol (Vitamin D3) (Vitamin D3) 1,000 Unit Tab.chew 1,000 UNIT PO DAILYWL Cyanocobalamin (Vitamin B-12) (Vitamin B12) 2,500 Mcg Tab.chew 2,500 MCG PO DAILY Digoxin (Digoxin) 125 Mcg Tablet 0.1875 MG PO DAILY Folic Acid (Folic Acid) 1 Mg Tablet 1 MG PO TID Furosemide (Furosemide) 40 Mg Tablet 40 MG PO DAILY Lactulose (Lactulose) 20 Gm/30 Ml Solution 20 GM PO TID Levothyroxine (Levothyroxine) 150 Mcg Tablet 150 MCG PO DAILY Melatonin/Pyridoxine (Melatonin 3 mg Tablet) 1 Each Tablet 1 EACH PO HS Metformin ER (Metformin ER) 1,000 Mg Tablet 500 MG PO BID Metoprolol Succinate ER (Toprol XL) 100 Mg Tabcr 50 MG PO DAILY Multivits-Min/Iron/FA/Lutein (Centrum Silver Women Tablet) 8 Mg Iron-400 Mcg- 300 Mcg Tablet 1 EACH PO DAILY Oxybutynin Chloride (Oxybutynin Chloride) 5 Mg Tablet 5 MG PO BID Quetiapine Fumarate (Quetiapine Fumarate) 25 Mg Tablet 12.5 MG PO HS Rifaximin (Xifaxan) 550 Mg Tablet 550 MG PO BID Sennosides (Senna Laxative) 25 Mg Tablet 25 MG PO QAM Spironolactone (Aldactone) 25 Mg Tablet 25 MG PO DAILY Venlafaxine ER (Venlafaxine ER) 150 Mg Tab.er.24 150 MG PO DAILY Warfarin Sodium (Warfarin Sodium) 5 Mg Tablet 5 MG PO DIRECTED Scheduled PRN Na Phos,M-B/Na Phos,Di-Ba (Fleet Enema) 133 Ml Enema 133 ML RC q72hr PRN PRN For Constipation Use if no bowel movement for greater than 48 hours. Not more frequently than every 3 days. Polyethylene Glycol 3350 (Miralax) 17 Gm Powd.pack 17 GM PO DAILY PRN PRN For Constipation Tramadol (Tramadol) 50 Mg Tablet 50 MG PO Q6H PRN PRN For Pain oxyCODONE (oxyCODONE) 5 Mg Capsule 2.5 MG PO DIRECTED PRN PRN For Pain PMH 1. Dementia 2. BOSS with cirrhosis 3. Recurrent hepatic encephalopathy 4. Ascites with paracentesis once before 5. PNA in June 2016 Family History Negative for BOSS Social History Occupation: none Hx Alcohol Use: Yes (once every few months, very little in the past 2 years) Hx Substance Use: No Hx Tobacco Use: No Smoking Status: Never Smoker Living Arrangement: with Family Exam Vital Signs Vital Sign - Last Date Time Temp Pulse Resp B/P Pulse Ox O2 Delivery O2 Flow Rate FiO2 09/08/16 18:46 36.6 69 16 100/55 96 Room Air Exam Arousable, not intelligible. No distress, speech not fluent Normal skull, normal nose and ears. Anicteric sclera and conjugate gaze. No facial droop Neck supple, normal thyroid, and no adenopathy. Lungs clear, normal effort and rate. heart regular, no murmur. Abdomen distended, not tender or tense. 3-4+ leg edema bilaterally No rash or ecchymosis normal joints Not able to answer questions. Moves all extremities. Lab and Diagnostics Labs UA SMALL LE Result Diagram: 09/08/16 1500 09/08/16 1649 X-Rays, CTs and MRIs CXR: IMPRESSION: 1. Left basilar consolidation suspicious for pneumonia. 2. Chronic bilateral interstitial infiltrates consistent with chronic interstitial lung disease. Assessment & Plan 1. Septic encephalopathy, POA. PNA (community acquired ) verses UTI. Blood Cx, and ceftriaxone plus azithro pending cultures and clinical course. 2. Dementia, POA. Follow 3. BOSS with cirrhosis, POA. Usual meds, hold aldactone. 4. Hyperkalemia, POA. as above, telemetry monitoring. 5. Ascites, POA. Tap for therapeutic and diagnostic reasons (rule out SBP). Ceftriaxone. 6. Multiple sacral ulcers and boggy heels, POA. Heel guards and wound care consult. DNR, verified with family [facility], over 2 nights stay anticipated. Pain Evaluation: Adequate Pain Control Resuscitation Status: DNR/DNI:Do Not Resuscitate/Intubate Time spent 40 min Adal Barlow MD Sep 08, 2016 19:48
[2016-09-08] MEDS: 0.9% Sodium Chloride 1,000 ML IV SCH (19:51)
[2016-09-08] MEDS: Lactulose 20 Gm/30 mL 30 mL Syrup PO SCH (20:30)
[2016-09-08 21:23] VITALS: PULSE 68
[2016-09-09] VITALS (7 sets, daily range): BP systolic 77–101; BP diastolic 45–71; PULSE 68–78; RESP 14–16; O2SAT 94–99
--- NOTE | 2016-09-09 03:33 | NUR ---
Urinary Retention Pt bladder scan shows more than >700mL. MD ordered villanueva to be put on pt. Emptied >800mL of urine. Will continue to monitor.
[2016-09-09] MEDS: 0.9% Sodium Chloride 1,000 ML IV SCH (03:37)
[2016-09-09] MEDS: Lactulose 20 Gm/30 mL 30 mL Syrup PO SCH ×3 (08:30→20:30)
[2016-09-09 08:48] LABS: BASOPHILS % (AUTO) 0.5 % (0-3); MONOCYTES % (AUTO) 12.7 % (4-12); Mean Corpuscular Hemoglobin 32.6 pg (27.0-35.0); NEUTROPHILS % (AUTO) 61.4 % (40-74); Platelet Count 81 bil/L (150-400)
[2016-09-09 09:26] LABS: INR 2.58 ratio
[2016-09-09] MEDS: cefTRIAXone Inj 1,000 MG in Dextrose 5% Minibag Plus 50 ML IV SCH (10:21)
[2016-09-09] MEDS: Azithromycin Inj 500 MG in Dextrose 5% w/Vial Mate 250 ML IV SCH (11:01)
[2016-09-09] MEDS ORDERED: Albumin 25% 25 GM in IV Premix 1 EACH IV ONE ×2 (11:40→18:10)
--- NOTE | 2016-09-09 11:45 | NUR ---
Wound Care Wound evaluation orders received, pt seen at bedside. 80 yo female admitted to [facility] with altered mental status per son (caregiver) report to ED staff. Patient is lying in a P500 low air loss bed, she has significant pedal edema and is unable to answer questions with any reliability at this time. Heel boots were removed and recommended heels be floated rather than use boots as her edema makes boots tight at anterior ankle putting this area of skin at risk for breakdown. Heel as not boggy on assessment today. In sidelying patient is noted to have 3 small pressure injuries at her sacrum if lines were drawn between them they would make a triangle with apex at midpoint of the sacrum. All three are approximately the same size at 1 cm L x 1 cm W and flush, these are stage 2 pressure injuries (POA). Currently calmoseptine is being used on them, I would recommend this be discontinued and instead wipe with shield wipes and protect with an adhesive foam dressing. Pressure ulcer protocol in place. Reconsult wound as needed.
--- NOTE | 2016-09-09 16:17 | NUR ---
BP Pt BP at 85/51, HR at 71. Pt is asymptomatic, in bed, confused with limited response - baseline since arrival. MD order for Albumin administered. Later BP 87/45, HR at 71, pt had no change in mental status from previous. paged, on site for evaluation. Continuing to evaluate for albumin to increase BP. Addendum: 09/09/16 at 1828 by SANDRA HOPKINS RN 1730 BP at 77/48. HR at 68. Pt condition no change from previous. paged to update. New orders for IV albumin. Will pass on to next shift.
--- NOTE | 2016-09-09 16:23 | NUR ---
SKIN Wound care in for eval. See WC note. WC directed to remove heel boots and not apply Calmoseptine on sacral pressure ulcers. Heels were improved and blanchable. SIDE HEMMER and board updated with information. Continuing with Pressure Ulcer protocol. Q2 Turns, P500 ANNALEE bed, float heels, frequent bed checks, and skin care.
--- NOTE | 2016-09-09 18:39 | NUR ---
Family Update on Pt Family in today for visit. Reports that pt has dementia but mild confusion at baseline. Current confused condition had rapid onset yesterday. At home pt has just small bites of food but primary intake is 3 Ensure a day. Pt has neuropathy in legs. No sensation in R leg and minimal sensation on L leg. Unable to use legs, bedrest and WC at home. MD updated with information.
--- NOTE | 2016-09-09 19:11 | PCM.PNMED ---
Subjective Date of Service Sep 09, 2016 Subjective Patient wakes to verbal stimuli but mostly leaves eyes closed. She is able to follow commands some of which she does slowly. She endorses no pain or discomfort and states that she is sleepy Exam Vital Signs Vital Sign - Last Date Time Temp Pulse Resp B/P Pulse Ox O2 Delivery O2 Flow Rate FiO2 09/09/16 05:57 36.7 70 16 96/51 94 Room Air Intake and Output 09/08/16 09/08/16 09/09/16 Cumulative From/Thru 15:00 23:00 07:00 09/08/16 13:33 - 09/09/16 06:40 Intake Total 0 ml 0 ml Output Total 715 ml 715 ml Balance -715 ml -715 ml Intake Oral 0 ml 0 ml Output Urine Total 715 ml 715 ml Exam General: Sleepy, no acute distress, well-developed, well-nourished elderly female HEENT: Normocephalic, atraumatic. External ears without defect. Pupils equal, round, and reactive to light and accommodation. Anicteric sclerae, moist conjunctivae. Oropharynx free of erythema and cobble stoning with moist mucosa. Neck: Supple. No jugular venous distension. No lymphadenopathy or thyromegaly. Cardiovascular: Regular rate and rhythm with soft systolic murmur, no rubs, or gallops appreciated Pulmonary: Poor air movement, Clear to auscultation bilaterally with mild diffuse wheezes. Normal respiratory effort with no use of accessory muscles. Abdomen: Bowel tones present. Soft, nontender, mildly distended. No hepatosplenomegaly or masses appreciated. Extremities: No clubbing, cyanosis, edema, or lymphadenopathy appreciated. Skin: Normal temperature, turgor, and texture; no rash, ulcers, or subcutaneous nodules appreciated. Neurological: Cranial nerves grossly intact. Normal muscle strength with hand squeeze, patient slowly following commands. Lab and Diagnostics Result Diagram: 09/08/16 1500 09/08/16 2018 X-Rays, CTs and MRIs CXR: IMPRESSION: 1. Left basilar consolidation suspicious for pneumonia. 2. Chronic bilateral interstitial infiltrates consistent with chronic interstitial lung disease. CT BRAIN WITHOUT CONTRAST: IMPRESSION: 1. No acute intracranial abnormalities. 2. Cerebral volume loss and chronic microvascular ischemic changes. Dictated by: Deniz Ibanez M.D. on 09/08/2016 at 15:03 Assessment & Plan 80-year-old female with past medical history of dementia, Pagan with cirrhosis, recurrent hepatic encephalopathy, ascites presented to the emergency department with altered mental status of acute onset. 1. Possibly Acute on Chronic hepatic encephalopathy, POA. improving -initially suspected septic encephalopathy due to pneumonia verses UTI.looks unlikely. Blood Cx pending, and ceftriaxone plus azithromycin -Respiratory viral PCR and strep pneumoniae urine antigen negative -Continue lactulose 2. Dementia, POA. Follow, per family she is not at her baseline. 3. PAGAN with cirrhosis, POA. -Resume rifaximin and lactulose once patient able to tolerate by mouth medication, hold aldactone. 4. Hyperkalemia, POA, -Monitor with a.m. CMP 5. Ascites, POA. -Tap for therapuetic and diagnostic reasons (rule out SBP). -Ceftriaxone. -25 of albumin given twice today -INR high and paracentesis on hold -patient mentation improved with lactulose,SBP unlikely,no evidence of infection ,no much discomfort from distension,will hold off paracentesis 6. Multiple sacral ulcers and boggy heels, POA. -Heel guards removed, floating heels -wound care following, appreciate their recommendations Chronic conditions: Hypothyroidism -Resume levothyroxine once patient able to tolerate by mouth medication Atrial fibrillation -Continue warfarin and digoxin once patient able to tolerate by mouth medication DNR Bowel regimen Senna and MiraLAX PRN. Zofran when necessary for nausea and vomiting. DVT prophylaxis patient anticoagulated with warfarin Patient was admitted under inpatient status with expected length of stay greater than 2 midnights due to severity of presenting symptoms, risk of adverse event, and complexity of treatment plan. VTE Mechanical Devices: Intermittant Pneumatic CD Resuscitation Status: DNR/DNI:Do Not Resuscitate/Intubate Attending Statement The patient was seen and examined independently on 09/09/2016 and case discussed with Dr. Thayer , I agree with the history, exam and plan as outlined in the note above. Edel Thayer DO Sep 09, 2016 07:42 Jameson Graham MD Sep 10, 2016 07:26
[2016-09-10] VITALS (8 sets, daily range): BP systolic 96–110; BP diastolic 57–67; PULSE 69–78; RESP 16–20; O2SAT 93–97
[2016-09-10] MEDS ORDERED: Dextrose 5% 0.9% NaCl 250 ML in IV Bag 1 EACH IV ONE (01:40)
[2016-09-10 07:09] LABS: BASOPHILS % (AUTO) 0.6 % (0-3); EOSINOPHILS % (AUTO) 6.4 % (0-5); Mean Corpuscular Hemoglobin 33.3 pg (27.0-35.0); NEUTROPHILS % (AUTO) 55.2 % (40-74); Platelet Count 67 bil/L (150-400)
[2016-09-10 07:46] LABS: Magnesium 1.7 mg/dL (1.6-2.6)
[2016-09-10] MEDS: Lactulose 20 Gm/30 mL 30 mL Syrup PO SCH ×3 (08:30→20:47)
[2016-09-10 08:34] LABS: INR 2.12 ratio
[2016-09-10] MEDS: cefTRIAXone Inj 1,000 MG in Dextrose 5% Minibag Plus 50 ML IV SCH (09:32)
[2016-09-10] MEDS: Azithromycin Inj 500 MG in Dextrose 5% w/Vial Mate 250 ML IV SCH (09:33)
--- NOTE | 2016-09-10 14:27 | NUR ---
Social Work Initial Assessment Attempt neon sign worker met with patient at bedside and attempted to complete initial assessment, but patient was alert but not oriented. SW attempted to call patient's NOK, Matt Bright [phone], but there was no answer. SW left a message with her name and number requesting a call back. SW will continue to follow and assist patient throughout stay. Latrice Sheth, PRANAV, ACM
--- NOTE | 2016-09-10 14:42 | NUR ---
LANCE Patient is non-decisional and SW attempted to call patient's NOK, but there was no answer. SW left a message requesting a call back.
--- NOTE | 2016-09-10 16:08 | NUR ---
Evaluation completed. Please go to "Notes" then click on "Assessments and Notes" (bottom left corner of screen). Then select appropriate discipline tab on top of screen.
--- NOTE | 2016-09-10 17:41 | PCM.CONPHA ---
Subjective Date of Service: Sep 10, 2016 Confusion, UTI Reason for Pharmacy Consult: Anticoagulation Management Objective Vital Signs Date Time Temp Pulse Resp B/P Pulse Ox O2 Delivery O2 Flow Rate FiO2 09/10/16 16:21 36.4 71 18 107/67 95 Room Air 09/10/16 11:43 36.7 72 20 97/65 95 Room Air 09/10/16 08:15 36.5 69 18 100/59 93 Room Air 09/10/16 08:00 73 09/10/16 06:19 36.7 75 16 105/63 95 Room Air 09/10/16 05:38 71 09/10/16 00:44 37.2 74 16 96/57 94 Room Air 09/09/16 20:13 36.7 68 16 92/55 98 Room Air Intake and Output 09/08/16 09/09/16 09/10/16 00:00 00:00 00:00 Intake Total 185 ml Output Total 1115 ml Balance -930 ml Weight (Kilograms): 76 Height (Feet): 5 Height (Inches): 7 Test 09/08/16 14:28 09/08/16 15:00 09/10/16 06:50 Urine Color Straw (YELLOW) Urine Appearance Clear (CLEAR,HAZY) Urine pH 6.0 (5.0-8.0) Urine Specific [place] 1.010 (1.003-1.035) Urine Protein Negativemg/dL (NEG,TRACE) Urine Glucose (UA) Negativemg/dL (NEGATIVE) Urine Ketones Tracemg/dL (NEGATIVE) Urine Occult Blood Negative (NEGATIVE) Urine Nitrite Negative (NEGATIVE) Urine Bilirubin Negative (NEGATIVE) Urine Urobilinogen Normalmg/dL (NORMAL) Urine Leukocyte Esterase Small (NEGATIVE) Urine RBC 0-2/hpf (0-2) Urine WBC 11-50/hpf (0-5) Urine Epithelial Cells Occasional/hpf (NONE-MOD) Urine Crystals None seen (NONE SEEN) Urine Bacteria None/hpf (NONE-FEW) Urine Hyaline Casts Occasional/lpf (NONE) Urine Granular Casts None seen (NONE SEEN) Urine Waxy Casts None seen (NONE SEEN) Urine Red Blood Cell Casts None seen (NONE SEEN) Urine White Blood Cell Casts None seen (NONE SEEN) Urine Mucus None seen (None Seen) Urine Trichomonas None seen (NONE SEEN) Urine Yeast None (NONE SEEN) Urinalysis Comment None Urine Culture Reflexed Indicated Hold Myers Top Tube Received (Received) White Blood Count 6.4th/mm3 (3.8-10.1) Red Blood Count 2.88mil/mm3 (3.90-5.20) Hemoglobin 9.6g/dL (12.0-15.6) Hematocrit 28.8% (35.0-46.0) Mean Corpuscular Volume 100.0fL (81-100) Mean Corpuscular Hemoglobin 33.3pg (27.0-35.0) Mean Corpuscular Hemoglobin Concent 33.3% (32.0-37.0) Red Cell Distribution Width 16.9% (12.3-15.4) Platelet Count 67bil/L (150-400) Neutrophils (%) (Auto) 55.2% (40-74) Lymphocytes (%) (Auto) 21.2% (14-46) Monocytes (%) (Auto) 16.0% (4-12) Eosinophils (%) (Auto) 6.4% (0-5) Basophils (%) (Auto) 0.6% (0-3) Prothrombin Time 23.0sec (8.1-12.5) Prothromb Time International Ratio 2.12ratio Sodium Level 140mEq/L (134-144) Potassium Level 4.7mEq/L (3.5-5.2) Chloride Level 102mEq/L (97-108) Carbon Dioxide Level 24mmol/L (18-29) Blood Urea Nitrogen 30mg/dL (8-27) Creatinine 0.99mg/dL (0.57-1.00) Estimat Glomerular Filtration Rate 78mL/min (>59) Glucose Level 81mg/dL (60-99) Calcium Level 9.3mg/dL (8.5-10.1) Magnesium Level 1.7mg/dL (1.6-2.6) Total Bilirubin 1.3mg/dL (0.0-1.2) Aspartate Amino Transf (AST/SGOT) 54U/L (0-50) Alanine Aminotransferase (ALT/SGPT) 34U/L (0-32) Alkaline Phosphatase 75U/L (25-165) Ammonia 118ug/dL (18-53) Total Protein 6.1g/dL (6.4-8.4) Albumin 2.6g/dL (3.4-5.0) Procalcitonin 0.37ng/mL (0.00-0.08) Assessment/Plan Assessment/Plan Warfarin management per pharmacy Indication: atrial fibrillation INR goal: 2-3 Home dose: 1 mg daily Admit dx: hepatic encephalopathy Possible interactions: azithromycin, Seroquel, rifaximin INR today: 2.12 INR within therapeutic range today. Will order home dose. Give warfarin 1 mg PO x1 this evening. Pharmacy to continue to monitor and dose warfarin daily. Thank you, Sherry Bolden Pharmacist Sherry Bolden Sep 10, 2016 17:41
--- NOTE | 2016-09-10 18:12 | NUR ---
PO intake Pt evaluated by speech therapy, diet advanced to Pureed, thins. Meds crushed in apple sauce. Pt offered small bites, with sips of Ensure, tolerated well. Consumed 25% of meal. Will continue to encourage oral intake. Frequent rounding in place, will continue to monitor.
--- NOTE | 2016-09-10 18:25 | PCM.PNMED ---
Subjective Date of Service Sep 10, 2016 Subjective Overnight no acute events reported This morning patient is resting well, she wakes to stimuli. She reports no pain however is not answering questions in complete sentences. She does not report nausea or abdominal pain. Exam Vital Signs Vital Sign - Last Date Time Temp Pulse Resp B/P Pulse Ox O2 Delivery O2 Flow Rate FiO2 09/10/16 08:15 36.5 69 18 100/59 93 Room Air Intake and Output 09/09/16 09/09/16 09/10/16 Cumulative From/Thru 15:00 23:00 07:00 09/08/16 13:33 - 09/10/16 06:42 Intake Total 185 ml 0 ml 185 ml Output Total 400 ml 325 ml 1440 ml Balance -215 ml -325 ml -1255 ml Intake Oral 0 ml 0 ml 0 ml IV Total 185 ml 185 ml Output Urine Total 400 ml 325 ml 1440 ml # Bowel Movements 0 0 Exam General: Sleepy, no acute distress, well-developed, well-nourished elderly female HEENT: Normocephalic, atraumatic. External ears without defect. Pupils equal, round, and reactive to light and accommodation. Anicteric sclerae, moist conjunctivae. Oropharynx free of erythema and cobble stoning with moist mucosa. Neck: Supple. No jugular venous distension. No lymphadenopathy or thyromegaly. Cardiovascular: Regular rate and rhythm with soft systolic murmur, no rubs, or gallops appreciated Pulmonary: Poor air movement, Clear to auscultation bilaterally with mild diffuse wheezes. Normal respiratory effort with no use of accessory muscles. Abdomen: Bowel tones present. Soft, nontender, mildly distended. No hepatosplenomegaly or masses appreciated. Extremities: Foot deformity at the ankle bilaterally No clubbing, cyanosis, edema, or lymphadenopathy appreciated. Skin: Normal temperature, turgor, and texture; no rash, ulcers, or subcutaneous nodules appreciated. Neurological: Cranial nerves grossly intact. Normal muscle strength with hand squeeze, patient slowly following commands. Lab and Diagnostics Result Diagram: 09/10/16 0650 09/10/16 0650 X-Rays, CTs and MRIs CXR: IMPRESSION: 1. Left basilar consolidation suspicious for pneumonia. 2. Chronic bilateral interstitial infiltrates consistent with chronic interstitial lung disease. CT BRAIN WITHOUT CONTRAST: IMPRESSION: 1. No acute intracranial abnormalities. 2. Cerebral volume loss and chronic microvascular ischemic changes. Dictated by: Deniz Ibanez M.D. on 09/08/2016 at 15:03 Assessment & Plan 80-year-old female with past medical history of dementia, Pagan with cirrhosis, recurrent hepatic encephalopathy, ascites presented to the emergency department with altered mental status of acute onset. 1. Possibly Acute on Chronic hepatic encephalopathy, POA. improving -initially suspected septic encephalopathy due to pneumonia verses UTI.looks unlikely with negative urine culture. Blood Cx pending, and ceftriaxone plus azithromycin -Respiratory viral PCR and strep pneumoniae urine antigen negative -Ammonia increased from 50 to 118 -Continue lactulose 2. Dementia, POA. Follow, per family she is not at her baseline. 3. PAGAN with cirrhosis, POA. -Resume rifaximin and lactulose once patient able to tolerate by mouth medication, hold aldactone. 4. Hyperkalemia, POA, -Monitor with a.m. CMP 5. Ascites, POA. -Tap for therapuetic and diagnostic reasons (rule out SBP). -Ceftriaxone. -25 of albumin given twice today -INR high and paracentesis on hold -patient mentation improved with lactulose,SBP unlikely,no evidence of infection ,no much discomfort from distension,will hold off paracentesis 6. Multiple sacral ulcers and boggy heels, POA. -Heel guards removed, floating heels -wound care following, appreciate their recommendations 7. Urinary retention, present on admission, chronicity unknown -Cason catheter placed in emergency department -Discontinue Cason catheter today Chronic conditions: Hypothyroidism -Resume levothyroxine once patient able to tolerate by mouth medication Atrial fibrillation -Continue warfarin and digoxin once patient able to tolerate by mouth medication DNR Bowel regimen Senna and MiraLAX PRN. Zofran when necessary for nausea and vomiting. DVT prophylaxis patient anticoagulated with warfarin Patient was admitted under inpatient status with expected length of stay greater than 2 midnights due to severity of presenting symptoms, risk of adverse event, and complexity of treatment plan. Pain Evaluation: Adequate Pain Control VTE Prophylaxis: Other (warfarin) VTE Mechanical Devices: Intermittant Pneumatic CD Resuscitation Status: DNR/DNI:Do Not Resuscitate/Intubate Attending Statement The patient was seen and examined independently on 09/10/2016 and case discussed with Dr. Thayer , I agree with the history, exam and plan as outlined in the note above. Edel Thayer DO Sep 10, 2016 08:42 Jameson Graham MD Sep 10, 2016 19:59
[2016-09-11 00:42] VITALS: BP 117/67; PULSE 84; RESP 18; O2SAT 97
[2016-09-11 05:21] VITALS: PULSE 78
[2016-09-11 05:54] VITALS: BP 135/78; PULSE 80; RESP 18; O2SAT 97
[2016-09-11 06:16] VITALS: PULSE 77
--- NOTE | 2016-09-11 06:36 | NUR ---
Mentation Pt very confused at beginning of shift, unable to follow any commands or make any sensical statements. However, pt more lucid in AM, able to answer simple questions and help with turns. Pt turned q 2hrs. Cason d/c'd in PM and pt incontinent since then, therefore Mepilex not applied over wound s on her bottom. Pt had no BM as of yet.
[2016-09-11 08:00] VITALS: PULSE 84
--- NOTE | 2016-09-11 08:10 | NUR ---
IV access Pt removed IV from R AC intact, area cleaned of dried blood. IV attempt x 1 unsuccessful, IV therapy contacted to restart. Frequent rounding in place, will continue to monitor. Addendum: 09/11/16 at 1211 by SHANTELL ALANIZ RN Abx discontinued, no IV fluids required. Per , Okay to leave IV out. Will continue to monitor.
[2016-09-11] MEDS: Lactulose 20 Gm/30 mL 30 mL Syrup PO SCH ×2 (08:29→15:04)
[2016-09-11 08:33] LABS: INR 2.29 ratio
[2016-09-11] MEDS ORDERED: Glucose 40% Oral Gel 15 Gm Tube PO PRN (11:45)
[2016-09-11] MEDS ORDERED: Insulin LISPRO 300 Unit/3 mL Inj SUBQ SCH (12:00)
--- NOTE | 2016-09-11 12:24 | PCM.PHAPRO ---
Progress Date of Service: Sep 11, 2016 Warfarin dosing [facility] Date -Sep 11-Aug INR 2.12 2.29 INR change 0.17 Warf Dose 1 MG 1 A/ Patient INR=2.29 therapeutic today P/ will continue home dose of 1mg Kali Salmeron [facility] Sep 11, 2016 12:24
--- NOTE | 2016-09-11 14:05 | PCM.DIMED ---
Edel Thayer DO 09/11/16 1404: Discharge Instructions Date of Service Sep 11, 2016 Dates of Hospitalization Sep 08, 2016 at 16:43 Discharge Diagnosis Discharge Diagnosis 1. Possible Acute on Chronic hepatic encephalopathy 2. Dementia 3. BOSS with cirrhosis 4. Hyperkalemia, POA, 5. Ascites, POA. 6. Multiple sacral ulcers and boggy heels, POA. 7. Urinary retention, present on admission, chronicity unknown Chronic conditions: Hypothyroidism Atrial fibrillation Medication Instructions Continue to take your lactulose and other home medications. Diet Other (pureed) Activity Home Health Phyical Therapy Call your provider Fever or Chills, Shortness of breath, Bleeding, Chest pain, Vomitting, Excessive diarrhea, Weakness (unilateral) Patient Instructions You were treated with antibiotics while you were in the hospital. There is no bacteria identified in urine and no viral cause of respiratory illness. It will be important for you to stay hydrated. Follow-up plan Follow-up with primary care provider next week. As this is one of multiple hospitalizations for altered mental status with dementia we recommend a Hospice care evaluation outpatient. Please discuss this with your primary care provider. This can be a wonderful resource not only for the patient but also the family as the use a holistic approach to provide a multifaceted care team for care of people with advanced illnesses. Follow-up Provider: Lacey Alexis MD Follow-up with PCP in: 1 week Jameson Graham MD 09/11/16 1639: Discharge Instructions Patient Instructions home with ,[facility] Attending's Statement The patient was seen and examined independently on 09/11/2016 and case discussed with Dr. Thayer , I agree with the discharge instructions as outlined in the note above. Edel Thayer DO Sep 11, 2016 14:04 Jameson Graham MD Sep 11, 2016 16:39
[2016-09-11] MEDS ORDERED: Insulin Human REGular 300 Unit/3 mL Inj SUBQ SCH (14:30)
--- NOTE | 2016-09-11 14:54 | DRSVH ---
PROCEDURE: X-RAY KUB ([id number]) INDICATIONS: ? CONSTIPATION TECHNIQUE: One view of the abdomen acquired. COMPARISON: None. FINDINGS: Surgical changes and devices: None. Bowel: Bowel gas pattern is nonspecific. There is mild gaseous distention of bowel loops within the abdomen and pelvis otherwise bowel gas pattern is normal. No pneumatosis or bowel thickening. No si gnificant stool. Soft tissues: No suspicious abdominal calcifications. Visualized solid organ contours appear normal in size. Bones: No suspicious bony lesions. IMPRESSION: Nonspecific bowel gas pattern. If patient's symptoms persist, recommend repeat imaging or CT. Dictated by: Matt Peters [facility] Interpreted: Bárbara Dillon MD on 09/11/2016 at 14:54 Transcribed by: TEJAS on 09/11/2016 at 14:54 Approved by: Bárbara Dillon MD, PhD on 09/11/2016 at 16:39
--- NOTE | 2016-09-11 15:45 | NUR ---
Urinary retention Bladder scan revealed 767 mls. MD aware, order received for in and out cath. In and out cath completed, return of 350 yellow urine drained to gravity. Pt tolerated well. Mepilex in place over sacral wounds. Will continue to monitor.
--- NOTE | 2016-09-11 15:49 | NUR ---
Social Work: Discharge Patient is discharging home with 24 hour family care and will resume with [facility]. Patient's son will pay for patient to be transported home via [employer]. [facility] was given access to patient's chart and JOSE EDUARDO spoke with Bull from [facility] and notified him of the patient's discharge. Latrice Sheth LMSW, ENZO
--- NOTE | 2016-09-11 16:15 | NUR ---
Discharge Pt discharged at this time, all belongings gathered and returned to family. No complains of increased pain. VSS. Mepilex in place over sacral wounds. No hard copy of prescriptions given. Discharge packet reviewed with son. Pt transferred from bed to wheelchair by tenor lift. [place] [facility] [place] to be driven home accompanied by son.
--- NOTE | 2016-09-11 20:43 | PCM.DC.MED ---
Discharge Summary Date of Service Sep 11, 2016 Dates of Hospitalization Date of Hospital Admission Sep 08, 2016 at 16:43 Date of Discharge: Sep 11, 2016 Providers: Admitting Physician: Adal Barlow MD Primary Care Physician: Lacey Alexis MD Attending Physician: Adal Barlow MD Diagnosis at Time of Discharge Diagnosis at Time of Discharge 1. Possible Acute on Chronic hepatic encephalopathy 2. Dementia 3. PAGAN with cirrhosis 4. Hyperkalemia, POA, 5. Ascites, POA. 6. Multiple sacral ulcers and boggy heels, POA. 7. Urinary retention, present on admission, chronicity unknown Chronic conditions: Hypothyroidism Atrial fibrillation Consultations Pharmacy for warfarin dosing Procedures XRay, CTs & MRIs CXR: IMPRESSION: 1. Left basilar consolidation suspicious for pneumonia. 2. Chronic bilateral interstitial infiltrates consistent with chronic interstitial lung disease. CT BRAIN WITHOUT CONTRAST: IMPRESSION: 1. No acute intracranial abnormalities. 2. Cerebral volume loss and chronic microvascular ischemic changes. Dictated by: Deniz Ibanez M.D. on 09/08/2016 at 15:03 X-RAY KUB: Bowel: Bowel gas pattern is nonspecific. There is mild gaseous distention of bowel loops within the abdomen and pelvis otherwise bowel gas pattern is normal. No pneumatosis or bowel thickening. No significant stool. IMPRESSION: Nonspecific bowel gas pattern. If patient's symptoms persist, recommend repeat imaging or CT. Dictated by: Matt Peters RR Interpreted: Bárbara Dillon MD on 09/11/2016 at 14:54 Brief History History of present illness admission per Dr. Barlow: 80 female with dementia cared for at home by family. More lethargic today. She was fine yesterday. No recent fevers or chills, cough or URI symptoms. Today not able to arouse or move around as much. She is unable to provide any history. All history from son, with whom she lives. Hospital Course 80-year-old female with past medical history of dementia, Pagan with cirrhosis, recurrent hepatic encephalopathy, ascites presented to the emergency department with altered mental status of acute onset. 1. Acute on Chronic hepatic encephalopathy, POA. improving -initially suspected septic encephalopathy due to pneumonia verses UTI.looks unlikely with negative urine culture. Blood Cx NGTD, Initially treated with ceftriaxone plus azithromycin -Respiratory viral PCR and strep pneumoniae urine antigen negative -Ammonia increased from 50 to 118 -Continue lactulose -PATIENT NEEDS TO TAKE LACTULOSE REGULARLY titrating 2-3 bowel movements a day .SHE HAS HAD MULTIPLE ADMISSIONS FOR SIMILAR COMPLAINTS .she may need hospice eval outpatient given multiple hospitalizations and advanced dementia 2. Dementia, POA. Follow, 3. PAGAN with cirrhosis, POA. -Resume rifaximin and lactulose ,held spironolactone initially ,resumed up on discharge.needs BMP in 1 week with PCP 4. Hyperkalemia, POA, held spironolactone initially ,resumed up on discharge.needs BMP in 1 week with PCP 5. Ascites, POA. -initially considered Tap for therapuetic and diagnostic reasons (rule out SBP) . -treated with Ceftriaxone. -25 of albumin given twice -INR high and paracentesis held -patient mentation improved with lactulose,SBP unlikely,no evidence of infection ,no much discomfort from distension,held off paracentesis 6. Multiple sacral ulcers and boggy heels, POA. -Heel guards removed, floating heels -wound care following, appreciate their recommendations.home health up on discharge 7. Urinary retention, present on admission, chronicity unknown -Cason catheter placed in emergency department -Discontinued Cason catheter Chronic conditions: Hypothyroidism -Resume levothyroxine Atrial fibrillation -Continue warfarin and digoxin DNR Bowel regimen Senna and MiraLAX PRN. lactulose Patient was admitted under inpatient status with expected length of stay greater than 2 midnights due to severity of presenting symptoms, risk of adverse event, and complexity of treatment plan. Exam Vital Signs (Last) Date Time Temp Pulse Resp B/P Pulse Ox O2 Delivery O2 Flow Rate FiO2 09/11/16 08:00 84 09/11/16 05:54 36.8 18 135/78 97 Room Air Exam General: Sleepy, no acute distress, well-developed, well-nourished elderly female HEENT: Normocephalic, atraumatic. External ears without defect. Pupils equal, round, and reactive to light and accommodation. Anicteric sclerae, moist conjunctivae. Oropharynx free of erythema and cobble stoning with moist mucosa. Neck: Supple. No jugular venous distension. No lymphadenopathy or thyromegaly. Cardiovascular: Regular rate and rhythm with soft systolic murmur, no rubs, or gallops appreciated Pulmonary: Poor air movement, Clear to auscultation bilaterally with mild diffuse wheezes. Normal respiratory effort with no use of accessory muscles. Abdomen: Bowel tones present. Soft, nontender, mildly distended, no fluid wave appreciated. No hepatosplenomegaly or masses appreciated. Extremities: Foot deformity at the ankle bilaterally No clubbing, cyanosis, edema, or lymphadenopathy appreciated. Skin: Normal temperature, turgor, and texture; no rash, ulcers, or subcutaneous nodules appreciated. Neurological: Cranial nerves grossly intact. Normal muscle strength with hand squeeze, patient slowly following commands. Test 09/08/16 14:28 09/08/16 15:00 09/10/16 06:50 09/11/16 08:11 Urine Color Straw (YELLOW) Urine Appearance Clear (CLEAR,HAZY) Urine pH 6.0 (5.0-8.0) Urine Specific [place] 1.010 (1.003-1.035) Urine Protein Negativemg/dL (NEG,TRACE) Urine Glucose (UA) Negativemg/dL (NEGATIVE) Urine Ketones Tracemg/dL (NEGATIVE) Urine Occult Blood Negative (NEGATIVE) Urine Nitrite Negative (NEGATIVE) Urine Bilirubin Negative (NEGATIVE) Urine Urobilinogen Normalmg/dL (NORMAL) Urine Leukocyte Esterase Small (NEGATIVE) Urine RBC 0-2/hpf (0-2) Urine WBC 11-50/hpf (0-5) Urine Epithelial Cells Occasional/hpf (NONE-MOD) Urine Crystals None seen (NONE SEEN) Urine Bacteria None/hpf (NONE-FEW) Urine Hyaline Casts Occasional/lpf (NONE) Urine Granular Casts None seen (NONE SEEN) Urine Waxy Casts None seen (NONE SEEN) Urine Red Blood Cell Casts None seen (NONE SEEN) Urine White Blood Cell Casts None seen (NONE SEEN) Urine Mucus None seen (None Seen) Urine Trichomonas None seen (NONE SEEN) Urine Yeast None (NONE SEEN) Urinalysis Comment None Urine Culture Reflexed Indicated Hold Myers Top Tube Received (Received) White Blood Count 6.4th/mm3 (3.8-10.1) Red Blood Count 2.88mil/mm3 (3.90-5.20) Hemoglobin 9.6g/dL (12.0-15.6) Hematocrit 28.8% (35.0-46.0) Mean Corpuscular Volume 100.0fL (81-100) Mean Corpuscular Hemoglobin 33.3pg (27.0-35.0) Mean Corpuscular Hemoglobin Concent 33.3% (32.0-37.0) Red Cell Distribution Width 16.9% (12.3-15.4) Platelet Count 67bil/L (150-400) Neutrophils (%) (Auto) 55.2% (40-74) Lymphocytes (%) (Auto) 21.2% (14-46) Monocytes (%) (Auto) 16.0% (4-12) Eosinophils (%) (Auto) 6.4% (0-5) Basophils (%) (Auto) 0.6% (0-3) Sodium Level 140mEq/L (134-144) Potassium Level 4.7mEq/L (3.5-5.2) Chloride Level 102mEq/L (97-108) Carbon Dioxide Level 24mmol/L (18-29) Blood Urea Nitrogen 30mg/dL (8-27) Creatinine 0.99mg/dL (0.57-1.00) Estimat Glomerular Filtration Rate 78mL/min (>59) Glucose Level 81mg/dL (60-99) Calcium Level 9.3mg/dL (8.5-10.1) Magnesium Level 1.7mg/dL (1.6-2.6) Total Bilirubin 1.3mg/dL (0.0-1.2) Aspartate Amino Transf (AST/SGOT) 54U/L (0-50) Alanine Aminotransferase (ALT/SGPT) 34U/L (0-32) Alkaline Phosphatase 75U/L (25-165) Ammonia 118ug/dL (18-53) Total Protein 6.1g/dL (6.4-8.4) Albumin 2.6g/dL (3.4-5.0) Procalcitonin 0.37ng/mL (0.00-0.08) Prothrombin Time 24.9sec (8.1-12.5) Prothromb Time International Ratio 2.29ratio Microbiology Results Viral respiratory PCR negative Strep pneumo urine antigen negative Blood cultures negative at 2 days Urine culture negative Discharge Medications Discharge Medications Alpha Lipoic Acid (Alpha Lipoic Acid) 200 Mg Capsule 200 MG PO TIDWM (Reported) Amitriptyline (Amitriptyline) 10 Mg Tablet 10 MG PO DAILYWD (Reported) Cholecalciferol (Vitamin D3) (Vitamin D3) 1,000 Unit Tab.chew 1,000 UNIT PO DAILYWL (Reported) Digoxin (Digoxin) 125 Mcg Tablet 187.5 MCG PO DAILYWL (Reported) Folic Acid (Folic Acid) 1 Mg Tablet 1 MG PO TIDWM (Reported) Furosemide (Furosemide) 40 Mg Tablet 40 MG PO QAM (Reported) Lactulose (Lactulose) 20 Gm/30 Ml Solution 20 GM PO TIDWM (Reported) Levothyroxine (Levothyroxine) 150 Mcg Tablet 150 MCG PO HS (Reported) Melatonin/Pyridoxine (Melatonin 3 mg Tablet) 1 Each Tablet 1 EACH PO DAILYWD ( Reported) Metformin ER (Metformin ER) 1,000 Mg Tablet 1,000 MG PO BIDWM (Reported) Multivit-Min/FA/Lycopene/Lut (Senior Tabs) 0.4 Mg-300 Mcg-250 Mcg Tablet 1 EACH PO DAILYWL (Reported) Nadolol (Nadolol) 20 Mg Tablet 20 MG PO QAM (Reported) Potassium Chloride ER (Potassium Chloride ER) 20 Meq Tablet.er 20 MEQ PO QAM ( Reported) TAKE WITH FOOD Quetiapine Fumarate (Quetiapine Fumarate) 25 Mg Tablet 12.5 MG PO DAILYWD ( Reported) Rifaximin (Xifaxan) 550 Mg Tablet 550 MG PO BIDWM (Reported) Sennosides (Senna Laxative) 25 Mg Tablet 25 MG PO QAM (Reported) Spironolactone (Spironolactone) 25 Mg Tablet 25 MG PO QAM (Reported) Venlafaxine ER (Venlafaxine ER) 150 Mg Cap.er.24h 150 MG PO QAM (Reported) Warfarin Sodium (Warfarin Sodium) 1 Mg Tablet 1 MG PO DAILYWD (Reported) As needed Clotrimazole (Itch Relief) 1 % Cream..g. 1 APPLIC TP BID PRN PRN RASH (Reported ) Glycerin (Glycerin) 1 Each Supp.rect 1 EACH RC DAILY PRN PRN For Constipation ( Reported) Nystatin (Nystatin) 1 Each Powder.ea. 1 APPLIC TOPICAL BID PRN PRN RASH ( Reported) Polyethylene Glycol 3350 (Miralax) 17 Gm Powd.pack 17 GM PO DAILY PRN PRN For Constipation Prescribed by: JOHNATHON BURGESS MD Tramadol (Tramadol) 50 Mg Tablet 50 MG PO Q6H PRN PRN For Pain Prescribed by: JOHNATHON BURGESS MD oxyCODONE (oxyCODONE) 5 Mg Capsule 2.5 MG PO Q6H PRN PRN For Pain (Reported) IF TRAMADOL NOT EFFECTIVE FOR PAIN Additional med instructions Continue to take your lactulose and other home medications. Followup Plan Disposition: Discharged home with home health Follow-up plan Follow-up with primary care provider next week. As this is one of multiple hospitalizations for altered mental status with dementia we recommend a Hospice care evaluation outpatient. Please discuss this with your primary care provider. This can be a wonderful resource not only for the patient but also the family as the use a holistic approach to provide a multifaceted care team for care of people with advanced illnesses. Discharge Diet: Other (pureed) Discharge Activity: Home Health Phyical Therapy Patient Instructions home with HH,resume home health Follow-up Provider: Lacey Alexis MD Follow-up with PCP in: 1 week Time spent 35 minutes Attending Statement The patient was seen and examined independently on 09/11/2016 and case discussed with Dr. Thayer , I agree with the discharge summary as outlined in the note above. copies to: Lacey Alexis MD, Erika R DO Sep 11, 2016 20:42 Jameson Graham MD Sep 12, 2016 07:35
== END 2016-09-11 16:13 | disposition home health service (06) | DRG 442 ==
LOC: SED 13:22 → MPC 16:43
PROVIDERS: ADMIT Hospitalist; ATTEND Hospitalist
DX: K72.00 Acute and subacute hepatic failure without coma (principal); R18.8 Other ascites; F03.90 Unspecified dementia, unspecified severity, without behavioral disturbance, psychotic disturbance, mood disturbance, and anxiety; K75.81 Nonalcoholic steatohepatitis (NASH); E87.5 Hyperkalemia; E03.9 Hypothyroidism, unspecified; I48.91 Unspecified atrial fibrillation; R33.9 Retention of urine, unspecified